=== PATIENT | female | born 1945 | race Caucasian/White ===

== ENCOUNTER 2017-04-21 07:07 | Emergency (ER) | payer OTHER ==
[2017-04-21 07:27] VITALS: BP 165/91; PULSE 102; RESP 20; TEMP 99.2; O2SAT 98
--- NOTE | 2017-04-21 07:39 | ED PDOC ---
Arrival/HPI - General Chief Complaint: ENT Problem Time Seen by Provider: 04/21/17 07:22 Historian: Patient - History of Present Illness Narrative History of Present Illness (Text): 04/21/17 07:36 72 year old female whose past medical history include hypertension and diabetes presents to the emergency department complaining of bleeding from the mouth since yesterday. Patient states she is unsure where it was coming from. Denies any pain. Denies history of bleeding disorder. Time/Duration: 24 hours Symptom Onset: Gradual Symptom Course: Unchanged Modifying Factors (Text): None Associated Symptoms (Text): None Past Medical History - Provider Review Nursing Documentation Reviewed: Yes - Reproductive Menopause: Yes - Cardiac Hx Hypertension: Yes - Endocrine/Metabolic Hx Diabetes Mellitus Type 2: Yes - Psychiatric Hx Substance Use: No Family/Social History - Physician Review Nursing Documentation Reviewed: Yes Family/Social History: Unknown Family HX Smoking Status: Unknown If Ever Smoked Hx Alcohol Use: No Hx Substance Use: No Allergies/Home Meds Allergies/Adverse Reactions: Allergies No Known Allergies Allergy (Verified 04/21/17 07:27) Home Medications: Home Meds Medication Instructions Recorded Confirmed Losartan/Hydrochlorothiazide 1 each PO DAILY 04/21/17 04/21/17 [Losartan-Hctz 100-25 mg Tab] Metoprolol Succinate [Toprol XL] 25 mg PO DAILY 04/21/17 04/21/17 Review of Systems - Review of Systems Constitutional: absent: Fevers ENT: Other (Bleeding from mouth) Hemo/Lymphatic: absent: Easy Bleeding Physical Exam Vital Signs Reviewed: Yes Vital Signs Temp Pulse Resp BP Pulse Ox 04/21/17 07:22 99.2 F 102 H 20 165/91 H 98 Temperature: Afebrile Blood Pressure: Normal Respiratory Rate: Normal Appearance: Positive for: Well-Appearing, Non-Toxic, Comfortable Pain Distress: None Mental Status: Positive for: Alert and Oriented X 3 - Systems Exam Head: Present: Atraumatic, Normocephalic Conjunctiva: Present: Normal Mouth: Present: Moist Mucous Membranes, Normal Tounge, Other (No active bleeding ) Pharnyx: Present: Normal. No: ERYTHEMA, EXUDATE Nose (External): Present: Atraumatic Nose (Internal): Present: Normal Inspection. No: No Active Bleeding Neurological: Present: GCS=15, CN II-XII Intact, Speech Normal Skin: Present: Warm, Dry, Normal Color. No: Rashes Psychiatric: Present: Alert, Oriented x 3, Normal Insight, Normal Concentration Medical Decision Making ED Course and Treatment: Impression: 72 year old female whose past medical history include hypertension and diabetes presents to the emergency department complaining of bleeding from the mouth since yesterday. Plan: -- Discharge, f/u with dentist Progress Notes: 04/21/17 07:40 Patient not complaining of any pain. No active bleeding on arrival. Bleeding disorder less likely. pt denies any other history of persistent bleeding, agnes ctive bleeding in er. Patient states she has a dentist and says she will follow up with them immediately after being discharged. 04/21/17 09:23 - Scribe Statement The provider has reviewed the documentation as recorded by the Alanna Fox Provider Scribe Attestation: All medical record entries made by the Kameronibmarj were at my direction and personally dictated by me. I have reviewed the chart and agree that the record accurately reflects my personal performance of the history, physical exam, medical decision making, and the department course for this patient. I have also personally directed, reviewed, and agree with the discharge instructions and disposition. Disposition/Present on Arrival - Present on Arrival Any Indicators Present on Arrival: No History of DVT/PE: No History of Uncontrolled Diabetes: No Urinary Catheter: No History of Decub. Ulcer: No History Surgical Site Infection Following: None - Disposition Have Diagnosis and Disposition been Completed?: Yes Diagnosis: Oral bleeding Disposition: HOME/ ROUTINE Disposition Time: 08:00 Condition: STABLE Discharge Instructions (ExitCare): Dental Caries (ED), Gingivostomatitis (ED) Additional Instructions: please see your dentist retrun to er with worsening symptoms or concerns. Referrals: Swetha Taylor MD [Primary Care Provider] - Follow up with primary
== END 2017-04-21 07:54 | disposition home or self-care (01) ==
LOC: ED 07:07
DX: K13.79 Other lesions of oral mucosa (principal)

== ENCOUNTER 2018-02-18 13:43 | Inpatient (IN) | payer OTHER ==
--- NOTE | 2018-02-18 14:50 | ED PDOC ---
Arrival/HPI - General Chief Complaint: Shortness Of Breath Time Seen by Provider: 02/18/18 14:21 Historian: Patient, Family - History of Present Illness Narrative History of Present Illness (Text): 02/18/18 14:47 72yr old female presents today with 3 day history of worsening swelling in Lower legs and abdomen. pt with decreased appetitie. pt with FERNANDEZ and chest pain with walking. pt c/o pain in lower extremities. no urinary symptoms. pt denies vomiting/diarrhea. no dizziness. pt with 3 year history of swelling in lower legs. no trauma or injury. Past Medical History - Provider Review Nursing Documentation Reviewed: Yes - Travel History Have you recently traveled outside [place] w/in the past 3 mons?: No - Infectious Disease Hx of Infectious Diseases: None - Reproductive Menopause: Yes - Cardiac Hx Hypertension: Yes - Endocrine/Metabolic Hx Diabetes Mellitus Type 2: Yes - Psychiatric Hx Substance Use: No - Anesthesia Hx Anesthesia: No Family/Social History - Physician Review Nursing Documentation Reviewed: Yes Family/Social History: Unknown Family HX Smoking Status: Unknown If Ever Smoked Hx Alcohol Use: No Hx Substance Use: No Allergies/Home Meds Allergies/Adverse Reactions: Allergies Penicillins Adverse Reaction (Verified 02/18/18 22:29) SHORTNESS OF BREATH Home Medications: Home Meds Medication Instructions Recorded Confirmed Losartan/Hydrochlorothiazide 1 each PO DAILY 04/21/17 02/18/18 [Losartan-Hctz 100-25 mg Tab] Metoprolol Succinate [Toprol XL] 25 mg PO DAILY 04/21/17 02/18/18 Aspirin [Ecotrin] 81 mg PO DAILY 02/18/18 02/18/18 Simvastatin 20 mg PO DAILY 02/18/18 02/18/18 amLODIPine [Norvasc] 10 mg PO DAILY 02/18/18 02/18/18 Review of Systems - Review of Systems Constitutional: Fatigue. absent: Fevers Respiratory: SOB, Other (FERNANDEZ) Cardiovascular: Chest Pain, Palpitations (with ambulation) Gastrointestinal: Abdominal Pain. absent: Constipation, Diarrhea, Nausea, Vomiting Genitourinary Female: absent: Dysuria, Frequency, Hematuria Musculoskeletal: Arthralgias. absent: Back Pain, Neck Pain Skin: Pruritis Neurological: absent: Headache, Dizziness Psychiatric: absent: Anxiety, Depression Physical Exam Vital Signs Reviewed: Yes Vital Signs Temp Pulse Resp BP Pulse Ox 02/18/18 19:44 100 H 18 162/93 H 97 02/18/18 17:17 116 H 20 156/85 H 98 02/18/18 15:39 20 02/18/18 14:08 98.9 F 110 H 20 155/81 H 98 Temperature: Afebrile Blood Pressure: Hypertensive Pulse: Tachycardic Respiratory Rate: Normal Appearance: Positive for: Well-Appearing, Non-Toxic, Comfortable Pain Distress: None Mental Status: Positive for: Alert and Oriented X 3 - Systems Exam Head: Present: Atraumatic Conjunctiva: Present: Normal. No: Icteric Mouth: Present: Moist Mucous Membranes Pharnyx: Present: Normal. No: ERYTHEMA, EXUDATE Nose (External): Present: Atraumatic Nose (Internal): Present: Normal Inspection Neck: Present: Normal Range of Motion Respiratory/Chest: Present: Clear to Auscultation, Good Air Exchange. No: Respiratory Distress, Accessory Muscle Use, Wheezes, Rhonchi, Tachypneic Cardiovascular: Present: Tachycardic. No: Murmurs Abdomen: Present: Distention. No: Tenderness, Peritoneal Signs, Rebound, Guarding Back: Present: Normal Inspection. No: CVA Tenderness, Midline Tenderness, Paraspinal Tenderness Upper Extremity: Present: Normal ROM Lower Extremity: Present: Edema (2+ pitting edema bilaterally. edema extending from lower legs into thighs.), NORMAL PULSES, Neurovascularly Intact. No: CALF TENDERNESS, Tenderness, Erythema Neurological: Present: GCS=15, Speech Normal Skin: Present: Warm, Dry, Rashes (excoriations noted to upper back and abdomen. ), Normal Color Psychiatric: Present: Alert, Oriented x 3 Medical Decision Making ED Course and Treatment: 02/18/18 14:52 72yr old female with swelling to abdomen and lower legs with FERNANDEZ/CP and SOB worsening over the past 3 days. cbc: hbg;10.6 cmp: bun; 22 ldh; elevated trop: wnl bnp; wnl ekg; sinus tachycardia with PACs at 125 bpm normal axis cxr; mild cardiomegaly venous duplex b/l lower legs: no dvt verbal report from US tech> ct abd/pelvis; FINDINGS: LOWER THORAX: Unremarkable. LIVER: Normal size and contour. Solitary 1.5 cm hyperdense mass in lateral segment left hepatic lobe. Nonspecific. Smooth contour. No biliary dilatation. GALLBLADDER AND BILE DUCTS: Unremarkable. PANCREAS: Unremarkable. No gross lesion or ductal dilatation. SPLEEN: Unremarkable. ADRENALS: Bilateral adrenal hypertrophy. No mass. KIDNEYS AND URETERS: Unremarkable. No hydronephrosis. No solid mass. VASCULATURE: No abdominal aortic aneurysm. Extensive varices over the lower anterior abdominal wall. Consider the possibility of inferior vena caval thrombosis. BOWEL: No bowel obstruction. Diffuse circumferential mural thickening of the transverse colon consistent with nonspecific colitis. APPENDIX: Normal appendix. PERITONEUM: Moderate ascites. LYMPH NODES: Extensive pelvic and retroperitoneal lymphadenopathy. Largest left pelvic node , up to 6.3 cm diameter. Bilateral inguinal lymphadenopathy also noted. BLADDER: Suboptimally distended. Diffusely thickened wall. Possible cystitis. Please correlate with urinalysis. REPRODUCTIVE: Status post hysterectomy. BONES: No acute fracture. Grade 1 anterolisthesis at L4-5, likely degenerative. No spondylolysis. OTHER FINDINGS: None. IMPRESSION: Ascites. Pelvic and retroperitoneal and inguinal lymphadenopathy. Lower anterior abdominal wall varices. Consider the possibility of inferior vena caval thrombosis. Diffuse mild mural thickening of the transverse colon consistent with a nonspecific colitis. Nonspecific hyperdense 1.5 cm mass in lateral segment left hepatic lobe. aortic/IVC/iliac US duplex;FINDINGS: The intrahepatic IVC is small. The infrarenal IVC is not adequately visualized. The extrahepatic portal vein is patent with hepatopetal flow. The central hepatic veins are patent. Limited imaging of the aorta is unremarkable for IMPRESSION: 1. The infrarenal IVC is not adequately visualized 02/18/18 17:41 dr. oh discussed the case with dr. munguia in depth; accepts admission for tachycardia, ascites, abnormal ct, possible CA, possible IVC thrombosis. I spoke again with dr. munguia who wants to hold off on anticoagulation; she states she discussed case with dr. maycol shane, who reviewed images and he believes there is a lymph node pushing on IVC and does not believe it is a thrombus so at this time we will not anticoagulate. all aspects of this case were discussed the attending of record. impression: ascites, tachycardia, lower leg swelling, possible malignancy admit remote tele. - Lab Interpretations Lab Results: 02/18/18 15:30 02/18/18 15:30 Lab Results 02/18/18 15:54: Urine Color Light yellow, Urine Appearance Clear, Urine pH 6.0, Ur Specific [place] 1.010, Urine Protein Negative, Urine Glucose (UA) Negative, Urine Ketones Negative, Urine Blood Negative, Urine Nitrate Negative, Urine Bilirubin Negative, Urine Urobilinogen 0.2, Ur Leukocyte Esterase Negative 02/18/18 15:30: Thyroxine (T4) 13.4 H, TSH 3rd Generation 0.74 02/18/18 15:30: pO2 47, VBG pH 7.37, VBG pCO2 45.0, VBG HCO3 26.0, VBG Total CO2 27.4, VBG O2 Sat (Calc) 85.4 H, VBG Base Excess 0.3, VBG Potassium 4.8, Sodium 138.0, Chloride 106.0, Glucose 118 H, Lactate 1.0, FiO2 21.0, Venous Blood Potassium 4.8 02/18/18 15:30: PT 13.3 H, INR 1.16 H, APTT 28.9 02/18/18 15:30: WBC 8.7, RBC 4.00, Hgb 10.6 L, Hct 32.2 L, MCV 80.5, MCH 26.5, MCHC 32.9, RDW 16.2 H, Plt Count 424, MPV 9.1, Gran % 81.3 H, Lymph % (Auto) 13.9 L, [place] % (Auto) 4.5, Eos % (Auto) 0.2 L, Baso % (Auto) 0.1, Gran # 7.04 H , Lymph # (Auto) 1.2, [place] # (Auto) 0.4, Eos # (Auto) 0.0, Baso # (Auto) 0.01 02/18/18 15:30: Sodium 140, Chloride 103, Potassium 4.7, Carbon Dioxide 25, Anion Gap 16, BUN 22 H, Creatinine 1.0, Est GFR ( Amer) > 60, Est GFR ( Non-Af Amer) 54, Random Glucose 118 H, Calcium 9.5, Total Bilirubin 0.9, Direct Bilirubin 0.3, AST 53 H, ALT 38, Alkaline Phosphatase 99, Lactate Dehydrogenase 1601 H, Total Creatine Kinase 37, Troponin I < 0.01, NT-Pro-B Natriuret Pep 182 , Total Protein 8.5 H, Albumin 4.3, Globulin 4.2, Albumin/Globulin Ratio 1.0 L - RAD Interpretation Radiology Orders: 02/18/18 14:21 CHEST PORTABLE [RAD] Stat 02/18/18 14:38 DUPLEX LOWER EXTRM VEIN BILAT [US] Stat 02/18/18 14:44 ABD & PELVIS IV CONTRAST ONLY [CT] Stat 02/18/18 17:22 AORTA, IVC, ILIAC DUPLEX [US] Stat - Medication Orders Current Medication Orders: Amlodipine Besylate (Norvasc) 10 mg PO DAILY MARTIN Aspirin (Ecotrin) 81 mg PO DAILY MARTIN Atorvastatin Calcium (Lipitor) 10 mg PO HS MARTIN Hydrochlorothiazide (Hydrodiuril) 25 mg PO DAILY MARTIN Losartan Potassium (Cozaar) 100 mg PO DAILY MARTIN Metoprolol Succinate (Toprol Xl) 25 mg PO DAILY MARTIN Pantoprazole Sodium (Protonix Ec Tab) 40 mg PO 0600 MARTIN Discontinued Medications Sodium Chloride (Sodium Chloride 0.9%) 1,000 mls @ 999 mls/hr IV .Q1H1M STA Stop: 02/18/18 18:12 Last Admin: 02/18/18 17:18 Dose: 999 mls/hr eMAR Start Stop Document 02/18/18 17:18 HI (Rec: 02/18/18 17:18 [place] [id number]) Intravenous Solution Start Date 02/18/18 Start Time 17:18 Pneumococcal Polyvalent Vaccine (Pneumovax 23 Vaccine) 0.5 ml IM .ONCE ONE Stop: 02/18/18 22:51 Disposition/Present on Arrival - Present on Arrival Any Indicators Present on Arrival: No History of DVT/PE: No History of Uncontrolled Diabetes: No Urinary Catheter: No History of Decub. Ulcer: No History Surgical Site Infection Following: None - Disposition Have Diagnosis and Disposition been Completed?: Yes Diagnosis: Ascites, Tachycardia, Swelling of lower extremity Disposition: HOSPITALIZED Disposition Time: 19:42 Patient Plan: Admission Patient Problems: Current Active Problems Problem Status Onset Ascites Acute Swelling of lower extremity Acute Tachycardia Acute Condition: SERIOUS
[2018-02-18 15:48] LABS: BASO # 0.01 K/mm3 (0.0-2.0); BASO % 0.1 % (0.0-3.0); EOS % 0.2 % (1.5-5.0); GRAN # 7.04 (1.4-6.5); GRAN % 81.3 % (50.0-68.0); HEMOGLOBIN 10.6 g/dL (12.0-16.0); LYMPH # 1.2 (1.2-3.4); LYMPH % 13.9 % (22.0-35.0); MEAN CELL VOLUME 80.5 fl (80.0-105.0); MEAN CORPUSCULAR HEMOGLOBIN 26.5 pg (25.0-35.0); MEAN CORPUSCULAR HGB CONC 32.9 g/dl (31.0-37.0); MEAN PLATELET VOLUME 9.1 fl (7.0-11.0); MONO # 0.4 (0.1-0.6); MONO % 4.5 % (1.0-6.0); RED CELL DISTRIBUTION WIDTH 16.2 % (11.5-14.5); WHITE BLOOD COUNT 8.7 10^3/ul (4.5-11.0)
[2018-02-18 15:52] LABS: VENOUS BLOOD GAS BASE EXCESS 0.3 mmol/L (0.0-2.0); VENOUS BLOOD GAS PO2 47 mm/Hg (30-55); VENOUS BLOOD PH 7.37 (7.32-7.43)
[2018-02-18 15:58] LABS: ALBUMIN 4.3 g/dL (3.0-4.8); ALT/SGPT 38 U/L (7-56); AST/SGOT 53 U/L (14-36); BILIRUBIN,DIRECT 0.3 mg/dL (0.0-0.4); BLOOD UREA NITROGEN 22 mg/dL (7-21); CALCIUM 9.5 mg/dL (8.4-10.5); GFR AFRICAN-AMERICAN > 60; GFR NON-AFRICAN AMERICAN 54
[2018-02-18 16:02] LABS: INR 1.16 (0.93-1.08); PARTIAL THROMBOPLASTIN TIME 28.9 Seconds (25.1-36.5); PROTHROMBIN TIME 13.3 SECONDS (9.4-12.5)
[2018-02-18 16:08] LABS: B-TYPE NATRIURETIC PEPTIDE 182 pg/mL (0-450); TROPONIN I < 0.01 ng/mL
[2018-02-18 16:10] LABS: URINE BILIRUBIN NEGATIVE (NEGATIVE); URINE BLOOD NEGATIVE (NEGATIVE); URINE GLUCOSE (UA) NEGATIVE (NEGATIVE); URINE LEUKOCYTE ESTERASE NEGATIVE Leu/uL (NEGATIVE); URINE PROTEIN NEGATIVE mg/dL (<30 mg/dL); URINE UROBILINOGEN 0.2 E.U./dL (<1 E.U./dL)
[2018-02-18 16:17] LABS: URINE APPEARANCE CLEAR (CLEAR); URINE COLOR LIGHT YELLOW (YELLOW)
[2018-02-18] MEDS ORDERED: Iohexol 350 MG/100 ML VIAL ONE (16:22)
--- NOTE | 2018-02-18 16:35 | US ---
HISTORY: Leg pain and swelling. Evaluate for DVT PHYSICIAN(S): Barry Schmitt MD. TECHNIQUE: Duplex sonography and color-flow Doppler with graded compression were used to evaluate the deep venous systems of both lower extremities. FINDINGS: The visualized deep venous systems of both lower extremities are sonographically normal and compressible. Normal wave forms and augmentation are seen. There is no sonographic evidence for deep venous thrombosis in the visualized segments of both lower extremities. IMPRESSION: No sonographic evidence for deep venous thrombosis in the visualized segments of both lower extremities.
--- NOTE | 2018-02-18 17:01 | RAD ---
HISTORY: SOB. COMPARISON: No prior study available comparison. FINDINGS: LUNGS: No active pulmonary disease. PLEURA: No significant pleural effusion identified, no pneumothorax apparent. CARDIOVASCULAR: Heart appears enlarged. OSSEOUS STRUCTURES: No significant abnormalities. VISUALIZED UPPER ABDOMEN: Normal. OTHER FINDINGS: None. IMPRESSION: No acute infiltrates. Mild cardiomegaly.
[2018-02-18] MEDS ORDERED: Sodium Chloride 0.9% 1,000 ML IV STA (17:12)
--- NOTE | 2018-02-18 17:16 | CT ---
PROCEDURE: CT Abdomen and Pelvis with contrast HISTORY: abd pain COMPARISON: None. TECHNIQUE: Contrast dose: 100 mL Omnipaque 350 Radiation dose: Total exam DLP = 835.40 mGy-cm. This CT exam was performed using one or more of the following dose reduction techniques: Automated exposure control, adjustment of the mA and/or kV according to patient size, and/or use of iterative reconstruction technique. FINDINGS: LOWER THORAX: Unremarkable. LIVER: Normal size and contour. Solitary 1.5 cm hyperdense mass in lateral segment left hepatic lobe. Nonspecific. Smooth contour. No biliary dilatation. GALLBLADDER AND BILE DUCTS: Unremarkable. PANCREAS: Unremarkable. No gross lesion or ductal dilatation. SPLEEN: Unremarkable. ADRENALS: Bilateral adrenal hypertrophy. No mass. KIDNEYS AND URETERS: Unremarkable. No hydronephrosis. No solid mass. VASCULATURE: No abdominal aortic aneurysm. Extensive varices over the lower anterior abdominal wall. Consider the possibility of inferior vena caval thrombosis. BOWEL: No bowel obstruction. Diffuse circumferential mural thickening of the transverse colon consistent with nonspecific colitis. APPENDIX: Normal appendix. PERITONEUM: Moderate ascites. LYMPH NODES: Extensive pelvic and retroperitoneal lymphadenopathy. Largest left pelvic node, up to 6.3 cm diameter. Bilateral inguinal lymphadenopathy also noted. BLADDER: Suboptimally distended. Diffusely thickened wall. Possible cystitis. Please correlate with urinalysis. REPRODUCTIVE: Status post hysterectomy. BONES: No acute fracture. Grade 1 anterolisthesis at L4-5, likely degenerative. No spondylolysis. OTHER FINDINGS: None. IMPRESSION: Ascites. Pelvic and retroperitoneal and inguinal lymphadenopathy. Lower anterior abdominal wall varices. Consider the possibility of inferior vena caval thrombosis. Diffuse mild mural thickening of the transverse colon consistent with a nonspecific colitis. Nonspecific hyperdense 1.5 cm mass in lateral segment left hepatic lobe.
[2018-02-18 18:11] LABS: T4 13.4 ug/dL (5.5-11.0)
--- NOTE | 2018-02-18 19:11 | US ---
PROCEDURE: 1. Duplex ultrasound of the inferior vena cava , portal vein, and segments of the aorta HISTORY: Abdominal aortic aneurysm. PHYSICIAN(S): Barry Schmitt MD. FINDINGS: The intrahepatic IVC is small. The infrarenal IVC is not adequately visualized. The extrahepatic portal vein is patent with hepatopetal flow. The central hepatic veins are patent. Limited imaging of the aorta is unremarkable for IMPRESSION: 1. The infrarenal IVC is not adequately visualized
--- NOTE | 2018-02-18 19:58 | CP.PCM.HP ---
<Sid Xie - Last Filed: 02/18/18 21:33> History of Present Illness - History of Present Illness History of Present Illness: Medicine H&P: Dr. Porter Chief Complaint: Abdominal swelling HPI: 72 year old Macedonian speaking female with past medical history of hyperlipidemia, hypertension, and diabetes that was only diagnosed in the last two years presents with one week of abdominal distension. Patient's son at bedside providing history. Patient's son states that patient does not have any pain associated with the distension but that she is short of breath and feels like her lungs are filling up with water when she tries to take a deep breath. Patient denies any cardiac history and has never had any cardiac workup including echo, stress, or cath. Patient denies any fevers, chills, nausea, vomiting, recent illness. Patient's son denies any color change or jaundice. Review of Systems: 12 point ROS obtained and negative except as per HPI Surgical History: Hysterectomy Medical History: Hyperlipidemia, Hypertension, Diabetes Allergies: NKDA Social History: Patient denies alcohol, tobacco, illicits Home Meds: Metoprolol, ASA, Simvastatin, Norvasc, Losartan/HCTZ Family History: No history of cancer PMD: None Present on Admission - Present on Admission Any Indicators Present on Admission: No Past Patient History - Infectious Disease Hx of Infectious Diseases: None - Past Social History Smoking Status: Unknown If Ever Smoked - CARDIAC Hx Hypertension: Yes - ENDOCRINE/METABOLIC Hx Diabetes Mellitus Type 2: Yes - PSYCHIATRIC Hx Substance Use: No - ANESTHESIA Hx Anesthesia: No Meds Allergies/Adverse Reactions: Allergies Allergy/AdvReac Type Severity Reaction Status Date / Time Penicillins AdvReac SHORTNESS Verified 02/18/18 22:29 OF BREATH Physical Exam - Constitutional Appears: Well - Head Exam Head Exam: ATRAUMATIC, NORMAL INSPECTION, NORMOCEPHALIC - Eye Exam Eye Exam: EOMI, Normal appearance, PERRL Pupil Exam: NORMAL ACCOMODATION, PERRL - ENT Exam ENT Exam: Mucous Membranes Moist, Normal Exam - Neck Exam Neck exam: Positive for: Normal Inspection - Respiratory Exam Respiratory Exam: Clear to Auscultation Bilateral, NORMAL BREATHING PATTERN - Cardiovascular Exam Cardiovascular Exam: REGULAR RHYTHM - GI/Abdominal Exam GI & Abdominal Exam: Normal Bowel Sounds, Soft. absent: Tenderness - Extremities Exam Extremities exam: Positive for: normal inspection - Back Exam Back exam: NORMAL INSPECTION - Neurological Exam Neurological exam: Alert, CN II-XII Intact, Normal Gait, Oriented x3, Reflexes Normal - Psychiatric Exam Psychiatric exam: Normal Affect, Normal Mood - Skin Skin Exam: Dry, Intact, Normal Color, Warm Results - Vital Signs Recent Vital Signs: Last Vital Signs Temp 98.9 F 02/18/18 14:08 Pulse 100 H 02/18/18 19:44 Resp 18 02/18/18 19:44 BP 162/93 H 02/18/18 19:44 Pulse Ox 97 02/18/18 19:44 - Labs Result Diagrams: 02/18/18 15:30 02/18/18 15:30 Assessment & Plan - Assessment and Plan (Free Text) Assessment: 72 year old female without pertinent past medical history presents with 1 week of abdominal swelling. Per Dr. Barry Schmitt, no clots despite what the imaging report says. Dr. Schmitt will perform a biopsy. CT Abdomen pelvis shows fluid around the liver along with a 1.5 cm mass in the lower hepatic pole. Patient's labs reveal elevated coags and mild anemia. Plan Abdominal distension, likely 2/2 cyst VS malignancy - AFP, CEA, CA 19-9, CA 125 ordered - Dr. Barry Schmitt on consult Elevated INR, Possibly 2/2 Liver Mass - Hold anticoagulation - patient also possibly getting procedure tomorrow Asymptomatic Anemia - Iron studies History of Hypertension - Continue home Norvasc, Cozaar, Toprol XL, HCTZ History of Hyperlipidemia - Continue Lipitor; ASA on hold History of Diabetes - Patient not on any home medications GI/DVT Prophylaxis - Protonix/SCD's - Do NOT give anticoagulants <Bee Porter - Last Filed: 02/19/18 14:44> Results - Vital Signs Recent Vital Signs: Last Vital Signs Temp 98.1 F 02/19/18 08:27 Pulse 97 H 02/19/18 10:00 Resp 18 02/19/18 08:27 BP 148/95 H 02/19/18 12:00 Pulse Ox 97 02/19/18 08:27 - Labs Result Diagrams: 02/19/18 05:30 02/19/18 05:30 Labs: Laboratory Results - last 24 hr 02/19/18 02/19/18 02/19/18 05:30 05:30 05:30 WBC RBC Hgb Hct MCV MCH MCHC RDW Plt Count MPV Gran % Lymph % (Auto) [place] % (Auto) Eos % (Auto) Baso % (Auto) Gran # Lymph # (Auto) [place] # (Auto) Eos # (Auto) Baso # (Auto) Sodium Potassium Chloride Carbon Dioxide Anion Gap BUN Creatinine Est GFR ( Amer) Est GFR (Non-Af Amer) POC Glucose (mg/dL) Random Glucose Calcium Iron TIBC % Saturation Ferritin Total Bilirubin AST ALT Alkaline Phosphatase Total Protein Albumin Globulin Albumin/Globulin Ratio Alpha Fetoprotein 2.7 Carcinoembryonic Ag 0.7 CA 19-9 Antigen 5.9 CA 125 Antigen 3360 H 02/19/18 02/19/18 02/19/18 05:30 05:30 05:30 WBC 6.9 D RBC 4.08 Hgb 10.6 L Hct 33.0 L MCV 80.9 MCH 26.0 MCHC 32.1 RDW 16.6 H Plt Count 440 MPV 9.3 Gran % 64.7 Lymph % (Auto) 26.6 [place] % (Auto) 7.1 H Eos % (Auto) 1.3 L Baso % (Auto) 0.3 Gran # 4.44 Lymph # (Auto) 1.8 [place] # (Auto) 0.5 Eos # (Auto) 0.1 Baso # (Auto) 0.02 Sodium 141 Potassium 3.8 Chloride 106 Carbon Dioxide 25 Anion Gap 14 BUN 19 Creatinine 1.0 Est GFR ( Amer) > 60 Est GFR (Non-Af Amer) 54 POC Glucose (mg/dL) Random Glucose 119 H Calcium 9.4 Iron 30 L TIBC 260 L % Saturation 12 L Ferritin 78.8 Total Bilirubin 1.1 AST 49 H ALT 23 Alkaline Phosphatase 84 Total Protein 7.8 Albumin 3.7 Globulin 4.0 Albumin/Globulin Ratio 0.9 L Alpha Fetoprotein Carcinoembryonic Ag CA 19-9 Antigen CA 125 Antigen 02/19/18 05:30 WBC RBC Hgb Hct MCV MCH MCHC RDW Plt Count MPV Gran % Lymph % (Auto) [place] % (Auto) Eos % (Auto) Baso % (Auto) Gran # Lymph # (Auto) [place] # (Auto) Eos # (Auto) Baso # (Auto) Sodium Potassium Chloride Carbon Dioxide Anion Gap BUN Creatinine Est GFR ( Amer) Est GFR (Non-Af Amer) POC Glucose (mg/dL) 96 Random Glucose Calcium Iron TIBC % Saturation Ferritin Total Bilirubin AST ALT Alkaline Phosphatase Total Protein Albumin Globulin Albumin/Globulin Ratio Alpha Fetoprotein Carcinoembryonic Ag CA 19-9 Antigen CA 125 Antigen Attending/Attestation - Attestation I have personally seen and examined this patient.: Yes I have fully participated in the care of the patient.: Yes I have reviewed all pertinent clinical information: Yes Notes (Text): 02/19/18 14:26 Attending note; Patient seen and examined with resident. Patient is a 72 year old Macedonian speaking female with past medical history of hyperlipidemia, hypertension, and diabetes that was only diagnosed in the last two years presents with one week of abdominal distension. Patient with a previous history of hysterectomy for bleeding over [address] abdomen and pelvis showed ascites and pelvic and retroperitoneal lymphadenopathy. Ultrasound did not show any portal vein or hepatic vein thrombosis. CT and ultrasound reviewed with Dr. Barry Schmitt. Plan for lymph node biopsy. Hypertension; continue medications. Diabetes; continue regular insulin sliding scale. CAT scan finding reviewed with patient's sons in detail. Upon discharge the patient will follow-up with PMD Dr. neely.
--- NOTE | 2018-02-18 22:06 | CARD ---
APPROVED REPORT EKG Measurement Heart [id number] <Conclusion> Sinus tachycardia with premature atrial complexes Low voltage QRS Borderline ECG
[2018-02-18 22:50] VITALS: BMI 30.2
[2018-02-18] MEDS ORDERED: Pneumococcal 23-Valent Vaccine IM ONE (22:50)
[2018-02-19] MEDS: Pantoprazole 40 mg EC Tab PO SCH (06:17)
[2018-02-19 06:33] LABS: GRAN % 64.7 % (50.0-68.0); HEMOGLOBIN 10.6 g/dL (12.0-16.0); LYMPH % 26.6 % (22.0-35.0); MEAN CELL VOLUME 80.9 fl (80.0-105.0); MEAN CORPUSCULAR HGB CONC 32.1 g/dl (31.0-37.0); MEAN PLATELET VOLUME 9.3 fl (7.0-11.0); RBC 4.08 10^6/uL (3.5-6.1); RED CELL DISTRIBUTION WIDTH 16.6 % (11.5-14.5); WHITE BLOOD COUNT 6.9 10^3/ul (4.5-11.0)
[2018-02-19 06:34] LABS: BASO # 0.02 K/mm3 (0.0-2.0); BASO % 0.3 % (0.0-3.0); EOS # 0.1 (0.0-0.7); EOS % 1.3 % (1.5-5.0); GRAN # 4.44 (1.4-6.5); LYMPH # 1.8 (1.2-3.4); MONO # 0.5 (0.1-0.6); MONO % 7.1 % (1.0-6.0)
[2018-02-19 07:01] LABS: IRON 30 ug/dL (45-180)
[2018-02-19 07:10] LABS: % IRON SATURATION 12 % (20-55); TOTAL IRON BINDING CAPACITY 260 ug/dL (265-497)
[2018-02-19 07:36] LABS: ALB/GLOB RATIO 0.9 (1.1-1.8); ALBUMIN 3.7 g/dL (3.0-4.8); ALT/SGPT 23 U/L (7-56); AST/SGOT 49 U/L (14-36); BLOOD UREA NITROGEN 19 mg/dL (7-21); CALCIUM 9.4 mg/dL (8.4-10.5); GFR AFRICAN-AMERICAN > 60; GFR NON-AFRICAN AMERICAN 54
[2018-02-19] MEDS: Metoprolol Succinate 25 mg XL Tab PO SCH (09:04)
[2018-02-19 13:09] LABS: FERRITIN 78.8 ng/mL
--- NOTE | 2018-02-19 15:48 | CP.PCM.PN ---
"<AdolfomalikaAbdirashidmagi - Last Filed: 02/19/18 15:45> Subjective - Date & Time of Evaluation Date of Evaluation: 02/19/18 Time of Evaluation: 15:45 - Subjective Subjective: Patient seen and examined at bedside. No overnight events reported. Patient has no complaints at this time. She denies any headache, dizziness, chest pain, SOB , abdominal pain, n/v/d, constipation or urinary symptoms. Objective - Vital Signs/Intake and Output Vital Signs (last 24 hours): Temp Pulse Resp BP Pulse Ox 98.1 F 98 H 18 148/95 H 97 02/19/18 08:27 02/19/18 14:00 02/19/18 08:27 02/19/18 12:00 02/19/18 08:27 Intake and Output: 02/19/18 02/19/18 06:59 18:59 Intake Total 240 120 Balance 240 120 - Medications Medications: Current Medications Acetaminophen (Tylenol 325mg Tab) 650 mg PO Q6H PRN PRN Reason: Headache Amlodipine Besylate (Norvasc) 10 mg PO DAILY [facility] Last Admin: 02/19/18 09:05 Dose: 10 mg Aspirin (Ecotrin) 81 mg PO DAILY [facility] Last Admin: 02/19/18 09:05 Dose: 81 mg Atorvastatin Calcium (Lipitor) 10 mg PO HS [facility] Furosemide (Lasix) 40 mg IVP DAILY [facility] Hydrochlorothiazide (Hydrodiuril) 25 mg PO DAILY [facility] Last Admin: 02/19/18 09:05 Dose: 25 mg Losartan Potassium (Cozaar) 100 mg PO DAILY [facility] Last Admin: 02/19/18 09:05 Dose: 100 mg Metoprolol Succinate (Toprol Xl) 25 mg PO DAILY [facility] Last Admin: 02/19/18 09:04 Dose: 25 mg Pantoprazole Sodium (Protonix Ec Tab) 40 mg PO 0600 [facility] Last Admin: 02/19/18 06:17 Dose: 40 mg - Labs Labs: 02/19/18 05:30 02/19/18 05:30 PT 13.3 SECONDS (9.4-12.5) H 02/18/18 15:30 INR 1.16 (0.93-1.08) H 02/18/18 15:30 APTT 28.9 Seconds (25.1-36.5) 04/18/18 15:30 - Constitutional Appears: Well, Non-toxic, No Acute Distress - Head Exam Head Exam: ATRAUMATIC, NORMAL INSPECTION, NORMOCEPHALIC - Eye Exam Eye Exam: EOMI, Normal appearance - ENT Exam ENT Exam: Mucous Membranes Moist - Neck Exam Neck Exam: Normal Inspection - Respiratory Exam Respiratory Exam: Clear to Ausculation Bilateral, NORMAL BREATHING PATTERN. absent: Rales, Rhonchi, Wheezes - Cardiovascular Exam Cardiovascular Exam: RRR, +S1, +S2. absent: JVD - GI/Abdominal Exam GI & Abdominal Exam: Distended, Soft, Normal Bowel Sounds. absent: Bruit, Firm , Guarding, Rigid, Tenderness, Hernia, Mass, Organomegaly Additional comments: Tympanic - Extremities Exam Extremities Exam: Normal Capillary Refill. absent: Pedal Edema - Neurological Exam Neurological Exam: Alert, Awake, Oriented x3 - Psychiatric Exam Psychiatric exam: Normal Affect, Normal Mood - Skin Skin Exam: Dry, Intact, Normal Color, Warm Assessment and Plan - Assessment and Plan (Free Text) Assessment: 72 year old female without pertinent past medical history presents with 1 week of abdominal swelling. Per Dr. Barry Schmitt, no clots despite what the imaging report says. Dr. Schmitt will perform a biopsy. CT Abdomen pelvis shows fluid around the liver along with a 1.5 cm mass in the lower hepatic pole. Patient's labs reveal elevated coags and mild anemia. CT Abd/Pelvis (Adm): Ascites. Pelvic and retroperitoneal and inguinal lymphadenopathy. Lower anterior abdominal wall varices. Consider the possibility of inferior vena caval thrombosis. Diffuse mild mural thickening of the transverse colon consistent with a nonspecific colitis. Nonspecific hyperdense 1.5 cm mass in lateral segment left hepatic lobe. Aorta US (Adm): The infrarenal IVC is not adequately visualized Lower Ext US (Adm): No evidence of DVT Plan: Abdominal distension, likely 2/2 cyst VS malignancy - AFP, CEA, CA 19-9, CA 125 ordered. AFP - 2.7 (Normal) | CEA - 0.7 (Normal) | CA 19-9 - 5.9 (Normal) | CA-125 - 3360 (Elevated) - Dr. Barry Schmitt on consult, recs appreciated Plan for biopsy tomorrow Elevated INR, Possibly 2/2 Liver Mass - Hold anticoagulation - patient also possibly getting procedure tomorrow Asymptomatic Anemia Iron - 30 | TIBC - 260 | %Sat 12 | Ferritin 78.8 HgB Stable at 10.6 History of Hypertension - Continue home Norvasc, Cozaar, Toprol XL, HCTZ History of Hyperlipidemia - Continue Lipitor; ASA on hold History of Diabetes - Patient not on any home medications Elevated Free T4/Normal TSH Consider repeat thyroid studies GI/DVT Prophylaxis - Protonix/SCD's - Do NOT give anticoagulants Patient seen and discussed with Attending Pretty Hutton, PGY-1 <Bee Porter - Last Filed: 02/20/18 17:36> Objective - Vital Signs/Intake and Output Vital Signs (last 24 hours): Temp Pulse Resp BP Pulse Ox 98 F 82 14 129/75 99 02/20/18 15:01 02/20/18 15:01 02/20/18 15:01 02/20/18 15:01 02/20/18 15:01 Intake and Output: 02/20/18 02/20/18 06:59 18:59 Intake Total 480 125 Balance 480 125 - Medications Medications: Current Medications Acetaminophen (Tylenol 325mg Tab) 650 mg PO Q6H PRN PRN Reason: Headache Amlodipine Besylate (Norvasc) 10 mg PO DAILY [facility] Last Admin: 02/20/18 09:06 Dose: 10 mg Aspirin (Ecotrin) 81 mg PO DAILY [facility] Last Admin: 02/19/18 09:05 Dose: 81 mg Atorvastatin Calcium (Lipitor) 10 mg PO HS [facility] Last Admin: 02/19/18 21:22 Dose: 10 mg Furosemide (Lasix) 40 mg IVP DAILY [facility] Last Admin: 02/20/18 09:06 Dose: 40 mg Hydrochlorothiazide (Hydrodiuril) 25 mg PO DAILY [facility] Last Admin: 02/20/18 09:06 Dose: 25 mg Sodium Chloride (Sodium Chloride 0.45%) 1,000 mls @ 80 mls/hr IV .[id number] [facility] Stop: 02/20/18 20:00 Losartan Potassium (Cozaar) 100 mg PO DAILY [facility] Last Admin: 02/20/18 09:06 Dose: 100 mg Metoprolol Succinate (Toprol Xl) 25 mg PO DAILY [facility] Last Admin: 02/20/18 09:07 Dose: 25 mg Pantoprazole Sodium (Protonix Ec Tab) 40 mg PO 0600 [facility] Last Admin: 02/20/18 05:29 Dose: 40 mg - Labs Labs: 02/20/18 07:00 02/20/18 06:00 PT 13.3 SECONDS (9.4-12.5) H 02/18/18 15:30 INR 1.16 (0.93-1.08) H 02/18/18 15:30 APTT 28.9 Seconds (25.1-36.5) 02/18/18 15:30 Attending/Attestation - Attestation I have personally seen and examined this patient.: Yes I have fully participated in the care of the patient.: Yes I have reviewed all pertinent clinical information, including history, physical exam and plan: Yes Notes (Text): 02/20/18 17:34 Attending note; Patient seen and examined with resident. Patient is a 72 year old Wol[place] speaking female with past medical history of hyperlipidemia, hypertension, and diabetes that was only diagnosed in the last two years presents with one week of abdominal distension. Patient with a previous history of hysterectomy for bleeding over [address] abdomen and pelvis showed ascites and pelvic and retroperitoneal lymphadenopathy. Ultrasound did not show any portal vein or hepatic vein thrombosis. CT and ultrasound reviewed with Dr. Barry Schmitt. Plan for lymph node biopsy possible paracentesis. GI evaluation requested. CEA, AFP, CA 19-9 is negative. CA-125 is elevated. Case discussed with oncology in detail. Hypertension; continue medications. Diabetes; continue regular insulin sliding scale. Upon discharge the patient will follow-up with PMD Dr. neely. 02/20/18 17:35"
[2018-02-20] MEDS: Pantoprazole 40 mg EC Tab PO SCH (05:29)
[2018-02-20 07:00] LABS: BASO # 0.02 K/mm3 (0.0-2.0); BASO % 0.3 % (0.0-3.0); EOS # 0.1 (0.0-0.7); EOS % 1.6 % (1.5-5.0); GRAN # 4.5 (1.4-6.5); GRAN % 59.5 % (50.0-68.0); HEMOGLOBIN 10.1 g/dL (12.0-16.0); LYMPH # 2.2 (1.2-3.4); LYMPH % 29.1 % (22.0-35.0); MEAN CELL VOLUME 79.8 fl (80.0-105.0); MEAN CORPUSCULAR HEMOGLOBIN 25.8 pg (25.0-35.0); MEAN CORPUSCULAR HGB CONC 32.4 g/dl (31.0-37.0); MONO # 0.7 (0.1-0.6); MONO % 9.5 % (1.0-6.0); RBC 3.91 10^6/uL (3.5-6.1); RED CELL DISTRIBUTION WIDTH 16.5 % (11.5-14.5); WHITE BLOOD COUNT 7.6 10^3/ul (4.5-11.0)
[2018-02-20 07:17] LABS: ALB/GLOB RATIO 0.9 (1.1-1.8); ALBUMIN 3.7 g/dL (3.0-4.8); CALCIUM 9.2 mg/dL (8.4-10.5)
[2018-02-20] MEDS: Metoprolol Succinate 25 mg XL Tab PO SCH (09:07)
--- NOTE | 2018-02-20 10:15 | CP.PCM.CON ---
<Hunter Fernandes - Last Filed: 02/20/18 10:26> History of Present Illness - History of Present Illness History of Present Illness: Initial PGY4 GI Consult Note Stan Keenan is a 72 year old Urdu speaking female with past medical history of hyperlipidemia, hypertension, and diabetes who presented to the Er with abdominal distenstion. Patient's sons were at bedside and helping with translation providing history. Patient's son states that patient does not have any pain associated with the distension but notes SOB when she tries to take a deep breath. Patient denies any fevers, chills, nausea, vomiting, recent illness. Patient's son denies any color change or jaundice. Pt has been having progressive abd distention for a few months. She does not recall prior hepatitis testing. Ct revealed a 1.5cm left hepatic lobe lesion, ascites and pelvic and retroperitoneal lymphadenopathy. Ultrasound did not show any portal vein or hepatic vein thrombosis. Review of Systems: 12 point ROS obtained and negative except as per HPI Surgical History: Hysterectomy Medical History: Hyperlipidemia, Hypertension, Diabetes Social History: Patient denies alcohol, tobacco, illicits Family History: Reviewed; No history of GI related diseases or cancer Endo hx: denies ROS: 12 point ROS conducted, neg other than above Past Patient History - Infectious Disease Hx of Infectious Diseases: None - Past Social History Smoking Status: Unknown If Ever Smoked - CARDIAC Hx Hypertension: Yes - PULMONARY Hx Respiratory Disorders: No - NEUROLOGICAL Hx Neurological Disorder: No - HEENT Hx HEENT Problems: No - RENAL Hx Chronic Kidney Disease: No - ENDOCRINE/METABOLIC Hx Diabetes Mellitus Type 2: Yes - HEMATOLOGICAL/ONCOLOGICAL Hx Blood Disorders: No - INTEGUMENTARY Hx Dermatological Problems: Yes Other/Comment: 02-18-18 BILATERAL LEG EDEMA +4. ASCITES - MUSCULOSKELETAL/RHEUMATOLOGICAL Hx Musculoskeletal Disorders: No Hx Falls: No - GASTROINTESTINAL Hx Gastrointestinal Disorders: No - GENITOURINARY/GYNECOLOGICAL Hx Genitourinary Disorders: Yes (HYSTERECTOMY) - PSYCHIATRIC Hx Substance Use: No - SURGICAL HISTORY Hx Surgeries: Yes Hx Hysterectomy: Yes - ANESTHESIA Hx Anesthesia: No Meds Allergies/Adverse Reactions: Allergies Allergy/AdvReac Type Severity Reaction Status Date / Time Penicillins AdvReac SHORTNESS Verified 02/18/18 22:29 OF BREATH - Medications Medications: Current Medications Acetaminophen (Tylenol 325mg Tab) 650 mg PO Q6H PRN PRN Reason: Headache Amlodipine Besylate (Norvasc) 10 mg PO DAILY [facility] Last Admin: 02/20/18 09:06 Dose: 10 mg Aspirin (Ecotrin) 81 mg PO DAILY [facility] Last Admin: 02/19/18 09:05 Dose: 81 mg Atorvastatin Calcium (Lipitor) 10 mg PO HS [facility] Last Admin: 02/19/18 21:22 Dose: 10 mg Furosemide (Lasix) 40 mg IVP DAILY [facility] Last Admin: 02/20/18 09:06 Dose: 40 mg Hydrochlorothiazide (Hydrodiuril) 25 mg PO DAILY [facility] Last Admin: 02/20/18 09:06 Dose: 25 mg Losartan Potassium (Cozaar) 100 mg PO DAILY [facility] Last Admin: 02/20/18 09:06 Dose: 100 mg Metoprolol Succinate (Toprol Xl) 25 mg PO DAILY [facility] Last Admin: 02/20/18 09:07 Dose: 25 mg Pantoprazole Sodium (Protonix Ec Tab) 40 mg PO 0600 [facility] Last Admin: 02/20/18 05:29 Dose: 40 mg Physical Exam - Constitutional Appears: Well, No Acute Distress - Head Exam Head Exam: ATRAUMATIC, NORMOCEPHALIC - Eye Exam Eye Exam: Normal appearance. absent: Scleral icterus - ENT Exam ENT Exam: Mucous Membranes Moist, Normal Exam - Neck Exam Neck exam: Positive for: Normal Inspection - Respiratory Exam Respiratory Exam: Clear to Auscultation Bilateral, NORMAL BREATHING PATTERN. absent: Rhonchi, Wheezes, Respiratory Distress, Stridor - Cardiovascular Exam Cardiovascular Exam: REGULAR RHYTHM, +S1, +S2 - GI/Abdominal Exam GI & Abdominal Exam: Distended, Normal Bowel Sounds. absent: Diminished Bowel Sounds, Firm, Guarding, Hernia, Organomegaly, Rebound, Rigid, Tenderness - Extremities Exam Extremities exam: Positive for: pedal edema. Negative for: joint swelling - Neurological Exam Neurological exam: Alert, Oriented x3 - Psychiatric Exam Psychiatric exam: Normal Affect, Normal Mood - Skin Skin Exam: Dry, Intact, Normal Color, Warm Results - Vital Signs Recent Vital Signs: Last Vital Signs Temp 98.1 F 02/20/18 06:00 Pulse 95 H 02/20/18 06:00 Resp 20 02/20/18 06:00 BP 134/82 02/20/18 09:06 Pulse Ox 96 02/20/18 06:00 - Labs Result Diagrams: 02/20/18 07:00 02/20/18 06:00 Labs: Laboratory Results - last 24 hr 02/19/18 02/19/18 02/19/18 05:30 05:30 05:30 WBC RBC Hgb Hct MCV MCH MCHC RDW Plt Count MPV Gran % Lymph % (Auto) Daggett % (Auto) Eos % (Auto) Baso % (Auto) Gran # Lymph # (Auto) Daggett # (Auto) Eos # (Auto) Baso # (Auto) Sodium Potassium Chloride Carbon Dioxide Anion Gap BUN Creatinine Est GFR ( Amer) Est GFR (Non-Af Amer) Random Glucose Calcium Ferritin Total Bilirubin AST ALT Alkaline Phosphatase Total Protein Albumin Globulin Albumin/Globulin Ratio Alpha Fetoprotein 2.7 Carcinoembryonic Ag 0.7 CA 19-9 Antigen 5.9 CA 125 Antigen 3360 H Beta HCG, Quant 02/19/18 02/20/18 02/20/18 05:30 06:00 06:00 WBC RBC Hgb Hct MCV MCH MCHC RDW Plt Count MPV Gran % Lymph % (Auto) Daggett % (Auto) Eos % (Auto) Baso % (Auto) Gran # Lymph # (Auto) Daggett # (Auto) Eos # (Auto) Baso # (Auto) Sodium 140 Potassium 4.1 Chloride 103 Carbon Dioxide 30 Anion Gap 12 BUN 21 Creatinine 1.2 Est GFR ( Amer) 53 Est GFR (Non-Af Amer) 44 Random Glucose 119 H Calcium 9.2 Ferritin 78.8 Total Bilirubin 1.0 AST 45 H ALT 28 Alkaline Phosphatase 78 Total Protein 7.7 Albumin 3.7 Globulin 3.9 Albumin/Globulin Ratio 0.9 L Alpha Fetoprotein Carcinoembryonic Ag CA 19-9 Antigen CA 125 Antigen Beta HCG, Quant < 2.39 02/20/18 07:00 WBC 7.6 RBC 3.91 Hgb 10.1 L Hct 31.2 L MCV 79.8 L MCH 25.8 MCHC 32.4 RDW 16.5 H Plt Count 450 MPV 9.0 Gran % 59.5 Lymph % (Auto) 29.1 Daggett % (Auto) 9.5 H Eos % (Auto) 1.6 Baso % (Auto) 0.3 Gran # 4.50 Lymph # (Auto) 2.2 Daggett # (Auto) 0.7 H Eos # (Auto) 0.1 Baso # (Auto) 0.02 Sodium Potassium Chloride Carbon Dioxide Anion Gap BUN Creatinine Est GFR ( Amer) Est GFR (Non-Af Amer) Random Glucose Calcium Ferritin Total Bilirubin AST ALT Alkaline Phosphatase Total Protein Albumin Globulin Albumin/Globulin Ratio Alpha Fetoprotein Carcinoembryonic Ag CA 19-9 Antigen CA 125 Antigen Beta HCG, Quant Assessment & Plan - Assessment and Plan (Free Text) Assessment: Stan Keenan is a 72F w/ hx of DM, HTn who presents with abd distention. CT revealed a left hepatic lobe lesion 1.5cm, ascites, and enlarged lymph nodes. Abd distention Ascities Hepatic lesion Eleavated Ca 125 Plan: -recommend hepatitis profile -will eventually need triple phase once renal function improves -waiting on IR -recommend viral hep seriologies -advance diet as toerated -consider [employer] cx based on path -will need diagnoistic and theuraputic abd paracentesis -will need out colonoscopy D/W Dr. Garza <Latrell Garza - Last Filed: 02/20/18 10:42> Meds - Medications Medications: Current Medications Acetaminophen (Tylenol 325mg Tab) 650 mg PO Q6H PRN PRN Reason: Headache Amlodipine Besylate (Norvasc) 10 mg PO DAILY [facility] Last Admin: 02/20/18 09:06 Dose: 10 mg Aspirin (Ecotrin) 81 mg PO DAILY [facility] Last Admin: 02/19/18 09:05 Dose: 81 mg Atorvastatin Calcium (Lipitor) 10 mg PO HS [facility] Last Admin: 02/19/18 21:22 Dose: 10 mg Furosemide (Lasix) 40 mg IVP DAILY [facility] Last Admin: 02/20/18 09:06 Dose: 40 mg Hydrochlorothiazide (Hydrodiuril) 25 mg PO DAILY [facility] Last Admin: 02/20/18 09:06 Dose: 25 mg Losartan Potassium (Cozaar) 100 mg PO DAILY [facility] Last Admin: 02/20/18 09:06 Dose: 100 mg Metoprolol Succinate (Toprol Xl) 25 mg PO DAILY [facility] Last Admin: 02/20/18 09:07 Dose: 25 mg Pantoprazole Sodium (Protonix Ec Tab) 40 mg PO 0600 [facility] Last Admin: 02/20/18 05:29 Dose: 40 mg Results - Vital Signs Recent Vital Signs: Last Vital Signs Temp 98.1 F 02/20/18 06:00 Pulse 95 H 02/20/18 06:00 Resp 20 02/20/18 06:00 BP 134/82 02/20/18 09:06 Pulse Ox 96 02/20/18 06:00 - Labs Result Diagrams: 02/20/18 07:00 02/20/18 06:00 Labs: Laboratory Results - last 24 hr 02/19/18 02/19/18 02/19/18 05:30 05:30 05:30 WBC RBC Hgb Hct MCV MCH MCHC RDW Plt Count MPV Gran % Lymph % (Auto) Daggett % (Auto) Eos % (Auto) Baso % (Auto) Gran # Lymph # (Auto) Daggett # (Auto) Eos # (Auto) Baso # (Auto) Sodium Potassium Chloride Carbon Dioxide Anion Gap BUN Creatinine Est GFR ( Amer) Est GFR (Non-Af Amer) Random Glucose Calcium Ferritin Total Bilirubin AST ALT Alkaline Phosphatase Total Protein Albumin Globulin Albumin/Globulin Ratio Alpha Fetoprotein 2.7 Carcinoembryonic Ag 0.7 CA 19-9 Antigen 5.9 CA 125 Antigen 3360 H Beta HCG, Quant 02/19/18 02/20/18 02/20/18 05:30 06:00 06:00 WBC RBC Hgb Hct MCV MCH MCHC RDW Plt Count MPV Gran % Lymph % (Auto) Daggett % (Auto) Eos % (Auto) Baso % (Auto) Gran # Lymph # (Auto) Daggett # (Auto) Eos # (Auto) Baso # (Auto) Sodium 140 Potassium 4.1 Chloride 103 Carbon Dioxide 30 Anion Gap 12 BUN 21 Creatinine 1.2 Est GFR ( Amer) 53 Est GFR (Non-Af Amer) 44 Random Glucose 119 H Calcium 9.2 Ferritin 78.8 Total Bilirubin 1.0 AST 45 H ALT 28 Alkaline Phosphatase 78 Total Protein 7.7 Albumin 3.7 Globulin 3.9 Albumin/Globulin Ratio 0.9 L Alpha Fetoprotein Carcinoembryonic Ag CA 19-9 Antigen CA 125 Antigen Beta HCG, Quant < 2.39 02/20/18 07:00 WBC 7.6 RBC 3.91 Hgb 10.1 L Hct 31.2 L MCV 79.8 L MCH 25.8 MCHC 32.4 RDW 16.5 H Plt Count 450 MPV 9.0 Gran % 59.5 Lymph % (Auto) 29.1 Daggett % (Auto) 9.5 H Eos % (Auto) 1.6 Baso % (Auto) 0.3 Gran # 4.50 Lymph # (Auto) 2.2 Daggett # (Auto) 0.7 H Eos # (Auto) 0.1 Baso # (Auto) 0.02 Sodium Potassium Chloride Carbon Dioxide Anion Gap BUN Creatinine Est GFR ( Amer) Est GFR (Non-Af Amer) Random Glucose Calcium Ferritin Total Bilirubin AST ALT Alkaline Phosphatase Total Protein Albumin Globulin Albumin/Globulin Ratio Alpha Fetoprotein Carcinoembryonic Ag CA 19-9 Antigen CA 125 Antigen Beta HCG, Quant Attending/Attestation - Attestation I have personally seen and examined this patient.: Yes I have fully participated in the care of the patient.: Yes I have reviewed all pertinent clinical information: Yes Notes (Text): 02/20/18 10:36 I have seen and examined patient with GI fellow. Agree with above documentation with the following additions. In brief, this is a 72 year old female with history of DM, HTN, hyperlipidemia who presents to hospital with complaint of progressive increase in abdominal girth along with dyspnea on exertion for the past 3 days. She has been having slowly increasing abdominal girth for the past 1 month, though most pronounced over past 3 days. She denies associated abdominal pain, nausea, vomiting, fever/chills. She does report loss of appetite along with subjective weight loss. No prior history of liver disease, no prior endoscopic evaluation. Review of vitals from today are normal. DM HTN Hyperlipidemia Progressive abdominal girth, dyspnea - ascites CT and US imaging reviewed by me showing significant pelvic/retroperitoneal adenopathy along with L hepatic lobe lesion - Liquid diet as tolerated - Case discussed with family members at bedside, patient's sister with history of colon cancer - Clinical scenario with adenopathy and ascites along with elevated CA-125 suggestive of underlying malignancy. Patient scheduled for IR guided biopsy and paracentesis for diagnostic purposes today - Obtain viral hepatitis panel - Patient would eventually benefit from triple phase liver CT when renal function improves - Suggest outpatient colonoscopy given family history of cancer as outpatient following resolution of acute medical issues - Will continue to monitor patient clinical course
--- NOTE | 2018-02-20 12:34 | CARD ---
APPROVED REPORT EXAM: Two-dimensional and M-mode echocardiogram with Doppler and color Doppler. INDICATION LVFX 2D DIMENSIONS Left Atrium (2D)3.6 (1.6-4.0cm)IVSd1.1 (0.7-1.1cm) LVDd3.5 (3.9-5.9cm)PWd1.1 (0.7-1.1cm) LVDs2.5 (2.5-4.0cm)FS (%) 29.4 % LVEF (%)57.4 (>50%) M-Mode DIMENSIONS Aortic Root3.10 (2.2-3.7cm)Aortic Cusp Exc.1.70 (1.5-2.0cm) Aortic Valve AoV Peak Lvdmcubw102.0cm/sAoV VTI39.1cmAO Peak GR.16mmHg LVOT Peak Enzgnycz390.0cm/sLVOT VTI33.20cmAO Mean GR.8mmHg Mitral Valve MV E Lowobnli12.0cm/sMV A Tvwwydzl76.1cm/sE/A ratio0.7 TDI Lateral E' Peak V11.70cm/sMedial E' Peak V7.35cm/sE/Lateral E'5.6 E/Medial E'9.0 Pulmonary Valve PV Peak Coqfbfjb065.0cm/sPV Peak Grad.4mmHg Tricuspid Valve TR Peak Fukcempk376xq/sRAP AUNVUMMZ57rgUxUG Peak Gr.22mmHg [id number] LEFT VENTRICLE The left ventricle is normal size. There is normal left ventricular wall thickness. The left ventricular function is normal. The left ventricular ejection fraction is within the normal range. There is normal LV segmental wall motion. Transmitral Doppler flow pattern is Grade I-abnormal relaxation pattern. RIGHT VENTRICLE The right ventricle is normal size. There is normal right ventricular wall thickness. The right ventricular systolic function is normal. ATRIA The left atrium size is normal. The right atrium size is normal. AORTIC VALVE The aortic valve is mildly sclerotic. No aortic regurgitation is present. MITRAL VALVE The mitral valve is moderately thickened. There is no mitral valve regurgitation noted. There is no mitral valve stenosis. TRICUSPID VALVE The tricuspid valve is normal in structure. GREAT VESSELS The aortic root is normal in size. PERICARDIAL EFFUSION There is a trace circumferential pericardial effusion. <Conclusion> The left ventricle is normal size. There is normal left ventricular wall thickness. The left ventricular function is normal. The left ventricular ejection fraction is within the normal range. There is normal LV segmental wall motion. Transmitral Doppler flow pattern is Grade I-abnormal relaxation pattern.
[2018-02-20] MEDS ORDERED: Lidocaine 1% Inj (20ml) ONE (13:11)
[2018-02-20] MEDS ORDERED: Midazolam 2 MG/2 ML VIAL ONE (13:11)
[2018-02-20 13:19] LABS: HEPATITIS B SURFACE AG Negative (NEGATIVE)
[2018-02-20 13:24] LABS: HEPATITIS A IGM NEGATIVE (NEGATIVE); HEPATITIS B CORE AB NEGATIVE (NEGATIVE)
[2018-02-20 13:36] LABS: HEPATITIS C ANTIBODY NEGATIVE (NEGATIVE)
[2018-02-20] MEDS ORDERED: Sodium Chloride 0.45% 1,000 ML IV SCH (14:15)
--- NOTE | 2018-02-20 14:40 | CT ---
PROCEDURE: CT guided left pelvic biopsy. HISTORY: Carcinomatosis. Enlarged retroperitoneal and pelvic lymphadenopathy. Needs biopsy. PHYSICIAN(S): Barry Schmitt MD. TECHNIQUE: The relative risks and indications of the procedure were explained to the patient's family and consent obtained. The patient was placed supine on the CT scanner and preliminary images through the pelvis obtained. Conscious sedation and monitoring were provided throughout the procedure by a nurse. An 8 cm mass in the left pelvis was selected for biopsy.. A left lower quadrant approach was selected and the area prepped and draped in the usual sterile fashion. 1% Xylocaine was used to anesthetize the skin and soft tissues. A 17-gauge guiding needle was advanced into the 8 cm left pelvic mass. Its position was confirmed with CT. Using coaxial technique, multiple core biopsies were obtained. The postprocedure images show no evidence of significant hemorrhage. IMPRESSION: 1. CT-guided left pelvic biopsy as described above.
--- NOTE | 2018-02-20 14:49 | CP.PCM.PN ---
"<Pretty Hutton - Last Filed: 02/20/18 14:45> Subjective - Date & Time of Evaluation Date of Evaluation: 02/20/18 Time of Evaluation: 08:45 - Subjective Subjective: Patient has been seen and examined at bedside. No overnight events reported. Patient has no complaints at this time. Objective - Vital Signs/Intake and Output Vital Signs (last 24 hours): Temp Pulse Resp BP Pulse Ox 98.1 F 113 H 20 134/82 96 02/20/18 06:00 02/20/18 10:00 02/20/18 06:00 02/20/18 09:06 02/20/18 06:00 Intake and Output: 02/20/18 02/20/18 06:59 18:59 Intake Total 480 Balance 480 - Medications Medications: Current Medications Acetaminophen (Tylenol 325mg Tab) 650 mg PO Q6H PRN PRN Reason: Headache Amlodipine Besylate (Norvasc) 10 mg PO DAILY [facility] Last Admin: 02/20/18 09:06 Dose: 10 mg Aspirin (Ecotrin) 81 mg PO DAILY [facility] Last Admin: 02/19/18 09:05 Dose: 81 mg Atorvastatin Calcium (Lipitor) 10 mg PO HS [facility] Last Admin: 02/19/18 21:22 Dose: 10 mg Furosemide (Lasix) 40 mg IVP DAILY [facility] Last Admin: 02/20/18 09:06 Dose: 40 mg Hydrochlorothiazide (Hydrodiuril) 25 mg PO DAILY [facility] Last Admin: 02/20/18 09:06 Dose: 25 mg Sodium Chloride (Sodium Chloride 0.45%) 1,000 mls @ 80 mls/hr IV .[id number] [facility] Stop: 02/20/18 20:00 Losartan Potassium (Cozaar) 100 mg PO DAILY [facility] Last Admin: 02/20/18 09:06 Dose: 100 mg Metoprolol Succinate (Toprol Xl) 25 mg PO DAILY [facility] Last Admin: 02/20/18 09:07 Dose: 25 mg Pantoprazole Sodium (Protonix Ec Tab) 40 mg PO 0600 [facility] Last Admin: 02/20/18 05:29 Dose: 40 mg - Labs Labs: 02/20/18 07:00 02/20/18 06:00 PT 13.3 SECONDS (9.4-12.5) H 02/18/18 15:30 INR 1.16 (0.93-1.08) H 02/18/18 15:30 APTT 28.9 Seconds (25.1-36.5) 02/18/18 15:30 - Additional Findings Additional findings: - Constitutional Appears: Well, Non-toxic, No Acute Distress - Head Exam Head Exam: ATRAUMATIC, NORMAL INSPECTION, NORMOCEPHALIC - Eye Exam Eye Exam: EOMI, Normal appearance - ENT Exam ENT Exam: Mucous Membranes Moist - Neck Exam Neck Exam: Normal Inspection - Respiratory Exam Respiratory Exam: Clear to Ausculation Bilateral, NORMAL BREATHING PATTERN. absent: Rales, Rhonchi, Wheezes - Cardiovascular Exam Cardiovascular Exam: RRR, +S1, +S2. absent: JVD - GI/Abdominal Exam GI & Abdominal Exam: Distended, Soft, Hyperactive Bowel Sounds. absent: Bruit, Firm, Guarding, Rigid, Tenderness, Hernia, Mass, Organomegaly Additional comments: Tympanic - Extremities Exam Extremities Exam: Normal Capillary Refill. absent: Pedal Edema - Neurological Exam Neurological Exam: Alert, Awake, Oriented x3 - Psychiatric Exam Psychiatric exam: Normal Affect, Normal Mood - Skin Skin Exam: Dry, Intact, Normal Color, Warm Assessment and Plan - Assessment and Plan (Free Text) Assessment: 72 year old female without pertinent past medical history presents with 1 week of abdominal swelling. Per Dr. Barry Schmitt, no clots despite what the imaging report says. Dr. Schmitt will perform a biopsy. CT Abdomen pelvis shows fluid around the liver along with a 1.5 cm mass in the lower hepatic pole. Patient's labs reveal elevated coags and mild anemia. CT Abd/Pelvis (Adm): Ascites. Pelvic and retroperitoneal and inguinal lymphadenopathy. Lower anterior abdominal wall varices. Consider the possibility of inferior vena caval thrombosis. Diffuse mild mural thickening of the transverse colon consistent with a nonspecific colitis. Nonspecific hyperdense 1.5 cm mass in lateral segment left hepatic lobe. Aorta US (Adm): The infrarenal IVC is not adequately visualized Lower Ext US (Adm): No evidence of DVT Plan: Abdominal distension, likely 2/2 cyst VS malignancy - AFP, CEA, CA 19-9, CA 125 ordered. AFP - 2.7 (Normal) | CEA - 0.7 (Normal) | CA 19-9 - 5.9 (Normal) | CA-125 - 3360 (Elevated) - Dr. Barry Schmitt on consult, recs appreciated Plan for BIOPSY TODAY -TV US ordered due to pelvic lymphadenopathy and Elevated CA-125 Hepatitis Panel - NEGATIVE Plan for Paracentesis per GI Elevated INR, Possibly 2/2 Liver Mass (Improving) Cr. 1.16 Today Asymptomatic Anemia Iron - 30 | TIBC - 260 | %Sat 12 | Ferritin 78.8 HgB Stable at 10.6 History of Hypertension - Continue home Norvasc, Cozaar, Toprol XL, HCTZ History of Hyperlipidemia - Continue Lipitor; ASA on hold History of Diabetes - Patient not on any home medications Elevated Free T4/Normal TSH Consider repeat thyroid studies GI/DVT Prophylaxis - Protonix/SCD's - Do NOT give anticoagulants Patient seen and discussed with Attending Pretty Hutton, PGY-1 <Bee Porter - Last Filed: 02/20/18 17:37> Objective - Vital Signs/Intake and Output Vital Signs (last 24 hours): Temp Pulse Resp BP Pulse Ox 98 F 82 14 129/75 99 02/20/18 15:01 02/20/18 15:01 02/20/18 15:01 02/20/18 15:01 02/20/18 15:01 Intake and Output: 02/20/18 02/20/18 06:59 18:59 Intake Total 480 125 Balance 480 125 - Medications Medications: Current Medications Acetaminophen (Tylenol 325mg Tab) 650 mg PO Q6H PRN PRN Reason: Headache Amlodipine Besylate (Norvasc) 10 mg PO DAILY [facility] Last Admin: 02/20/18 09:06 Dose: 10 mg Aspirin (Ecotrin) 81 mg PO DAILY [facility] Last Admin: 02/19/18 09:05 Dose: 81 mg Atorvastatin Calcium (Lipitor) 10 mg PO HS [facility] Last Admin: 02/19/18 21:22 Dose: 10 mg Furosemide (Lasix) 40 mg IVP DAILY [facility] Last Admin: 02/20/18 09:06 Dose: 40 mg Hydrochlorothiazide (Hydrodiuril) 25 mg PO DAILY [facility] Last Admin: 02/20/18 09:06 Dose: 25 mg Sodium Chloride (Sodium Chloride 0.45%) 1,000 mls @ 80 mls/hr IV .[id number] [facility] Stop: 02/20/18 20:00 Losartan Potassium (Cozaar) 100 mg PO DAILY [facility] Last Admin: 02/20/18 09:06 Dose: 100 mg Metoprolol Succinate (Toprol Xl) 25 mg PO DAILY [facility] Last Admin: 02/20/18 09:07 Dose: 25 mg Pantoprazole Sodium (Protonix Ec Tab) 40 mg PO 0600 [facility] Last Admin: 02/20/18 05:29 Dose: 40 mg - Labs Labs: 02/20/18 07:00 02/20/18 06:00 PT 13.3 SECONDS (9.4-12.5) H 02/18/18 15:30 INR 1.16 (0.93-1.08) H 02/18/18 15:30 APTT 28.9 Seconds (25.1-36.5) 02/18/18 15:30 Attending/Attestation - Attestation I have personally seen and examined this patient.: Yes I have fully participated in the care of the patient.: Yes I have reviewed all pertinent clinical information, including history, physical exam and plan: Yes Notes (Text): 02/20/18 17:36 Attending note; Patient seen and examined with resident. Patient is a 72 year old Telugu speaking female with past medical history of hyperlipidemia, hypertension, and diabetes that was only diagnosed in the last two years presents with one week of abdominal distension. Patient with a previous history of hysterectomy for bleeding over [address] abdomen and pelvis showed ascites and pelvic and retroperitoneal lymphadenopathy. Ultrasound did not show any portal vein or hepatic vein thrombosis. CT and ultrasound reviewed with Dr. Barry Schmitt. Plan for lymph node biopsy and paracentesis today. GI evaluation appreciated. CEA, AFP, CA 19-9 is negative. CA-125 is elevated. Case discussed with oncology in detail. Hypertension; continue medications. Diabetes; continue regular insulin sliding scale. possible discharge tomorrow. The Upon discharge the patient will follow-up with PMD Dr. neely."
[2018-02-20 18:33] VITALS: O2SAT 97
[2018-02-21] MEDS: Pantoprazole 40 mg EC Tab PO SCH (06:16)
[2018-02-21 06:55] LABS: BASO # 0.01 K/mm3 (0.0-2.0); BASO % 0.1 % (0.0-3.0); EOS # 0.1 (0.0-0.7); EOS % 1.7 % (1.5-5.0); GRAN # 4.2 (1.4-6.5); GRAN % 61.1 % (50.0-68.0); HEMOGLOBIN 10.1 g/dL (12.0-16.0); LYMPH # 2.1 (1.2-3.4); LYMPH % 30.3 % (22.0-35.0); MEAN CELL VOLUME 80.2 fl (80.0-105.0); MEAN CORPUSCULAR HEMOGLOBIN 25.7 pg (25.0-35.0); MEAN CORPUSCULAR HGB CONC 32.1 g/dl (31.0-37.0); MEAN PLATELET VOLUME 9.1 fl (7.0-11.0); MONO # 0.5 (0.1-0.6); MONO % 6.8 % (1.0-6.0); RBC 3.93 10^6/uL (3.5-6.1); RED CELL DISTRIBUTION WIDTH 16.2 % (11.5-14.5); WHITE BLOOD COUNT 6.9 10^3/ul (4.5-11.0)
[2018-02-21 06:59] LABS: ALB/GLOB RATIO 0.9 (1.1-1.8); ALBUMIN 3.5 g/dL (3.0-4.8); ALT/SGPT 26 U/L (7-56); AST/SGOT 49 U/L (14-36); BLOOD UREA NITROGEN 18 mg/dL (7-21); CALCIUM 8.8 mg/dL (8.4-10.5); GFR AFRICAN-AMERICAN > 60; GFR NON-AFRICAN AMERICAN 54
[2018-02-21 07:45] VITALS: BP 138/74; RESP 19; TEMP 97.9
[2018-02-21] MEDS: Metoprolol Succinate 25 mg XL Tab PO SCH (10:46)
--- NOTE | 2018-02-21 11:07 | CP.PCM.PN ---
Addendum entered and electronically signed by Hunter Fernandes DO 02/21/18 11:21: Correction: paracentesis was done 2.3L removed as per IR nursing note Original Note: <Hunter Fernandes - Last Filed: 02/21/18 11:07> Subjective - Date & Time of Evaluation Date of Evaluation: 02/21/18 Time of Evaluation: 08:00 - Subjective Subjective: PGY4 GI Follow-up Pt seen and examined bedside Denied any abd pain +BM tolerated diet ROS: 12 point ROS conducted, neg other than above Objective - Vital Signs/Intake and Output Vital Signs (last 24 hours): Temp Pulse Resp BP Pulse Ox 97.9 F 90 19 138/74 97 02/21/18 07:45 02/21/18 07:45 02/21/18 07:45 02/21/18 10:47 02/21/18 07:45 Intake and Output: 02/21/18 02/21/18 06:59 18:59 Intake Total 360 120 Balance 360 120 - Medications Medications: Current Medications Acetaminophen (Tylenol 325mg Tab) 650 mg PO Q6H PRN PRN Reason: Headache Amlodipine Besylate (Norvasc) 10 mg PO DAILY [facility] Last Admin: 02/21/18 10:47 Dose: 10 mg Aspirin (Ecotrin) 81 mg PO DAILY [facility] Last Admin: 02/21/18 10:46 Dose: 81 mg Atorvastatin Calcium (Lipitor) 10 mg PO HS [facility] Last Admin: 02/20/18 21:50 Dose: 10 mg Furosemide (Lasix) 40 mg IVP DAILY [facility] Last Admin: 02/21/18 10:46 Dose: 40 mg Hydrochlorothiazide (Hydrodiuril) 25 mg PO DAILY [facility] Last Admin: 02/21/18 10:46 Dose: 25 mg Losartan Potassium (Cozaar) 100 mg PO DAILY [facility] Last Admin: 02/21/18 10:46 Dose: 100 mg Metoprolol Succinate (Toprol Xl) 25 mg PO DAILY [facility] Last Admin: 02/21/18 10:46 Dose: 25 mg Pantoprazole Sodium (Protonix Ec Tab) 40 mg PO 0600 [facility] Last Admin: 02/21/18 06:16 Dose: 40 mg - Labs Labs: 02/21/18 06:00 02/21/18 06:00 PT 13.3 SECONDS (9.4-12.5) H 02/18/18 15:30 INR 1.16 (0.93-1.08) H 02/18/18 15:30 APTT 28.9 Seconds (25.1-36.5) 02/18/18 15:30 - Constitutional Appears: Well, No Acute Distress - Head Exam Head Exam: ATRAUMATIC, NORMOCEPHALIC - Eye Exam Eye Exam: Normal appearance. absent: Scleral icterus - ENT Exam ENT Exam: Mucous Membranes Moist, Normal Exam - Neck Exam Neck Exam: Normal Inspection - Respiratory Exam Respiratory Exam: Clear to Ausculation Bilateral, NORMAL BREATHING PATTERN. absent: Rales, Rhonchi, Wheezes, Respiratory Distress - Cardiovascular Exam Cardiovascular Exam: REGULAR RHYTHM, +S1, +S2 - GI/Abdominal Exam GI & Abdominal Exam: Distended, Soft, Normal Bowel Sounds. absent: Guarding, Rigid, Tenderness, Organomegaly - Extremities Exam Extremities Exam: Pedal Edema. absent: Joint Swelling - Neurological Exam Neurological Exam: Alert, Awake, Oriented x3 - Psychiatric Exam Psychiatric exam: Normal Affect, Normal Mood - Skin Skin Exam: Dry, Intact, Normal Color, Warm Assessment and Plan - Assessment and Plan (Free Text) Assessment: Stan Keenan is a 72F w/ hx of DM, HTn who presents with abd distention. CT revealed a left hepatic lobe lesion 1.5cm, ascites, pelvic mass and enlarged lymph nodes. Abd distention Ascities Hepatic lesion Pelvic mass s/p biospy Eleavated Ca 125 r/o IVC thrombus Plan: -viral hep seriologies neg -advance diet as toerated -consider [employer] cx based on path -diagnoistic and theuraputic abd paracentesis as oupt if ascities worsens -will need out colonoscopy -CT venogran to rule out IVC thrombus D/W Dr. Lin <Jeremiah Lin - Last Filed: 02/21/18 11:27> Objective - Vital Signs/Intake and Output Vital Signs (last 24 hours): Temp Pulse Resp BP Pulse Ox 97.9 F 98 H 19 138/74 97 02/21/18 07:45 02/21/18 10:00 02/21/18 07:45 02/21/18 10:47 02/21/18 07:45 Intake and Output: 02/21/18 02/21/18 06:59 18:59 Intake Total 360 120 Balance 360 120 - Medications Medications: Current Medications Acetaminophen (Tylenol 325mg Tab) 650 mg PO Q6H PRN PRN Reason: Headache Amlodipine Besylate (Norvasc) 10 mg PO DAILY [facility] Last Admin: 02/21/18 10:47 Dose: 10 mg Aspirin (Ecotrin) 81 mg PO DAILY [facility] Last Admin: 02/21/18 10:46 Dose: 81 mg Atorvastatin Calcium (Lipitor) 10 mg PO HS [facility] Last Admin: 02/20/18 21:50 Dose: 10 mg Furosemide (Lasix) 40 mg IVP DAILY [facility] Last Admin: 02/21/18 10:46 Dose: 40 mg Hydrochlorothiazide (Hydrodiuril) 25 mg PO DAILY [facility] Last Admin: 02/21/18 10:46 Dose: 25 mg Losartan Potassium (Cozaar) 100 mg PO DAILY [facility] Last Admin: 02/21/18 10:46 Dose: 100 mg Metoprolol Succinate (Toprol Xl) 25 mg PO DAILY [facility] Last Admin: 02/21/18 10:46 Dose: 25 mg Pantoprazole Sodium (Protonix Ec Tab) 40 mg PO 0600 [facility] Last Admin: 02/21/18 06:16 Dose: 40 mg - Labs Labs: 02/21/18 06:00 02/21/18 06:00 PT 13.3 SECONDS (9.4-12.5) H 02/18/18 15:30 INR 1.16 (0.93-1.08) H 02/18/18 15:30 APTT 28.9 Seconds (25.1-36.5) 02/18/18 15:30 Attending/Attestation - Attestation I have personally seen and examined this patient.: Yes I have fully participated in the care of the patient.: Yes I have reviewed all pertinent clinical information, including history, physical exam and plan: Yes Notes (Text): 02/21/18 11:26 72 year old female with pelvic mass, ascites, lymphadenopathy suspicious for content editor malignancy, likely ovarian. Await results of biopsy/paracentesis. Recommend CT venogram abdomen/LE to r/o IVC thrombus prior to discharge to determine need for anticoagulation considering pelvic varices, edema, and suspicious CT findings as well as inconclusive abdominal us. Needs GynOnc eval.
[2018-02-21 11:10] VITALS: PULSE 98
--- NOTE | 2018-02-21 11:32 | US ---
HISTORY: Pelvic lymphadenopathy, look for ovarian pathology COMPARISON: Comparison made with prior CT scan of the abdomen pelvis dated 02/18/2018. TECHNIQUE: Transvaginal sonographic evaluation of the pelvis performed. FINDINGS: UTERUS: Status post hysterectomy. ENDOMETRIUM: NA CERVIX: No cervical abnormality identified. RIGHT OVARY: Not visualized LEFT OVARY: Questionable enlarged ovary versus enlarged pelvic lymph nodes or conglomeration of adenopathy measuring 8.7 x 6.6 x 7.8 cm. . The possibility of an ovarian malignancy must be considered in this age group. FREE FLUID: Free fluid is present within the cul de sac. OTHER FINDINGS: None. IMPRESSION: Questionable enlarged ovary versus enlarged pelvic lymph node or conglomeration of adenopathy as above underlying ovarian malignancy. Note these findings are seen to better advantage on prior CT scan of the abdomen pelvis Status post hysterectomy.
--- NOTE | 2018-02-21 14:23 | CP.PCM.DIS ---
<Miguel Fernandes - Last Filed: 02/21/18 17:59> Provider - Provider Date of Admission: 02/18/18 17:31 Attending physician: Bee Porter MD Primary care physician: Swetha Taylor MD Time Spent in preparation of Discharge (in minutes): 45 Diagnosis - Discharge Diagnosis (1) Ascites Status: Chronic Priority: Medium (2) Anemia Status: Chronic Priority: Medium (3) Hypertension Status: Chronic Priority: Medium (4) Hyperlipidemia Status: Chronic Priority: Medium (5) Diabetes Status: Chronic Priority: Medium Hospital Course - Lab Results Lab Results: Most Recent Lab Values WBC 6.9 10^3/ul (4.5-11.0) 02/21/18 06:00 RBC 3.93 10^6/uL (3.5-6.1) 02/21/18 06:00 Hgb 10.1 g/dL (12.0-16.0) L 02/21/18 06:00 Hct 31.5 % (36.0-48.0) L 02/21/18 06:00 MCV 80.2 fl (80.0-105.0) 02/21/18 06:00 MCH 25.7 pg (25.0-35.0) 02/21/18 06:00 MCHC 32.1 g/dl (31.0-37.0) 02/21/18 06:00 RDW 16.2 % (11.5-14.5) H 02/21/18 06:00 Plt Count 459 10^3/uL (120.0-450.0) H 02/21/18 06:00 MPV 9.1 fl (7.0-11.0) 02/21/18 06:00 Gran % 61.1 % (50.0-68.0) 02/21/18 06:00 Lymph % (Auto) 30.3 % (22.0-35.0) 02/21/18 06:00 [place] % (Auto) 6.8 % (1.0-6.0) H 02/21/18 06:00 Eos % (Auto) 1.7 % (1.5-5.0) 02/21/18 06:00 Baso % (Auto) 0.1 % (0.0-3.0) 02/21/18 06:00 Gran # 4.20 (1.4-6.5) 02/21/18 06:00 Lymph # (Auto) 2.1 (1.2-3.4) 02/21/18 06:00 [place] # (Auto) 0.5 (0.1-0.6) 02/21/18 06:00 Eos # (Auto) 0.1 (0.0-0.7) 02/21/18 06:00 Baso # (Auto) 0.01 K/mm3 (0.0-2.0) 02/21/18 06:00 PT 13.3 SECONDS (9.4-12.5) H 02/18/18 15:30 INR 1.16 (0.93-1.08) H 02/18/18 15:30 APTT 28.9 Seconds (25.1-36.5) 02/18/18 15:30 pO2 47 mm/Hg (30-55) 02/18/18 15:30 VBG pH 7.37 (7.32-7.43) 02/18/18 15:30 VBG pCO2 45.0 (40-60) 02/18/18 15:30 VBG HCO3 26.0 mmol/l (21-28) 02/18/18 15:30 VBG Total CO2 27.4 mmol.L (22-28) 02/18/18 15:30 VBG O2 Sat (Calc) 85.4 % (40-65) H 02/18/18 15:30 VBG Base Excess 0.3 mmol/L (0.0-2.0) 02/18/18 15:30 VBG Potassium 4.8 mmol/L (3.6-5.2) 02/18/18 15:30 Sodium 138.0 mmol/L (132-148) 02/18/18 15:30 Chloride 106.0 mmol/L (98-107) 02/18/18 15:30 Glucose 118 mg/dl (65-105) H 02/18/18 15:30 Lactate 1.0 mmol/L (0.7-2.1) 02/18/18 15:30 FiO2 21.0 % 02/18/18 15:30 Sodium 137 mmol/L (132-148) 02/21/18 06:00 Potassium 3.6 mmol/L (3.6-5.0) 02/21/18 06:00 Chloride 100 mmol/L (98-107) 02/21/18 06:00 Carbon Dioxide 29 mmol/L (21-33) 02/21/18 06:00 Anion Gap 12 (10-20) 02/21/18 06:00 BUN 18 mg/dL (7-21) 02/21/18 06:00 Creatinine 1.0 mg/dl (0.7-1.2) 02/21/18 06:00 Est GFR ( Amer) > 60 02/21/18 06:00 Est GFR (Non-Af Amer) 54 02/21/18 06:00 POC Glucose (mg/dL) 96 mg/dL (65-110) 02/19/18 05:30 Random Glucose 108 mg/dL (70-110) 02/21/18 06:00 Calcium 8.8 mg/dL (8.4-10.5) 02/21/18 06:00 Iron 30 ug/dL (45-180) L 02/19/18 05:30 TIBC 260 ug/dL (265-497) L 02/19/18 05:30 % Saturation 12 % (20-55) L 02/19/18 05:30 Ferritin 78.8 ng/mL 02/19/18 05:30 Total Bilirubin 1.0 mg/dL (0.2-1.3) 02/21/18 06:00 Direct Bilirubin 0.3 mg/dL (0.0-0.4) 02/18/18 15:30 AST 49 U/L (14-36) H 02/21/18 06:00 ALT 26 U/L (7-56) 02/21/18 06:00 Alkaline Phosphatase 77 U/L (38-126) 02/21/18 06:00 Lactate Dehydrogenase 1601 U/L (333-699) H 02/18/18 15:30 Total Creatine Kinase 37 U/L (35-230) 02/18/18 15:30 Troponin I < 0.01 ng/mL 02/18/18 15:30 NT-Pro-B Natriuret Pep 182 pg/mL (0-450) 02/18/18 15:30 Total Protein 7.4 g/dL (5.8-8.3) 02/21/18 06:00 Albumin 3.5 g/dL (3.0-4.8) 02/21/18 06:00 Globulin 3.9 gm/dL 02/21/18 06:00 Albumin/Globulin Ratio 0.9 (1.1-1.8) L 02/21/18 06:00 Alpha Fetoprotein 2.7 ng/mL (0.0-7.5) 02/19/18 05:30 Carcinoembryonic Ag 0.7 ng/mL (0.0-3.0) 02/19/18 05:30 CA 19-9 Antigen 5.9 U/mL (0-37) 02/19/18 05:30 CA 125 Antigen 3360 U/mL (0-35) H 02/19/18 05:30 Thyroxine (T4) 13.4 ug/dL (5.5-11.0) H 02/18/18 15:30 TSH 3rd Generation 0.74 mIU/mL (0.46-4.68) 02/18/18 15:30 Beta HCG, Quant < 2.39 mIU/mL (0-6.15) 02/20/18 06:00 Venous Blood Potassium 4.8 mmol/L (3.6-5.2) 02/18/18 15:30 Urine Color Light yellow (YELLOW) 02/18/18 15:54 Urine Appearance Clear (CLEAR) 02/18/18 15:54 Urine pH 6.0 (4.7-8.0) 02/18/18 15:54 Ur Specific [place] 1.010 (1.005-1.035) 02/18/18 15:54 Urine Protein Negative mg/dL (<30 mg/dL) 02/18/18 15:54 Urine Glucose (UA) Negative mg/dL (NEGATIVE) 02/18/18 15:54 Urine Ketones Negative mg/dL (NEGATIVE) 02/18/18 15:54 Urine Blood Negative (NEGATIVE) 02/18/18 15:54 Urine Nitrate Negative (NEGATIVE) 02/18/18 15:54 Urine Bilirubin Negative (NEGATIVE) 02/18/18 15:54 Urine Urobilinogen 0.2 E.U./dL (<1 E.U./dL) 02/18/18 15:54 Ur Leukocyte Esterase Negative [place]/uL (NEGATIVE) 02/18/18 15:54 Hepatitis A IgM Ab Negative (NEGATIVE) 02/20/18 06:00 Hep Bs Antigen Negative (NEGATIVE) 02/20/18 06:00 Hep B Core IgM Ab Negative (NEGATIVE) 02/20/18 06:00 Hepatitis C Antibody Negative (NEGATIVE) 02/20/18 06:00 HIV 1&2 Ag/Ab, 4th Gen Nonreactive (Nonreactive) 02/20/18 06:00 - Hospital Course Hospital Course: Patient is a 72 year old female without past medical history of hyperlipidemia, hypertension, and diabetes who was admitted for evaluation and treatment of abdominal swelling. With the use of physical examinations, lab work, and imaging the patient was diagnosed with ascities likely secondary to a hepatic mass along with the patient's chronic medical conditions. During their hospital stay the patient was seen by gastroenterology (Dr. Shields), interventional radiology (Dr. Schmitt), and hematology/oncology (Dr. Pelayo) and their recommendations were both appreciated and utilized in the care for this patient. During their hospital stay the patient underwent a chest xray, extremity ultrasound, abdominal IV contrast, duplex ultrasound of the IVC, transvaginal ultrasound, venogram lower extremities with abdominal run off which were reviewed, appreciated, and utilized in the management of the patients clinical course. Chest x-ray no acute infiltrates and mild cardiomegaly. Extremity ultrasound showed no sonographic evidence for deep venous thrombosis in the visualized segments of both lower extremities. Abdomen IV contrast showed ascites, pelvic and retroperitoneal and inguinal lymphadenopathy, lower anterior abdominal wall varices, diffuse mild mural thickening of the transverse colon consistent with a nonspecific colitis, nonspecific hyperdense 1.5 cm mass in lateral segment left hepatic lobe. The infrarenal IVC is not adequately visualized on duplex ultrasound of the inferior vena cava , portal vein, and segments of the aorta. Transvaginal sonographic showed questionable enlarged ovary versus enlarged pelvic lymph node or conglomeration of adenopathy as above underlying ovarian malignancy. Patient was treated with antihypertensive medications, statin, lasix, metoprolol succinate, losartan amongst other empiric/therapeutic medications. The venogram showed mild stenosis proximal 1 cm segment of celiac artery, extensive retroperitoneal adenopathy, no evidence of IVC thrombosis, small amount of free fluid and omental fatty infiltration, suspect for malignant ascites and peritoneal metastasis, indeterminate vascular hepatic lesion, and distal esophageal wall thickening. The chest CT showed enlarged on prevascular lymph node with of what appears represent a few smaller adjacent lymph nodes, no acute consolidation, minor bibasilar atelectasis, cardiomegaly with small pericardial effusion, vague ill-defined soft tissue density in the left supraclavicular region, mild enlargement of the thyroid gland with punctuate calcification right lobe thyroid, and abdominal ascites. Patient had a CT- guided left pelvic biopsy and paracentesis without any complications. Pathology report is pending at the time of discharge. At this time the patient is medically stable for discharge. Patient understands and appreciates discharge plan. Family notified of findings and made aware of the significance to follow up with the primary care physicians and referrals within three to five days from discharge. Furthermore, the patient is instructed to take medications as prescribed and to return to emergency room for evaluation of intractable headache, fever, chills, dizziness, chest pain, shortness of breath, abdominal pain, nausea, vomiting, diarrhea, constipation, and urinary symptoms. This is a brief summary of the patients hospital course. Please see patient chart for full details. Discharge Exam - Head Exam Head Exam: ATRAUMATIC, NORMOCEPHALIC - Additional Findings Additional findings: - Constitutional Appears: Well, No Acute Distress - Head Exam Head Exam: ATRAUMATIC, NORMOCEPHALIC - Eye Exam Eye Exam: Normal appearance. absent: Scleral icterus - ENT Exam ENT Exam: Mucous Membranes Moist, Normal Exam - Neck Exam Neck Exam: Normal Inspection - Respiratory Exam Respiratory Exam: Clear to Ausculation Bilateral, NORMAL BREATHING PATTERN. absent: Rales, Rhonchi, Wheezes, Respiratory Distress - Cardiovascular Exam Cardiovascular Exam: REGULAR RHYTHM, +S1, +S2 - GI/Abdominal Exam GI & Abdominal Exam: Distended, Soft, Normal Bowel Sounds. absent: Guarding, Rigid, Tenderness, Organomegaly - Extremities Exam Extremities Exam: trace lower extremity edema. absent: Joint Swelling - Neurological Exam Neurological Exam: Alert, Awake, Oriented x3 - Skin Skin Exam: Dry, Intact, Normal Color, Warm Discharge Plan - Discharge Medications Prescriptions: Furosemide [Lasix] 40 mg PO DAILY #14 tab - Follow Up Plan Condition: SERIOUS Disposition: HOME/ ROUTINE Patient education suggested?: Yes Instructions: Abdominal Paracentesis (DC) Additional Instructions: Patient Instructions: Take medications as prescribed. Follow up with PMD and referrals within three to five days from discharge. Return to the emergency room for evaluation of intractable headache, fever, chills, dizziness, chest pain, shortness of breath, abdominal pain, nausea, vomiting, diarrhea, constipation, and urinary symptoms. Referrals: Swetha Taylor MD [Primary Care Provider] - Teresa Pelayo MD [Staff Provider] - Charlie Shields MD [Medical Doctor] - <Bee Porter - Last Filed: 02/22/18 12:13> Provider - Provider Date of Admission: 02/18/18 17:31 Attending physician: Bee Porter MD Primary care physician: Swetha Taylor MD Hospital Course - Lab Results Lab Results: Most Recent Lab Values WBC 6.9 10^3/ul (4.5-11.0) 02/21/18 06:00 RBC 3.93 10^6/uL (3.5-6.1) 02/21/18 06:00 Hgb 10.1 g/dL (12.0-16.0) L 02/21/18 06:00 Hct 31.5 % (36.0-48.0) L 02/21/18 06:00 MCV 80.2 fl (80.0-105.0) 02/21/18 06:00 MCH 25.7 pg (25.0-35.0) 02/21/18 06:00 MCHC 32.1 g/dl (31.0-37.0) 02/21/18 06:00 RDW 16.2 % (11.5-14.5) H 02/21/18 06:00 Plt Count 459 10^3/uL (120.0-450.0) H 02/21/18 06:00 MPV 9.1 fl (7.0-11.0) 02/21/18 06:00 Gran % 61.1 % (50.0-68.0) 02/21/18 06:00 Lymph % (Auto) 30.3 % (22.0-35.0) 02/21/18 06:00 [place] % (Auto) 6.8 % (1.0-6.0) H 02/21/18 06:00 Eos % (Auto) 1.7 % (1.5-5.0) 02/21/18 06:00 Baso % (Auto) 0.1 % (0.0-3.0) 02/21/18 06:00 Gran # 4.20 (1.4-6.5) 02/21/18 06:00 Lymph # (Auto) 2.1 (1.2-3.4) 02/21/18 06:00 [place] # (Auto) 0.5 (0.1-0.6) 02/21/18 06:00 Eos # (Auto) 0.1 (0.0-0.7) 02/21/18 06:00 Baso # (Auto) 0.01 K/mm3 (0.0-2.0) 02/21/18 06:00 PT 13.3 SECONDS (9.4-12.5) H 02/18/18 15:30 INR 1.16 (0.93-1.08) H 02/18/18 15:30 APTT 28.9 Seconds (25.1-36.5) 02/18/18 15:30 pO2 47 mm/Hg (30-55) 02/18/18 15:30 VBG pH 7.37 (7.32-7.43) 02/18/18 15:30 VBG pCO2 45.0 (40-60) 02/18/18 15:30 VBG HCO3 26.0 mmol/l (21-28) 02/18/18 15:30 VBG Total CO2 27.4 mmol.L (22-28) 02/18/18 15:30 VBG O2 Sat (Calc) 85.4 % (40-65) H 02/18/18 15:30 VBG Base Excess 0.3 mmol/L (0.0-2.0) 02/18/18 15:30 VBG Potassium 4.8 mmol/L (3.6-5.2) 02/18/18 15:30 Sodium 138.0 mmol/L (132-148) 02/18/18 15:30 Chloride 106.0 mmol/L (98-107) 02/18/18 15:30 Glucose 118 mg/dl (65-105) H 02/18/18 15:30 Lactate 1.0 mmol/L (0.7-2.1) 02/18/18 15:30 FiO2 21.0 % 02/18/18 15:30 Sodium 137 mmol/L (132-148) 02/21/18 06:00 Potassium 3.6 mmol/L (3.6-5.0) 02/21/18 06:00 Chloride 100 mmol/L (98-107) 02/21/18 06:00 Carbon Dioxide 29 mmol/L (21-33) 02/21/18 06:00 Anion Gap 12 (10-20) 02/21/18 06:00 BUN 18 mg/dL (7-21) 02/21/18 06:00 Creatinine 1.0 mg/dl (0.7-1.2) 02/21/18 06:00 Est GFR ( Amer) > 60 02/21/18 06:00 Est GFR (Non-Af Amer) 54 02/21/18 06:00 POC Glucose (mg/dL) 96 mg/dL (65-110) 02/19/18 05:30 Random Glucose 108 mg/dL (70-110) 02/21/18 06:00 Calcium 8.8 mg/dL (8.4-10.5) 02/21/18 06:00 Iron 30 ug/dL (45-180) L 02/19/18 05:30 TIBC 260 ug/dL (265-497) L 02/19/18 05:30 % Saturation 12 % (20-55) L 02/19/18 05:30 Ferritin 78.8 ng/mL 02/19/18 05:30 Total Bilirubin 1.0 mg/dL (0.2-1.3) 02/21/18 06:00 Direct Bilirubin 0.3 mg/dL (0.0-0.4) 02/18/18 15:30 AST 49 U/L (14-36) H 02/21/18 06:00 ALT 26 U/L (7-56) 02/21/18 06:00 Alkaline Phosphatase 77 U/L (38-126) 02/21/18 06:00 Lactate Dehydrogenase 1601 U/L (333-699) H 02/18/18 15:30 Total Creatine Kinase 37 U/L (35-230) 02/18/18 15:30 Troponin I < 0.01 ng/mL 02/18/18 15:30 NT-Pro-B Natriuret Pep 182 pg/mL (0-450) 02/18/18 15:30 Total Protein 7.4 g/dL (5.8-8.3) 02/21/18 06:00 Albumin 3.5 g/dL (3.0-4.8) 02/21/18 06:00 Globulin 3.9 gm/dL 02/21/18 06:00 Albumin/Globulin Ratio 0.9 (1.1-1.8) L 02/21/18 06:00 Alpha Fetoprotein 2.7 ng/mL (0.0-7.5) 02/19/18 05:30 Carcinoembryonic Ag 0.7 ng/mL (0.0-3.0) 02/19/18 05:30 CA 19-9 Antigen 5.9 U/mL (0-37) 02/19/18 05:30 CA 125 Antigen 3360 U/mL (0-35) H 02/19/18 05:30 Thyroxine (T4) 13.4 ug/dL (5.5-11.0) H 02/18/18 15:30 TSH 3rd Generation 0.74 mIU/mL (0.46-4.68) 02/18/18 15:30 Beta HCG, Quant < 2.39 mIU/mL (0-6.15) 02/20/18 06:00 Venous Blood Potassium 4.8 mmol/L (3.6-5.2) 02/18/18 15:30 Urine Color Light yellow (YELLOW) 02/18/18 15:54 Urine Appearance Clear (CLEAR) 02/18/18 15:54 Urine pH 6.0 (4.7-8.0) 02/18/18 15:54 Ur Specific [place] 1.010 (1.005-1.035) 02/18/18 15:54 Urine Protein Negative mg/dL (<30 mg/dL) 02/18/18 15:54 Urine Glucose (UA) Negative mg/dL (NEGATIVE) 02/18/18 15:54 Urine Ketones Negative mg/dL (NEGATIVE) 02/18/18 15:54 Urine Blood Negative (NEGATIVE) 02/18/18 15:54 Urine Nitrate Negative (NEGATIVE) 02/18/18 15:54 Urine Bilirubin Negative (NEGATIVE) 02/18/18 15:54 Urine Urobilinogen 0.2 E.U./dL (<1 E.U./dL) 02/18/18 15:54 Ur Leukocyte Esterase Negative [place]/uL (NEGATIVE) 02/18/18 15:54 Hepatitis A IgM Ab Negative (NEGATIVE) 02/20/18 06:00 Hep Bs Antigen Negative (NEGATIVE) 02/20/18 06:00 Hep B Core IgM Ab Negative (NEGATIVE) 02/20/18 06:00 Hepatitis C Antibody Negative (NEGATIVE) 02/20/18 06:00 HIV 1&2 Ag/Ab, 4th Gen Nonreactive (Nonreactive) 02/20/18 06:00 Attending/Attestation - Attestation I have personally seen and examined this patient.: Yes I have fully participated in the care of the patient.: Yes I have reviewed all pertinent clinical information, including history, physical exam and plan: Yes Notes (Text): 02/22/18 12:10 Attending note; Patient seen and examined with resident. Patient is a 72 year old Latvian speaking female with past medical history of hyperlipidemia, hypertension, and diabetes that was only diagnosed in the last two years presents with one week of abdominal distension. Patient with a previous history of hysterectomy for bleeding over [address] abdomen and pelvis showed ascites and pelvic and retroperitoneal lymphadenopathy. Ultrasound did not show any portal vein or hepatic vein thrombosis. CT and ultrasound reviewed with Dr. Barry Schmitt. s/p lymph node biopsy and paracentesis yesterday. Patient had CT venogram of the lower extremity today which did not show IVC thrombus. GI evaluation appreciated. CEA, AFP, CA 19-9 is negative. CA-125 is elevated. Case discussed with oncology in detail. Hypertension; continue medications. Diabetes; continue regular insulin sliding scale. the diagnosis, follow-up plan discussed with patient's sons in detail. patient will be going home with po Lasix prescription. the biopsy results will be back next week. We will call the family with results. Upon discharge the patient will follow-up with PMD Dr. taylor.
--- NOTE | 2018-02-21 16:23 | CP.PCM.PN ---
"Subjective - Date & Time of Evaluation Date of Evaluation: 02/21/18 Time of Evaluation: 15:00 - Subjective Subjective: Subjective: Patient seen and examined. No acute events overnight. Patient family at bedside. All questions thoroughly addressed. Offers no new complaints at this time. Denies fever, chills, chest pain, SOB, abdominal pain, N/V, diarrhea, constipation, urinary symptoms. Physical Examination: - Constitutional Appears: Well, Non-toxic, No Acute Distress - Head Exam Head Exam: ATRAUMATIC, NORMAL INSPECTION, NORMOCEPHALIC - Eye Exam Eye Exam: EOMI, Normal appearance - ENT Exam ENT Exam: Mucous Membranes Moist - Neck Exam Neck Exam: Normal Inspection - Respiratory Exam Respiratory Exam: Clear to Ausculation Bilateral, NORMAL BREATHING PATTERN. absent: Rales, Rhonchi, Wheezes - Cardiovascular Exam Cardiovascular Exam: RRR, +S1, +S2. absent: JVD - GI/Abdominal Exam GI & Abdominal Exam: Distended, Soft, Hyperactive Bowel Sounds. absent: Bruit, Firm, Guarding, Rigid, Tenderness, Hernia, Mass, Organomegaly Additional comments: Tympanic - Extremities Exam Extremities Exam: Normal Capillary Refill. absent: Pedal Edema - Neurological Exam Neurological Exam: Alert, Awake, Oriented x3 - Psychiatric Exam Psychiatric exam: Normal Affect, Normal Mood - Skin Skin Exam: Dry, Intact, Normal Color, Warm Assessment and Plan: Patient is a 72 year old female with a past medical history of hyperlipidemia, hypertension, and diabetes who was admitted for evaluation and treatment of abdominal swelling. Abdominal distension, likely 2/2 cyst VS malignancy - AFP, CEA, CA 19-9, CA 125 ordered. AFP - 2.7 (Normal) | CEA - 0.7 (Normal) | CA 19-9 - 5.9 (Normal) | CA-125 - 3360 (Elevated) - Dr. Barry Schmitt on consult, recs appreciated- biopsy completed, tissue sample sent path report pending - Abdomen IV contrast showed ascites, pelvic and retroperitoneal and inguinal lymphadenopathy, lower anterior abdominal wall varices, diffuse mild mural thickening of the transverse colon consistent with a nonspecific colitis, nonspecific hyperdense 1.5 cm mass in lateral segment left hepatic lobe. - the infrarenal IVC is not adequately visualized on duplex ultrasound of the inferior vena cava , portal vein, and segments of the aorta. - transvaginal sonographic showed questionable enlarged ovary versus enlarged pelvic lymph node or conglomeration of adenopathy as above underlying ovarian malignancy. - hematology oncology consulted- recommendations appreciated - GI consulted- appreciate recommendations - patient sent for venogram of the lower extremities to rule thrombus- pending results prior to discharge Asymptomatic Anemia - Iron - 30 | TIBC - 260 | %Sat 12 | Ferritin 78.8 - HgB Stable History of Hypertension - Continue home Norvasc, lasix, Cozaar, Toprol XL History of Hyperlipidemia - Continue Lipitor History of Diabetes - blood glucoses are within normal limits GI/DVT Prophylaxis - Protonix/SCD's Patient seen with, case reviewed with, and plan approved by attending physician , Dr. Porter. Objective - Vital Signs/Intake and Output Vital Signs (last 24 hours): Temp Pulse Resp BP Pulse Ox 97.9 F 98 H 19 138/74 97 02/21/18 07:45 02/21/18 10:00 02/21/18 07:45 02/21/18 10:47 02/21/18 07:45 Intake and Output: 02/21/18 02/21/18 06:59 18:59 Intake Total 360 120 Balance 360 120 - Medications Medications: Current Medications Acetaminophen (Tylenol 325mg Tab) 650 mg PO Q6H PRN PRN Reason: Headache Amlodipine Besylate (Norvasc) 10 mg PO DAILY [facility] Last Admin: 02/21/18 10:47 Dose: 10 mg Aspirin (Ecotrin) 81 mg PO DAILY [facility] Last Admin: 02/21/18 10:46 Dose: 81 mg Atorvastatin Calcium (Lipitor) 10 mg PO HS [facility] Last Admin: 02/20/18 21:50 Dose: 10 mg Furosemide (Lasix) 40 mg IVP DAILY [facility] Last Admin: 02/21/18 10:46 Dose: 40 mg Hydrochlorothiazide (Hydrodiuril) 25 mg PO DAILY [facility] Last Admin: 02/21/18 10:46 Dose: 25 mg Losartan Potassium (Cozaar) 100 mg PO DAILY [facility] Last Admin: 02/21/18 10:46 Dose: 100 mg Metoprolol Succinate (Toprol Xl) 25 mg PO DAILY [facility] Last Admin: 02/21/18 10:46 Dose: 25 mg Pantoprazole Sodium (Protonix Ec Tab) 40 mg PO 0600 [facility] Last Admin: 02/21/18 06:16 Dose: 40 mg - Labs Labs: 02/21/18 06:00 04/21/18 06:00 PT 13.3 SECONDS (9.4-12.5) H 02/18/18 15:30 INR 1.16 (0.93-1.08) H 02/18/18 15:30 APTT 28.9 Seconds (25.1-36.5) 02/18/18 15:30 Assessment and Plan (1) Ascites Status: Chronic (2) Anemia Status: Chronic (3) Hypertension Status: Chronic (4) Hyperlipidemia Status: Chronic (5) Diabetes Status: Chronic"
--- NOTE | 2018-02-21 16:59 | CT ---
PROCEDURE: CT chest dated 02/21/2018. HISTORY: Rule out metastatic disease COMPARISON: Comparison made with chest radiograph dated 02/18/2018. Comparison also made with CT scan abdomen pelvis 02/18/2018 which imaged both lung bases. TECHNIQUE: Contiguous axial images were obtained through the chest with intravenous contrast enhancement. Sagittal and coronal reconstructions were performed. IV contrast: 150 cc Omnipaque 350 contrast material. Radiation dose (DLP): 313.83 mGy-cm. This CT exam was performed using one or more of the following dose reduction techniques: Automated exposure control, adjustment of the mA and/or kV according to patient size, and/or use of iterative reconstruction technique. FINDINGS: LUNGS: Clear there appears to be some very minor passive atelectasis both posterior lower lung zones. . There also appears to be some minor pleural thickening right posterior lung base. MEDIASTINUM: Heart is enlarged. There is a small pericardial effusion. Ascending thoracic aorta measures approximately 3.36 cm and descending thoracic aorta measures approximately 2.54 cm. Pulmonary trunk measures approximately 2.86 cm Enlarged prevascular lymph node with 1 or 2 adjacent smaller lymph nodes. No significant hilar adenopathy is identified. Central airways midline and patent. Central endoluminal lesions. PLEURA: Tiny right-sided effusion. No pneumothorax. BONES: Mild multilevel degenerative spondylosis of the thoracic as well as visualized lower and upper lumbar spine. No acute compression fractures no retropulsed fragments. No suspicious lytic or blastic lesions are identified. UPPER ABDOMEN: Re- demonstrated is abdominal ascites. . The adrenal glands are enlarged. . Enhancing lesion in the left lobe thyroid gland is less well delineated on this study compared to prior exam. Please refer to prior CT scan and corresponding report 02/18/2018. For additional details regarding upper abdominal structures. OTHER FINDINGS: There is a dense calcification right breast that measures approximately 12.5 mm consistent with a calcified fibroadenoma. Several small to medium sized bilateral axillary lymph nodes are present. . Thyroid gland is mildly enlarged particularly the left lobe. There is also a punctate calcification right lobe thyroid. Vague ill-defined soft tissue density in the left supraclavicular region best seen on axial image number series 4, image number [id number] [id number] (which measures approximately 19 mm x 14 mm the measured on axial image number 14). It is unclear whether this of represents a mass or lymph node versus under opacified prominent jugular vein. Possibility of a thrombosis this location would be less likely given the lack of significant on collateral vascularity though not excluded IMPRESSION: Enlarged on prevascular lymph node with of what appears represent a few smaller adjacent lymph nodes. No acute consolidation. Minor bibasilar atelectasis tiny right-sided effusion. Cardiomegaly with small pericardial effusion. Vague ill-defined soft tissue density in the left supraclavicular region best seen on axial image number series 4, image number [id number] [id number] (which measures approximately 19 mm x 14 mm the measured on axial image number 14). It is unclear whether this of represents a mass or lymph node versus under opacified prominent jugular vein. Possibility of a thrombosis this location would be less likely given the lack of significant on collateral vascularity though not excluded Mild enlargement of the thyroid gland with punctate calcification right lobe thyroid as above. . Re- demonstrated is abdominal ascites
--- NOTE | 2018-02-21 17:41 | CT ---
EXAM: CT Angiography Abdomen and Pelvis With Runoff to the Lower Extremities With Intravenous Contrast EXAM DATE/TIME: 02/21/2018 8:36 AM CLINICAL HISTORY: 72 years old, female; Pain; Foot pain; Bilateral; Patient HX: Suspected ivc thrombus TECHNIQUE: Axial computed tomographic angiography images of the abdomen, pelvis and lower extremities with intravenous contrast using CT angiography protocol. All CT scans at this facility use one or more dose reduction techniques, viz.: automated exposure control; ma/kV adjustment per patient size (including targeted exams where dose is matched to indication; i.e. head); or iterative reconstruction technique. MIP reconstructed images were created and reviewed. Coronal and sagittal reformatted images were created and reviewed. CONTRAST: 98 mL of OMNIPAQUE 350 administered intravenously. COMPARISON: US - DUPLEX LOWER EXTRM VEIN BILAT 2018-02-18 15:43 FINDINGS: VASCULATURE: Aorta: Mild atherosclerotic vascular calcifications. No abdominal aortic aneurysm. No dissection. Celiac trunk and mesenteric arteries: Estimated 50% stenosis proximal 1 cm of celiac artery. Renal arteries: No acute findings. No occlusion or significant stenosis. Right iliac arteries: No acute findings. No occlusion or significant stenosis. Right femoral/popliteal arteries: No acute findings. No occlusion or significant stenosis. Right calf/foot arteries: No acute findings. No occlusion or significant stenosis. Left iliac arteries: No acute findings. No occlusion or significant stenosis. Left femoral/popliteal arteries: No acute findings. No occlusion or significant stenosis. Left calf/foot arteries: No acute findings. No occlusion or significant stenosis. IVC and veins: No intraluminal defect in IVC or iliac veins. Subtle defect in left common femoral vein, right and left popliteal veins. Lung bases: Unremarkable. No mass. No consolidation. Heart: Small pericardial effusion. Mediastinum: Wall thickening and edema distal esophagus. ABDOMEN: Liver: Vascular lesion of 1.2 x 1.8 cm in left lobe liver. Gallbladder and bile ducts: Unremarkable. No calcified stones. No ductal dilation. Pancreas: Unremarkable. No ductal dilation. No mass. Spleen: Unremarkable. No splenomegaly. Adrenals: Unremarkable. No mass. Kidneys and ureters: Unremarkable. No hydronephrosis. No solid mass. Stomach and bowel: Unremarkable. No obstruction. No mucosal thickening. Appendix: No findings to suggest acute appendicitis. PELVIS: Bladder: Unremarkable. No mass. Reproductive: Unremarkable as visualized. ABDOMEN, PELVIS and LOWER EXTREMITIES: Intraperitoneal space: Small volume ascites. Marked nodularity of omental fat. No free air. Bones/joints: Degenerative disc disease at L4-5. Anterolisthesis of L4 on L5 by 4 mm. Spinal stenosis at L4-5. Soft tissues: Mild subcutaneous edema of the left calf. Extensive venous collaterals in the perineum. Lymph nodes: 1.8 cm right and 1.3 cm left cardiophrenic angle nodes. Bilateral near confluent periaortic nodes 3 cm in diameter, and extends from the renal hilum into both right and left iliac fossa. Larger left and right iliac nodes. Dominant on the left measures 5.5 x 7 x 7.5 cm with central necrosis. Also left greater than right obturator and inguinal nodes, dominant is left obturator node 3 cm. IMPRESSION: 1. 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 No other arterial stenosis or occlusive disease. 2. Extensive retroperitoneal adenopathy. Cardiophrenic angle nodes. 3. No evidence of IVC thrombosis. Possible thrombus left common femoral and both popliteal veins although no was detected on recent venous ultrasound, consider followup venous ultrasound. 4. Small amount of free fluid and omental fatty infiltration, suspect malignant ascites and peritoneal metastasis. 5. Indeterminate vascular hepatic lesion 6. Distal esophageal wall thickening, esophagitis versus neoplasm.
--- NOTE | 2018-02-21 23:41 | CARD ---
APPROVED REPORT EKG Measurement Heart [id number] CT [id number] <Conclusion> Sinus rhythm with premature atrial complexes Otherwise normal ECG
--- NOTE | 2018-03-02 15:15 | CP.PCM.PN ---
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 Case discussed with pathologist Dr. Cooley in detail. case discussed with patient's son Sagar in detail. Results discussed with patient's son Susan Ferris [phone] in detail. patient has appointment with Dr. Awad tomorrow at 10 am. pathology results discussed with Dr. Awad in detail. results faxed to Dr. Awad's office. patient also has appointment with NURSING PROGRAM MANAGER oncology/[facility] next week. Objective - Vital Signs/Intake and Output Vital Signs (last 24 hours): Temp Pulse Resp BP Pulse Ox 97.9 F 98 H 19 138/74 97 02/21/18 07:45 02/21/18 10:00 02/21/18 07:45 02/21/18 10:47 02/21/18 07:45 - Labs Labs: 02/21/18 06:00 02/21/18 06:00 PT 13.3 SECONDS (9.4-12.5) H 02/18/18 15:30 INR 1.16 (0.93-1.08) H 02/18/18 15:30 APTT 28.9 Seconds (25.1-36.5) 02/18/18 15:30
== END 2018-02-21 19:00 | disposition home or self-care (01) | DRG 360 ==
LOC: ED 13:43 → ERH 17:31 → 3RNO 19:55
PROVIDERS: ADMIT Internal Medicine; ATTEND Internal Medicine
PROC: BW2GZZZ Computerized Tomography (CT Scan) of Pelvic Region (ICD-10-PCS; 2018-02-20)
PROC: 0WBN3ZX Excision of Female Perineum, Percutaneous Approach, Diagnostic (ICD-10-PCS; principal; 2018-02-20 13:00)
PROC: 0W9G3ZZ Drainage of Peritoneal Cavity, Percutaneous Approach (ICD-10-PCS; 2018-02-21)
DX: C57.7 Malignant neoplasm of other specified female genital organs (principal); R18.0 Malignant ascites; I10 Essential (primary) hypertension; D64.9 Anemia, unspecified; E78.5 Hyperlipidemia, unspecified; E11.9 Type 2 diabetes mellitus without complications; K52.9 Noninfective gastroenteritis and colitis, unspecified; Z79.82 Long term (current) use of aspirin; Z80.9 Family history of malignant neoplasm, unspecified; Z90.710 Acquired absence of both cervix and uterus; Z88.0 Allergy status to penicillin; K76.9 Liver disease, unspecified

== ENCOUNTER 2018-08-05 11:45 | Observation (INO) | payer OTHER ==
[2018-08-05 11:51] VITALS: BMI 32.5
--- NOTE | 2018-08-05 12:04 | ED PDOC ---
Arrival/HPI - General Chief Complaint: Weakness/Neurological Deficit Time Seen by Provider: 08/05/18 11:56 Historian: Patient, Family - History of Present Illness Narrative History of Present Illness (Text): 08/05/18 12:03 Patient is a 73 year old female whose past medical history includes hypertension and hyperlipidemia, who was instructed to present to the emergency department by for generalized weakness. Patient has stage 4 ovarian CA, and is complaining of no appetite and abdominal distension. Patient reports undergoing paracentesis approximately 4-5 months ago. Patient denies fevers, chills, cough, shortness of breath, chest pain, dyspnea on exertion, abdominal pain, nausea, vomiting, diarrhea, urinary changes, back pain, neck pain, headache, dizziness, or any other complaint. PMD: Time/Duration: Prior to Arrival Symptom Onset: Sudden Context: Home Past Medical History - Infectious Disease Hx of Infectious Diseases: None - Cardiac Hx Hypertension: Yes - Pulmonary Hx Respiratory Disorders: No - Neurological Hx Neurological Disorder: No - HEENT Hx HEENT Disorder: No - Renal Hx Renal Disorder: No - Endocrine/Metabolic Hx Diabetes Mellitus Type 2: Yes - Hematological/Oncological Hx Cancer: Yes (ovarian) - Integumentary Hx Dermatological Disorder: Yes Other/Comment: 02-18-18 BILATERAL LEG EDEMA +4. ASCITES - Musculoskeletal/Rheumatological Hx Musculoskeletal Disorders: No Hx Falls: No - Gastrointestinal Hx Gastrointestinal Disorders: No - Genitourinary/Gynecological Hx Genitourinary Disorders: Yes (HYSTERECTOMY) - Psychiatric Hx Psychophysiologic Disorder: No Hx Substance Use: No - Surgical History Hx Hysterectomy: Yes Other/Comment: R sided chest port - Anesthesia Hx Anesthesia: Yes Hx Anesthesia Reactions: No Hx Malignant Hyperthermia: No Family/Social History Family/Social History: Unknown Family HX Smoking Status: Never Smoked Hx Alcohol Use: No Hx Substance Use: No Allergies/Home Meds Allergies/Adverse Reactions: Allergies Penicillins Adverse Reaction (Verified 08/05/18 16:35) SHORTNESS OF BREATH Home Medications: Home Meds Medication Instructions Recorded Confirmed RX: Losartan/Hydrochlorothiazide 1 each PO DAILY 04/21/17 08/05/18 [Losartan-Hctz 100-25 mg Tab] RX: Metoprolol Succinate XL 25 mg PO DAILY 04/21/17 08/05/18 [Toprol XL] RX: Aspirin [Ecotrin] 81 mg PO DAILY 02/18/18 08/05/18 RX: Simvastatin 20 mg PO DAILY 02/18/18 08/05/18 RX: amLODIPine [Norvasc] 10 mg PO DAILY 02/18/18 08/05/18 Niraparib Tosylate [Zejula] 2 cap PO DAILY 08/05/18 08/05/18 Warfarin [Coumadin] 1 tab PO DAILY 08/05/18 08/05/18 Review of Systems - Physician Review All systems were reviewed & negative as marked: Yes - Review of Systems Constitutional: Other (generalized weakness). absent: Fevers, Night Sweats Respiratory: absent: SOB, Cough Cardiovascular: absent: Chest Pain, FERNANDEZ Gastrointestinal: Appetite Changes (no appetite ). absent: Abdominal Pain, Diarrhea, Nausea, Vomiting Genitourinary Female: absent: Urine Output Changes Musculoskeletal: absent: Back Pain, Neck Pain Neurological: absent: Headache, Dizziness Physical Exam Vital Signs Temp Pulse Resp BP Pulse Ox 08/05/18 11:53 97.9 F 107 H 18 152/87 H 97 Temperature: Afebrile Blood Pressure: Hypertensive Pulse: Tachycardic Respiratory Rate: Normal Appearance: Positive for: Well-Appearing Mental Status: Positive for: Alert and Oriented X 3 - Systems Exam Head: Present: Atraumatic, Normocephalic Pupils: Present: PERRL Extroacular Muscles: Present: EOMI Conjunctiva: Present: Normal Mouth: Present: Moist Mucous Membranes Neck: Present: Normal Range of Motion Respiratory/Chest: Present: Clear to Auscultation, Good Air Exchange. No: Respiratory Distress, Accessory Muscle Use Cardiovascular: Present: Regular Rate and Rhythm, Normal S1, S2. No: Murmurs Abdomen: Present: Distention. No: Tenderness, Peritoneal Signs Back: Present: Normal Inspection Upper Extremity: Present: Normal Inspection. No: Cyanosis, Edema Lower Extremity: Present: Normal Inspection. No: Edema Neurological: Present: GCS=15, CN II-XII Intact, Speech Normal Skin: Present: Warm, Dry, Normal Color. No: Rashes Psychiatric: Present: Alert, Oriented x 3, Normal Insight, Normal Concentration Medical Decision Making ED Course and Treatment: 08/05/18 12:03 Impression: 73 year old patient with stage 4 ovarian CA who is complaining of generalized weakness. Differential Diagnosis included but are not limited to: ro infectious metabolic etiology, ascites. Plan: -- Labs -- Blood work -- EKG -- Chest X-ray -- Cardiac enzymes -- IV fluids -- Urinalysis -- Reassess and disposition Prior Visits: Notes and results from previous visits were reviewed. Progress Notes: 08/05/18 13:00 EKG shows NSR at 98bpm with no S/T wave changes. Interpreted by me. 08/05/18 13:20 Discussed case with Hospitalist, who is aware of and accept patient under their service [facility] us. 08/05/18 18:01 - Lab Interpretations I have reviewed the lab results: Yes - RAD Interpretation Narrative RAD Interpretations (Text): 08/05/18 14:05 Chest X-ray: Dictator : Benjamin Lehman MD FINDINGS: LUNGS:No active pulmonary disease. PLEURA: No significant pleural effusion identified, no pneumothorax apparent. CARDIOVASCULAR: No radiographic findings to suggest acute or significant cardiovascular disease. Venous access catheter in satisfactory position. OSSEOUS STRUCTURES: No significant abnormalities. VISUALIZED UPPER ABDOMEN: Normal. OTHER FINDINGS: None. IMPRESSION: No active disease. No significant interval change compared to the prior examination(s). Radiology Orders: 08/05/18 12:02 CHEST PORTABLE [RAD] Stat Sql Bi Developer: Radiologist - EKG Interpretation Interpreted by ED Physician: Yes Type: 12 lead EKG - Scribe Statement The provider has reviewed the documentation as recorded by the Scribmarj Horowitz Provider Scribe Attestation: All medical record entries made by the Scribe were at my direction and personally dictated by me. I have reviewed the chart and agree that the record accurately reflects my personal performance of the history, physical exam, medical decision making, and the department course for this patient. I have also personally directed, reviewed, and agree with the discharge instructions and disposition. Disposition/Present on Arrival - Present on Arrival Any Indicators Present on Arrival: No History of DVT/PE: No History of Uncontrolled Diabetes: No Urinary Catheter: No History of Decub. Ulcer: No History Surgical Site Infection Following: None - Disposition Have Diagnosis and Disposition been Completed?: Yes Diagnosis: Ascites Disposition: HOSPITALIZED Disposition Time: 03:00 Patient Problems: Current Active Problems Problem Status Onset Ascites Chronic Condition: FAIR
[2018-08-05 12:48] LABS: BASO # 0.01 K/mm3 (0.0-2.0); BASO % 0.1 % (0.0-3.0); EOS % 0.2 % (1.5-5.0); GRAN # 7.75 (1.4-6.5); GRAN % 78.3 % (50.0-68.0); HEMOGLOBIN 11.3 g/dL (12.0-16.0); LYMPH # 1.4 (1.2-3.4); LYMPH % 14.6 % (22.0-35.0); MEAN CELL VOLUME 87.8 fl (80.0-105.0); MEAN CORPUSCULAR HEMOGLOBIN 29.3 pg (25.0-35.0); MEAN CORPUSCULAR HGB CONC 33.3 g/dl (31.0-37.0); MEAN PLATELET VOLUME 8.9 fl (7.0-11.0); MONO # 0.7 (0.1-0.6); MONO % 6.8 % (1.0-6.0); RBC 3.86 10^6/uL (3.5-6.1); RED CELL DISTRIBUTION WIDTH 18.2 % (11.5-14.5); WHITE BLOOD COUNT 9.9 10^3/ul (4.5-11.0)
[2018-08-05 13:00] LABS: ALBUMIN 3.8 g/dL (3.0-4.8); ALT/SGPT 16 U/L (7-56); AST/SGOT 35 U/L (14-36); BLOOD UREA NITROGEN 19 mg/dL (7-21); GFR NON-AFRICAN AMERICAN > 60
[2018-08-05 13:08] LABS: PARTIAL THROMBOPLASTIN TIME 44.1 Seconds (25.1-36.5); PROTHROMBIN TIME 47.5 SECONDS (9.4-12.5)
[2018-08-05] MEDS: Sodium Chloride 0.9% 1,000 ML IV SCH (13:09)
[2018-08-05 13:10] LABS: TROPONIN I < 0.01 ng/mL
[2018-08-05 13:13] LABS: INR 4.05
[2018-08-05 13:47] LABS: PH,URINE 7.5 (4.7-8.0); URINE BILIRUBIN NEGATIVE (NEGATIVE); URINE BLOOD NEGATIVE (NEGATIVE); URINE GLUCOSE (UA) NEGATIVE (NEGATIVE); URINE LEUKOCYTE ESTERASE TRACE Leu/uL (NEGATIVE); URINE PROTEIN TRACE mg/dL (<30 mg/dL); URINE UROBILINOGEN 0.2 E.U./dL (<1 E.U./dL)
[2018-08-05 13:52] LABS: URINE APPEARANCE SL CLOUDY (CLEAR); URINE COLOR YELLOW (YELLOW)
[2018-08-05 13:53] LABS: URINE RBC NEGATIVE /hpf (0-2); URINE WBC 0 - 2 /hpf (0-6)
--- NOTE | 2018-08-05 13:55 | RAD ---
Date of service: 08/05/2018 HISTORY: weakness COMPARISON: 02/18/2018 FINDINGS: LUNGS: No active pulmonary disease. PLEURA: No significant pleural effusion identified, no pneumothorax apparent. CARDIOVASCULAR: No radiographic findings to suggest acute or significant cardiovascular disease. Venous access catheter in satisfactory position. OSSEOUS STRUCTURES: No significant abnormalities. VISUALIZED UPPER ABDOMEN: Normal. OTHER FINDINGS: None. IMPRESSION: No active disease. No significant interval change compared to the prior examination(s).
[2018-08-05] MEDS ORDERED: Phytonadione 10 mg/ml Inj (Adult) SC STA ×2 (15:00→16:07)
--- NOTE | 2018-08-05 15:13 | CP.PCM.HP ---
<Celeste Strauss - Last Filed: 08/05/18 18:58> History of Present Illness - History of Present Illness History of Present Illness: 73 y/o slovenian speaking female with PMH of ovarian cancer diagnosed 5 months ago, HTN and diet controlled DM presents to the ED with 1 week of SOB, weakness and dizziness and swelling in her left leg. Pt is not aware that she has cancer. Pt's son provided details. She was at a regular checkup at her oncologist Dr. Chon Awad's office who recommended she go to the ER for worsening abdominal distension. Five months ago she had abdominal ascites which were drained by Dr. Barry Schmitt. Pt reports dizziness and shortness of breath when sitting up. 3 months ago the patient was diagnosed with DVT by Dr. Awad and was started on Coumadin 5mg daily. Pt reports left leg swelling and mild pain. Pt denies fever, chills, headache, changes in vision or hearing, chest pain, abdominal pain, nausea or vomiting, dysuria or urinary frequency. PMH: HTN, DM (diet controlled) PSH: Hyst Allergies: PCN Social: denies heme/onc: Delmi Home meds: Warfarin 5mg QD Amlodipine 1mg QD Losartan-HCTZ 100-25mg QD Metoprolol 25mg QD Niraparib (Chemotherapy) Present on Admission - Present on Admission Any Indicators Present on Admission: Yes History of DVT/PE: Yes Review of Systems - Review of Systems All systems: reviewed and no additional remarkable complaints except Review of Systems: as per HPI Past Patient History - Infectious Disease Hx of Infectious Diseases: None - Past Social History Smoking Status: Never Smoked - CARDIAC Hx Hypertension: Yes - PULMONARY Hx Respiratory Disorders: No - NEUROLOGICAL Hx Neurological Disorder: No - HEENT Hx HEENT Problems: No - RENAL Hx Chronic Kidney Disease: No - ENDOCRINE/METABOLIC Hx Diabetes Mellitus Type 2: Yes - HEMATOLOGICAL/ONCOLOGICAL Hx Cancer: Yes (ovarian) - INTEGUMENTARY Hx Dermatological Problems: Yes Other/Comment: 02-18-18 BILATERAL LEG EDEMA +4. ASCITES - MUSCULOSKELETAL/RHEUMATOLOGICAL Hx Musculoskeletal Disorders: No Hx Falls: No - GASTROINTESTINAL Hx Gastrointestinal Disorders: No - GENITOURINARY/GYNECOLOGICAL Hx Genitourinary Disorders: Yes (HYSTERECTOMY) - PSYCHIATRIC Hx Psychophysiologic Disorder: No Hx Substance Use: No - SURGICAL HISTORY Hx Hysterectomy: Yes Other/Comment: R sided chest port - ANESTHESIA Hx Anesthesia: Yes Hx Anesthesia Reactions: No Hx Malignant Hyperthermia: No Meds Home Medications: Home Medication List Medication Instructions Recorded Confirmed Type Enoxaparin [Lovenox] 80 mg SQ BID 4 Days #7 syr 08/07/18 Rx Allergies/Adverse Reactions: Allergies Allergy/AdvReac Type Severity Reaction Status Date / Time Penicillins AdvReac SHORTNESS Verified 08/05/18 16:35 OF BREATH Physical Exam - Constitutional Appears: Well, Non-toxic, No Acute Distress - Head Exam Head Exam: ATRAUMATIC, NORMOCEPHALIC - Eye Exam Eye Exam: EOMI - ENT Exam ENT Exam: Mucous Membranes Moist - Respiratory Exam Respiratory Exam: NORMAL BREATHING PATTERN Additional comments: no SOB when lying flat, SOB increases when sitting up - Cardiovascular Exam Cardiovascular Exam: REGULAR RHYTHM - GI/Abdominal Exam GI & Abdominal Exam: Distended, Soft. absent: Guarding, Rebound, Rigid, Tenderness - Extremities Exam Extremities exam: Positive for: pedal edema (left). Negative for: calf tenderness, tenderness - Neurological Exam Neurological exam: Alert, Oriented x3 - Psychiatric Exam Psychiatric exam: Normal Affect, Normal Mood - Skin Skin Exam: Dry, Intact, Normal Color, Warm Results - Vital Signs Recent Vital Signs: Last Vital Signs Temp 97.9 F 08/05/18 11:53 Pulse 107 H 08/05/18 11:53 Resp 18 08/05/18 11:53 BP 152/87 H 08/05/18 11:53 Pulse Ox 97 08/05/18 11:53 - Labs Result Diagrams: 08/05/18 12:30 08/05/18 12:30 Labs: Laboratory Results - last 24 hr 08/05/18 08/05/18 08/05/18 12:30 12:30 12:30 WBC 9.9 D RBC 3.86 Hgb 11.3 L Hct 33.9 L MCV 87.8 D MCH 29.3 MCHC 33.3 RDW 18.2 H Plt Count 571 H MPV 8.9 Gran % 78.3 H Lymph % (Auto) 14.6 L [place] % (Auto) 6.8 H Eos % (Auto) 0.2 L Baso % (Auto) 0.1 Gran # 7.75 H Lymph # (Auto) 1.4 [place] # (Auto) 0.7 H Eos # (Auto) 0.0 Baso # (Auto) 0.01 PT 47.5 H INR 4.05 H* APTT 44.1 H Sodium 132 Potassium 3.7 Chloride 98 Carbon Dioxide 25 Anion Gap 13 BUN 19 Creatinine 0.9 Est GFR ( Amer) > 60 Est GFR (Non-Af Amer) > 60 Random Glucose 134 H Calcium 9.0 Magnesium 1.8 Total Bilirubin 1.0 AST 35 ALT 16 Alkaline Phosphatase 105 Lactate Dehydrogenase 925 H Total Creatine Kinase 53 Troponin I < 0.01 Total Protein 7.6 Albumin 3.8 Globulin 3.7 Albumin/Globulin Ratio 1.0 L Urine Color Urine Appearance Urine pH Ur Specific Onyx Urine Protein Urine Glucose (UA) Urine Ketones Urine Blood Urine Nitrate Urine Bilirubin Urine Urobilinogen Ur Leukocyte Esterase Urine RBC Urine WBC Ur Epithelial Cells Blood Type Blood Type Confirm Antibody Screen BBK History Checked 08/05/18 08/05/18 08/05/18 12:40 13:15 13:15 WBC RBC Hgb Hct MCV MCH MCHC RDW Plt Count MPV Gran % Lymph % (Auto) [place] % (Auto) Eos % (Auto) Baso % (Auto) Gran # Lymph # (Auto) [place] # (Auto) Eos # (Auto) Baso # (Auto) PT INR APTT Sodium Potassium Chloride Carbon Dioxide Anion Gap BUN Creatinine Est GFR ( Amer) Est GFR (Non-Af Amer) Random Glucose Calcium Magnesium Total Bilirubin AST ALT Alkaline Phosphatase Lactate Dehydrogenase Total Creatine Kinase Troponin I Total Protein Albumin Globulin Albumin/Globulin Ratio Urine Color Yellow Urine Appearance Sl cloudy Urine pH 7.5 Ur Specific Onyx 1.015 Urine Protein Trace H Urine Glucose (UA) Negative Urine Ketones Negative Urine Blood Negative Urine Nitrate Negative Urine Bilirubin Negative Urine Urobilinogen 0.2 Ur Leukocyte Esterase Trace H Urine RBC Negative Urine WBC 0 - 2 Ur Epithelial Cells 3 - 4 Blood Type A POSITIVE Blood Type Confirm A POSITIVE Antibody Screen Negative BBK History Checked No verified bt Assessment & Plan - Assessment and Plan (Free Text) Assessment: 73 yr old female with PMH HTN, DM and stage 4 ovarian cancer with ascites and SOB secondary to abdominal distention Plan: ASCITES/ SOB: * Abdominal US * Dr. Barry Schmitt notified of pt need for paracentesis * pt comfortable when lying flat, no respiratory distress * normotensive nontachycardic * CXR no abnormalities * ESR 1, WBC normal Lower extremity swelling: * history of DVT * INR 4 * bilateral LE US ordered * continue home warfarin HTN: * c/w home meds * will monitor DM: * Diet controlled at home * BS normal in ED * will place on ISS low * BS check ACHS Ovarian Cancer * under care of Dr. Awad, notified * will continue PO Chemotherapy regimen Patient seen and discussed with Dr. Charlotte Strauss, PGY 1 - Date & Time Date: 08/05/18 Time: 14:20 <Bee Porter - Last Filed: 08/07/18 14:23> Results - Vital Signs Recent Vital Signs: Last Vital Signs Temp 98 F 08/06/18 06:00 Pulse 90 08/06/18 09:50 Resp 20 08/06/18 06:00 BP 129/84 08/06/18 09:50 Pulse Ox 97 08/06/18 06:00 - Labs Result Diagrams: 08/07/18 06:00 08/07/18 06:00 Labs: Laboratory Results - last 24 hr 08/06/18 08/06/18 08/06/18 06:15 06:15 06:15 WBC 7.6 D RBC 3.56 Hgb 10.2 L Hct 31.7 L MCV 89.0 MCH 28.7 MCHC 32.2 RDW 18.3 H Plt Count 507 H MPV 9.0 Gran % 69.9 H Lymph % (Auto) 19.8 L [place] % (Auto) 8.9 H Eos % (Auto) 1.1 L Baso % (Auto) 0.3 Gran # 5.30 Lymph # (Auto) 1.5 [place] # (Auto) 0.7 H Eos # (Auto) 0.1 Baso # (Auto) 0.02 PT 21.8 H INR 1.87 APTT 32.1 Sodium 135 Potassium 3.5 L Chloride 101 Carbon Dioxide 28 Anion Gap 10 BUN 13 Creatinine 0.9 Est GFR ( Amer) > 60 Est GFR (Non-Af Amer) > 60 Random Glucose 112 H Calcium 8.5 Phosphorus 3.7 Magnesium 1.7 Total Bilirubin 1.4 H AST 31 ALT 13 Alkaline Phosphatase 86 Total Protein 6.5 Albumin 3.2 Globulin 3.3 Albumin/Globulin Ratio 1.0 L Blood Type Antibody Screen BBK History Checked 08/06/18 06:15 WBC RBC Hgb Hct MCV MCH MCHC RDW Plt Count MPV Gran % Lymph % (Auto) [place] % (Auto) Eos % (Auto) Baso % (Auto) Gran # Lymph # (Auto) [place] # (Auto) Eos # (Auto) Baso # (Auto) PT INR APTT Sodium Potassium Chloride Carbon Dioxide Anion Gap BUN Creatinine Est GFR ( Amer) Est GFR (Non-Af Amer) Random Glucose Calcium Phosphorus Magnesium Total Bilirubin AST ALT Alkaline Phosphatase Total Protein Albumin Globulin Albumin/Globulin Ratio Blood Type A POSITIVE Antibody Screen Negative BBK History Checked Patient has bt Attending/Attestation - Attestation I have personally seen and examined this patient.: Yes I have fully participated in the care of the patient.: Yes I have reviewed all pertinent clinical information: Yes Notes (Text): 08/07/18 14:17 attending note; Patient seen and examined with resident. Patient is a 73-year-old Italian speaking female with PMH of ovarian cancer diagnosed 5 months ago, currently undergoing chemotherapy,HTN and diet controlled DM presents to the ED with 1 week of SOB, weakness and swelling in her left leg. The patient was seen by oncologist Dr. Awad yesterday and sent in for paracentesis. case discussed with Dr. Awad in detail. Patient initially responded to carboplatin and Taxotere. Later switched to Gemzar and Taxotere. Currently on PARP inhibitor. Patient has significant reaccumulation of ascites and a short period of time. Case discussed with Dr. Barry Schmitt in detail. Plan for paracentesis tomorrow. Elevated INR; 4.0. Vitamin K one dose given. Recheck INR in a.m.. hold Coumadin for now. Will restart after paracentesis. History of left leg DVT; patient's left leg is swollen. Doppler is positive for subacute chronic occlusive thrombus in the left femoral, popliteal and tibial veins. Abdominal ultrasound showed ascites. CT abdomen and pelvis ordered. Upon discharge patient will follow-up with Dr. Awad.
--- NOTE | 2018-08-05 16:23 | US ---
Date of service: 08/05/2018 HISTORY: abd distention COMPARISON: None. TECHNIQUE: Sonographic evaluation of the abdomen. FINDINGS: LIVER: Measures 15.11 x 11.54 cm. Increased echogenicity of the liver parenchyma. No mass. No intrahepatic bile duct dilatation. GALLBLADDER: Unremarkable. No gallstones. COMMON BILE DUCT: Measures 4 mm. No stones. No dilatation. PANCREAS: Unremarkable as visualized. No mass. No ductal dilatation. RIGHT KIDNEY: Measures 9.73 x 4.48 x 5.16cm. Normal echogenicity. No calculus, mass, or hydronephrosis. LEFT KIDNEY: Measures 9.54 x 5.36 x 5.67cm. Normal echogenicity. No calculus, mass, or hydronephrosis. SPLEEN: Normal in size and contour. No mass. 9.23 x 3.74 AORTA: No aneurysmal dilatation. IVC: Unremarkable. OTHER FINDINGS: Moderate ascites IMPRESSION: Moderate ascites
--- NOTE | 2018-08-05 16:25 | US ---
HISTORY: Leg pain and swelling. Evaluate for DVT PHYSICIAN(S): Barry Schmitt MD. TECHNIQUE: Duplex sonography and color-flow Doppler with graded compression were used to evaluate the deep venous systems of both lower extremities. FINDINGS: Occlusive thrombus is noted in the left femoral vein, popliteal vein, and visualized tibial veins. The left common femoral vein is compressible. The thrombus is somewhat echogenic, consistent with subacute/chronic thrombus. There is no sonographic evidence for deep venous thrombosis the visualized segments of the right lower extremity IMPRESSION: Subacute/chronic occlusive thrombus in the left femoral vein, popliteal vein, and visualized tibial veins
--- NOTE | 2018-08-05 16:29 | CARD ---
APPROVED REPORT Date of service: 08/05/2018 EKG Measurement Heart [id number] <Conclusion> Normal sinus rhythm Low voltage QRS Cannot rule out Anterior infarct, age undetermined Abnormal ECG
[2018-08-05] MEDS ORDERED: Influenza Vaccine 60 mcg/0.5 mL SYR (4YR UP) IM ONE (20:32)
[2018-08-05] MEDS ORDERED: Pneumococcal 23-Valent Vaccine IM ONE (20:32)
[2018-08-05 22:29] VITALS: RESP 20
[2018-08-06] MEDS: Sodium Chloride 0.9% 1,000 ML IV SCH ×2 (06:11→09:50)
[2018-08-06 07:12] LABS: INR 1.87; PARTIAL THROMBOPLASTIN TIME 32.1 Seconds (25.1-36.5); PROTHROMBIN TIME 21.8 SECONDS (9.4-12.5)
[2018-08-06] MEDS ORDERED: Phytonadione 10 mg/ml Inj (Adult) SC ONE (07:12)
[2018-08-06 07:18] LABS: BASO # 0.02 K/mm3 (0.0-2.0); BASO % 0.3 % (0.0-3.0); EOS # 0.1 (0.0-0.7); EOS % 1.1 % (1.5-5.0); GRAN # 5.3 (1.4-6.5); GRAN % 69.9 % (50.0-68.0); HEMOGLOBIN 10.2 g/dL (12.0-16.0); LYMPH # 1.5 (1.2-3.4); LYMPH % 19.8 % (22.0-35.0); MEAN CORPUSCULAR HEMOGLOBIN 28.7 pg (25.0-35.0); MEAN CORPUSCULAR HGB CONC 32.2 g/dl (31.0-37.0); MONO # 0.7 (0.1-0.6); MONO % 8.9 % (1.0-6.0); RBC 3.56 10^6/uL (3.5-6.1); RED CELL DISTRIBUTION WIDTH 18.3 % (11.5-14.5); WHITE BLOOD COUNT 7.6 10^3/ul (4.5-11.0)
[2018-08-06 07:30] LABS: ALBUMIN 3.2 g/dL (3.0-4.8); ALT/SGPT 13 U/L (7-56); AST/SGOT 31 U/L (14-36); BLOOD UREA NITROGEN 13 mg/dL (7-21); CALCIUM 8.5 mg/dL (8.4-10.5); GFR NON-AFRICAN AMERICAN > 60
[2018-08-06] MEDS ORDERED: Potassium Chloride 20 mEq ER Tab PO STA (07:46)
--- NOTE | 2018-08-06 11:50 | CT ---
Date of service: 08/05/2018 PROCEDURE: CT Abdomen and Pelvis without intravenous contrast HISTORY: follow up ascites, ovarian cancer COMPARISON: CT 02/18/2018 TECHNIQUE: Without contrast.. Contrast dose: Radiation dose: Total exam DLP = 921 mGy-cm. This CT exam was performed using one or more of the following dose reduction techniques: Automated exposure control, adjustment of the mA and/or kV according to patient size, and/or use of iterative reconstruction technique. FINDINGS: LOWER THORAX: Unremarkable. LIVER: Unremarkable. No gross lesion or ductal dilatation. GALLBLADDER AND BILE DUCTS: Unremarkable. PANCREAS: Unremarkable. No gross lesion or ductal dilatation. SPLEEN: Unremarkable. ADRENALS: Unremarkable. No mass. KIDNEYS AND URETERS: Unremarkable. No hydronephrosis. No solid mass. VASCULATURE: Unremarkable. No aortic aneurysm. BOWEL: Unremarkable. No obstruction. No gross mural thickening. APPENDIX: Unremarkable. Normal appendix. PERITONEUM: There is moderate to severe ascites. This is unchanged. There is omental infiltration consistent with peritoneal metastases. This finding is also unchanged. LYMPH NODES: Left-sided pelvic adenopathy has shown some improvement. There is a left pelvic mass measuring 3.8 x 5.2 cm which has decreased in size previously measuring 5.7 x 6.2 cm. Bilateral inguinal adenopathy showing slight improvement BLADDER: Unremarkable. REPRODUCTIVE: Hysterectomy BONES: No acute fracture. OTHER FINDINGS: None. IMPRESSION: No significant change and ascites or omental metastases. Improvement in inguinal and left pelvic adenopathy. Slight decrease in size of left pelvic sidewall mass
--- NOTE | 2018-08-06 12:10 | CON ---
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 She presented several months ago and was unresectable. Her CA-125 was in the 500 range and we gave her [place]-based chemotherapy with Taxotere and carboplatin. She responded very nicely and very quickly to it. The ascites was resolving, but then her CA-125 started rising again and so we switched her to the Gemzar/carboplatin regimen and she did very well with that as well. The CA-125 started coming down. No ascites. She was feeling well until about three weeks ago when all of a sudden, CA-125 started increasing again. The CAT scan at that time showed lymph nodes and peritoneal disease, but no real ascites and we switched her to a new PARP inhibitor. She was going to take pills twice a day. She started that about a week ago. I saw her a week ago and we were able to start the treatment. When I saw her again yesterday in the office, a marked difference in her ascites immediately came back and she was weak, she was barely walking, she was tachycardiac, felt she was very dehydrated and she would need a tap, also increasing shortness of breath due to the ascites. At that point, we elected that she come into the hospital, she did. At present, she is lying flat on the bed and she is a little bit more comfortable on the IV fluids. PHYSICAL EXAMINATION: SKIN: No petechiae. No bruises. HEENT: Anicteric. NODES: Nonpalpable in the axillary, cervical, supraclavicular or inguinal regions. LUNGS: Clear at present. No vertebral tenderness. HEART: S1, S2. ABDOMEN: Shows ascites and no actual omental caking or masses. EXTREMITIES: Shows some edema, slight. FINAL TESTER: No focal findings. PLAN: Her Coumadin levels were high. The INR was around 4.5. Her vitamin K and the PT is better. Dr. Joseph Schmitt will do a therapeutic tap of the ascites. At that point, her BUN was 19. She is getting IV fluids. Her glucose and calcium were good and hemoglobin and I would at that point stable, discharge her. I told the son to put her right back on the new PARP inhibitor pills, they have them at home, we held them right now while she is in the hospital and then, they will see me in the office next week. Chon Awad MD
--- NOTE | 2018-08-06 12:48 | CP.PCM.PN ---
<Dennis Morales - Last Filed: 08/06/18 19:08> Subjective - Date & Time of Evaluation Date of Evaluation: 08/06/18 Time of Evaluation: 07:10 - Subjective Subjective: Dennis Morales DO PGY-1, Internal Medicine Resident. Hospitalist Progress Note Patient seen and examined at bedside. Patient is resting in bed, awake and oriented. She is c/o abdominal distention, she prefers laying supine not to have SOB, had BM last night. No acute events overnight. Patient denied chest pain, palpitation, fever, chills Objective - Vital Signs/Intake and Output Vital Signs (last 24 hours): Temp Pulse Resp BP Pulse Ox 98 F 90 20 129/84 97 08/06/18 06:00 08/06/18 09:50 08/06/18 06:00 08/06/18 09:50 08/06/18 06:00 - Medications Medications: Current Medications Amlodipine Besylate (Norvasc) 10 mg PO DAILY [facility] Last Admin: 08/06/18 09:50 Dose: 10 mg Atorvastatin Calcium (Lipitor) 20 mg PO DIN [facility] Last Admin: 08/05/18 19:42 Dose: 20 mg Sodium Chloride (Sodium Chloride 0.9%) 1,000 mls @ 100 mls/hr IV .Q10H [facility] Last Admin: 08/06/18 09:50 Dose: 100 mls/hr Metoprolol Tartrate (Lopressor) 25 mg PO BID [facility] Last Admin: 08/06/18 09:50 Dose: 25 mg - Labs Labs: 08/06/18 06:15 08/06/18 06:15 PT 21.8 SECONDS (9.4-12.5) H 08/06/18 06:15 INR 1.87 08/06/18 06:15 APTT 32.1 Seconds (25.1-36.5) 08/06/18 06:15 - Constitutional Appears: Well, No Acute Distress - Head Exam Head Exam: ATRAUMATIC, NORMOCEPHALIC - Eye Exam Eye Exam: EOMI, Normal appearance, PERRL Pupil Exam: NORMAL ACCOMODATION, PERRL - Neck Exam Neck Exam: Full ROM, Normal Inspection. absent: Lymphadenopathy - Respiratory Exam Respiratory Exam: Clear to Ausculation Bilateral, NORMAL BREATHING PATTERN - Cardiovascular Exam Cardiovascular Exam: REGULAR RHYTHM, +S1, +S2. absent: Murmur - GI/Abdominal Exam GI & Abdominal Exam: Distended, Soft, Normal Bowel Sounds - Extremities Exam Extremities Exam: Full ROM, Normal Capillary Refill, Pedal Edema - Back Exam Back Exam: NORMAL INSPECTION - Neurological Exam Neurological Exam: Alert, Awake, CN II-XII Intact, Normal Gait, Oriented x3 - Psychiatric Exam Psychiatric exam: Normal Affect, Normal Mood - Skin Skin Exam: Dry, Intact, Normal Color, Warm Assessment and Plan - Assessment and Plan (Free Text) Assessment: 73 y/o female with PMH of ovarian cancer diagnosed 5 months ago, HTN, DM presented to the ED with 1 week of SOB, abdominal distention, left LL edema, weakness and dizziness. Admitted for abd ascites in the setting of ovarian CA Plan: Ascites in the setting of ovarian cancer: comfortable when lying supine Abd U/S: moderate ascites U/S guided paracentesis: 3000 cc of fluid aspirated. cytology specimen sent CXR: no acute events ESR 1, WBC normal CT A/P: pelvic lymphadenopathy. omental metastasis. no significant changes As per oncologist Dr Awad note: patient to be d/c after paracentesis. will continue PO chemotherapy PARP after d/c. f/u in office after 1 week Lower extremity swelling: history of left LL DVT INR 4 continue coumadin DUplex LL: left subacute/chronic femoral and popliteal veins obstructive thrombus HLD: continue lipitor HTN: continue home meds lopressor, norvasc continue monitor DM: Diet controlled ISS low accuchecks Case reviewed and plan discussed with Dr. Porter <Bee Porter - Last Filed: 08/07/18 14:25> Objective - Vital Signs/Intake and Output Vital Signs (last 24 hours): Temp Pulse Resp BP Pulse Ox 97.9 F 92 H 20 138/84 97 08/07/18 07:58 08/07/18 10:46 08/07/18 07:58 08/07/18 10:46 08/07/18 07:58 Intake and Output: 08/07/18 08/07/18 06:59 18:59 Intake Total 800 Balance 800 - Labs Labs: 08/07/18 06:00 08/07/18 06:00 PT 15.4 SECONDS (9.4-12.5) H 08/07/18 07:40 INR 1.33 08/07/18 07:40 APTT 32.9 Seconds (25.1-36.5) 08/07/18 07:40 Attending/Attestation - Attestation I have personally seen and examined this patient.: Yes I have fully participated in the care of the patient.: Yes I have reviewed all pertinent clinical information, including history, physical exam and plan: Yes Notes (Text): 08/07/18 14:24 attending note; Patient seen and examined with resident. patient's son by the bedside. patient denies any shortness of breath. Complaining of abdominal distention. Patient is a 73-year-old Faroese speaking female with PMH of ovarian cancer diagnosed 5 months ago, currently undergoing chemotherapy,HTN and diet controlled DM presents to the ED with 1 week of SOB, weakness and swelling in her left leg. recurrent ascites; abdominal ultrasound showed ascites. CT scan showed moderate to severe ascites with peritoneal metastatic disease. Left-sided pelvic mass decreased in size. Bilateral inguinal lymphadenopathy noted. oncology evaluation with Dr. Awad appreciated Patient initially responded to carboplatin and Taxotere. Later switched to Gemzar and Taxotere. Currently on PARP inhibitor. INR is 1.87. Plan for paracentesis this afternoon. History of left leg DVT; patient's left leg is swollen. Doppler is positive for subacute chronic occlusive thrombus in the left femoral, popliteal and tibial veins. Upon discharge patient will follow-up with Dr. Awad.
[2018-08-06] MEDS ORDERED: Morphine 2 mg/ml ISec IVP PRN (16:16)
--- NOTE | 2018-08-06 17:51 | US ---
PROCEDURE: Ultrasound guided paracentesis. HISTORY: Ovarian carcinoma with carcinomatosis. Recurrent ascites with abdominal pain and distension PHYSICIAN(S): Barry Schmitt MD. TECHNIQUE: The relative risks and indications for the procedure were explained to the patient and her son and informed written consent obtained. Sonography of the abdomen was performed in a supine position. This revealed a moderate amount of non-loculated ascites, greatest in the right lower quadrant. A puncture site was selected and the area was prepped and draped in the usual sterile fashion. 1% Xylocaine was used to anesthetize the skin and soft tissues. A 7 Sami paracentesis catheter was trocared into the right lower quadrantand 3000 cc of turbid [place] fluid aspirated. A cytology specimen was sent. IMPRESSION: Ultrasound-guided paracentesis in the right lower quadrant. 3000 cc of fluid were aspirated. A cytology specimen was sent
[2018-08-07 06:54] LABS: BASO # 0.01 K/mm3 (0.0-2.0); BASO % 0.2 % (0.0-3.0); EOS # 0.1 (0.0-0.7); EOS % 1.4 % (1.5-5.0); GRAN # 4.24 (1.4-6.5); GRAN % 66.8 % (50.0-68.0); HEMOGLOBIN 9.9 g/dL (12.0-16.0); LYMPH # 1.5 (1.2-3.4); LYMPH % 23.7 % (22.0-35.0); MEAN CELL VOLUME 89.3 fl (80.0-105.0); MEAN CORPUSCULAR HEMOGLOBIN 28.6 pg (25.0-35.0); MEAN PLATELET VOLUME 8.8 fl (7.0-11.0); MONO # 0.5 (0.1-0.6); MONO % 7.9 % (1.0-6.0); RBC 3.46 10^6/uL (3.5-6.1); RED CELL DISTRIBUTION WIDTH 18.3 % (11.5-14.5); WHITE BLOOD COUNT 6.3 10^3/ul (4.5-11.0)
[2018-08-07 07:54] LABS: ALBUMIN 3.1 g/dL (3.0-4.8); ALT/SGPT 17 U/L (7-56); AST/SGOT 30 U/L (14-36); BLOOD UREA NITROGEN 13 mg/dL (7-21); CALCIUM 8.5 mg/dL (8.4-10.5); GFR NON-AFRICAN AMERICAN > 60
[2018-08-07 08:06] VITALS: BP 138/84; PULSE 92; TEMP 97.9; O2SAT 97
[2018-08-07 08:07] LABS: INR 1.33; PARTIAL THROMBOPLASTIN TIME 32.9 Seconds (25.1-36.5); PROTHROMBIN TIME 15.4 SECONDS (9.4-12.5)
[2018-08-07] MEDS ORDERED: Enoxaparin 80 mg Syringe SC ONE (11:08)
--- NOTE | 2018-08-07 14:28 | CP.PCM.DIS ---
<Dennis Morales - Last Filed: 08/07/18 14:22> Provider - Provider Date of Admission: 08/05/18 13:21 Attending physician: Bee Porter MD Primary care physician: Dr Taylor Consults: oncology IR Time Spent in preparation of Discharge (in minutes): 45 Hospital Course - Lab Results Lab Results: Most Recent Lab Values WBC 6.3 10^3/ul (4.5-11.0) 08/07/18 06:00 RBC 3.46 10^6/uL (3.5-6.1) L 08/07/18 06:00 Hgb 9.9 g/dL (12.0-16.0) L 08/07/18 06:00 Hct 30.9 % (36.0-48.0) L 08/07/18 06:00 MCV 89.3 fl (80.0-105.0) 08/07/18 06:00 MCH 28.6 pg (25.0-35.0) 08/07/18 06:00 MCHC 32.0 g/dl (31.0-37.0) 08/07/18 06:00 RDW 18.3 % (11.5-14.5) H 08/07/18 06:00 Plt Count 439 10^3/uL (120.0-450.0) 08/07/18 06:00 MPV 8.8 fl (7.0-11.0) 08/07/18 06:00 Gran % 66.8 % (50.0-68.0) 08/07/18 06:00 Lymph % (Auto) 23.7 % (22.0-35.0) 08/07/18 06:00 [place] % (Auto) 7.9 % (1.0-6.0) H 08/07/18 06:00 Eos % (Auto) 1.4 % (1.5-5.0) L 08/07/18 06:00 Baso % (Auto) 0.2 % (0.0-3.0) 08/07/18 06:00 Gran # 4.24 (1.4-6.5) 08/07/18 06:00 Lymph # (Auto) 1.5 (1.2-3.4) 10/05/18 06:00 [place] # (Auto) 0.5 (0.1-0.6) 08/07/18 06:00 Eos # (Auto) 0.1 (0.0-0.7) 08/07/18 06:00 Baso # (Auto) 0.01 K/mm3 (0.0-2.0) 08/07/18 06:00 PT 15.4 SECONDS (9.4-12.5) H 08/07/18 07:40 INR 1.33 08/07/18 07:40 APTT 32.9 Seconds (25.1-36.5) 08/07/18 07:40 Sodium 135 mmol/L (132-148) 08/07/18 06:00 Potassium 3.8 mmol/L (3.6-5.0) 08/07/18 06:00 Chloride 103 mmol/L (98-107) 08/07/18 06:00 Carbon Dioxide 27 mmol/L (21-33) 08/07/18 06:00 Anion Gap 9 (10-20) L 08/07/18 06:00 BUN 13 mg/dL (7-21) 08/07/18 06:00 Creatinine 0.9 mg/dl (0.7-1.2) 08/07/18 06:00 Est GFR ( Amer) > 60 08/07/18 06:00 Est GFR (Non-Af Amer) > 60 08/07/18 06:00 Random Glucose 103 mg/dL (70-110) 08/07/18 06:00 Calcium 8.5 mg/dL (8.4-10.5) 08/07/18 06:00 Phosphorus 3.6 mg/dL (2.5-4.5) 08/07/18 06:00 Magnesium 1.7 mg/dL (1.7-2.2) 08/07/18 06:00 Total Bilirubin 1.5 mg/dL (0.2-1.3) H 08/07/18 06:00 AST 30 U/L (14-36) 08/07/18 06:00 ALT 17 U/L (7-56) 08/07/18 06:00 Alkaline Phosphatase 81 U/L (38-126) 08/07/18 06:00 Lactate Dehydrogenase 925 U/L (333-699) H 08/05/18 12:30 Total Creatine Kinase 53 U/L (35-230) 08/05/18 12:30 Troponin I < 0.01 ng/mL 08/05/18 12:30 Total Protein 6.2 g/dL (5.8-8.3) 08/07/18 06:00 Albumin 3.1 g/dL (3.0-4.8) 08/07/18 06:00 Globulin 3.1 gm/dL 08/07/18 06:00 Albumin/Globulin Ratio 1.0 (1.1-1.8) L 08/07/18 06:00 Urine Color Yellow (YELLOW) 08/05/18 13:15 Urine Appearance Sl cloudy (CLEAR) 08/05/18 13:15 Urine pH 7.5 (4.7-8.0) 08/05/18 13:15 Ur Specific [place] 1.015 (1.005-1.035) 08/05/18 13:15 Urine Protein Trace mg/dL (<30 mg/dL) H 08/05/18 13:15 Urine Glucose (UA) Negative mg/dL (NEGATIVE) 08/05/18 13:15 Urine Ketones Negative mg/dL (NEGATIVE) 08/05/18 13:15 Urine Blood Negative (NEGATIVE) 08/05/18 13:15 Urine Nitrate Negative (NEGATIVE) 08/05/18 13:15 Urine Bilirubin Negative (NEGATIVE) 08/05/18 13:15 Urine Urobilinogen 0.2 E.U./dL (<1 E.U./dL) 08/05/18 13:15 Ur Leukocyte Esterase Trace [place]/uL (NEGATIVE) H 08/05/18 13:15 Urine RBC Negative /hpf (0-2) 08/05/18 13:15 Urine WBC 0 - 2 /hpf (0-6) 08/05/18 13:15 Ur Epithelial Cells 3 - 4 /hpf (0-5) 08/05/18 13:15 Blood Type A POSITIVE 08/06/18 06:15 Blood Type Confirm A POSITIVE 08/05/18 13:15 Antibody Screen Negative 08/06/18 06:15 BBK History Checked Patient has bt 08/06/18 06:15 - Hospital Course Hospital Course: 73 y/o female with PMHx of ovarian cancer diagnosed 5 months ago, HTN, and DM presented to ED with 1 week of SOB, abdominal distention, left lower extremity edema, weakness and dizziness. Patient was admitted for abd ascites in the setting of ovarian cancer. Patient stated SOB improved with laying supine. Abdominal ultrasound showed moderate ascites. Ultrasound guided paracentesis was performed and 3000cc of fluid was aspirated. Chest x-ray revealed no acute events. ESR was 1 and WBC was normal. CT abdomen and pelvis showed pelvic lymphadenopathy, omental metastasis, but no significant changes since previous CT scan. As per oncologist Dr. Awad, patient can be discharged after paracentesis and continue PO chemotherapy PARP after discharge. On admission, patient had an INR of 4. Coumadin was continued. INR improved to be 1.33. Duplex lower extremity showed lower subacute/chronic femoral and popliteal vein obstructive thrombus. HTN was managed medically and DM was managed with diet. On morning of discharge, patient states her SOB has significantly improved since the paracentesis. Patient is to follow up with Dr. Awad on Friday08/10/2018. Patient was medically optimized for home discharge home with additional instructions below. Off note: Patient was not aware of her ovarian cancer diagnosis. Her children are worried about her knowing he diagnosis, her health may deteriorate, and this is a culture issue. Family was counseled to inform the patient about her diagnosis. On discharge: - Please follow up with a primary care physician Dr Taylor within 3-5 days after discharge - Please follow up with oncologist Dr Awad on Friday08/10/18 as scheduled. He has instructed you to resume taking your PARP inhibitor pills that you already have at home. - Please resume your other home medications as prescribed. - You have also been given a prescription for Lovenox 80mg sq twice daily for 4 days [first dose on 08/07/18 at night]- total doses 7. - Please follow a heart healthy and carbohydrate consistent diet - Please return to the nearest emergency room if symptoms return Discharge Exam - Head Exam Head Exam: ATRAUMATIC, NORMOCEPHALIC - Eye Exam Eye Exam: Normal appearance, PERRL Pupil Exam: NORMAL ACCOMODATION - ENT Exam ENT Exam: Mucous Membranes Moist, Normal Oropharynx - Neck Exam Neck exam: Full Rom, Normal Inspection - Respiratory Exam Respiratory Exam: Clear to PA & Lateral, NORMAL BREATHING PATTERN. absent: Rales, Rhonchi - Cardiovascular Exam Cardiovascular Exam: REGULAR RHYTHM, +S1, +S2 - GI/Abdominal Exam GI & Abdominal Exam: Normal Bowel Sounds, Soft. absent: Guarding, Rebound, Rigid - Extremities Exam Extremities exam: normal capillary refill, pedal pulses present - Back Exam Back exam: FULL ROM, NORMAL INSPECTION - Neurological Exam Neurological exam: Alert, CN II-XII Intact, Normal Gait, Oriented x3, Reflexes Normal - Psychiatric Exam Psychiatric exam: Normal Affect, Normal Mood - Skin Skin Exam: Dry, Intact, Normal Color, Warm Discharge Plan - Discharge Medications Prescriptions: Enoxaparin [Lovenox] 80 mg SQ BID 4 Days #7 syr - Follow Up Plan Condition: FAIR Disposition: HOME/ ROUTINE Instructions: Generalized Weakness (DC), Fluid in the Belly (Ascites) (DC) Additional Instructions: - Please follow up with a primary care physician Dr Taylor within 3-5 days after discharge - Please follow up with oncologist Dr Awad on Friday08/10/18 as scheduled. He has instructed you to resume taking your PARP inhibitor pills that you already have at home. - Please resume your other home medications as prescribed. - You have also been given a prescription for Lovenox 80mg sq twice daily for 4 days [first dose on 08/07/18 at night]- total doses 7. - Please follow a heart healthy and carbohydrate consistent diet - Please return to the nearest emergency room if symptoms return Referrals: Chon Awad MD [Family Provider] - Swetha Taylor MD [Non-Staff] - <Bee Porter - Last Filed: 08/08/18 14:54> Provider - Provider Date of Admission: 08/05/18 13:21 Attending physician: Bee Porter MD Hospital Course - Lab Results Lab Results: Micro Results 08/05/18 22:47 Urine,Clean Catch Urine Culture - Final Gram Negative Celio Most Recent Lab Values WBC 6.3 10^3/ul (4.5-11.0) 08/07/18 06:00 RBC 3.46 10^6/uL (3.5-6.1) L 08/07/18 06:00 Hgb 9.9 g/dL (12.0-16.0) L 08/07/18 06:00 Hct 30.9 % (36.0-48.0) L 08/07/18 06:00 MCV 89.3 fl (80.0-105.0) 08/07/18 06:00 MCH 28.6 pg (25.0-35.0) 08/07/18 06:00 MCHC 32.0 g/dl (31.0-37.0) 08/07/18 06:00 RDW 18.3 % (11.5-14.5) H 08/07/18 06:00 Plt Count 439 10^3/uL (120.0-450.0) 08/07/18 06:00 MPV 8.8 fl (7.0-11.0) 08/07/18 06:00 Gran % 66.8 % (50.0-68.0) 08/07/18 06:00 Lymph % (Auto) 23.7 % (22.0-35.0) 08/07/18 06:00 [place] % (Auto) 7.9 % (1.0-6.0) H 08/07/18 06:00 Eos % (Auto) 1.4 % (1.5-5.0) L 08/07/18 06:00 Baso % (Auto) 0.2 % (0.0-3.0) 08/07/18 06:00 Gran # 4.24 (1.4-6.5) 08/07/18 06:00 Lymph # (Auto) 1.5 (1.2-3.4) 08/07/18 06:00 [place] # (Auto) 0.5 (0.1-0.6) 08/07/18 06:00 Eos # (Auto) 0.1 (0.0-0.7) 08/07/18 06:00 Baso # (Auto) 0.01 K/mm3 (0.0-2.0) 08/07/18 06:00 PT 15.4 SECONDS (9.4-12.5) H 08/07/18 07:40 INR 1.33 08/07/18 07:40 APTT 32.9 Seconds (25.1-36.5) 08/07/18 07:40 Sodium 135 mmol/L (132-148) 08/07/18 06:00 Potassium 3.8 mmol/L (3.6-5.0) 08/07/18 06:00 Chloride 103 mmol/L (98-107) 08/07/18 06:00 Carbon Dioxide 27 mmol/L (21-33) 08/07/18 06:00 Anion Gap 9 (10-20) L 08/07/18 06:00 BUN 13 mg/dL (7-21) 08/07/18 06:00 Creatinine 0.9 mg/dl (0.7-1.2) 08/07/18 06:00 Est GFR ( Amer) > 60 08/07/18 06:00 Est GFR (Non-Af Amer) > 60 08/07/18 06:00 Random Glucose 103 mg/dL (70-110) 08/07/18 06:00 Calcium 8.5 mg/dL (8.4-10.5) 08/07/18 06:00 Phosphorus 3.6 mg/dL (2.5-4.5) 08/07/18 06:00 Magnesium 1.7 mg/dL (1.7-2.2) 08/07/18 06:00 Total Bilirubin 1.5 mg/dL (0.2-1.3) H 08/07/18 06:00 AST 30 U/L (14-36) 08/07/18 06:00 ALT 17 U/L (7-56) 08/07/18 06:00 Alkaline Phosphatase 81 U/L (38-126) 08/07/18 06:00 Lactate Dehydrogenase 925 U/L (333-699) H 08/05/18 12:30 Total Creatine Kinase 53 U/L (35-230) 08/05/18 12:30 Troponin I < 0.01 ng/mL 08/05/18 12:30 Total Protein 6.2 g/dL (5.8-8.3) 08/07/18 06:00 Albumin 3.1 g/dL (3.0-4.8) 08/07/18 06:00 Globulin 3.1 gm/dL 08/07/18 06:00 Albumin/Globulin Ratio 1.0 (1.1-1.8) L 08/07/18 06:00 Urine Color Yellow (YELLOW) 08/05/18 13:15 Urine Appearance Sl cloudy (CLEAR) 08/05/18 13:15 Urine pH 7.5 (4.7-8.0) 08/05/18 13:15 Ur Specific [place] 1.015 (1.005-1.035) 08/05/18 13:15 Urine Protein Trace mg/dL (<30 mg/dL) H 08/05/18 13:15 Urine Glucose (UA) Negative mg/dL (NEGATIVE) 08/05/18 13:15 Urine Ketones Negative mg/dL (NEGATIVE) 08/05/18 13:15 Urine Blood Negative (NEGATIVE) 08/05/18 13:15 Urine Nitrate Negative (NEGATIVE) 08/05/18 13:15 Urine Bilirubin Negative (NEGATIVE) 08/05/18 13:15 Urine Urobilinogen 0.2 E.U./dL (<1 E.U./dL) 08/05/18 13:15 Ur Leukocyte Esterase Trace [place]/uL (NEGATIVE) H 08/05/18 13:15 Urine RBC Negative /hpf (0-2) 08/05/18 13:15 Urine WBC 0 - 2 /hpf (0-6) 08/05/18 13:15 Ur Epithelial Cells 3 - 4 /hpf (0-5) 08/05/18 13:15 Blood Type A POSITIVE 08/06/18 06:15 Blood Type Confirm A POSITIVE 08/05/18 13:15 Antibody Screen Negative 08/06/18 06:15 BBK History Checked Patient has bt 08/06/18 06:15 Attending/Attestation - Attestation I have personally seen and examined this patient.: Yes I have fully participated in the care of the patient.: Yes I have reviewed all pertinent clinical information, including history, physical exam and plan: Yes Notes (Text): 08/08/18 14:52 attending note; Patient seen and examined with resident. patient's son by the bedside. patient denies any shortness of breath. status post paracentesis. Abdominal distention improved. Patient is a 73-year-old Occitan speaking female with PMH of ovarian cancer diagnosed 5 months ago, currently undergoing chemotherapy,HTN and diet controlled DM presents to the ED with 1 week of SOB, weakness and swelling in her left leg. recurrent ascites; abdominal ultrasound showed ascites. status post paracentesis. 3 L ascitic fluid removed. oncology evaluation with Dr. Awad appreciated Patient initially responded to carboplatin and Taxotere. Later switched to Gemzar and Taxotere. Currently on PARP inhibitor. INR is 1.33. Lovenox given. Patient needs to continue Lovenox until INR is therapeutic. Prescription for Lovenox 80 mg subcutaneous twice a day given. PT INR checkup on Friday. History of left leg DVT; patient's left leg is swollen. Doppler is positive for subacute chronic occlusive thrombus in the left femoral, popliteal and tibial veins. prognosis poor. Patient's family is educated to explained to the patient about diagnosis and prognosis. Upon discharge patient will follow-up with Dr. Awad. 08/08/18 14:53
--- NOTE | 2018-08-07 20:14 | CON ---
DATE: 08/07/2018 ONCOLOGY CONSULTATION This is a 73-year-old woman with known aggressive ovarian carcinoma. She has been status post multiple agents of chemotherapy including carboplatin, Taxotere and Gemzar. She is now on new PARP inhibitor which she just started about a week ago. She has been cured very rapidly about a week ago I saw her in the office when she just started the pills. Within a week, when she came back, the abdomen had blown up and she had severe ascites. Indeed they took out 3000 mL worth of fluid yesterday. The CAT scan shows left-sided pelvic adenopathy, pelvic mass measuring 5.2 cm and bilateral inguinal adenopathy showing slight improvement, so she has the ascites and the lymph node involvement. There is also omental infiltration consistent with peritoneal metastasis. Her CA125 as an outpatient has been just climbing rapidly only in the matter of about three weeks. I had spoken to the family set to them that once I remove the fluid and she is a little bit more comfortable, she would be able to be discharged. They not to start the PARP pills later at home when she gets home, so she can start them tomorrow when she gets home, if she is home and I will see them next week either Friday or in the office to reevaluate how they are doing. Chon Awad MD
== END 2018-08-07 13:46 | disposition home or self-care (01) ==
LOC: ED 11:45 → ERH 13:21 → 5RNO 16:33
PROVIDERS: ADMIT Internal Medicine; ATTEND Internal Medicine
DX: C56.9 Malignant neoplasm of unspecified ovary (principal); R18.8 Other ascites; C78.6 Secondary malignant neoplasm of retroperitoneum and peritoneum; E86.0 Dehydration; I82.512 Chronic embolism and thrombosis of left femoral vein; I82.532 Chronic embolism and thrombosis of left popliteal vein; I82.542 Chronic embolism and thrombosis of left tibial vein; I10 Essential (primary) hypertension; E78.5 Hyperlipidemia, unspecified; E11.9 Type 2 diabetes mellitus without complications; Z79.01 Long term (current) use of anticoagulants
CPT/HCPCS: 36415; 49083; 71045; 74176; 76700; 80053; 81001; 82550; 83615; 83735; 84100; 84484; 85025; 85610; 85730; 86850; 86900; 87086; 88108; 88305; 93005; 93970; 99283; G0378; J1650; J7030

== ENCOUNTER 2018-11-25 12:21 | Emergency (ER) | payer OTHER ==
[2018-11-25 13:35] VITALS: BMI 29.2
[2018-11-25 13:40] VITALS: RESP 18; TEMP 98.5
[2018-11-25] MEDS ORDERED: Sodium Chloride 0.9% 1,000 ML IV STA (14:05)
[2018-11-25 14:47] LABS: BASO # 0.01 K/mm3 (0.0-2.0); BASO % 0.2 % (0.0-3.0); EOS % 0.2 % (1.5-5.0); GRAN # 2.76 (1.4-6.5); GRAN % 67.4 % (50.0-68.0); HEMOGLOBIN 9.2 g/dL (12.0-16.0); LYMPH # 1.1 (1.2-3.4); LYMPH % 27.1 % (22.0-35.0); MEAN CELL VOLUME 83.7 fl (80.0-105.0); MEAN CORPUSCULAR HEMOGLOBIN 26.4 pg (25.0-35.0); MEAN CORPUSCULAR HGB CONC 31.5 g/dl (31.0-37.0); MEAN PLATELET VOLUME 8.9 fl (7.0-11.0); MONO # 0.2 (0.1-0.6); MONO % 5.1 % (1.0-6.0); RBC 3.49 10^6/uL (3.5-6.1); RED CELL DISTRIBUTION WIDTH 17.5 % (11.5-14.5); WHITE BLOOD COUNT 4.1 10^3/uL (4.5-11.0)
[2018-11-25 15:15] LABS: ALB/GLOB RATIO 1.1 (1.1-1.8); ALBUMIN 3.8 g/dL (3.0-4.8); ALT/SGPT 26 U/L (7-56); AST/SGOT 30 U/L (14-36); BLOOD UREA NITROGEN 24 mg/dL (7-21); CALCIUM 9.2 mg/dL (8.4-10.5); GFR NON-AFRICAN AMERICAN > 60; LIPASE 58 U/L (23-300)
[2018-11-25 15:29] VITALS: O2SAT 98
--- NOTE | 2018-11-25 15:53 | ED PDOC ---
Arrival/HPI - General Chief Complaint: Medical Clearance Time Seen by Provider: 11/25/18 12:21 Historian: Family - History of Present Illness Narrative History of Present Illness (Text): 11/25/18 12:25 73 year old female, whose past medical history includes ovarian cancer, hypertension and hyperlipidemia, who was sent to the emergency department by Dr. Awad for abdominal distention, shortness of breath secondary to distention, and paracentesis to her abdomen. Family at bedside states that patient has not been eating. Family at bedside states patient is undergoing Chemotherapy, noting last session was 11/18/18. Dr. Gandara requests IV fluids and drainage of her abdomen by Dr. Barry Schmitt. Patient denies any fevers, abdominal pain, or any other complaints. PMD: Swetha Sanchez Time/Duration: Prior to Arrival Symptom Onset: Gradual Symptom Course: Unchanged Activities at Onset: Light Past Medical History - Provider Review Nursing Documentation Reviewed: Yes - Infectious Disease Hx of Infectious Diseases: None - Cardiac Hx Cardiac Disorders: Yes Hx Hypertension: Yes - Pulmonary Hx Respiratory Disorders: No - Neurological Hx Neurological Disorder: No - HEENT Hx HEENT Disorder: No - Renal Hx Renal Disorder: No - Endocrine/Metabolic Hx Endocrine Disorders: No - Hematological/Oncological Hx Blood Disorders: Yes Hx Cancer: Yes (ovarian- CHEMO PILLS) Hx Chemotherapy: Yes - Integumentary Hx Dermatological Disorder: Yes Other/Comment: 18 BILATERAL LEG EDEMA +4. ASCITES - Musculoskeletal/Rheumatological Hx Musculoskeletal Disorders: No - Gastrointestinal Hx Gastrointestinal Disorders: No - Genitourinary/Gynecological Hx Genitourinary Disorders: Yes (HYSTERECTOMY) - Psychiatric Hx Psychophysiologic Disorder: No Hx Substance Use: No - Surgical History Hx Hysterectomy: Yes Other/Comment: R sided chest port - Anesthesia Hx Anesthesia: Yes Hx Anesthesia Reactions: No Hx Malignant Hyperthermia: No Family/Social History - Physician Review Nursing Documentation Reviewed: Yes Family/Social History: No Known Family HX Smoking Status: Never Smoked Hx Alcohol Use: No Hx Substance Use: No Allergies/Home Meds Allergies/Adverse Reactions: Allergies Penicillins Adverse Reaction (Verified 11/25/18 13:35) SHORTNESS OF BREATH Home Medications: Home Meds Medication Instructions Recorded Confirmed Metoprolol Succinate XL [Toprol XL] 25 mg PO DAILY 04/21/17 11/25/18 Aspirin [Ecotrin] 81 mg PO DAILY 02/18/18 11/25/18 Simvastatin 20 mg PO DAILY 02/18/18 11/25/18 amLODIPine [Norvasc] 10 mg PO DAILY 02/18/18 11/25/18 Warfarin [Coumadin] 5 mg PO DAILY 08/05/18 11/25/18 Furosemide [Lasix] 40 mg PO DAILY 11/25/18 11/25/18 Potassium Chloride [K-Dur 20 mEq 20 mg PO DAILY 11/25/18 11/25/18 ER Tab] Review of Systems - Review of Systems Constitutional: Normal. absent: Fevers Respiratory: SOB (pt notes shortness of breath secondary to distention ). absent: Normal Gastrointestinal: Normal. absent: Abdominal Pain Physical Exam Vital Signs Reviewed: Yes Vital Signs Temp Pulse Resp BP Pulse Ox 11/25/18 15:00 87 18 117/71 98 11/25/18 13:39 98.5 F 115 H 18 127/80 97 Temperature: Afebrile Blood Pressure: Normal Pulse: Tachycardic Respiratory Rate: Normal Appearance: Positive for: Well-Appearing, Non-Toxic, Comfortable Pain Distress: None Mental Status: Positive for: Alert and Oriented X 3 - Systems Exam Head: Present: Atraumatic, Normocephalic Pupils: Present: PERRL Extroacular Muscles: Present: EOMI Conjunctiva: Present: Normal Mouth: Present: Moist Mucous Membranes Neck: Present: Normal Range of Motion Respiratory/Chest: Present: Clear to Auscultation, Good Air Exchange. No: Respiratory Distress, Accessory Muscle Use Cardiovascular: Present: Regular Rate and Rhythm, Normal S1, S2. No: Murmurs Abdomen: Present: Distention (abdomen distended with a fluid wave ). No: Tenderness Back: Present: Normal Inspection Upper Extremity: Present: Normal Inspection. No: Cyanosis, Edema Lower Extremity: Present: Normal Inspection. No: Edema Neurological: Present: GCS=15, CN II-XII Intact, Speech Normal Skin: Present: Warm, Pale Psychiatric: Present: Alert, Oriented x 3, Normal Insight, Normal Concentration Medical Decision Making ED Course and Treatment: 11/25/18 12:25 Impression: 73 year old female sent to the emergency department by Dr. Awad for abdominal distention, shortness of breath secondary to distention, and paracentesis to her abdomen. Plan: -- Labs -- IV fluids -- Reassess and disposition Prior Visits: Notes and results from previous visits were reviewed. Patient was last seen in the emergency department on 08/05/18 who was instructed to present to the emergency department by for generalized weakness. Patient was hospitalized in fair condition with diagnosis for Ascites. Progress Notes: 11/25/18 12:25 Dr. Gandara requests IV fluids and drainage of her abdomen by Barry Schmitt. 11/25/18 19:55 Paracentesis performed with 3.4L removed. patient feels ebtter. Wants to be discharged. - Lab Interpretations Lab Results: Total Bilirubin 0.6 mg/dL (0.2-1.3) 11/25/18 14:30 AST 30 U/L (14-36) 11/25/18 14:30 ALT 26 U/L (7-56) 11/25/18 14:30 Alkaline Phosphatase 114 U/L (38-126) 11/25/18 14:30 Total Protein 7.3 g/dL (5.8-8.3) 11/25/18 14:30 Albumin 3.8 g/dL (3.0-4.8) 11/25/18 14:30 Globulin 3.5 gm/dL 11/25/18 14:30 Albumin/Globulin Ratio 1.1 (1.1-1.8) 11/25/18 14:30 Lipase 58 U/L (23-300) 11/25/18 14:30 - RAD Interpretation Radiology Orders: 11/25/18 16:00 PARACENTESIS [US] Stat - Medication Orders Current Medication Orders: Discontinued Medications Sodium Chloride (Sodium Chloride 0.9%) 1,000 mls @ 999 mls/hr IV .Q1H1M STA Stop: 11/25/18 15:05 Last Admin: 11/25/18 14:29 Dose: 999 mls/hr eMAR Start Stop Document 11/25/18 14:29 KV (Rec: 11/25/18 14:29 KV [id number]) Intravenous Solution Start Date 11/25/18 Start Time 14:29 - Scribe Statement The provider has reviewed the documentation as recorded by the Scribe Sirena Ashraf All medical record entries made by the Scribe were at my direction and personally dictated by me. I have reviewed the chart and agree that the record accurately reflects my personal performance of the history, physical exam, me dical decision making, and the department course for this patient. I have also personally directed, reviewed, and agree with the discharge instructions and disposition. Disposition/Present on Arrival - Present on Arrival Any Indicators Present on Arrival: No History of DVT/PE: Yes History of Uncontrolled Diabetes: No Urinary Catheter: No History of Decub. Ulcer: No History Surgical Site Infection Following: None - Disposition Have Diagnosis and Disposition been Completed?: Yes Diagnosis: Ascites, Cancer Disposition: HOME/ ROUTINE Disposition Time: 19:55 Patient Plan: Discharge Condition: GOOD Discharge Instructions (ExitCare): Fluid in the Belly (Ascites) Additional Instructions: Follow-up with Dr. Awad. Return to emergency department if condition worsens. Follow-up with PMD within 2 days Referrals: Chon Awad MD [Medical Doctor] - Follow up with primary Forms: [employer] (Romansh)
[2018-11-25 17:09] LABS: PARTIAL THROMBOPLASTIN TIME 46.3 Seconds (26.9-38.3); PROTHROMBIN TIME 41.6 SECONDS (9.4-12.5)
[2018-11-25 17:11] LABS: INR 3.75
--- NOTE | 2018-11-25 19:06 | US ---
PROCEDURE: Ultrasound guided paracentesis. HISTORY: Metastatic ovarian carcinoma. Malignant ascites with abdominal pain and distension. Needs paracentesis PHYSICIAN(S): Barry Schmitt MD. TECHNIQUE: The relative risks and indications for the procedure were explained to the patient and son and informed written consent obtained. Sonography of the abdomen was performed in a supine position. This revealed a moderate amount of non-loculated ascites, greatest in the right lower quadrant. A puncture site was selected and the area was prepped and draped in the usual sterile fashion. 1% Xylocaine was used to anesthetize the skin and soft tissues. A 7 [place] paracentesis catheter was trocared into the right lower quadrantand 3400 cc of cloudy yellow fluid aspirated. A cytology specimen was sent IMPRESSION: Ultrasound-guided paracentesis in the right lower quadrant. 3400 cc of fluid were aspirated. A cytology specimen was sent
[2018-11-25 19:55] VITALS: BP 125/67; PULSE 88
[2018-11-25] MEDS ORDERED: Bacitracin 500 Units/gm Oint Foilpak UD ONE (20:03)
== END 2018-11-25 20:05 | disposition home or self-care (01) ==
LOC: ED 12:21
DX: R18.8 Other ascites (principal); C56.9 Malignant neoplasm of unspecified ovary; I10 Essential (primary) hypertension; E78.5 Hyperlipidemia, unspecified
CPT/HCPCS: 49083; 80053; 83690; 85025; 85610; 85730; 88108; 99284; J7030

== ENCOUNTER 2018-12-08 13:19 | Inpatient (IN) | payer OTHER ==
[2018-12-08 13:20] VITALS: BMI 29.2
--- NOTE | 2018-12-08 14:49 | ED PDOC ---
Arrival/HPI - General Chief Complaint: Female Genitourinary Time Seen by Provider: 12/08/18 14:31 Historian: Patient - History of Present Illness Narrative History of Present Illness (Text): 12/08/18 15:14 73 y/o malay speaking female, son at bedside translating, with PMH of ascites, hyperlipidemia, ovarian cancer diagnosed 5 months ago (on chemotherapy. last 21 days ago) and HTN, presents to the ED for evaluation of increasing abdominal distention and difficulty urinating since past few days. Patient informs visiting Dr. Awad with the presented symptoms and was subsequently sent to the ED for guided paracentesis by Dr. Schmitt. Patient reports last procedure performed 12 days ago. Patient denies any other associated somatic complaints. Patient denies any fevers, chills, headache, dizziness, chest pain, shortness of breath, dyspnea on exertion, cough, nausea, vomiting, diarrhea, back pain, neck pain, or any other complaints. Time/Duration: < week Symptom Onset: Gradual Symptom Course: Unchanged Activities at Onset: Light Context: Home Past Medical History - Provider Review Nursing Documentation Reviewed: Yes - Infectious Disease Hx of Infectious Diseases: None - Cardiac Hx Cardiac Disorders: Yes Hx Hypertension: Yes - Pulmonary Hx Respiratory Disorders: No - Neurological Hx Neurological Disorder: No - HEENT Hx HEENT Disorder: No - Renal Hx Renal Disorder: No - Endocrine/Metabolic Hx Endocrine Disorders: No - Hematological/Oncological Hx Blood Disorders: Yes Hx Cancer: Yes (ovarian- CHEMO PILLS) Hx Chemotherapy: Yes - Integumentary Hx Dermatological Disorder: Yes Other/Comment: 4-18-18 BILATERAL LEG EDEMA +4. ASCITES - Musculoskeletal/Rheumatological Hx Musculoskeletal Disorders: No - Gastrointestinal Hx Gastrointestinal Disorders: No - Genitourinary/Gynecological Hx Genitourinary Disorders: Yes (HYSTERECTOMY) - Psychiatric Hx Psychophysiologic Disorder: No Hx Substance Use: No - Surgical History Hx Hysterectomy: Yes Other/Comment: R sided chest port - Anesthesia Hx Anesthesia: Yes Hx Anesthesia Reactions: No Hx Malignant Hyperthermia: No Family/Social History - Physician Review Nursing Documentation Reviewed: Yes Family/Social History: No Known Family HX Smoking Status: Never Smoked Hx Alcohol Use: No Hx Substance Use: No Allergies/Home Meds Allergies/Adverse Reactions: Allergies Penicillins Adverse Reaction (Verified 11/25/18 13:35) SHORTNESS OF BREATH Home Medications: Home Meds Medication Instructions Recorded Confirmed RX: Metoprolol Succinate XL 25 mg PO DAILY 04/21/17 11/25/18 [Toprol XL] RX: Aspirin [Ecotrin] 81 mg PO DAILY 02/18/18 11/25/18 RX: Simvastatin 20 mg PO DAILY 02/18/18 11/25/18 RX: amLODIPine [Norvasc] 10 mg PO DAILY 02/18/18 11/25/18 RX: Warfarin [Coumadin] 5 mg PO DAILY 08/05/18 11/25/18 RX: Furosemide [Lasix] 40 mg PO DAILY 11/25/18 11/25/18 RX: Potassium Chloride [K-Dur 20 20 mg PO DAILY 11/25/18 11/25/18 mEq ER Tab] Review of Systems - Physician Review All systems were reviewed & negative as marked: Yes - Review of Systems Constitutional: absent: Fevers Respiratory: absent: SOB, Cough Cardiovascular: absent: Chest Pain Gastrointestinal: Abdominal Pain. absent: Diarrhea, Nausea, Vomiting Genitourinary Female: Other (Urinary retention). absent: Dysuria, Urine Output Changes Musculoskeletal: absent: Back Pain, Neck Pain Skin: absent: Rash Neurological: absent: Dizziness Physical Exam Vital Signs Reviewed: Yes Vital Signs Temp Pulse Resp BP Pulse Ox 12/08/18 14:42 110 H 18 133/80 99 12/08/18 13:20 98.9 F 102 H 18 104/70 95 Temperature: Afebrile Blood Pressure: Normal Pulse: Tachycardic Respiratory Rate: Normal Appearance: Positive for: Well-Appearing, Non-Toxic, Comfortable Pain Distress: None Mental Status: Positive for: Alert and Oriented X 3 - Systems Exam Head: Present: Atraumatic, Normocephalic Pupils: Present: PERRL Conjunctiva: Present: Normal Neck: Present: Normal Range of Motion Respiratory/Chest: Present: Clear to Auscultation, Good Air Exchange. No: Respiratory Distress, Accessory Muscle Use Cardiovascular: Present: Regular Rate and Rhythm, Normal S1, S2. No: Murmurs Abdomen: Present: Tenderness (mild lower abdominal tenderness), Distention. No: Peritoneal Signs Back: Present: Normal Inspection Upper Extremity: Present: Normal Inspection. No: Cyanosis, Edema Lower Extremity: Present: Edema (left greater than right (chronic as per son)) Neurological: Present: GCS=15, CN II-XII Intact, Speech Normal Skin: Present: Warm, Dry, Normal Color. No: Rashes Psychiatric: Present: Alert, Oriented x 3, Normal Insight, Normal Concentration Medical Decision Making ED Course and Treatment: 12/08/18 14:47 Impression: 73 year old female presents to the ED for evaluation of abdominal distention. Plan: -- Labs -- IV fluids -- Urine Culture -- Urinalysis -- US of Abdomen -- Reassess and disposition Prior Visits: Notes and results from previous visits were reviewed. Progress Notes: 12/08/18 15:30 Dr. Oskar umana. 12/08/18 18:[address] Porter, who is aware and agrees with ED management plan, accepts patient under her service. Aware that first set of labs hemolyzed. 12/08/18 18:39 Patient's family denies pt has not urinated, state that since urinating yesterday now urine is "dripping out". - Scribe Statement The provider has reviewed the documentation as recorded by the Scribe Yoli Amaya. Provider Scribe Attestation: All medical record entries made by the Scribe were at my direction and personally dictated by me. I have reviewed the chart and agree that the record accurately reflects my personal performance of the history, physical exam, medical decision making, and the department course for this patient. I have also personally directed, reviewed, and agree with the discharge instructions and disposition. Disposition/Present on Arrival - Present on Arrival Any Indicators Present on Arrival: Yes History of DVT/PE: Yes History of Uncontrolled Diabetes: No Urinary Catheter: No History of Decub. Ulcer: No History Surgical Site Infection Following: None - Disposition Have Diagnosis and Disposition been Completed?: Yes Diagnosis: Ascites, Abdominal distention, Hypercoagulopathy, Difficulty urinating Disposition: HOSPITALIZED Disposition Time: 18:16 Patient Plan: Admission Condition: STABLE
[2018-12-08] MEDS ORDERED: Sodium Chloride 0.9% 1,000 ML IV SCH (15:30)
[2018-12-08 17:16] LABS: BASO # 0.02 K/mm3 (0.0-2.0); BASO % 0.2 % (0.0-3.0); EOS % 0.2 % (1.5-5.0); HEMOGLOBIN 10.2 g/dL (12.0-16.0); LYMPH % 20.1 % (22.0-35.0); MEAN CELL VOLUME 82.6 fl (80.0-105.0); MEAN CORPUSCULAR HEMOGLOBIN 26.6 pg (25.0-35.0); MEAN CORPUSCULAR HGB CONC 32.2 g/dl (31.0-37.0); MEAN PLATELET VOLUME 8.6 fl (7.0-11.0); MONO # 0.7 (0.1-0.6); MONO % 7.4 % (1.0-6.0); RBC 3.84 10^6/uL (3.5-6.1); WHITE BLOOD COUNT 9.9 10^3/uL (4.5-11.0)
--- NOTE | 2018-12-08 17:18 | US ---
HISTORY: abd distention/ascites COMPARISON: Limited abdominal ultrasound/ascites check performed 08/27/18, CT abdomen pelvis without contrast performed 08/05/18 TECHNIQUE: Sonographic evaluation of the abdomen. FINDINGS: LIVER: Measures 15.5 x 10.0 x 18.4 cm. No focal hepatic mass identified. The main portal vein appears patent with normal directional flow. No intrahepatic bile duct dilatation. GALLBLADDER: Contracted gallbladder state. No gallstones. Gallbladder wall appears mildly thickened measuring approximately 4 mm. Negative sonographic Cavazos's sign as assessed by the janitor cleaner. COMMON BILE DUCT: Measures 4 mm. PANCREAS: Not well visualized. RIGHT KIDNEY: Measures 8.9 x 4.3 x 5.4 cm. No obstructing calculus or hydronephrosis identified. LEFT KIDNEY: Measures 9.5 x 4.7 x 4.6 cm. No obstructing calculus or hydronephrosis identified. SPLEEN: Measures approximately 8.1 cm. AORTA: Not well-visualized. IVC: Not well-visualized. OTHER FINDINGS: Small bilateral upper and lower quadrant ascites. IMPRESSION: Small bilateral upper and lower quadrant ascites. Contracted gallbladder state. Gallbladder wall appears mildly thickened measuring approximately 4 mm. No gallstones evident. Negative sonographic Cavazos's sign as assessed by the janitor cleaner.
[2018-12-08 17:24] LABS: PARTIAL THROMBOPLASTIN TIME 51.1 Seconds (26.9-38.3)
[2018-12-08 17:53] LABS: INR 5.23
[2018-12-08 18:14] LABS: ALB/GLOB RATIO 0.9 (1.1-1.8); ALBUMIN 3.3 g/dL (3.0-4.8); CALCIUM 8.8 mg/dL (8.4-10.5)
[2018-12-08] MEDS ORDERED: Phytonadione 10 MG in Sodium Chloride 0.9% 50 ML IV ONE (18:34)
--- NOTE | 2018-12-08 20:29 | CP.PCM.HP ---
<Karina Rayo - Last Filed: 12/08/18 23:04> History of Present Illness - History of Present Illness History of Present Illness: HISTORY & PHYSICAL NOTE FOR HOSPITALIST TEAM- Dr. Art Rayo PGY1 73 y/o english speaking F with PMHx of aggressive ovarian carcinoma diagnosed 03/2018 s/p multiple agents of chemotherapy (Carboplatin, Taxotere, Gemzar), malignant ascites (dx 12/01/18) s/p paracentesis 11/25/18, L lower leg DVTs (LFV, popliteal vein, tibial vein; on coumadin; 05/2018), HTN, HLD, DM presents to ED with complaints of difficulty urinating for the past 3 days. Son at bedside, translating for patient, reports pt has had dribbling, but has been unable to urinate. Pt recently had paracentesis on 11/26/18 with 3,000cc drained. Since the procedure, she has noticed her abdominal distention increasing. She reports RLQ abdominal pain that's worse with movement. She denied fevers, chills, headache, dizziness, chest pain, palpitations, shortness of breath, nausea, vomiting, constipation, diarrhea. PMH: ovarian carcinoma, malignant ascites, L lower leg DVTs, HTN, HLD, DM All: Pencillin- rash/swelling PSH: Hysterectomy (36 y/o) [place]osp[place] [facility] [place] SH: Denied smoking, ETOH, illicit drug use FH: Sisters (colon cancer) PMD: Dr. [place] Pharmacy: [facility] Oncologist: Dr. Awad Present on Admission - Present on Admission Any Indicators Present on Admission: No Review of Systems - Review of Systems Review of Systems: per HPI Past Patient History - Infectious Disease Hx of Infectious Diseases: None - Past Social History Smoking Status: Never Smoked - CARDIAC Hx Cardiac Disorders: Yes Hx Hypertension: Yes - PULMONARY Hx Respiratory Disorders: No - NEUROLOGICAL Hx Neurological Disorder: No - HEENT Hx HEENT Problems: No - RENAL Hx Chronic Kidney Disease: No - ENDOCRINE/METABOLIC Hx Endocrine Disorders: No - HEMATOLOGICAL/ONCOLOGICAL Hx Blood Disorders: Yes Hx Cancer: Yes (ovarian- CHEMO PILLS) Hx Chemotherapy: Yes - INTEGUMENTARY Hx Dermatological Problems: Yes Other/Comment: 4-18-18 BILATERAL LEG EDEMA +4. ASCITES - MUSCULOSKELETAL/RHEUMATOLOGICAL Hx Musculoskeletal Disorders: No - GASTROINTESTINAL Hx Gastrointestinal Disorders: No - GENITOURINARY/GYNECOLOGICAL Hx Genitourinary Disorders: Yes (HYSTERECTOMY) - PSYCHIATRIC Hx Psychophysiologic Disorder: No Hx Substance Use: No - SURGICAL HISTORY Hx Hysterectomy: Yes Other/Comment: R sided chest port - ANESTHESIA Hx Anesthesia: Yes Hx Anesthesia Reactions: No Hx Malignant Hyperthermia: No Meds Allergies/Adverse Reactions: Allergies Allergy/AdvReac Type Severity Reaction Status Date / Time Penicillins AdvReac SHORTNESS Verified 11/25/18 13:35 OF BREATH Physical Exam - Constitutional Appears: Non-toxic, No Acute Distress, Chronically Ill - Head Exam Head Exam: NORMAL INSPECTION, NORMOCEPHALIC - Eye Exam Eye Exam: Normal appearance - ENT Exam ENT Exam: Mucous Membranes Moist, Normal Exam - Neck Exam Neck exam: Positive for: Normal Inspection - Respiratory Exam Respiratory Exam: Clear to Auscultation Bilateral, NORMAL BREATHING PATTERN - Cardiovascular Exam Cardiovascular Exam: Tachycardia, +S1, +S2 - GI/Abdominal Exam GI & Abdominal Exam: Distended, Normal Bowel Sounds - Extremities Exam Extremities exam: Positive for: calf tenderness (L sided), normal inspection - Back Exam Back exam: NORMAL INSPECTION - Neurological Exam Neurological exam: Alert, Oriented x3 - Psychiatric Exam Psychiatric exam: Normal Affect, Normal Mood - Skin Skin Exam: Dry, Intact, Warm Results - Vital Signs Recent Vital Signs: Last Vital Signs Temp 98.9 F 12/08/18 13:20 Pulse 110 H 12/08/18 14:42 Resp 18 12/08/18 14:42 BP 133/80 12/08/18 14:42 Pulse Ox 99 12/08/18 14:42 - Labs Result Diagrams: 12/08/18 17:00 12/08/18 17:50 Labs: Laboratory Results - last 24 hr 12/08/18 12/08/18 12/08/18 17:00 17:00 17:50 WBC 9.9 D RBC 3.84 Hgb 10.2 L Hct 31.7 L MCV 82.6 MCH 26.6 MCHC 32.2 RDW 19.0 H Plt Count 804 H* D MPV 8.6 Neut % (Auto) 72.1 H Lymph % (Auto) 20.[address] [place] % (Auto) 7.4 H Eos % (Auto) 0.2 L Baso % (Auto) 0.2 Lymph # (Auto) 2.0 [place] # (Auto) 0.7 H Eos # (Auto) 0.0 Baso # (Auto) 0.02 Absolute Neuts (auto) 7.16 H PT 58.0 H INR 5.23 H* APTT 51.1 H Sodium 130 L Potassium 4.5 Chloride 98 Carbon Dioxide 24 Anion Gap 13 BUN 36 H Creatinine 1.2 Est GFR ( Amer) 53 Est GFR (Non-Af Amer) 44 Random Glucose 110 Calcium 8.8 Magnesium 2.0 Total Bilirubin 0.6 AST 45 H D ALT 14 Alkaline Phosphatase 90 Total Protein 6.9 Albumin 3.3 Globulin 3.5 Albumin/Globulin Ratio 0.9 L Lipase 66 Assessment & Plan - Assessment and Plan (Free Text) Assessment: 73 y/o english speaking F with PMHx of aggressive ovarian carcinoma diagnosed 03/2018 s/p multiple agents of chemotherapy (Carboplatin, Taxotere, Gemzar), malignant ascites (dx 12/01/18) s/p paracentesis 11/25/18, L lower leg DVTs (LFV, popliteal vein, tibial vein; on coumadin; 05/2018), HTN, HLD, DM presents to ED with complaints of difficulty urinating for the past 3 days Plan: Urinary retention Bladder scan revealed 280cc Straight cath placed in ED Supratherapeutic INR Administer Vitamin K Hold coumadin Repeat coags in am for possible paracentesis Ascites Abd u/s reveals small b/l upper/lower quadrant ascites Hold coumadin, repeat coags in am Consult Dr. Schmitt for paracentesis Hx of ovarian cancer Pt was scheduled for immunotherapy with Dr. Awad. Dr. Awad consulted Hx of LE DVT Supratherapeutic INR Hold for possible paracentesis DVT/GI: Supratherapeutic INR/Protonix Case seen, examined and discussed with attending physician, Dr. Art Rayo PGY1 <Saranya Cordova - Last Filed: 12/09/18 01:03> Results - Vital Signs Recent Vital Signs: Last Vital Signs Temp 97.9 F 12/08/18 22:25 Pulse 107 H 12/08/18 22:25 Resp 19 12/08/18 22:25 BP 119/70 12/08/18 22:25 Pulse Ox 97 12/08/18 22:25 - Labs Result Diagrams: 12/08/18 17:00 12/08/18 17:50 Labs: Laboratory Results - last 24 hr 12/08/18 12/08/18 12/08/18 17:00 17:00 17:50 WBC 9.9 D RBC 3.84 Hgb 10.2 L Hct 31.7 L MCV 82.6 MCH 26.6 MCHC 32.2 RDW 19.0 H Plt Count 804 H* D MPV 8.6 Neut % (Auto) 72.1 H Lymph % (Auto) 20.[address] [place] % (Auto) 7.4 H Eos % (Auto) 0.2 L Baso % (Auto) 0.2 Lymph # (Auto) 2.0 [place] # (Auto) 0.7 H Eos # (Auto) 0.0 Baso # (Auto) 0.02 Absolute Neuts (auto) 7.16 H PT 58.0 H INR 5.23 H* APTT 51.1 H Sodium 130 L Potassium 4.5 Chloride 98 Carbon Dioxide 24 Anion Gap 13 BUN 36 H Creatinine 1.2 Est GFR ( Amer) 53 Est GFR (Non-Af Amer) 44 Random Glucose 110 Calcium 8.8 Magnesium 2.0 Total Bilirubin 0.6 AST 45 H D ALT 14 Alkaline Phosphatase 90 Total Protein 6.9 Albumin 3.3 Globulin 3.5 Albumin/Globulin Ratio 0.9 L Lipase 66 Urine Color Urine Appearance Urine pH Ur Specific [place] Urine Protein Urine Glucose (UA) Urine Ketones Urine Blood Urine Nitrate Urine Bilirubin Urine Urobilinogen Ur Leukocyte Esterase 12/08/18 21:20 WBC RBC Hgb Hct MCV MCH MCHC RDW Plt Count MPV Neut % (Auto) Lymph % (Auto) [place] % (Auto) Eos % (Auto) Baso % (Auto) Lymph # (Auto) [place] # (Auto) Eos # (Auto) Baso # (Auto) Absolute Neuts (auto) PT INR APTT Sodium Potassium Chloride Carbon Dioxide Anion Gap BUN Creatinine Est GFR ( Amer) Est GFR (Non-Af Amer) Random Glucose Calcium Magnesium Total Bilirubin AST ALT Alkaline Phosphatase Total Protein Albumin Globulin Albumin/Globulin Ratio Lipase Urine Color Yellow Urine Appearance Bloody Urine pH 6.0 Ur Specific [place] 1.025 Urine Protein Negative Urine Glucose (UA) Negative Urine Ketones Negative Urine Blood Negative Urine Nitrate Negative Urine Bilirubin Negative Urine Urobilinogen 0.2 Ur Leukocyte Esterase Negative Attending/Attestation - Attestation I have personally seen and examined this patient.: Yes I have fully participated in the care of the patient.: Yes I have reviewed all pertinent clinical information: Yes Notes (Text): 12/09/18 00:56 Pt seen with the resident by the bedside. Case discussed in detail. Agree with documentation,assessment and plan of treatment
[2018-12-08 21:27] LABS: URINE BILIRUBIN NEGATIVE (NEGATIVE); URINE BLOOD NEGATIVE (NEGATIVE); URINE GLUCOSE (UA) NEGATIVE (NEGATIVE); URINE LEUKOCYTE ESTERASE NEGATIVE Leu/uL (NEGATIVE); URINE PROTEIN NEGATIVE mg/dL (<30 mg/dL); URINE UROBILINOGEN 0.2 E.U./dL (<1 E.U./dL)
[2018-12-08 22:26] LABS: URINE APPEARANCE BLOODY (CLEAR); URINE COLOR YELLOW (YELLOW)
[2018-12-09 07:08] LABS: INR 1.59; PARTIAL THROMBOPLASTIN TIME 33.4 Seconds (26.9-38.3)
[2018-12-09 07:10] LABS: ALB/GLOB RATIO 0.9 (1.1-1.8); ALBUMIN 3.2 g/dL (3.0-4.8); BASO # 0.02 K/mm3 (0.0-2.0); BASO % 0.2 % (0.0-3.0); EOS # 0.1 (0.0-0.7); EOS % 0.7 % (1.5-5.0); HEMOGLOBIN 9.9 g/dL (12.0-16.0); LYMPH # 1.8 (1.2-3.4); LYMPH % 20.1 % (22.0-35.0); MEAN CELL VOLUME 82.5 fl (80.0-105.0); MEAN CORPUSCULAR HEMOGLOBIN 26.2 pg (25.0-35.0); MEAN CORPUSCULAR HGB CONC 31.7 g/dl (31.0-37.0); MEAN PLATELET VOLUME 8.8 fl (7.0-11.0); RBC 3.78 10^6/uL (3.5-6.1); RED CELL DISTRIBUTION WIDTH 19.2 % (11.5-14.5); WHITE BLOOD COUNT 8.9 10^3/uL (4.5-11.0)
--- NOTE | 2018-12-09 09:42 | US ---
HISTORY: Leg pain and swelling. Evaluate for DVT PHYSICIAN(S): Barry Schmitt MD. TECHNIQUE: Duplex sonography and color-flow Doppler with graded compression were used to evaluate the deep venous systems of both lower extremities. FINDINGS: Occlusive subacute/chronic thrombus noted throughout the left femoral vein. Partially occlusive thrombus is noted in the left popliteal vein. Left common femoral vein is patent and compressible. There is no sonographic evidence for deep venous thrombosis in the visualized segments of the right lower extremity There are enlarged hypoechoic malignant-appearing lymph nodes noted in both groins. IMPRESSION: Subacute/chronic occlusive DVT in the left femoral and popliteal veins. Malignant-appearing enlarged lymph nodes in both groins.
--- NOTE | 2018-12-09 09:48 | CARD ---
APPROVED REPORT Date of service: 12/08/2018 EKG Measurement Heart [id number] <Conclusion> Sinus tachycardia with premature atrial complexes Low voltage QRS Borderline ECG
[2018-12-09] MEDS ORDERED: Enoxaparin 100 mg Syringe SC STA (11:41)
--- NOTE | 2018-12-09 11:59 | CP.PCM.PN ---
<Karina Rayo - Last Filed: 12/09/18 16:24> Subjective - Date & Time of Evaluation Date of Evaluation: 12/09/18 Time of Evaluation: 11:55 - Subjective Subjective: INTERNAL MEDICINE PROGRESS NOTE FOR DR. JULITO Rayo PGY1 Pt seen and examined at bedside this am. No acute events overnight. Pt presented with supratherapeutic INR last night. warfarin was held. Pt scheduled for paracentesis tomorrow at 11am. Pt continue to have R groin pain. She other complaints Objective - Vital Signs/Intake and Output Vital Signs (last 24 hours): Temp Pulse Resp BP Pulse Ox 97.9 F 109 H 18 125/82 95 12/09/18 08:39 12/09/18 08:39 12/09/18 08:39 12/09/18 08:39 12/09/18 08:39 Intake and Output: 12/09/18 12/09/18 06:59 18:59 Intake Total 0 Output Total 300 Balance -300 - Medications Medications: Current Medications Sodium Chloride (Sodium Chloride 0.9%) 1,000 mls @ 100 mls/hr IV .Q10H [facility] Last Admin: 12/08/18 17:26 Dose: 100 mls/hr Pantoprazole Sodium (Protonix Inj) 40 mg IVP DAILY [facility] Last Admin: 12/09/18 10:37 Dose: 40 mg - Labs Labs: 12/09/18 06:30 12/09/18 06:30 PT 18.0 SECONDS (9.4-12.5) H 12/09/18 06:30 INR 1.59 12/09/18 06:30 APTT 33.4 Seconds (26.9-38.3) 12/09/18 06:30 - Constitutional Appears: Well, Non-toxic, No Acute Distress - Head Exam Head Exam: NORMOCEPHALIC - Eye Exam Eye Exam: Normal appearance - ENT Exam ENT Exam: Mucous Membranes Moist, Normal Exam - Neck Exam Neck Exam: Normal Inspection - Respiratory Exam Respiratory Exam: Clear to Ausculation Bilateral, NORMAL BREATHING PATTERN - Cardiovascular Exam Cardiovascular Exam: Tachycardia, +S1, +S2 - GI/Abdominal Exam GI & Abdominal Exam: Distended, Soft - Extremities Exam Extremities Exam: Calf Tenderness (L calf ) - Back Exam Back Exam: NORMAL INSPECTION - Neurological Exam Neurological Exam: Alert, Awake, Oriented x3 - Psychiatric Exam Psychiatric exam: Normal Affect, Normal Mood - Skin Skin Exam: Dry, Intact, Warm Assessment and Plan - Assessment and Plan (Free Text) Assessment: 73 y/o kinyarwanda speaking F with PMHx of aggressive ovarian carcinoma diagnosed 03/2018 s/p multiple agents of chemotherapy (Carboplatin, Taxotere, Gemzar), malignant ascites (dx 12/01/18) s/p paracentesis 11/25/18, L lower leg DVTs (LFV, popliteal vein, tibial vein; on coumadin; 05/2018), HTN, HLD, DM presents to ED with complaints of difficulty urinating for the past 3 days Plan: Ascites Abd u/s reveals small b/l upper/lower quadrant ascites Tentatively scheduled for paracentesis tomorrow morning INR subtherapeutic now. Administer 1 dose lovenox @ 1mg/kg Hold coumadin, repeat coags in am Supratherapeutic INR s/p 1 dose Vit K Hold coumadin Repeat coags in am for possible paracentesis Hx of ovarian cancer Pt was scheduled for immunotherapy with Dr. Awad. Dr. Awad consulted Hx of LE DVT subacute/chronic occlusive DVT in the L femoral/popliteal veins. Malignant ap pearing enlarged lymph nodes in both groins 85mg lovenox administered today. Hold at midnight for paracentesis in am repeat coags in am Hold for possible paracentesis DVT/GI: Supratherapeutic INR/Protonix Case seen, examined and discussed with attending physician, Dr. Porter <Bee Porter - Last Filed: 12/10/18 17:20> Objective - Vital Signs/Intake and Output Vital Signs (last 24 hours): Temp Pulse Resp BP Pulse Ox 97.8 F 109 H 20 137/89 97 12/10/18 08:23 12/10/18 08:23 12/10/18 08:23 12/10/18 08:23 12/10/18 08:23 Intake and Output: 12/10/18 12/10/18 06:59 18:59 Intake Total 120 Balance 120 - Labs Labs: 12/10/18 06:20 12/10/18 06:20 PT 14.7 SECONDS (9.4-12.5) H 12/10/18 06:20 INR 1.30 12/10/18 06:20 APTT 33.1 Seconds (26.9-38.3) 12/10/18 06:20 Attending/Attestation - Attestation I have personally seen and examined this patient.: Yes I have fully participated in the care of the patient.: Yes I have reviewed all pertinent clinical information, including history, physical exam and plan: Yes Notes (Text): 12/10/18 17:16 Attending note; patient seen and examined with resident. Patient's 3 sons by the bedside. Patient is complaining of abdominal distention. Denies any urinary complaints. Denies any fevers, chills. Tolerating diet. Patient is a 73-year-old Serbian speaking female with PMH of ovarian cancer , currently undergoing chemotherapy,HTN and diet controlled DM is admitted for increasing abdominal distention. Patient had difficulty urination in the ER. Straight cath Done. Currently no problem urinating. Tolerating diet well. 1.recurrent ascites; secondary to malignant ascites . abdominal ultrasound showed ascites. IR evaluation requested. Plan for paracentesis tomorrow. 2. History of DVT; patient had elevated INR on admission. Currently INR is 1.59. Doppler showed chronic thrombus and bilateral inguinal adenopathy. Lovenox 1 dose given. Will restart Lovenox and Coumadin after thoracentesis. 3.Oncology evaluation with Dr. Awad appreciated Patient initially responded to carboplatin and Taxotere. Later switched to Gemzar and Taxotere. Failed chemotherapy. patient will start immunotherapy next Friday. The diagnosis, follow-up plan discussed with patient and patient's family in detail. Upon discharge patient will follow-up with Dr. Awad.
--- NOTE | 2018-12-09 19:28 | CON ---
DATE: 12/09/2018 HISTORY OF PRESENT ILLNESS: This is a 73-year-old woman with widely metastatic ovarian carcinoma. We would make him a therapy agents and including Taxotere, carboplatin, tamoxifen, letrozole. We are now set her up to get immunotherapy starting Friday in the office. She came because of her increasing abdominal aches and bloating, does show ascites, not as much as she has had in the past. She just had a tap about 2 weeks ago of 3 liters. ASSESSMENT AND PLAN: So at this point, several things, one is her lungs are clear, completely. There is no rubs, rhonchi or rales. Also her Coumadin level is relatively on a high level. So pulmonary embolism is relatively unlikely. Secondly, she has abdominal aches. She is going get tapped whatever can be to help her and they must send her home and I will see her on Friday. I just spoke with the 2 sons and a friend of the family. So, they are aware of all that. Chon Awad MD
[2018-12-10 06:40] LABS: BASO # 0.01 K/mm3 (0.0-2.0); BASO % 0.1 % (0.0-3.0); EOS % 0.4 % (1.5-5.0); HEMOGLOBIN 10.3 g/dL (12.0-16.0); LYMPH % 22.6 % (22.0-35.0); MEAN CELL VOLUME 82.5 fl (80.0-105.0); MEAN CORPUSCULAR HEMOGLOBIN 26.5 pg (25.0-35.0); MEAN CORPUSCULAR HGB CONC 32.1 g/dl (31.0-37.0); MEAN PLATELET VOLUME 8.6 fl (7.0-11.0); MONO # 0.8 (0.1-0.6); MONO % 8.3 % (1.0-6.0); RBC 3.89 10^6/uL (3.5-6.1); RED CELL DISTRIBUTION WIDTH 19.3 % (11.5-14.5)
[2018-12-10 06:46] LABS: INR 1.3; PARTIAL THROMBOPLASTIN TIME 33.1 Seconds (26.9-38.3); PROTHROMBIN TIME 14.7 SECONDS (9.4-12.5)
[2018-12-10 07:00] LABS: ALB/GLOB RATIO 0.9 (1.1-1.8); ALBUMIN 3.3 g/dL (3.0-4.8); ALT/SGPT < 6 U/L (7-56); AST/SGOT 42 U/L (14-36); BLOOD UREA NITROGEN 31 mg/dL (7-21); CALCIUM 9.3 mg/dL (8.4-10.5); GFR NON-AFRICAN AMERICAN 44
[2018-12-10 08:24] VITALS: BP 137/89; PULSE 109; RESP 20; TEMP 97.8; O2SAT 97
[2018-12-10] MEDS ORDERED: Enoxaparin 80 mg Syringe SC SCH (12:00)
[2018-12-10] MEDS ORDERED: Enoxaparin 100 mg Syringe SC SCH ×2 (12:00→22:00)
[2018-12-10] MEDS ORDERED: Enoxaparin 80 mg Syringe SC STA (13:23)
--- NOTE | 2018-12-10 19:16 | US ---
PROCEDURE: Ultrasound guided paracentesis. HISTORY: Metastatic ovarian CA. Recurrent ascites with abdominal pain and distension. Needs repeat therapeutic paracentesis PHYSICIAN(S): Barry Schmitt MD. TECHNIQUE: The relative risks and indications for the procedure were explained to the patient and her son and informed written consent obtained. Sonography of the abdomen was performed in a supine position. This revealed a moderate amount of non-loculated ascites, greatest in the right lower quadrant. A puncture site was selected and the area was prepped and draped in the usual sterile fashion. 1% Xylocaine was used to anesthetize the skin and soft tissues. A 7 Italian paracentesis catheter was trocared into the right lower quadrantand 4100 cc of chylous fluid aspirated. No labs were sent due to the recent paracentesis IMPRESSION: Ultrasound-guided paracentesis in the right lower quadrant. 4100 cc of chylous fluid was removed.
--- NOTE | 2018-12-10 21:01 | CP.PCM.DIS ---
Provider - Provider Date of Admission: 12/09/18 14:26 Attending physician: Bee Porter MD Primary care physician: Swetha Taylor MD Consults: 12/08/18 20:47 Hematology Oncology Consult Routine Comment: Consulting Provider: Chon Awad Consulting Physician: Chon Awad Reason for Consult: ovarian Ca, malignant ascites 12/08/18 20:57 Physician Consult Routine Comment: Consulting Provider: Barry Schmitt Consulting Physician: Barry Schmitt Reason for Consult: paracentesis Time Spent in preparation of Discharge (in minutes): 45 Diagnosis - Discharge Diagnosis (1) Ascites Status: Resolved (2) Ovarian cancer Status: Chronic (3) Swelling of lower extremity Status: Chronic Hospital Course - Lab Results Lab Results: Micro Results 12/08/18 21:20 Urine,Clean Catch Urine Culture - Final No Growth (<1,000 CFU/ML) Most Recent Lab Values WBC 9.0 10^3/uL (4.5-11.0) 12/10/18 06:20 RBC 3.89 10^6/uL (3.5-6.1) 12/10/18 06:20 Hgb 10.3 g/dL (12.0-16.0) L 12/10/18 06:20 Hct 32.1 % (36.0-48.0) L 12/10/18 06:20 MCV 82.5 fl (80.0-105.0) 12/10/18 06:20 MCH 26.5 pg (25.0-35.0) 12/10/18 06:20 MCHC 32.1 g/dl (31.0-37.0) 12/10/18 06:20 RDW 19.3 % (11.5-14.5) H 12/10/18 06:20 Plt Count 744 10^3/uL (120.0-450.0) H* 12/10/18 06:20 MPV 8.6 fl (7.0-11.0) 12/10/18 06:20 Neut % (Auto) 68.6 % (50.0-68.0) H 12/10/18 06:20 Lymph % (Auto) 22.6 % (22.0-35.0) 12/10/18 06:20 [place] % (Auto) 8.3 % (1.0-6.0) H 12/10/18 06:20 Eos % (Auto) 0.4 % (1.5-5.0) L 12/10/18 06:20 Baso % (Auto) 0.1 % (0.0-3.0) 12/10/18 06:20 Lymph # (Auto) 2.0 (1.2-3.4) 12/10/18 06:20 [place] # (Auto) 0.8 (0.1-0.6) H 12/10/18 06:20 Eos # (Auto) 0.0 (0.0-0.7) 12/10/18 06:20 Baso # (Auto) 0.01 K/mm3 (0.0-2.0) 12/10/18 06:20 Absolute Neuts (auto) 6.20 (1.4-6.5) 12/10/18 06:20 PT 14.7 SECONDS (9.4-12.5) H 12/10/18 06:20 INR 1.30 12/10/18 06:20 APTT 33.1 Seconds (26.9-38.3) 12/10/18 06:20 Sodium 132 mmol/L (132-148) 12/10/18 06:20 Potassium 5.2 mmol/L (3.6-5.0) H 12/10/18 06:20 Chloride 100 mmol/L (98-107) 12/10/18 06:20 Carbon Dioxide 26 mmol/L (21-33) 12/10/18 06:20 Anion Gap 11 (10-20) 12/10/18 06:20 BUN 31 mg/dL (7-21) H 12/10/18 06:20 Creatinine 1.2 mg/dl (0.7-1.2) 12/10/18 06:20 Est GFR ( Amer) 53 12/10/18 06:20 Est GFR (Non-Af Amer) 44 12/10/18 06:20 Random Glucose 126 mg/dL (70-110) H 12/10/18 06:20 Calcium 9.3 mg/dL (8.4-10.5) 12/10/18 06:20 Phosphorus 4.6 mg/dL (2.5-4.5) H 12/10/18 06:20 Magnesium 2.0 mg/dL (1.7-2.2) 12/10/18 06:20 Total Bilirubin 0.9 mg/dL (0.2-1.3) 12/10/18 06:20 AST 42 U/L (14-36) H 12/10/18 06:20 ALT < 6 U/L (7-56) L 12/10/18 06:20 Alkaline Phosphatase 85 U/L (38-126) 12/10/18 06:20 Total Protein 6.7 g/dL (5.8-8.3) 12/10/18 06:20 Albumin 3.3 g/dL (3.0-4.8) 12/10/18 06:20 Globulin 3.5 gm/dL 12/10/18 06:20 Albumin/Globulin Ratio 0.9 (1.1-1.8) L 12/10/18 06:20 Lipase 66 U/L (23-300) 12/08/18 17:50 Urine Color Yellow (YELLOW) 12/08/18 21:20 Urine Appearance Bloody (CLEAR) 12/08/18 21:20 Urine pH 6.0 (4.7-8.0) 12/08/18 21:20 Ur Specific Strong 1.025 (1.005-1.035) 12/08/18 21:20 Urine Protein Negative mg/dL (<30 mg/dL) 12/08/18 21:20 Urine Glucose (UA) Negative mg/dL (NEGATIVE) 12/08/18 21:20 Urine Ketones Negative mg/dL (NEGATIVE) 12/08/18 21:20 Urine Blood Negative (NEGATIVE) 12/08/18 21:20 Urine Nitrate Negative (NEGATIVE) 12/08/18 21:20 Urine Bilirubin Negative (NEGATIVE) 12/08/18 21:20 Urine Urobilinogen 0.2 E.U./dL (<1 E.U./dL) 12/08/18 21:20 Ur Leukocyte Esterase Negative [place]/uL (NEGATIVE) 12/08/18 21:20 - Hospital Course Hospital Course: Upon Admission 73 y/o polish speaking F with PMHx of aggressive ovarian carcinoma diagnosed 03/2018 s/p multiple agents of chemotherapy (Carboplatin, Taxotere, Gemzar), malignant ascites (dx 12/01/18) s/p paracentesis 11/25/18, L lower leg DVTs (LFV, popliteal vein, tibial vein; on coumadin; 05/2018), HTN, HLD, DM presents to ED with complaints of difficulty urinating for the past 3 days. Son at bedside, translating for patient, reports pt has had dribbling, but has been unable to urinate. Pt recently had paracentesis on 11/26/18 with 3,000cc drained. Since the procedure, she has noticed her abdominal distention increasing. She reports RLQ abdominal pain that's worse with movement. She denied fevers, chills, headache, dizziness, chest pain, palpitations, shortness of breath, nausea, vomiting, constipation, diarrhea. Hospital Course In the ED, bladder scan was found to have 280ml. Straight cath was placed and drained urine appropiately. Abd U/S revealed small b/l upper/lower quadrant ascites. LLE ultrasound revealed "subacute/chronic occlusive DVT in the L femoral & popliteal veins. Malignant appearing enalarged lymph nodes in both groins". INR was found to be supratherapeutic at 5.23. Warfarin was held, and vitamin K administered in ED. Pt underwent paracentesis by IR, draining 4100ml of chylous fluid. Pt reported improvement in distention after the procedure. She was seen by heme-onc, who follows her for her ovarian cancer. She is scheduled for immunotherapy. She was started on therapeutic lovenox, with plans to bridge to warfarin Upon Discharge Pt is feeling better. Vitals are stable. Pt and family members at bedside were explained, in great detail, about medication compliance, outpatient followup and to return to ED if symptoms return. Pt & family reported understanding. Discharge Exam - Head Exam Head Exam: NORMOCEPHALIC - Eye Exam Eye Exam: EOMI, Normal appearance - ENT Exam ENT Exam: Mucous Membranes Moist - Neck Exam Neck exam: Normal Inspection - Respiratory Exam Respiratory Exam: NORMAL BREATHING PATTERN, UNREMARKABLE - Cardiovascular Exam Cardiovascular Exam: Tachycardia - GI/Abdominal Exam GI & Abdominal Exam: Soft Additional comments: mild distention - Extremities Exam Additional comments: L Leg swelling - Back Exam Back exam: NORMAL INSPECTION - Neurological Exam Neurological exam: Alert, Oriented x3 - Psychiatric Exam Psychiatric exam: Normal Affect, Normal Mood - Skin Skin Exam: Dry, Intact, Warm Discharge Plan - Discharge Medications Prescriptions: Enoxaparin [Lovenox] 80 mg IV BID #9 syr - Follow Up Plan Condition: STABLE Disposition: HOME/ ROUTINE Instructions: Fluid in the Belly (Ascites) (DC), Abdominal Paracentesis (DC) Additional Instructions: Please follow up with your primary doctor, Dr. Taylor within 3-5 days of discharge Please follow up with your insurance investigator-oncologist, Dr. Awad, within 3-5 days of discharge. You have an appointment with Dr. Awad. Please discuss Lovenox and Warfarin with him. Please inject Lovenox 80mg twice a day for three (3) days. Please continue taking the Warfarin while taking this medication. Please continue the medications you were taking previously, including the warfarin Please have your INR checked regularly If your symptoms return, or you experience new symptoms, please visit the nearest emergency room Referrals: Chon Awad MD [Medical Doctor] - Barry Schmitt MD [Staff Provider] - Swetha Taylor MD [Primary Care Provider] -
== END 2018-12-10 14:52 | disposition home or self-care (01) | DRG 366 ==
LOC: ED 13:19 → ERH 18:18 → 3RNO 21:28 → OBSVTOIN 12-09 14:26
PROVIDERS: ADMIT Internal Medicine; ATTEND Internal Medicine
PROC: 0W9G3ZZ Drainage of Peritoneal Cavity, Percutaneous Approach (ICD-10-PCS; principal; 2018-12-10 10:00)
DX: C56.9 Malignant neoplasm of unspecified ovary (principal); R18.0 Malignant ascites; I82.512 Chronic embolism and thrombosis of left femoral vein; I10 Essential (primary) hypertension; E11.9 Type 2 diabetes mellitus without complications; E78.5 Hyperlipidemia, unspecified; R79.1 Abnormal coagulation profile; Z79.01 Long term (current) use of anticoagulants; Z79.82 Long term (current) use of aspirin

== ENCOUNTER 2018-12-16 08:18 | Inpatient (IN) | payer OTHER ==
--- NOTE | 2018-12-16 09:39 | ED PDOC ---
Arrival/HPI - General Chief Complaint: Abdominal Pain Time Seen by Provider: 12/16/18 09:13 Historian: Patient - History of Present Illness Narrative History of Present Illness (Text): 12/16/18 09:34 73 year old female, Romanian speaking, son at bedside translating, whose past medical history includes of ascites, hyperlipidemia, ovarian cancer (on chemotherapy last 2 days ago) and hypertension, presents to the ED for shortness of breath. Sons states his mother had trouble breathing since midnight, last night and that she feels like there is a lot of pressure on her chest from the abdomen pushing on her chest. Patient was admitted to the hospital on 12/08/18 for abdominal distention and ascites and had a ultrasound guided paracentesis by Dr. Schmitt and was discharged on 12/10/18. She has another appointment this Friday with Dr. Schmitt for another paracentesis, but came into the emergency department for evaluation of shortness of breath. Patient denies any fevers, chills, headache, dizziness, chest pain, cough, nausea, vomiting, diarrhea, back pain, neck pain, or any other complaints. PMD: Oncologist: Dr. Awad Time/Duration: 24 hours Symptom Onset: Gradual Symptom Course: Unchanged Activities at Onset: Light Context: Home Past Medical History - Provider Review Nursing Documentation Reviewed: Yes - Infectious Disease Hx of Infectious Diseases: None - Cardiac Hx Cardiac Disorders: Yes Hx Hypertension: Yes - Pulmonary Hx Respiratory Disorders: No - Neurological Hx Neurological Disorder: No - HEENT Hx HEENT Disorder: No - Renal Hx Renal Disorder: No - Endocrine/Metabolic Hx Endocrine Disorders: No - Hematological/Oncological Hx Blood Disorders: Yes Hx Cancer: Yes (ovarian- CHEMO PILLS) Hx Chemotherapy: Yes - Integumentary Hx Dermatological Disorder: Yes Other/Comment: [phone] BILATERAL LEG EDEMA +4. ASCITES - Musculoskeletal/Rheumatological Hx Musculoskeletal Disorders: No - Gastrointestinal Hx Gastrointestinal Disorders: No - Genitourinary/Gynecological Hx Genitourinary Disorders: Yes (HYSTERECTOMY) - Psychiatric Hx Psychophysiologic Disorder: No Hx Substance Use: No - Surgical History Hx Hysterectomy: Yes Other/Comment: R sided chest port - Anesthesia Hx Anesthesia: Yes Hx Anesthesia Reactions: No Hx Malignant Hyperthermia: No Family/Social History - Physician Review Nursing Documentation Reviewed: Yes Family/Social History: No Known Family HX Smoking Status: Never Smoked Hx Alcohol Use: No Hx Substance Use: No Allergies/Home Meds Allergies/Adverse Reactions: Allergies Penicillins Adverse Reaction (Verified 12/16/18 09:08) SHORTNESS OF BREATH Home Medications: Home Meds Medication Instructions Recorded Confirmed RX: Metoprolol Succinate XL 25 mg PO DAILY 04/21/17 12/16/18 [Toprol XL] RX: Aspirin [Ecotrin] 81 mg PO DAILY 02/18/18 12/16/18 RX: Simvastatin 20 mg PO DAILY 02/18/18 12/16/18 RX: amLODIPine [Norvasc] 10 mg PO DAILY 02/18/18 12/16/18 RX: Warfarin [Coumadin] 5 mg PO DAILY 08/05/18 12/16/18 RX: Furosemide [Lasix] 40 mg PO DAILY 11/25/18 12/16/18 RX: Potassium Chloride [K-Dur 20 20 mg PO DAILY 11/25/18 12/16/18 mEq ER Tab] Review of Systems - Physician Review All systems were reviewed & negative as marked: Yes - Review of Systems Constitutional: absent: Fevers Respiratory: SOB. absent: Cough Cardiovascular: absent: Chest Pain Gastrointestinal: absent: Abdominal Pain, Diarrhea, Nausea, Vomiting Genitourinary Female: absent: Dysuria, Frequency Musculoskeletal: absent: Back Pain, Neck Pain Skin: absent: Rash Neurological: absent: Headache, Dizziness Physical Exam Vital Signs Reviewed: Yes Vital Signs Temp Pulse Resp BP Pulse Ox 12/16/18 09:05 98.3 F 106 H 18 124/83 98 Temperature: Afebrile Blood Pressure: Normal Pulse: Tachycardic Respiratory Rate: Normal Appearance: Positive for: Well-Appearing, Non-Toxic, Comfortable Pain Distress: None Mental Status: Positive for: Alert and Oriented X 3 - Systems Exam Head: Present: Atraumatic, Normocephalic Pupils: Present: PERRL Extroacular Muscles: Present: EOMI Conjunctiva: Present: Normal Mouth: Present: Moist Mucous Membranes Neck: Present: Normal Range of Motion Respiratory/Chest: Present: Clear to Auscultation, Good Air Exchange. No: Respiratory Distress, Accessory Muscle Use Cardiovascular: Present: Regular Rate and Rhythm, Normal S1, S2. No: Murmurs Abdomen: Present: Distention (belly is extremely distended ), Other (site of last paracentesis is clean and dry). No: Tenderness, Normal Bowel Sounds (decreased belly sounds), Peritoneal Signs, Rebound, Guarding Back: Present: Normal Inspection Upper Extremity: Present: Normal Inspection. No: Cyanosis, Edema Lower Extremity: Present: Edema (+2 bilateral pitting edema on lower extremities) Neurological: Present: GCS=15, CN II-XII Intact, Speech Normal Skin: Present: Warm, Dry, Normal Color. No: Rashes Psychiatric: Present: Alert, Oriented x 3, Normal Insight, Normal Concentration Medical Decision Making ED Course and Treatment: 12/16/18 09:41 Impression: 73 year old female who presents to the emergency department complaining of shortness of breath. Plan: -- EKG -- Labs -- Chest X-ray -- US of abdomen -- Reassess and disposition Prior Visits: Notes and results from previous visits were reviewed. Progress Notes: Ultrasound demonstrates moderate amount of ascites. Plan admit for further evaluation and management. Patient agreeable w/POC. 12/16/18 11:[address] Fernandes who accepts patient into her service. - Lab Interpretations I have reviewed the lab results: Yes - RAD Interpretation Narrative RAD Interpretations (Text): 12/16/18 10:46 Abdominal ultrasound reviewed by radiologist, shows: IMPRESSION: Moderate abdominal ascites. Chronic renal parenchymal disease. 12/16/18 10:52 Chest X-ray reviewed, shows: IMPRESSION: No active disease. Radiology Orders: 12/16/18 09:18 CHEST PORTABLE [RAD] Stat 12/16/18 09:19 ABDOMEN COMPLETE [US] Stat [employer]ment Fitter: Radiologist - EKG Interpretation EKG Interpretation (Text): 12/16/18 09:47 EKG reviewed by me, shows: Sinus tachycardia at 104 bpm with normal intervals, normal axis, low voltage,and no ST elevations or depressions Interpreted by ED Physician: Yes Type: 12 lead EKG - Scribe Statement The provider has reviewed the documentation as recorded by the Alanna Sanchez Provider Scribe Attestation: All medical record entries made by the Scribe were at my direction and pers onally dictated by me. I have reviewed the chart and agree that the record accurately reflects my personal performance of the history, physical exam, medical decision making, and the department course for this patient. I have also personally directed, reviewed, and agree with the discharge instructions and disposition. Disposition/Present on Arrival - Present on Arrival Any Indicators Present on Arrival: Yes History of DVT/PE: Yes History of Uncontrolled Diabetes: No Urinary Catheter: No History of Decub. Ulcer: No History Surgical Site Infection Following: None - Disposition Have Diagnosis and Disposition been Completed?: Yes Diagnosis: Ascites, Dyspnea Disposition: HOSPITALIZED Disposition Time: 11:22 Patient Plan: Admission Patient Problems: Current Active Problems Problem Status Onset Ascites Acute Dyspnea Acute Condition: STABLE
[2018-12-16 09:58] LABS: BASO # 0.01 K/mm3 (0.0-2.0); BASO % 0.1 % (0.0-3.0); EOS % 0.3 % (1.5-5.0); HEMOGLOBIN 10.7 g/dL (12.0-16.0); LYMPH # 1.5 (1.2-3.4); LYMPH % 12.6 % (22.0-35.0); MEAN CELL VOLUME 83.7 fl (80.0-105.0); MEAN CORPUSCULAR HEMOGLOBIN 26.8 pg (25.0-35.0); MEAN PLATELET VOLUME 8.7 fl (7.0-11.0); MONO # 0.9 (0.1-0.6); RBC 3.99 10^6/uL (3.5-6.1); RED CELL DISTRIBUTION WIDTH 19.8 % (11.5-14.5); WHITE BLOOD COUNT 11.5 10^3/uL (4.5-11.0)
[2018-12-16 10:09] LABS: INR 1.4; PARTIAL THROMBOPLASTIN TIME 32.2 Seconds (26.9-38.3); PROTHROMBIN TIME 15.8 SECONDS (9.4-12.5)
[2018-12-16 10:10] LABS: BLOOD UREA NITROGEN 45 mg/dL (7-21); CALCIUM 9.2 mg/dL (8.4-10.5); GFR NON-AFRICAN AMERICAN 34
[2018-12-16 10:17] LABS: B-TYPE NATRIURETIC PEPTIDE 397 pg/mL (0-450)
[2018-12-16 10:21] LABS: TROPONIN I < 0.01 ng/mL
--- NOTE | 2018-12-16 10:40 | US ---
Date of service: 12/16/2018 HISTORY: Ascites COMPARISON: None. TECHNIQUE: Grayscale imaging was performed. FINDINGS: LIVER: Measures 16.8 cm. Normal echogenicity of the liver parenchyma. No mass. No intrahepatic bile duct dilatation. GALLBLADDER: There are no gallstones, wall thickening or pericholecystic fluid. The sonographic Cavazos's sign is negative. COMMON BILE DUCT: Measures 2.0 mm. No stones. No dilatation. PANCREAS: Obscured by bowel gas. RIGHT KIDNEY: Measures 7.8cm. Diffuse increased echogenicity. No calculus, mass, or hydronephrosis. LEFT KIDNEY: Measures 8.0cm. Diffuse increased echogenicity. No calculus, mass, or hydronephrosis. SPLEEN: Normal in size and contour. No mass. AORTA: No aneurysmal dilatation. IVC: Unremarkable. OTHER FINDINGS: There is moderate abdominal ascites. IMPRESSION: Moderate abdominal ascites. Chronic renal parenchymal disease.
--- NOTE | 2018-12-16 10:48 | RAD ---
Date of service: 12/16/2018 HISTORY: sob COMPARISON: 08/05/2018 FINDINGS: LUNGS: No active pulmonary disease. PLEURA: No significant pleural effusion identified, no pneumothorax apparent. CARDIOVASCULAR: No aortic atherosclerotic calcification present. Normal cardiac size. No pulmonary vascular congestion. OSSEOUS STRUCTURES: No significant abnormalities. VISUALIZED UPPER ABDOMEN: Normal. OTHER FINDINGS: None. IMPRESSION: No active disease.
--- NOTE | 2018-12-16 12:54 | CP.PCM.HP ---
<Paul Simms - Last Filed: 12/16/18 12:49> History of Present Illness - History of Present Illness History of Present Illness: PGY1 Medicine History and Physical Exam Note for Dr. Bean 73-year-old slovenian speaking F with PMHx of aggressive ovarian carcinoma diagnosed 03/2018 s/p multiple agents of chemotherapy (Carboplatin, Taxotere, Gemzar), on chemotherapy last 2 days, malignant ascites (dx 12/01/18) s/p paracentesis 11/25/18, L lower leg DVTs (LFV, popliteal vein, tibial vein; on coumadin; 05/2018), HTN, HLD, DM presents to ED with complaints of an increasingly distended abdomen and shortness of breath since midnight. Patient was admitted to the hospital on 12/08/18 for abdominal pain and has a ultrasound guided paracentesis by Dr. Schmitt and was discharged on 12/10/18. Patient was sc heduled for another paracentesis with Dr. Schmitt this upcoming Friday, however she states she could not wait until then because the abdomen was making it increasingly difficult for her breathe. Patient otherwise denies chest pain, fevers, chills, headache, dizziness, chest pain, palpitations, headache, nausea, vomiting, constipation, diarrhea. PMH: ovarian carcinoma, malignant ascites, L lower leg DVTs, HTN, HLD, DM Allergies: Pencillin- rash/swelling PSH: Hysterectomy (36 y/o) Hospital[place] [facility] [place] [facility] [place] Social Hx: Denied smoking, ETOH, illicit drug use Family Hx: Sisters (colon cancer) PMD: Dr. Taylor Ralston Pharmacy: [facility] Oncologist: Dr. Awad Present on Admission - Present on Admission Any Indicators Present on Admission: No History of DVT/PE: No History of Uncontrolled Diabetes: No Urinary Catheter: No Decubitus Ulcer Present: No Review of Systems - Review of Systems All systems: reviewed and no additional remarkable complaints except Review of Systems: as mentioned in HPI Past Patient History - Infectious Disease Hx of Infectious Diseases: None - Past Social History Smoking Status: Never Smoked - CARDIAC Hx Cardiac Disorders: Yes Hx Hypertension: Yes - PULMONARY Hx Respiratory Disorders: No - NEUROLOGICAL Hx Neurological Disorder: No - HEENT Hx HEENT Problems: No - RENAL Hx Chronic Kidney Disease: No - ENDOCRINE/METABOLIC Hx Endocrine Disorders: No - HEMATOLOGICAL/ONCOLOGICAL Hx Blood Disorders: Yes Hx Cancer: Yes (ovarian- CHEMO PILLS) Hx Chemotherapy: Yes - INTEGUMENTARY Hx Dermatological Problems: Yes Other/Comment: 4-18 BILATERAL LEG EDEMA +4. ASCITES - MUSCULOSKELETAL/RHEUMATOLOGICAL Hx Musculoskeletal Disorders: No - GASTROINTESTINAL Hx Gastrointestinal Disorders: No - GENITOURINARY/GYNECOLOGICAL Hx Genitourinary Disorders: Yes (HYSTERECTOMY) - PSYCHIATRIC Hx Psychophysiologic Disorder: No Hx Substance Use: No - SURGICAL HISTORY Hx Hysterectomy: Yes Other/Comment: R sided chest port - ANESTHESIA Hx Anesthesia: Yes Hx Anesthesia Reactions: No Hx Malignant Hyperthermia: No Meds Allergies/Adverse Reactions: Allergies Allergy/AdvReac Type Severity Reaction Status Date / Time Penicillins AdvReac SHORTNESS Verified 12/16/18 09:08 OF BREATH Physical Exam - Constitutional Appears: Non-toxic, No Acute Distress, Chronically Ill - Head Exam Head Exam: ATRAUMATIC, NORMAL INSPECTION, NORMOCEPHALIC - Eye Exam Eye Exam: EOMI, Normal appearance Pupil Exam: NORMAL ACCOMODATION - ENT Exam ENT Exam: Normal Exam - Neck Exam Neck exam: Positive for: Full Rom, Normal Inspection - Respiratory Exam Respiratory Exam: Clear to Auscultation Bilateral, NORMAL BREATHING PATTERN. absent: Rhonchi, Wheezes, Respiratory Distress - Cardiovascular Exam Cardiovascular Exam: REGULAR RHYTHM, +S1, +S2. absent: Diastolic murmur, Systolic Murmur - GI/Abdominal Exam GI & Abdominal Exam: Distended, Firm, Normal Bowel Sounds. absent: Guarding - Extremities Exam Extremities exam: Positive for: normal capillary refill, pedal pulses present Additional comments: +1 lower extremity edema bilaterally - Back Exam Back exam: NORMAL INSPECTION. absent: CVA tenderness (L), CVA tenderness (R) - Neurological Exam Neurological exam: Alert, CN II-XII Intact, Oriented x3 - Psychiatric Exam Psychiatric exam: Normal Affect, Normal Mood - Skin Skin Exam: Dry, Intact, Normal Color, Warm Results - Vital Signs Recent Vital Signs: Last Vital Signs Temp 98.3 F 12/16/18 09:05 Pulse 103 H 12/16/18 11:34 Resp 18 12/16/18 11:34 BP 119/58 L 12/16/18 11:34 Pulse Ox 98 12/16/18 11:34 - Labs Result Diagrams: 12/16/18 09:30 12/16/18 09:30 Labs: Laboratory Results - last 24 hr 12/16/18 12/16/18 12/16/18 09:30 09:30 09:30 WBC 11.5 H D RBC 3.99 Hgb 10.7 L Hct 33.4 L MCV 83.7 MCH 26.8 MCHC 32.0 RDW 19.8 H Plt Count 639 H MPV 8.7 Neut % (Auto) 79.0 H Lymph % (Auto) 12.6 L [place] % (Auto) 8.0 H Eos % (Auto) 0.3 L Baso % (Auto) 0.1 Lymph # (Auto) 1.5 [place] # (Auto) 0.9 H Eos # (Auto) 0.0 Baso # (Auto) 0.01 Absolute Neuts (auto) 9.07 H PT 15.8 H INR 1.40 APTT 32.2 Sodium 130 L Potassium 4.6 Chloride 103 Carbon Dioxide 21 Anion Gap 10 BUN 45 H Creatinine 1.5 H Est GFR ( Amer) 41 Est GFR (Non-Af Amer) 34 Random Glucose 136 H Calcium 9.2 Magnesium 2.3 H Lactate Dehydrogenase 703 H Total Creatine Kinase < 20 L Troponin I < 0.01 NT-Pro-B Natriuret Pep 397 Assessment & Plan - Assessment and Plan (Free Text) Assessment: 73-year-old slovenian speaking F with PMHx of aggressive ovarian carcinoma diagnosed 03/2018 s/p multiple agents of chemotherapy (Carboplatin, Taxotere, Gemzar), on chemotherapy last 2 days, malignant ascites (dx 12/01/18) s/p parac entesis 11/25/18, L lower leg DVTs (LFV, popliteal vein, tibial vein; on coumadin; 05/2018), HTN, HLD, DM presents to ED with complaints of an increasingly distended abdomen and shortness of breath since midnight. Patient was admitted to the hospital on 12/08/18 for abdominal pain and has a ultrasound g uided paracentesis by Dr. Schmitt and was discharged on 12/10/18. Patient was scheduled for another paracentesis with Dr. Schmitt this upcoming Friday, however she states she could not wait until then because the abdomen was making it increasingly difficult for her breathe. Ascites likely secondary to malignancy - Abd ultrasound reveals moderate ascites; chronic parenchymal disease - Hold coumadin, repeat coags in am - Keep NPO - Consult Dr. Schmitt for paracentesis - Schedule for today/tomorrow, Per Dr. Schmitt EMMA - Creatinine increased 0.3 from baseline (1.2--> 1.5) - Patient states she has not taken her lasix medication as of late, however she was discharged on lovenox on 12/10 (last dose was on Friday) - F/U CMP, Mg, Phos AM labs B/L Lower Extremity Edema - Likely due to CCB - History of LE DVT - INR=1.4 - Hold coumadin for paracentesis Mild Leukocytosis - Likely reactive - WBC=11.5 - Patient afebrile - Monitor CBC AM labs Hx of ovarian cancer - Patient is followed by Dr. Awad. Hx HTN - Patient is on norvasc - Resume home meds in AM Hx of LE DVT - Supratherapeutic INR - Hold coumadin for paracentesis PPx - GI: Protonix - DVT: Hold coumadin for now Patient seen and case discussed in detail with Dr. Vikas Simms PGY1 <Arline Bean - Last Filed: 12/17/18 07:32> Results - Vital Signs Recent Vital Signs: Last Vital Signs Temp 97.6 F 12/17/18 06:00 Pulse 125 H 12/17/18 06:00 Resp 20 12/17/18 06:00 BP 134/65 12/17/18 06:00 Pulse Ox 100 12/17/18 06:00 - Labs Result Diagrams: 12/17/18 06:15 12/17/18 06:15 Labs: Laboratory Results - last 24 hr 12/16/18 12/16/18 12/16/18 09:30 09:30 09:30 WBC 11.5 H D RBC 3.99 Hgb 10.7 L Hct 33.4 L MCV 83.7 MCH 26.8 MCHC 32.0 RDW 19.8 H Plt Count 639 H MPV 8.7 Neut % (Auto) 79.0 H Lymph % (Auto) 12.6 L [place] % (Auto) 8.0 H Eos % (Auto) 0.3 L Baso % (Auto) 0.1 Lymph # (Auto) 1.5 [place] # (Auto) 0.9 H Eos # (Auto) 0.0 Baso # (Auto) 0.01 Absolute Neuts (auto) 9.07 H PT 15.8 H INR 1.40 APTT 32.2 Sodium 130 L Potassium 4.6 Chloride 103 Carbon Dioxide 21 Anion Gap 10 BUN 45 H Creatinine 1.5 H Est GFR ( Amer) 41 Est GFR (Non-Af Amer) 34 Random Glucose 136 H Calcium 9.2 Phosphorus Magnesium 2.3 H Total Bilirubin AST ALT Alkaline Phosphatase Lactate Dehydrogenase 703 H Total Creatine Kinase < 20 L Troponin I < 0.01 NT-Pro-B Natriuret Pep 397 Total Protein Albumin Globulin Albumin/Globulin Ratio 12/17/18 12/17/18 12/17/18 06:15 06:15 06:15 WBC 10.3 RBC 3.85 Hgb 10.2 L Hct 32.4 L MCV 84.2 MCH 26.5 MCHC 31.5 RDW 20.2 H Plt Count 627 H MPV 8.9 Neut % (Auto) 77.1 H Lymph % (Auto) 14.8 L [place] % (Auto) 7.8 H Eos % (Auto) 0.2 L Baso % (Auto) 0.1 Lymph # (Auto) 1.5 [place] # (Auto) 0.8 H Eos # (Auto) 0.0 Baso # (Auto) 0.01 Absolute Neuts (auto) 7.93 H PT 14.7 H INR 1.30 APTT 32.6 Sodium 131 L Potassium 4.6 Chloride 102 Carbon Dioxide 20 L Anion Gap 13 BUN 45 H Creatinine 1.4 H Est GFR ( Amer) 44 Est GFR (Non-Af Amer) 37 Random Glucose 128 H Calcium 8.8 Phosphorus 5.3 H Magnesium 2.2 Total Bilirubin 0.7 AST 30 ALT 20 Alkaline Phosphatase 141 H D Lactate Dehydrogenase Total Creatine Kinase Troponin I NT-Pro-B Natriuret Pep Total Protein 6.6 Albumin 3.1 Globulin 3.4 Albumin/Globulin Ratio 0.9 L Attending/Attestation - Attestation I have personally seen and examined this patient.: Yes I have fully participated in the care of the patient.: Yes I have reviewed all pertinent clinical information: Yes Notes (Text): 12/16/18 73 year old female with past medical history of metastatic ovarian cancer on chemotherapy, LLL DVT on coumadin, hypertension and diabetes who presents with complaint of abdominal pain and distension secondary to recurrent ascites. Patient was schedule for IR later this week but came today because of worsening symptoms. IR evaluation is requested. Discussed with Dr. Schmitt; plan for procedure today or tomorrow. Will hold coumadin tonight; dose of lovenox given. Mild EMMA noted; will monitor. Arline Bean MD Hospitalist.
[2018-12-16] MEDS ORDERED: Enoxaparin 80 mg Syringe SC ONE (16:43)
[2018-12-16 22:53] VITALS: BMI 29.7
[2018-12-16] MEDS ORDERED: Influenza Vaccine 60 mcg/0.5 mL SYR (4YR UP) IM ONE (22:53)
[2018-12-17 06:41] LABS: BASO # 0.01 K/mm3 (0.0-2.0); BASO % 0.1 % (0.0-3.0); EOS % 0.2 % (1.5-5.0); HEMOGLOBIN 10.2 g/dL (12.0-16.0); LYMPH # 1.5 (1.2-3.4); LYMPH % 14.8 % (22.0-35.0); MEAN CELL VOLUME 84.2 fl (80.0-105.0); MEAN CORPUSCULAR HEMOGLOBIN 26.5 pg (25.0-35.0); MEAN CORPUSCULAR HGB CONC 31.5 g/dl (31.0-37.0); MEAN PLATELET VOLUME 8.9 fl (7.0-11.0); MONO # 0.8 (0.1-0.6); MONO % 7.8 % (1.0-6.0); RBC 3.85 10^6/uL (3.5-6.1); RED CELL DISTRIBUTION WIDTH 20.2 % (11.5-14.5); WHITE BLOOD COUNT 10.3 10^3/uL (4.5-11.0)
[2018-12-17 06:44] LABS: INR 1.3; PARTIAL THROMBOPLASTIN TIME 32.6 Seconds (26.9-38.3); PROTHROMBIN TIME 14.7 SECONDS (9.4-12.5)
[2018-12-17 07:19] LABS: ALB/GLOB RATIO 0.9 (1.1-1.8); ALBUMIN 3.1 g/dL (3.0-4.8); CALCIUM 8.8 mg/dL (8.4-10.5)
--- NOTE | 2018-12-17 08:18 | CARD ---
APPROVED REPORT Date of service: 12/16/2018 EKG Measurement Heart [id number] <Conclusion> Sinus tachycardia Low voltage QRS Borderline ECG
[2018-12-17] MEDS: Metoprolol Succinate 25 mg XL Tab PO SCH (11:43)
[2018-12-17] MEDS ORDERED: Lidocaine 2% Inj (20ml) ONE (13:28)
[2018-12-17] MEDS ORDERED: Midazolam 2 MG/2 ML VIAL ONE ×2 (14:31→14:47)
[2018-12-17] MEDS ORDERED: Sodium Chloride 0.45% 1,000 ML IV SCH (15:15)
--- NOTE | 2018-12-17 16:27 | CP.PCM.PN ---
<Olivia Lo - Last Filed: 12/17/18 16:22> Subjective - Date & Time of Evaluation Date of Evaluation: 12/17/18 Time of Evaluation: 16:22 - Subjective Subjective: Olivia Lo, PGY-1, Internal Medicine Progress Note for Dr. Bean Patient seen and evaluated at bedside. Patient was unable to sleep due to abdominal discomfort overnight. This morning, patient complained of shortness of breath and abdominal distension. Patient had one bowel movement yesterday. Patient denies chest pain, headache, fever, dysuria, and hematuria. 12-point ROS was unremarkable except for what was mentioned above. Objective - Vital Signs/Intake and Output Vital Signs (last 24 hours): Temp Pulse Resp BP Pulse Ox 97.5 F L 69 17 121/71 100 12/17/18 15:50 12/17/18 15:50 12/17/18 15:50 12/17/18 15:50 12/17/18 15:50 Intake and Output: 12/17/18 12/17/18 06:59 18:59 Intake Total 120 Balance 120 - Medications Medications: Current Medications Acetaminophen (Tylenol 325mg Tab) 650 mg PO Q4 PRN PRN Reason: Pain, Mild (1-3) Amlodipine Besylate (Norvasc) 10 mg PO DAILY [facility] Last Admin: 12/17/18 11:43 Dose: 10 mg Aspirin (Ecotrin) 81 mg PO DAILY [facility] Atorvastatin Calcium (Lipitor) 10 mg PO DIN [facility] Furosemide (Lasix) 40 mg PO DAILY [facility] Last Admin: 12/17/18 11:44 Dose: Not Given Sodium Chloride (Sodium Chloride 0.45%) 1,000 mls @ 80 mls/hr IV .[id number] [facility] Stop: 12/17/18 22:00 Metoprolol Succinate (Toprol Xl) 25 mg PO DAILY [facility] Last Admin: 12/17/18 11:43 Dose: 25 mg Ondansetron HCl (Zofran Inj) 4 mg IVP Q6H PRN PRN Reason: Nausea/Vomiting - Labs Labs: 12/17/18 06:15 12/17/18 06:15 PT 14.7 SECONDS (9.4-12.5) H 12/17/18 06:15 INR 1.30 12/17/18 06:15 APTT 32.6 Seconds (26.9-38.3) 12/17/18 06:15 - Constitutional Appears: Well, Non-toxic, No Acute Distress - Head Exam Head Exam: ATRAUMATIC, NORMAL INSPECTION, NORMOCEPHALIC - Eye Exam Eye Exam: EOMI, PERRL - ENT Exam ENT Exam: Mucous Membranes Moist - Neck Exam Neck Exam: Full ROM - Respiratory Exam Respiratory Exam: Clear to Ausculation Bilateral, NORMAL BREATHING PATTERN - Cardiovascular Exam Cardiovascular Exam: REGULAR RHYTHM, RRR - GI/Abdominal Exam GI & Abdominal Exam: Distended, Firm, Normal Bowel Sounds - Extremities Exam Extremities Exam: Full ROM - Neurological Exam Neurological Exam: Alert, Awake, CN II-XII Intact, Oriented x3 Assessment and Plan - Assessment and Plan (Free Text) Assessment: 73 year old female with past medical history of ovarian carcinoma diagnosed in 03/2018 status post multiple chemotherapy agents, malignant ascites status post paracentesis on 11/25/18, left lower leg DVTs (left populiteal vein, tibial vein on coumadin on 05/2018), hypertension, hyperlipidemia, and diabetes mellitus type II presents with malignant ascites and DVT. Patient was scheduled for paracentesis today. Plan: Ascites 2/2 to ovarian carcinoma -Abdominal ultrasound 12/16: moderate abdominal ascites, chronic renal parenchymal disease -Held lovenox and kept patient NPO for therapeutic paracentesis today by Dr. Schmitt -Started on Heart Healthy Diet -4950 mL drained, will start albumin supplementation -Start 50 gram of 25% albumin -Continue with lasix 40 mg daily EMMA -Mildly improved at 1.4 from 1.5 -Possibly secondary dehydration from lasix administration due to 20:1 BUN/Cr ratio -Gentle fluid hydration with IV NS at 80cc/hr Hypertension -Continue with toprol and norvasc Hyperlipidemia -Continue lipitor 10 mg daily Diabetes mellitus type II -Low SSI, aspirin -Accuchecks -Maintain euglycemia at 140-180 Bilateral lower extremity edema with history of DVT -History of prior DVT -Anticoagulation held due to IR procedure today -Will restart lovenox tonight and bridge coumadin Normocytic Anemia -Hgb: 10.2 from 10.7 -Hemoglobin baseline is 10 -Continue to monitor Elevated ALP -AST and ALT are unremarkable -Continue to trend as elevated ALP is isolated. If continues to increase, consider bone metastasis Hyperphosphatemia -PO4: 5.3 -Start sevalamer Hyponatremia -Mild at 131 -Continue to trend and if symptomatic GI prophylaxis: protonix 40 mg daily DVT prophylaxis: held due to procedure today. Will restarted therapeutic lovenox in the PM <Arline Bean - Last Filed: 12/17/18 17:54> Objective - Vital Signs/Intake and Output Vital Signs (last 24 hours): Temp Pulse Resp BP Pulse Ox 97.5 F L 69 17 121/71 100 12/17/18 15:50 12/17/18 15:50 12/17/18 15:50 12/17/18 15:50 12/17/18 15:50 Intake and Output: 12/17/18 12/17/18 06:59 18:59 Intake Total 120 Balance 120 - Medications Medications: Current Medications Acetaminophen (Tylenol 325mg Tab) 650 mg PO Q4 PRN PRN Reason: Pain, Mild (1-3) Amlodipine Besylate (Norvasc) 10 mg PO DAILY [facility] Last Admin: 12/17/18 11:43 Dose: 10 mg Aspirin (Ecotrin) 81 mg PO DAILY [facility] Last Admin: 12/17/18 17:31 Dose: 81 mg Atorvastatin Calcium (Lipitor) 10 mg PO DIN [facility] Last Admin: 12/17/18 17:31 Dose: 10 mg Enoxaparin Sodium (Lovenox) 80 mg SC Q12H [facility]; Protocol Furosemide (Lasix) 40 mg PO DAILY [facility] Last Admin: 12/17/18 11:44 Dose: Not Given Sodium Chloride (Sodium Chloride 0.45%) 1,000 mls @ 80 mls/hr IV .[id number] [facility] Stop: 12/17/18 22:00 Last Admin: 12/17/18 17:32 Dose: 80 mls/hr Albumin Human (Albumin Human 25% (25 Gm/100 Ml)) 100 mls @ 50 mls/hr IV Q2H [facility] Stop: 12/17/18 20:44 Last Admin: 12/17/18 17:33 Dose: 50 mls/hr Insulin Human Regular (Humulin R Low) 0 units SC ACHS [facility]; Protocol Metoprolol Succinate (Toprol Xl) 25 mg PO DAILY [facility] Last Admin: 12/17/18 11:43 Dose: 25 mg Ondansetron HCl (Zofran Inj) 4 mg IVP Q6H PRN PRN Reason: Nausea/Vomiting Sevelamer HCl (Renagel) 800 mg PO TID [facility] Stop: 12/18/18 14:01 Last Admin: 12/17/18 17:32 Dose: 800 mg - Labs Labs: 12/17/18 06:15 12/17/18 06:15 PT 14.7 SECONDS (9.4-12.5) H 12/17/18 06:15 INR 1.30 12/17/18 06:15 APTT 32.6 Seconds (26.9-38.3) 12/17/18 06:15 Attending/Attestation - Attestation I have personally seen and examined this patient.: Yes I have fully participated in the care of the patient.: Yes I have reviewed all pertinent clinical information, including history, physical exam and plan: Yes Notes (Text): 12/17/18 17:51 73 year old female with past medical history of metastatic ovarian cancer on chemotherapy, LLL DVT on coumadin, hypertension and diabetes who presented with complaint of abdominal pain and distension secondary to recurrent ascites. Patient is for IR procedure today; to be give albumin s/p paracentesis. Resume lovenox this evening. Mild EMMA is improving on gentle hydration. Arline Bean MD Hospitalist.
[2018-12-17] MEDS ORDERED: Albumin Human 25% (25 gm/100 ml) IV ONE (16:38)
[2018-12-17] MEDS: Enoxaparin 80 mg Syringe SC SCH (22:16)
[2018-12-18 07:08] VITALS: O2SAT 96
--- NOTE | 2018-12-18 07:42 | CP.PCM.PN ---
Subjective - Date & Time of Evaluation Date of Evaluation: 12/18/18 Time of Evaluation: 07:42 Objective - Vital Signs/Intake and Output Vital Signs (last 24 hours): Temp Pulse Resp BP Pulse Ox 98.6 F 106 H 20 127/83 96 12/18/18 06:00 12/18/18 06:00 12/18/18 06:00 12/18/18 06:00 12/18/18 06:00 Intake and Output: 12/18/18 12/18/18 06:59 18:59 Intake Total 700 Balance 700 - Medications Medications: Current Medications Acetaminophen (Tylenol 325mg Tab) 650 mg PO Q4 PRN PRN Reason: Pain, Mild (1-3) Amlodipine Besylate (Norvasc) 10 mg PO DAILY [facility] Last Admin: 12/17/18 11:43 Dose: 10 mg Aspirin (Ecotrin) 81 mg PO DAILY [facility] Last Admin: 12/17/18 17:31 Dose: 81 mg Atorvastatin Calcium (Lipitor) 10 mg PO DIN [facility] Last Admin: 12/17/18 17:31 Dose: 10 mg Enoxaparin Sodium (Lovenox) 80 mg SC Q12H [facility]; Protocol Last Admin: 12/17/18 22:16 Dose: 80 mg Furosemide (Lasix) 40 mg PO DAILY [facility] Last Admin: 12/17/18 11:44 Dose: Not Given Insulin Human Regular (Humulin R Low) 0 units SC [facility]; Protocol Metoprolol Succinate (Toprol Xl) 25 mg PO DAILY [facility] Last Admin: 12/17/18 11:43 Dose: 25 mg Ondansetron HCl (Zofran Inj) 4 mg IVP Q6H PRN PRN Reason: Nausea/Vomiting Sevelamer HCl (Renagel) 800 mg PO TID [facility] Stop: 12/18/18 14:01 Last Admin: 12/17/18 17:32 Dose: 800 mg - Labs Labs: 12/17/18 06:15 12/17/18 06:15 PT 14.7 SECONDS (9.4-12.5) H 12/17/18 06:15 INR 1.30 12/17/18 06:15 APTT 32.6 Seconds (26.9-38.3) 12/17/18 06:15
[2018-12-18] MEDS: Metoprolol Succinate 25 mg XL Tab PO SCH (09:00)
[2018-12-18 09:01] LABS: HEMOGLOBIN 9.5 g/dL (12.0-16.0); INR 1.35; MEAN CORPUSCULAR HEMOGLOBIN 26.2 pg (25.0-35.0); MEAN CORPUSCULAR HGB CONC 31.3 g/dl (31.0-37.0); MEAN PLATELET VOLUME 8.6 fl (7.0-11.0); PROTHROMBIN TIME 15.3 SECONDS (9.4-12.5); RBC 3.62 10^6/uL (3.5-6.1); RED CELL DISTRIBUTION WIDTH 19.9 % (11.5-14.5); WHITE BLOOD COUNT 8.8 10^3/uL (4.5-11.0)
[2018-12-18] MEDS: Enoxaparin 80 mg Syringe SC SCH (09:01)
[2018-12-18 09:14] LABS: CALCIUM 8.6 mg/dL (8.4-10.5)
--- NOTE | 2018-12-18 11:33 | VASCULAR ---
Date of service: 12/17/2018 PROCEDURE: Ultrasound fluoroscopically placed tunneled peritoneal catheter HISTORY: Metastatic ovarian CA. Recurrent malignant ascites with abdominal pain and distension. Requiring frequent therapeutic paracenteses. Needs tunneled peritoneal catheter COMPARISON: TECHNIQUE: The relative risks and indications of the procedure were explained to the patient's family consent obtained. Patient was placed supine on the arteriogram table and preliminary sonography was performed. This revealed a moderate amount of non loculated ascites. A puncture site was selected in the right lower quadrant in the area prepped and draped usual sterile fashion. Conscious sedation monitoring were provided throughout the procedure by a nurse. An 18 gauge needle was advanced in the peritoneal cavity in the right lower quadrant and chylous fluid aspirated. A 0.035 glidewire was directed posteriorly and superiorly. A peel-away sheath was placed. Next a 15.5 Malay Aspira tunneled catheter was placed over the guidewire posteriorly and superiorly. The catheter was tunneled in the right lower quadrant. The ascites was drained. 4900 cc of chylous fluid was drained. The catheter was flushed and secured. The patient tolerated the procedure well. FINDINGS: IMPRESSION: 1. Ultrasound fluoroscopically placed tunneled peritoneal catheter. 2. 4900 cc of chylous fluid was removed.
[2018-12-18] MEDS: Insulin Reg-LOW-Coverage SC SCH ×3 (12:22→18:12)
[2018-12-18 12:34] VITALS: BP 114/76; RESP 19; TEMP 97.8
--- NOTE | 2018-12-18 12:50 | CP.PCM.DIS ---
<Paul Simms - Last Filed: 12/18/18 12:43> Provider - Provider Date of Admission: 12/16/18 11:36 Attending physician: Arline Bean MD Primary care physician: Dr. 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 MACHINE PAN [employer]ASER Core Measures Referral Routine Comment: sob ascites Physician Instructions: Reason For Exam: eval Transition In Care/Readmission Reduction Routine Comment: sob ascites Physician Instructions: Reason For Exam: assess Time Spent in preparation of Discharge (in minutes): 45 Diagnosis - Discharge Diagnosis (1) Ascites Status: Acute Priority: Medium (2) Dyspnea Status: Acute Priority: Medium (3) Abdominal distention Status: Acute Priority: Medium Hospital Course - Lab Results Lab Results: Most Recent Lab Values WBC 8.8 10^3/uL (4.5-11.0) 12/18/18 08:45 RBC 3.62 10^6/uL (3.5-6.1) 12/18/18 08:45 Hgb 9.5 g/dL (12.0-16.0) L 12/18/18 08:45 Hct 30.4 % (36.0-48.0) L 12/18/18 08:45 MCV 84.0 fl (80.0-105.0) 12/18/18 08:45 MCH 26.2 pg (25.0-35.0) 12/18/18 08:45 MCHC 31.3 g/dl (31.0-37.0) 12/18/18 08:45 RDW 19.9 % (11.5-14.5) H 12/18/18 08:45 Plt Count 525 10^3/uL (120.0-450.0) H 12/18/18 08:45 MPV 8.6 fl (7.0-11.0) 12/18/18 08:45 Neut % (Auto) 77.1 % (50.0-68.0) H 12/17/18 06:15 Lymph % (Auto) 14.8 % (22.0-35.0) L 12/17/18 06:15 [place] % (Auto) 7.8 % (1.0-6.0) H 12/17/18 06:15 Eos % (Auto) 0.2 % (1.5-5.0) L 12/17/18 06:15 Baso % (Auto) 0.1 % (0.0-3.0) 12/17/18 06:15 Lymph # (Auto) 1.5 (1.2-3.4) 12/17/18 06:15 [place] # (Auto) 0.8 (0.1-0.6) H 12/17/18 06:15 Eos # (Auto) 0.0 (0.0-0.7) 12/17/18 06:15 Baso # (Auto) 0.01 K/mm3 (0.0-2.0) 12/17/18 06:15 Absolute Neuts (auto) 7.93 (1.4-6.5) H 12/17/18 06:15 PT 15.3 SECONDS (9.4-12.5) H 12/18/18 08:45 INR 1.35 12/18/18 08:45 APTT 32.6 Seconds (26.9-38.3) 12/17/18 06:15 Sodium 134 mmol/L (132-148) 12/18/18 08:45 Potassium 4.0 mmol/L (3.6-5.0) 12/18/18 08:45 Chloride 105 mmol/L (98-107) 12/18/18 08:45 Carbon Dioxide 22 mmol/L (21-33) 12/18/18 08:45 Anion Gap 11 (10-20) 12/18/18 08:45 BUN 37 mg/dL (7-21) H 12/18/18 08:45 Creatinine 1.2 mg/dl (0.7-1.2) 12/18/18 08:45 Est GFR ( Amer) 53 12/18/18 08:45 Est GFR (Non-Af Amer) 44 12/18/18 08:45 Random Glucose 113 mg/dL (70-110) H 12/18/18 08:45 Calcium 8.6 mg/dL (8.4-10.5) 12/18/18 08:45 Phosphorus 5.3 mg/dL (2.5-4.5) H 12/17/18 06:15 Magnesium 2.2 mg/dL (1.7-2.2) 12/17/18 06:15 Total Bilirubin 0.7 mg/dL (0.2-1.3) 12/17/18 06:15 AST 30 U/L (14-36) 12/17/18 06:15 ALT 20 U/L (7-56) 12/17/18 06:15 Alkaline Phosphatase 141 U/L (38-126) H D 12/17/18 06:15 Lactate Dehydrogenase 703 U/L (333-699) H 12/16/18 09:30 Total Creatine Kinase < 20 U/L (35-230) L 12/16/18 09:30 Troponin I < 0.01 ng/mL 12/16/18 09:30 NT-Pro-B Natriuret Pep 397 pg/mL (0-450) 12/16/18 09:30 Total Protein 6.6 g/dL (5.8-8.3) 12/17/18 06:15 Albumin 3.1 g/dL (3.0-4.8) 12/17/18 06:15 Globulin 3.4 gm/dL 12/17/18 06:15 Albumin/Globulin Ratio 0.9 (1.1-1.8) L 12/17/18 06:15 - Hospital Course Hospital Course: PGY1 Medicine Discharge Summary and Hospital Course for Dr. Bean On admission: 73-year-old greenlandic speaking F with PMHx of aggressive ovarian carcinoma diagnosed 03/2018 s/p multiple agents of chemotherapy (Carboplatin, Taxotere, Gemzar), on chemotherapy last 2 days, malignant ascites (dx 12/01/18) s/p paracentesis 11/25/18, L lower leg DVTs (LFV, popliteal vein, tibial vein; on coumadin; 05/2018), HTN, HLD, DM presented to ED with complaints of an increasingly distended abdomen and shortness of breath since midnight. Patient was admitted to the hospital on 12/08/18 for abdominal pain and has an ultrasound guided paracentesis by Dr. Schmitt and was discharged on 12/10/18. Patient was scheduled for another paracentesis with Dr. Schmitt later in the week, however the Patient stated she was in too much pain and began feeling short of breath due to her abdominal distention. Please see Patient's chart for details. Patient was subsequently admitted for abdominal distention and shortness of breath secondary to ascites. On CMP, Creatinine increased 0.3 from baseline (1.2--> 1.5). Patient's INR was 1.4. Abdominal ultrasound 12/16: moderate abdominal ascites, chronic renal parenchymal disease. Dr. Schmitt (IR) was consulted and the following day the Patient underwent paracentesis with 4950 mL drained. Tunneled peritoneal catheter was placed under ultrasound fluoroscopically by Dr. Schmitt. Patient was administered supplementation 50 gram of 25% albumin following the procedure. Please see chart and reports for more details. On day of discharge, EMMA, which was present on admission improved from 1.5 to 1.2. Please see chart and reports for more details. Patient stated the pain improved. Patient stated she was no longer short of breath. Patient's family was educated on how to drain fluid prior to discharge. Patient was hemodynamically stable and medically optimized for discharge to home. Patient was provided with detailed instructions (provided both in writing and verbally to the level of the Patient's comprehension.) Patient both understands and agrees to all discharge instructions. Please see chart for more details. Patient is to resume all home medications as prescribed Prescriptions provided to Patient: - Lovenox 80mg SC BID (3 day supply) - Warfarin 5mg PO Daily (5 day supply) Patient was seen and case discussed in detail with Dr. Vikas Simms PGY1 Discharge Exam - Additional Findings Additional findings: - Constitutional Appears: Well, Non-toxic, No Acute Distress - Head Exam Head Exam: ATRAUMATIC, NORMAL INSPECTION, NORMOCEPHALIC - Eye Exam Eye Exam: EOMI, PERRL - ENT Exam ENT Exam: Mucous Membranes Moist - Neck Exam Neck Exam: Full ROM - Respiratory Exam Respiratory Exam: Clear to Ausculation Bilateral, NORMAL BREATHING PATTERN - Cardiovascular Exam Cardiovascular Exam: REGULAR RHYTHM, RRR - GI/Abdominal Exam GI & Abdominal Exam: Distended (less distended than on admission), Firm, Normal Bowel Sounds - Extremities Exam Extremities Exam: Full ROM - Neurological Exam Neurological Exam: Alert, Awake, CN II-XII Intact, Oriented x3 Discharge Plan - Discharge Medications Prescriptions: Enoxaparin [Lovenox] 80 mg SC BID 3 Days syr Warfarin [Coumadin] 5 mg PO DAILY #5 tab - Follow Up Plan Condition: STABLE Disposition: HOME/ ROUTINE Instructions: Shortness of Breath (Dyspnea) (DC), Fluid in the Belly (Ascites) (DC), Thoracentesis (DC) Additional Instructions: Please follow-up with your Primary Care Physician (Dr. Taylor) within 3-5 days of being discharged from the hospital Please continue all home medications as prescribed In addition to your home medications you were prescribed the followin. Coumadin 5mg PO Daily #5 (take 1 tab by mouth daily for 5 days) - It is EXTREMELY important that you follow-up with your Primary Care Physician within 3-5 days to recheck your INR level - Please obtain a refill prescription for Coumadin from your Primary Care Physician within 3-5 days 2. Lovenox 80mg SC BID for 3 days (Please inject 80mg twice daily for 3 days) If your symptoms return, please go to your nearest Emergency Department immediately Referrals: Swetha Taylor MD [Family Provider] - <Arline Bean - Last Filed: 12/18/18 17:31> Provider - Provider Date of Admission: 12/16/18 11:36 Attending physician: Arline Bean MD Consults: 12/16/18 11:48 Consult [Physician Consult] Routine Comment: Consulting Provider: Barry Schmitt Consulting Physician: Barry Schmitt Reason for Consult: paracentesis 12/16/18 22:28 Social Work Referral Routine Comment: d/c plan Physician Instructions: Reason For Exam: eval 12/16/18 22:29 Nursing Referral for Palliative Care Routine Comment: sob ascites Physician Instructions: Reason For Exam: assess 12/16/18 22:53 Inpatient MACHINE PAN GREASER Core Measures Referral Routine Comment: sob ascites Physician Instructions: Reason For Exam: eval Transition In Care/Readmission Reduction Routine Comment: sob ascites Physician Instructions: Reason For Exam: assess Hospital Course - Lab Results Lab Results: Most Recent Lab Values WBC 8.8 10^3/uL (4.5-11.0) 12/18/18 08:45 RBC 3.62 10^6/uL (3.5-6.1) 12/18/18 08:45 Hgb 9.5 g/dL (12.0-16.0) L 12/18/18 08:45 Hct 30.4 % (36.0-48.0) L 12/18/18 08:45 MCV 84.0 fl (80.0-105.0) 12/18/18 08:45 MCH 26.2 pg (25.0-35.0) 12/18/18 08:45 MCHC 31.3 g/dl (31.0-37.0) 12/18/18 08:45 RDW 19.9 % (11.5-14.5) H 12/18/18 08:45 Plt Count 525 10^3/uL (120.0-450.0) H 12/18/18 08:45 MPV 8.6 fl (7.0-11.0) 12/18/18 08:45 Neut % (Auto) 77.1 % (50.0-68.0) H 12/17/18 06:15 Lymph % (Auto) 14.8 % (22.0-35.0) L 12/17/18 06:15 [place] % (Auto) 7.8 % (1.0-6.0) H 12/17/18 06:15 Eos % (Auto) 0.2 % (1.5-5.0) L 12/17/18 06:15 Baso % (Auto) 0.1 % (0.0-3.0) 12/17/18 06:15 Lymph # (Auto) 1.5 (1.2-3.4) 12/17/18 06:15 [place] # (Auto) 0.8 (0.1-0.6) H 12/17/18 06:15 Eos # (Auto) 0.0 (0.0-0.7) 12/17/18 06:15 Baso # (Auto) 0.01 K/mm3 (0.0-2.0) 12/17/18 06:15 Absolute Neuts (auto) 7.93 (1.4-6.5) H 12/17/18 06:15 PT 15.3 SECONDS (9.4-12.5) H 12/18/18 08:45 INR 1.35 12/18/18 08:45 APTT 32.6 Seconds (26.9-38.3) 12/17/18 06:15 Sodium 134 mmol/L (132-148) 12/18/18 08:45 Potassium 4.0 mmol/L (3.6-5.0) 12/18/18 08:45 Chloride 105 mmol/L (98-107) 12/18/18 08:45 Carbon Dioxide 22 mmol/L (21-33) 12/18/18 08:45 Anion Gap 11 (10-20) 12/18/18 08:45 BUN 37 mg/dL (7-21) H 12/18/18 08:45 Creatinine 1.2 mg/dl (0.7-1.2) 12/18/18 08:45 Est GFR ( Amer) 53 12/18/18 08:45 Est GFR (Non-Af Amer) 44 12/18/18 08:45 Random Glucose 113 mg/dL (70-110) H 12/18/18 08:45 Calcium 8.6 mg/dL (8.4-10.5) 12/18/18 08:45 Phosphorus 5.3 mg/dL (2.5-4.5) H 12/17/18 06:15 Magnesium 2.2 mg/dL (1.7-2.2) 12/17/18 06:15 Total Bilirubin 0.7 mg/dL (0.2-1.3) 12/17/18 06:15 AST 30 U/L (14-36) 12/17/18 06:15 ALT 20 U/L (7-56) 12/17/18 06:15 Alkaline Phosphatase 141 U/L (38-126) H D 12/17/18 06:15 Lactate Dehydrogenase 703 U/L (333-699) H 12/16/18 09:30 Total Creatine Kinase < 20 U/L (35-230) L 12/16/18 09:30 Troponin I < 0.01 ng/mL 12/16/18 09:30 NT-Pro-B Natriuret Pep 397 pg/mL (0-450) 12/16/18 09:30 Total Protein 6.6 g/dL (5.8-8.3) 12/17/18 06:15 Albumin 3.1 g/dL (3.0-4.8) 12/17/18 06:15 Globulin 3.4 gm/dL 12/17/18 06:15 Albumin/Globulin Ratio 0.9 (1.1-1.8) L 12/17/18 06:15 Attending/Attestation - Attestation I have personally seen and examined this patient.: Yes I have fully participated in the care of the patient.: Yes I have reviewed all pertinent clinical information, including history, physical exam and plan: Yes Notes (Text): 12/18/18 17:27 73 year old female with past medical history of metastatic ovarian cancer on chemotherapy, LLL DVT on coumadin, hypertension and diabetes who presented with complaint of abdominal pain and distension secondary to recurrent ascites. She was seen by IR and is s/p Aspira catheter with ~5 liter fluid removal yesterday afternoon. She received albumin post procedure. Renal function has improved today. Patient is discharged home to follow up with pmd. Follow up with oncologist. Discharged on lovenox x3 days and coumadin. Check INR on Friday with pmd. Discussed with family/son at bedside. Arline Bean MD Hospitalist.
[2018-12-18 15:32] VITALS: PULSE 105
--- NOTE | 2018-12-21 12:13 | PQF ---
PROVIDER RESPONSE TEXT: Acute kidney insufficiency REVIEWER QUERY TEXT: Abbreviation Clarification Your help is requested in clarifying the unclear or unknown abbreviation. Please further specify in t he medical record documentation. The patient's Clinical Indicators include: Please clarify the abbreviation "EMMA" in the progress notes and discharge summary. EMMA = acute kidney insufficiency OR acute kidney injury (nontraumatic) same as acute kidney failure? Creatinine = 1.4 - 1.5 Query created by: Gifty Acosta on 12/21/2018 9:24 AM Electronically signed by: Arline Bean MD 12/21/2018 12:11 PM
== END 2018-12-18 18:38 | disposition home health service (06) | DRG 366 ==
LOC: ED 08:18 → ERH 11:36 → 2RNO 22:47
PROVIDERS: ADMIT Hospitalist; ATTEND Internal Medicine
PROC: 0W9G30Z Drainage of Peritoneal Cavity with Drainage Device, Percutaneous Approach (ICD-10-PCS; principal; 2018-12-18)
DX: C56.9 Malignant neoplasm of unspecified ovary (principal); R18.0 Malignant ascites; E87.1 Hypo-osmolality and hyponatremia; E11.9 Type 2 diabetes mellitus without complications; I10 Essential (primary) hypertension; N28.9 Disorder of kidney and ureter, unspecified; E83.39 Other disorders of phosphorus metabolism; E78.5 Hyperlipidemia, unspecified; D72.829 Elevated white blood cell count, unspecified; Z86.718 Personal history of other venous thrombosis and embolism; Z79.01 Long term (current) use of anticoagulants; Z88.0 Allergy status to penicillin; Z79.82 Long term (current) use of aspirin

== ENCOUNTER 2018-12-24 11:52 | Emergency (ER) | payer OTHER ==
[2018-12-24 12:08] VITALS: RESP 18; O2SAT 100; BMI 35.5
[2018-12-24] MEDS ORDERED: Sodium Chloride 0.9% 1,000 ML IV STA (12:22)
[2018-12-24 12:32] VITALS: TEMP 98.3
--- NOTE | 2018-12-24 12:43 | ED PDOC ---
Arrival/HPI - General Chief Complaint: Syncope Time Seen by Provider: 12/24/18 12:04 Historian: Patient, Family - History of Present Illness Narrative History of Present Illness (Text): 12/24/18 12:38 73 y/o F, with PMHx of aggressive ovarian carcinoma diagnosed 03/2018 s/p multiple agents of chemotherapy (Carboplatin, Taxotere, Gemzar), on chemotherapy last 2 days, malignant ascites (dx 12/01/18) s/p paracentesis 11/25/18, L lower leg DVTs (LFV, popliteal vein, tibial vein; on coumadin; 05/2018), HTN, HLD, and DM, presents to the ED accompanied by family for medical evaluation s/p near syncopal episode prior to arrival. Family states patient was at Dr. Awad's office for routine follow-up when patient became weak associated with shortness of breath and expressed near-syncopal symptoms. As per family, patient did not lose consciousness at the time. Patient currently informs mild headache and generalized weakness but denies any other complaints. Family reports routine drainage of ascites, with last drainage of 1000 cc 2 days ago. Family denies any fever, chills, vomiting, diarrhea, abdominal pain, chest pain, or any other complaints. PMD: Dr. Nolen Oncologist: Dr. Awad Time/Duration: Prior to Arrival Symptom Onset: Gradual Symptom Course: Improving Activities at Onset: Light Context: Other (Dr. Awad's clinic) Past Medical History - Provider Review Nursing Documentation Reviewed: Yes - Infectious Disease Hx of Infectious Diseases: None - Reproductive Menopause: No - Cardiac Hx Cardiac Disorders: Yes Hx Hypertension: Yes Hx Peripheral Edema: Yes (ble +4 pitting skin swollen/tight) Other/Comment: lle dvt's/lfv/popliteal vein/tibial vein on coumadin 05/2018 - Pulmonary Hx Respiratory Disorders: Yes (sob due to ascites) - Neurological Hx Neurological Disorder: No Hx Dizziness: Yes Hx Syncope: Yes - HEENT Hx HEENT Disorder: No - Renal Hx Renal Disorder: No - Endocrine/Metabolic Hx Endocrine Disorders: Yes Hx Diabetes Mellitus Type 2: Yes - Hematological/Oncological Hx Blood Disorders: Yes Hx Cancer: Yes (ovarian- dx 03/2018 chemo pills) Hx Chemotherapy: Yes Other/Comment: pt has been treated with various chemotherapies last chemo skinny atment was friday12/14/18, cancer is aggresive. pt has chemo 2 weeks on 1 week off - Integumentary Hx Dermatological Disorder: Yes Other/Comment: 02-18-18 BILATERAL LEG EDEMA +4. ASCITES - Musculoskeletal/Rheumatological Hx Musculoskeletal Disorders: Yes Hx Falls: No Hx Unsteady Gait: Yes - Gastrointestinal Hx Gastrointestinal Disorders: Yes - Genitourinary/Gynecological Hx Genitourinary Disorders: Yes (HYSTERECTOMY) Other/Comment: ovarian ca, malignant ascites - Psychiatric Hx Psychophysiologic Disorder: No Hx Substance Use: No - Surgical History Hx Hysterectomy: Yes Other/Comment: R sided chest port, paracentesis us guided 12/11/18 dr kareen shane, and 11/25/18, scheduled for paracentesis with drain insertion 12/18/18 - Anesthesia Hx Anesthesia: Yes Hx Anesthesia Reactions: No Hx Malignant Hyperthermia: No Family/Social History - Physician Review Nursing Documentation Reviewed: Yes Family/Social History: Unknown Family HX Smoking Status: Never Smoked Hx Alcohol Use: No Hx Substance Use: No Allergies/Home Meds Allergies/Adverse Reactions: Allergies Penicillins Adverse Reaction (Verified 12/16/18 09:08) SHORTNESS OF BREATH Home Medications: Home Meds Medication Instructions Recorded Confirmed Metoprolol Succinate XL [Toprol XL] 25 mg PO DAILY 04/21/17 12/16/18 Aspirin [Ecotrin] 81 mg PO DAILY 02/18/18 12/16/18 Simvastatin 20 mg PO DAILY 02/18/18 12/16/18 amLODIPine [Norvasc] 10 mg PO DAILY 02/18/18 12/16/18 Furosemide [Lasix] 40 mg PO DAILY 11/25/18 12/16/18 Potassium Chloride [K-Dur 20 mEq 20 mg PO DAILY 11/25/18 12/16/18 ER Tab] Review of Systems - Physician Review All systems were reviewed & negative as marked: Yes - Review of Systems Constitutional: Fatigue. absent: Fevers Respiratory: SOB. absent: Cough Cardiovascular: absent: Chest Pain Gastrointestinal: absent: Abdominal Pain, Diarrhea, Nausea, Vomiting Genitourinary Female: absent: Dysuria, Urine Output Changes Musculoskeletal: absent: Back Pain, Neck Pain Skin: absent: Rash Neurological: absent: Headache, Dizziness Psychiatric: absent: Anxiety Physical Exam Vital Signs Reviewed: Yes Vital Signs Temp Pulse Resp BP Pulse Ox 12/24/18 12:08 98.3 F 113 H 18 112/70 100 Temperature: Afebrile Blood Pressure: Normal Pulse: Tachycardic Respiratory Rate: Normal Appearance: Positive for: Well-Appearing, Non-Toxic, Comfortable Pain Distress: None Mental Status: Positive for: other (Alert and oriented x2 ) - Systems Exam Head: Present: Atraumatic, Normocephalic Pupils: Present: PERRL Extroacular Muscles: Present: EOMI Conjunctiva: Present: Normal Mouth: Present: Moist Mucous Membranes Respiratory/Chest: Present: Decreased Breath Sounds, Other (Crackles at bases bilaterally). No: Respiratory Distress, Accessory Muscle Use Cardiovascular: Present: Regular Rate and Rhythm, Normal S1, S2. No: Murmurs Abdomen: Present: Distention, Other (Ascites). No: Tenderness, Peritoneal Signs Back: Present: Normal Inspection Upper Extremity: Present: Normal Inspection. No: Cyanosis, Edema Lower Extremity: Present: Edema (+2 pitting edema bilaterally) Neurological: Present: GCS=15, Speech Normal Skin: Present: Warm, Dry, Normal Color. No: Rashes Psychiatric: Present: Alert Medical Decision Making ED Course and Treatment: 12/24/18 12:22 Impression: 73 year old female presents to the ED for evaluation of near-syncopal episode. Differential Diagnosis included but are not limited to: -- Ascites -- TIA -- Vasovagal episode -- Orthostatic hypotension Plan: -- CT of Abdomen/Pelvis -- Labs -- EKG -- Reglan -- IV Fluids -- Urinalysis -- Reassess and disposition Prior Visits: Notes and results from previous visits were reviewed. Progress Notes: 12/24/18 14:[address] Porter(hospitalist) who is familiar with patient and family and states family wishes to obtain supplies to drain patient and to contact Dr. Kareen Shane's nurse(interventional radiology) to assist with initial drainage. Attempt to call Dr. Shane's service. Patient noted to refuse CT scan. Call placed to rn social services([place]). 12/24/18 14:[address] Shane who states he can call his nurse to assist with drainage of the ascites and to provide additional supplies for drainage. 12/24/18 15:19 [place](rn social services) at the bedside evaluating family stating he will work with Dr. Awad(oncologist) to intiate hospice papers. He states after discussion with nurse, hospice nurse will arrive at the patient's house by 10AM tomorrow morning. Still attempting to reach out to Dr. Shane's nurse. 12/24/18 17:01 Interventional Nurse removes 1L of chylous ascitic material from the patient and gives patient's family supplies they need to allow for drainage of the fluid at home. Family desires to take patient home for comfort care and will coordinate with hospice nurse tomorrow. Patient reevaluated and feels better. She is stable for discharge. - Lab Interpretations Lab Results: 12/24/18 13:04 12/24/18 13:04 Lab Results 12/24/18 13:04: PT 36.6 H, INR 3.24, APTT 70.8 H 12/24/18 13:04: Sodium 127 L, Potassium 5.8 H* D, Chloride 100, Carbon Dioxide 20 L, Anion Gap 13, BUN 40 H, Creatinine 1.2, Est GFR ( Amer) 53, Est GFR (Non-Af Amer) 44, Random Glucose 133 H, Calcium 8.8, Total Bilirubin 0.3, AST 26, ALT 13, Alkaline Phosphatase 235 H D, Total Protein 6.5, Albumin 3.1, Globulin 3.4, Albumin/Globulin Ratio 0.9 L 12/24/18 13:04: WBC 14.2 H D, RBC 4.19, Hgb 11.2 L, Hct 35.2 L, MCV 84.0, MCH 26.7, MCHC 31.8, RDW 19.9 H, Plt Count 667 H, MPV 8.8, Neut % (Auto) 88.2 H, Lymph % (Auto) 6.5 L, [place] % (Auto) 5.1, Eos % (Auto) 0.1 L, Baso % (Auto) 0.1, Lymph # (Auto) 0.9 L, [place] # (Auto) 0.7 H, Eos # (Auto) 0.0, Baso # (Auto) 0.01, Absolute Neuts (auto) 12.53 H I have reviewed the lab results: Yes - RAD Interpretation Radiology Orders: 12/24/18 12:36 ABD & PELVIS W/O PO OR IV CONT [CT] Stat - EKG Interpretation EKG Interpretation (Text): 12/24/18 12:24 EKG reviewed, shows Sinus Tachycardia @ 111 bpm, low voltage QRS complexes, no ST elevations. Interpreted by ED Physician: Yes Type: 12 lead EKG - Medication Orders Current Medication Orders: Discontinued Medications Metoclopramide HCl (Reglan) 10 mg IVP STAT STA Stop: 12/24/18 12:23 12/24/18 17:05 Discontinued Medications Sodium Chloride (Sodium Chloride 0.9%) 1,000 mls @ 50 mls/hr IV .Q20H ONE Stop: 12/25/18 09:09 Last Admin: 12/24/18 13:34 Dose: 50 mls/hr eMAR Start Stop Document 12/24/18 13:34 OCS (Rec: 12/24/18 13:34 OCS [id number]) Intravenous Solution Start Date 12/24/18 Start Time 13:34 Metoclopramide HCl (Reglan) 10 mg IVP STAT STA Stop: 12/24/18 12:23 Last Admin: 12/24/18 13:33 Dose: Not Given Non-Admin Reason: Patient Refused IVP Administration Document 12/24/18 13:33 OCS (Rec: 12/24/18 13:33 OCS [id number]) Charges for Administration # of IVP Administrations 1 - Scribe Statement The provider has reviewed the documentation as recorded by the Scribe Yoli Amaya. All medical record entries made by the Scribe were at my direction and personally dictated by me. I have reviewed the chart and agree that the record accurately reflects my personal performance of the history, physical exam, medi mikey decision making, and the department course for this patient. I have also personally directed, reviewed, and agree with the discharge instructions and disposition. Disposition/Present on Arrival - Present on Arrival Any Indicators Present on Arrival: No History of DVT/PE: No History of Uncontrolled Diabetes: No Urinary Catheter: No History of Decub. Ulcer: No History Surgical Site Infection Following: None - Disposition Have Diagnosis and Disposition been Completed?: Yes Diagnosis: Ascites Disposition: HOME/ ROUTINE Disposition Time: 16:31 Patient Plan: Discharge Patient Problems: Current Active Problems Problem Status Onset Ascites Acute Condition: IMPROVED Discharge Instructions (ExitCare): Fluid in the Belly (Ascites) Print Language: BHUTANESE Additional Instructions: All medical record entries made by the Scribe were at my direction and personally dictated by me. I have reviewed the chart and agree that the record accurately reflects my personal performance of the history, physical exam, medical decision making, and the department course for this patient. I have also personally directed, reviewed, and agree with the discharge instructions and disposition. Remember do not remove more than 1 bag of fluid from the belly every 12 hours Referrals: Swetha Taylor MD [Primary Care Provider] - Follow up with primary Forms: [employer] (Brazilian)
[2018-12-24] MEDS ORDERED: Sodium Chloride 0.9% 1,000 ML IV ONE (13:10)
[2018-12-24 13:40] LABS: BASO # 0.01 K/mm3 (0.0-2.0); BASO % 0.1 % (0.0-3.0); EOS % 0.1 % (1.5-5.0); HEMOGLOBIN 11.2 g/dL (12.0-16.0); LYMPH # 0.9 (1.2-3.4); LYMPH % 6.5 % (22.0-35.0); MEAN CORPUSCULAR HEMOGLOBIN 26.7 pg (25.0-35.0); MEAN CORPUSCULAR HGB CONC 31.8 g/dl (31.0-37.0); MEAN PLATELET VOLUME 8.8 fl (7.0-11.0); MONO # 0.7 (0.1-0.6); MONO % 5.1 % (1.0-6.0); RBC 4.19 10^6/uL (3.5-6.1); RED CELL DISTRIBUTION WIDTH 19.9 % (11.5-14.5); WHITE BLOOD COUNT 14.2 10^3/uL (4.5-11.0)
[2018-12-24 13:45] LABS: INR 3.24; PARTIAL THROMBOPLASTIN TIME 70.8 Seconds (26.9-38.3); PROTHROMBIN TIME 36.6 SECONDS (9.4-12.5)
[2018-12-24 13:57] LABS: ALB/GLOB RATIO 0.9 (1.1-1.8); ALBUMIN 3.1 g/dL (3.0-4.8); CALCIUM 8.8 mg/dL (8.4-10.5)
[2018-12-24 16:55] VITALS: BP 130/85; PULSE 92
--- NOTE | 2018-12-24 21:28 | CARD ---
APPROVED REPORT Date of service: 12/24/2018 EKG Measurement Heart [id number] <Conclusion> Sinus tachycardia Low voltage QRS Borderline ECG
== END 2018-12-24 16:54 | disposition home or self-care (01) ==
LOC: ED 11:52
DX: R18.8 Other ascites (principal); I10 Essential (primary) hypertension; E11.9 Type 2 diabetes mellitus without complications; Z86.718 Personal history of other venous thrombosis and embolism; Z79.01 Long term (current) use of anticoagulants; Z85.43 Personal history of malignant neoplasm of ovary; Z79.899 Other long term (current) drug therapy
CPT/HCPCS: 80053; 82948; 85025; 85610; 85730; 93005; 96374; 99285; J7030

== ENCOUNTER 2018-12-31 17:09 | Inpatient (IN) | payer OTHER ==
[2018-12-31 17:22] VITALS: BMI 28.3
[2018-12-31] MEDS ORDERED: Dextrose 5%/0.45% NS 1,000 ML IV SCH (17:45)
[2018-12-31 18:34] LABS: BASO # 0.01 K/mm3 (0.0-2.0); BASO % 0.1 % (0.0-3.0); EOS % 0.3 % (1.5-5.0); HEMOGLOBIN 12.2 g/dL (12.0-16.0); LYMPH # 1.4 (1.2-3.4); MEAN CELL VOLUME 83.2 fl (80.0-105.0); MEAN CORPUSCULAR HEMOGLOBIN 26.7 pg (25.0-35.0); MEAN CORPUSCULAR HGB CONC 32.1 g/dl (31.0-37.0); MEAN PLATELET VOLUME 8.5 fl (7.0-11.0); MONO # 0.9 (0.1-0.6); MONO % 6.1 % (1.0-6.0); RBC 4.57 10^6/uL (3.5-6.1); RED CELL DISTRIBUTION WIDTH 19.5 % (11.5-14.5); WHITE BLOOD COUNT 14.2 10^3/uL (4.5-11.0)
--- NOTE | 2018-12-31 18:41 | ED PDOC ---
Arrival/HPI - General Chief Complaint: Weakness/Neurological Deficit Time Seen by Provider: 12/31/18 17:24 Historian: Family (Son helped provide information, since patient does not speak [place]) - History of Present Illness Narrative History of Present Illness (Text): 12/31/18 17:30 73 F with PMHx of aggressive ovarian carcinoma diagnosed 03/2018 s/p multiple agents of chemotherapy (Carboplatin, Taxotere, Gemzar), on chemotherapy 12/22- 12/23 days, malignant ascites (dx 12/01/18) s/p paracentesis 11/25/18, L lower leg DVTs (LFV, popliteal vein, tibial vein; on Coumadin; 05/2018), HTN, HLD, and DM, presents accompanied by family with cc of decreased PO intake, lethargy, and body aches since last night. Son at bedside notes that patient did not drink or eat anything yesterday. Son states today is the fourth day patient has been taking Cipro 500, twice a day. Son notes patient has a DVT on her left leg. Son states patient's abdomen is not any more distended than usual. Son states patient has tried stool softeners, with no significant relief. Son notes patient is constipated. Son notes patient has dysuria, loss of appetite, and weakness. Pt denies any fevers, vomiting, diarrhea, cough, headache, or any other complaints at this time. PMD: Swetha Sanchez Oncologist: Dr. Gandara Time/Duration: Other (Son notes onset as last night) Symptom Onset: Sudden Symptom Course: Unchanged Activities at Onset: Light Past Medical History - Provider Review Nursing Documentation Reviewed: Yes - Infectious Disease Hx of Infectious Diseases: None - Cardiac Hx Cardiac Disorders: Yes Hx Hypertension: Yes Hx Peripheral Edema: Yes (ble +4 pitting skin swollen/tight) Other/Comment: lle dvt's/lfv/popliteal vein/tibial vein on coumadin 05/2018 - Pulmonary Hx Respiratory Disorders: Yes (sob due to ascites) - Neurological Hx Neurological Disorder: Yes Hx Dizziness: Yes Hx Syncope: Yes - HEENT Hx HEENT Disorder: No - Renal Hx Renal Disorder: No - Endocrine/Metabolic Hx Endocrine Disorders: Yes Hx Diabetes Mellitus Type 2: Yes - Hematological/Oncological Hx Blood Disorders: Yes Hx Cancer: Yes (ovarian- dx 03/2018 chemo pills) Hx Chemotherapy: Yes Other/Comment: pt has been treated with various chemotherapies last chemo treatment was friday12/14/18, cancer is aggresive. pt has chemo 2 weeks on 1 week off - Integumentary Hx Dermatological Disorder: Yes Other/Comment: 02-18-18 BILATERAL LEG EDEMA +4. ASCITES - Musculoskeletal/Rheumatological Hx Musculoskeletal Disorders: Yes Hx Falls: No Hx Unsteady Gait: Yes - Gastrointestinal Hx Gastrointestinal Disorders: Yes Other/Comment: Ascites - Genitourinary/Gynecological Hx Genitourinary Disorders: Yes (HYSTERECTOMY) Other/Comment: ovarian ca, malignant ascites - Psychiatric Hx Psychophysiologic Disorder: No Hx Substance Use: No - Surgical History Hx Hysterectomy: Yes Other/Comment: R sided chest port, paracentesis us guided 12/11/18 dr randolph shane, and 11/25/18, scheduled for paracentesis with drain insertion 12/18/18. 12/31/18, patient has drain to R lower abdomen. - Anesthesia Hx Anesthesia: Yes Hx Anesthesia Reactions: No Hx Malignant Hyperthermia: No Family/Social History - Physician Review Nursing Documentation Reviewed: Yes Family/Social History: No Known Family HX Smoking Status: Never Smoked Hx Alcohol Use: No Hx Substance Use: No Allergies/Home Meds Allergies/Adverse Reactions: Allergies Penicillins Adverse Reaction (Verified 12/16/18 09:08) SHORTNESS OF BREATH Home Medications: Home Meds Medication Instructions Recorded Confirmed Metoprolol Succinate XL [Toprol XL] 25 mg PO DAILY 04/21/17 12/16/18 Aspirin [Ecotrin] 81 mg PO DAILY 02/18/18 12/16/18 Simvastatin 20 mg PO DAILY 02/18/18 12/16/18 amLODIPine [Norvasc] 10 mg PO DAILY 02/18/18 12/16/18 Furosemide [Lasix] 40 mg PO DAILY 11/25/18 12/16/18 Potassium Chloride [K-Dur 20 mEq 20 mg PO DAILY 11/25/18 12/16/18 ER Tab] Review of Systems - Physician Review All systems were reviewed & negative as marked: Yes (All other systems negative except that noted in the HPI.) Physical Exam - Physical Exam Narrative Physical Exam (Text): Gen: VS reviewed, lethargic, well developed, dry mucous membranes, nontoxic, mild distress Eye: EOMI, PERRL Neck: no JVD, supple, no adenopathy CV: regular rate, regular rhythm, no rubs,no murmur, S1, S2 Pulm: no distress, clear to auscultation, no wheeze, no rhonchi, breath sounds equal, no rales Abd: Distended, nontender Ext: pitting edema on left LE Skin: good color, no rash, no cyanosis Psych: limited secondary to her lethargy Neuro: limited secondary to her lethargy Vital Signs Reviewed: Yes Vital Signs Temp Pulse Resp BP Pulse Ox 12/31/18 17:26 97.3 F L 111 H 20 120/72 100 Temperature: Afebrile Blood Pressure: Normal Pulse: Tachycardic Respiratory Rate: Normal Appearance: Positive for: Well-Appearing, Non-Toxic Pain Distress: Mild Mental Status: Positive for: Lethargic Finger Stick Blood Glucose: 133 Medical Decision Making ED Course and Treatment: 12/31/18 18:49 Impression: 73 year old female who presents to the Emergency department for decreased PO intake, lethargy, and body aches since last night. Differential Diagnosis included but are not limited to: Plan: -- CT of head w/o contrast -- EKG -- Labs -- X-Ray of chest -- Dextrose -- Reassess and disposition Prior Visits: Notes and results from previous visits were reviewed. Patient was last seen in the emergency department on 12/24/18 presents to the ED accompanied by family for medical evaluation s/p near syncopal episode prior to arrival. Patient was discharged home in improved condition. Progress Notes: 12/31/18 20:[address] castro to the hospitalist service. patient to be admitted for hyponatermia, dehydration, hyperkalemia. 12/31/18 21:14 dr. castro is aware of pending V/Q and will follow up with results - RAD Interpretation Narrative RAD Interpretations (Text): 12/31/18 CT of head refused by family member. X-Ray of chest interpreted by me, shows: No pnuemothorax, no cardiomegaly, no wide mediastinum Radiology Orders: 12/31/18 17:36 HEAD W/O CONTRAST [CT] Stat CHEST PORTABLE [RAD] Stat Director Physical: ED Physician - EKG Interpretation EKG Interpretation (Text): 12/31/18 19:39 1938: sinus tach at 109 bpm, nml qrs, low voltage, no acute sttw abn Interpreted by ED Physician: Yes - Medication Orders Current Medication Orders: Dextrose/Sodium Chloride (Dextrose 5%/0.45% Ns 1000 Ml) 1,000 mls @ 75 mls/hr IV .[id number] MARTIN - Scribe Statement The provider has reviewed the documentation as recorded by the Scribe Sirena Ashraf All medical record entries made by the Scribe were at my direction and personally dictated by me. I have reviewed the chart and agree that the record accurately reflects my personal performance of the history, physical exam, medical decision making, and the department course for this patient. I have also personally directed, reviewed, and agree with the discharge instructions and disposition. Disposition/Present on Arrival - Present on Arrival Any Indicators Present on Arrival: No History of DVT/PE: No History of Uncontrolled Diabetes: No Urinary Catheter: No History of Decub. Ulcer: No History Surgical Site Infection Following: None - Disposition Have Diagnosis and Disposition been Completed?: Yes Diagnosis: Hyperkalemia, Hyponatremia Disposition: HOSPITALIZED Disposition Time: 20:40 Patient Plan: Admission Condition: GUARDED
[2018-12-31 19:04] LABS: ALB/GLOB RATIO 0.9 (1.1-1.8); ALBUMIN 2.9 g/dL (3.0-4.8); CALCIUM 8.2 mg/dL (8.4-10.5)
[2018-12-31] MEDS ORDERED: Insulin Regular 1 UNITS/0.01 ML ML IVP STA (19:23)
[2018-12-31] MEDS ORDERED: Dextrose 50% SYRINGE Inj (50 ml) IVP STA (19:23)
[2018-12-31 20:13] LABS: INR 1.63; PARTIAL THROMBOPLASTIN TIME 34.8 Seconds (26.9-38.3); PROTHROMBIN TIME 18.1 SECONDS (9.4-12.5)
[2018-12-31] MEDS: Sodium Chloride 0.9% 1,000 ML IV SCH (20:42)
--- NOTE | 2018-12-31 20:48 | CP.PCM.HP ---
<Paul Simms - Last Filed: 01/01/19 02:33> History of Present Illness - History of Present Illness History of Present Illness: CC: Generalized weakness 73 F with PMHx of aggressive ovarian carcinoma diagnosed 03/2018 s/p multiple agents of chemotherapy (Carboplatin, Taxotere, Gemzar), on chemotherapy 12/22- 12/23 days, malignant ascites (dx 12/01/18) s/p paracentesis 11/25/18, L lower leg DVTs (LFV, popliteal vein, tibial vein; on Coumadin; 05/2018), HTN, HLD, and DM, presents to [facility] [place] accompanied by her 2 sons for a chief complaint of decreased PO intake, lethargy, and body aches since last night. Per Patient's Son, the Patient did not drink or eat anything yesterday. Patient's son states that they have been draining the Patient's ascites on a daily basis. Patient's son states that the Patient has been taking antibiotics (cipro). Patient otherwise denies f sam, vomiting, diarrhea, cough, headache, or any other complaints at this time. PMH: ovarian carcinoma, malignant ascites, L lower leg DVTs, HTN, HLD, DM Allergies: Pencillin- rash/swelling PSH: Hysterectomy (36 y/o) Hospitalization: [facility] 12/08/18 [facility] [place] 03/2018 (DVT dx) Social Hx: Denied smoking, ETOH, illicit drug use Family Hx: Sisters (colon cancer) PMD: Dr. Taylor [place] Pharmacy: [facility] Oncologist: Dr. Awad Present on Admission - Present on Admission Any Indicators Present on Admission: Yes History of DVT/PE: Yes History of Uncontrolled Diabetes: No Urinary Catheter: No Decubitus Ulcer Present: No Review of Systems - Review of Systems All systems: reviewed and no additional remarkable complaints except (as per HPI) Past Patient History - Infectious Disease Hx of Infectious Diseases: None - Past Social History Smoking Status: Never Smoked - CARDIAC Hx Cardiac Disorders: Yes Hx Hypertension: Yes Hx Peripheral Edema: Yes (ble +4 pitting skin swollen/tight) Other/Comment: lle dvt's/lfv/popliteal vein/tibial vein on coumadin 05/2018 - PULMONARY Hx Respiratory Disorders: Yes (sob due to ascites) - NEUROLOGICAL Hx Neurological Disorder: Yes Hx Dizziness: Yes Hx Syncope: Yes - HEENT Hx HEENT Problems: No - RENAL Hx Chronic Kidney Disease: No - ENDOCRINE/METABOLIC Hx Endocrine Disorders: Yes Hx Diabetes Mellitus Type 2: Yes - HEMATOLOGICAL/ONCOLOGICAL Hx Blood Disorders: Yes Hx Cancer: Yes (ovarian- dx 03/2018 chemo pills) Hx Chemotherapy: Yes Other/Comment: pt has been treated with various chemotherapies last chemo treatment was friday12/14/18, cancer is aggresive. pt has chemo 2 weeks on 1 week off - INTEGUMENTARY Hx Dermatological Problems: Yes Other/Comment: 02-18-18 BILATERAL LEG EDEMA +4. ASCITES - MUSCULOSKELETAL/RHEUMATOLOGICAL Hx Musculoskeletal Disorders: Yes Hx Falls: No Hx Unsteady Gait: Yes - GASTROINTESTINAL Hx Gastrointestinal Disorders: Yes Other/Comment: Ascites - GENITOURINARY/GYNECOLOGICAL Hx Genitourinary Disorders: Yes (HYSTERECTOMY) Other/Comment: ovarian ca, malignant ascites - PSYCHIATRIC Hx Psychophysiologic Disorder: No Hx Substance Use: No - SURGICAL HISTORY Hx Hysterectomy: Yes Other/Comment: R sided chest port, paracentesis us guided 12/11/18 dr randolph shane, and 11/25/18, scheduled for paracentesis with drain insertion 12/18/18. 12/31/18, patient has drain to R lower abdomen. - ANESTHESIA Hx Anesthesia: Yes Hx Anesthesia Reactions: No Hx Malignant Hyperthermia: No Meds Allergies/Adverse Reactions: Allergies Allergy/AdvReac Type Severity Reaction Status Date / Time Penicillins AdvReac SHORTNESS Verified 12/16/18 09:08 OF BREATH Results - Vital Signs Recent Vital Signs: Last Vital Signs Temp 97.3 F L 12/31/18 17:26 Pulse 111 H 12/31/18 17:26 Resp 20 12/31/18 17:26 BP 120/72 12/31/18 17:26 Pulse Ox 100 12/31/18 17:26 - Labs Result Diagrams: 12/31/18 18:17 12/31/18 18:17 Labs: Laboratory Results - last 24 hr 12/31/18 12/31/18 12/31/18 18:07 18:17 18:17 WBC 14.2 H RBC 4.57 Hgb 12.2 Hct 38.0 MCV 83.2 MCH 26.7 MCHC 32.1 RDW 19.5 H Plt Count 678 H MPV 8.5 Neut % (Auto) 83.5 H Lymph % (Auto) 10.0 L [place] % (Auto) 6.1 H Eos % (Auto) 0.3 L Baso % (Auto) 0.1 Lymph # (Auto) 1.4 [place] # (Auto) 0.9 H Eos # (Auto) 0.0 Baso # (Auto) 0.01 Absolute Neuts (auto) 11.85 H PT 18.1 H INR 1.63 APTT 34.8 Sodium 125 L Potassium 6.2 H* Chloride 98 Carbon Dioxide 20 L Anion Gap 14 BUN 38 H Creatinine 1.3 H Est GFR ( Amer) 48 Est GFR (Non-Af Amer) 40 Random Glucose 112 H Calcium 8.2 L Magnesium 2.4 H Total Bilirubin 0.4 AST 42 H D ALT 17 Alkaline Phosphatase 279 H Total Protein 6.3 Albumin 2.9 L Globulin 3.4 Albumin/Globulin Ratio 0.9 L - Constitutional Appears: Non-toxic, No Acute Distress, Chronically Ill - Head Exam Head Exam: ATRAUMATIC, NORMAL INSPECTION, NORMOCEPHALIC - Eye Exam Eye Exam: EOMI, Normal appearance Pupil Exam: NORMAL ACCOMODATION - ENT Exam ENT Exam: mucous membranes dry - Neck Exam Neck exam: Positive for: Full Rom, Normal Inspection - Respiratory Exam Respiratory Exam: Clear to Auscultation Bilateral, NORMAL BREATHING PATTERN. absent: Rhonchi, Wheezes, Respiratory Distress - Cardiovascular Exam Cardiovascular Exam: REGULAR RHYTHM, +S1, +S2. absent: Diastolic murmur, Systolic Murmur - GI/Abdominal Exam GI & Abdominal Exam: Distended, Firm, Normal Bowel Sounds. absent: Guarding - Extremities Exam Extremities exam: Positive for: normal capillary refill, pedal pulses present Additional comments: +2 lower extremity edema (left) - Back Exam Back exam: NORMAL INSPECTION. absent: CVA tenderness (L), CVA tenderness (R) - Neurological Exam Neurological exam: Alert, CN II-XII Intact, Oriented x3 - Psychiatric Exam Psychiatric exam: Normal Affect, Normal Mood - Skin Skin Exam: Dry, Intact, Normal Color, Warm Assessment & Plan - Assessment and Plan (Free Text) Assessment: Generalized weakness in the setting of hyperkalemia, hyponatremia - Hyperkalemia, K+=6.2 - Hyponatremia, Nh=319 - F/U EKG Q6H x2 - F/U Troponin Q6H x2 - Insulin 10 units / dextrose administered - Kayexalate administered - Albuterol 15mg INH x1 - Bicarb 100mEq x1 - NS @75ml/hr - F/U CBC, CMP, Mg, Phos - F/U Head CT without contrast - Monitor L lower Extremity Edema in the setting of history of DVT; Rule-out PE - Patient has multiple risk factors, positive for tachycardia, and complains of Chest Pain. - CT angio is contraindicated at this time due to Patient's GFR=40, Cr=1.3 - F/U V/Q scan - Tropoinin Q6H x2 - EKG Q6H x2 - Lovenox 80SC BID (home med - HOLD) given EMMA - Monitor in tele EMMA - Cr=1.3, BUN=38 - IVF NS @75mls/hr - Monitor CMP, Mg, Phos - Avoid nephrotoxic agents Ascites secondary to malignancy - Previous Abd ultrasound reveals moderate ascites; chronic parenchymal disease B/L Lower Extremity Edema - Likely due to home med- norvasc: (hold) - History of LE DVT - INR=1.63 - Continue home med (coumadin) Mild Leukocytosis - Likely reactive - WBC=14 - Patient afebrile - Monitor CBC AM labs Hx of ovarian cancer - Patient is followed by Dr. Awad. Hx HTN - Patient is on Norvasc at home (hold) PPx - GI: Protonix - DVT: On coumadin (continue home med) Discussed with Dr. Abi Simms PGY1 <Tab Alex - Last Filed: 01/01/19 08:23> Results - Vital Signs Recent Vital Signs: Last Vital Signs Temp 97.4 F L 01/01/19 05:40 Pulse 106 H 01/01/19 05:40 Resp 18 01/01/19 05:40 BP 120/86 01/01/19 05:40 Pulse Ox 100 01/01/19 05:40 - Labs Result Diagrams: 01/01/19 06:00 01/01/19 06:00 Labs: Laboratory Results - last 24 hr 12/31/18 12/31/18 12/31/18 18:07 18:17 18:17 WBC 14.2 H RBC 4.57 Hgb 12.2 Hct 38.0 MCV 83.2 MCH 26.7 MCHC 32.1 RDW 19.5 H Plt Count 678 H MPV 8.5 Neut % (Auto) 83.5 H Lymph % (Auto) 10.0 L [place] % (Auto) 6.1 H Eos % (Auto) 0.3 L Baso % (Auto) 0.1 Lymph # (Auto) 1.4 [place] # (Auto) 0.9 H Eos # (Auto) 0.0 Baso # (Auto) 0.01 Absolute Neuts (auto) 11.85 H PT 18.1 H INR 1.63 APTT 34.8 Sodium 125 L Potassium 6.2 H* Chloride 98 Carbon Dioxide 20 L Anion Gap 14 BUN 38 H Creatinine 1.3 H Est GFR ( Amer) 48 Est GFR (Non-Af Amer) 40 POC Glucose (mg/dL) Random Glucose 112 H Calcium 8.2 L Phosphorus Magnesium 2.4 H Total Bilirubin 0.4 AST 42 H D ALT 17 Alkaline Phosphatase 279 H Troponin I Total Protein 6.3 Albumin 2.9 L Globulin 3.4 Albumin/Globulin Ratio 0.9 L 12/31/18 01/01/19 01/01/19 18:25 03:28 06:00 WBC 12.6 H RBC 4.28 Hgb 11.4 L Hct 35.8 L MCV 83.6 MCH 26.6 MCHC 31.8 RDW 19.6 H Plt Count 632 H MPV 8.6 Neut % (Auto) 85.2 H Lymph % (Auto) 8.2 L [place] % (Auto) 6.3 H Eos % (Auto) 0.2 L Baso % (Auto) 0.1 Lymph # (Auto) 1.0 L [place] # (Auto) 0.8 H Eos # (Auto) 0.0 Baso # (Auto) 0.01 Absolute Neuts (auto) 10.75 H PT INR APTT Sodium Potassium Chloride Carbon Dioxide Anion Gap BUN Creatinine Est GFR ( Amer) Est GFR (Non-Af Amer) POC Glucose (mg/dL) 133 H 115 H Random Glucose Calcium Phosphorus Magnesium Total Bilirubin AST ALT Alkaline Phosphatase Troponin I Total Protein Albumin Globulin Albumin/Globulin Ratio 01/01/19 01/01/19 01/01/19 06:00 06:00 06:00 WBC RBC Hgb Hct MCV MCH MCHC RDW Plt Count MPV Neut % (Auto) Lymph % (Auto) [place] % (Auto) Eos % (Auto) Baso % (Auto) Lymph # (Auto) [place] # (Auto) Eos # (Auto) Baso # (Auto) Absolute Neuts (auto) PT 17.0 H INR 1.50 APTT 34.2 Sodium 125 L Potassium 6.1 H* Chloride 97 L Carbon Dioxide 21 Anion Gap 13 BUN 40 H Creatinine 1.3 H Est GFR ( Amer) 48 Est GFR (Non-Af Amer) 40 POC Glucose (mg/dL) Random Glucose 101 Calcium 8.7 Phosphorus 6.5 H Magnesium 2.4 H Total Bilirubin 0.6 AST 26 ALT 17 Alkaline Phosphatase 233 H Troponin I 0.02 D Total Protein 6.0 Albumin 2.7 L Globulin 3.3 Albumin/Globulin Ratio 0.8 L 01/01/19 07:32 WBC RBC Hgb Hct MCV MCH MCHC RDW Plt Count MPV Neut % (Auto) Lymph % (Auto) [place] % (Auto) Eos % (Auto) Baso % (Auto) Lymph # (Auto) [place] # (Auto) Eos # (Auto) Baso # (Auto) Absolute Neuts (auto) PT INR APTT Sodium Potassium Chloride Carbon Dioxide Anion Gap BUN Creatinine Est GFR ( Amer) Est GFR (Non-Af Amer) POC Glucose (mg/dL) 91 Random Glucose Calcium Phosphorus Magnesium Total Bilirubin AST ALT Alkaline Phosphatase Troponin I Total Protein Albumin Globulin Albumin/Globulin Ratio Attending/Attestation - Attestation I have personally seen and examined this patient.: No I have fully participated in the care of the patient.: Yes I have reviewed all pertinent clinical information: Yes
[2018-12-31] MEDS ORDERED: Sodium Bicarbonate (8.4%) 50 Meq Syringe IVP ONE ×2 (21:41→22:20)
[2018-12-31] MEDS ORDERED: Albuterol 0.083% Inhal Sol (2.5 mg/3 mL) UD INH ONE (21:42)
[2019-01-01] MEDS: Pantoprazole 40 mg EC Tab PO SCH (05:55)
[2019-01-01 06:38] LABS: BASO # 0.01 K/mm3 (0.0-2.0); BASO % 0.1 % (0.0-3.0); EOS % 0.2 % (1.5-5.0); HEMOGLOBIN 11.4 g/dL (12.0-16.0); LYMPH % 8.2 % (22.0-35.0); MEAN CELL VOLUME 83.6 fl (80.0-105.0); MEAN CORPUSCULAR HEMOGLOBIN 26.6 pg (25.0-35.0); MEAN CORPUSCULAR HGB CONC 31.8 g/dl (31.0-37.0); MEAN PLATELET VOLUME 8.6 fl (7.0-11.0); MONO # 0.8 (0.1-0.6); MONO % 6.3 % (1.0-6.0); RBC 4.28 10^6/uL (3.5-6.1); RED CELL DISTRIBUTION WIDTH 19.6 % (11.5-14.5); WHITE BLOOD COUNT 12.6 10^3/uL (4.5-11.0)
[2019-01-01 06:44] LABS: INR 1.5; PARTIAL THROMBOPLASTIN TIME 34.2 Seconds (26.9-38.3)
[2019-01-01 08:06] LABS: ALB/GLOB RATIO 0.8 (1.1-1.8); ALBUMIN 2.7 g/dL (3.0-4.8); CALCIUM 8.7 mg/dL (8.4-10.5)
[2019-01-01] MEDS ORDERED: Dextrose 50% SYRINGE Inj (50 ml) IV PRN (08:24)
[2019-01-01] MEDS ORDERED: Dextrose 50% SYRINGE Inj (50 ml) IVP ONE (08:24)
[2019-01-01] MEDS ORDERED: Insulin Regular 1 UNITS/0.01 ML ML IV ONE (08:25)
[2019-01-01] MEDS ORDERED: Calcium Gluconate in NS 1 GM/50 ML BAG IV ONE (08:30)
--- NOTE | 2019-01-01 09:35 | RAD ---
Date of service: 12/31/2018 HISTORY: chest pain COMPARISON: 12/16/2018 FINDINGS: LUNGS: No active pulmonary disease. PLEURA: No significant pleural effusion identified, no pneumothorax apparent. CARDIOVASCULAR: No aortic atherosclerotic calcification present. Normal cardiac size. No pulmonary vascular congestion. OSSEOUS STRUCTURES: No significant abnormalities. VISUALIZED UPPER ABDOMEN: Normal. OTHER FINDINGS: None. IMPRESSION: No active disease.
[2019-01-01] MEDS ORDERED: Enoxaparin 80 mg Syringe SC SCH (10:00)
--- NOTE | 2019-01-01 11:01 | CARD ---
APPROVED REPORT Date of service: 12/31/2018 EKG Measurement Heart [id number] <Conclusion> Sinus tachycardia Low Voltage Otherwise normal ECG
--- NOTE | 2019-01-01 11:26 | CP.PCM.PN ---
<Yoan Cornejo - Last Filed: 01/01/19 14:04> Subjective - Date & Time of Evaluation Date of Evaluation: 01/01/19 Time of Evaluation: 11:14 - Subjective Subjective: Medicine Note for Dr. Bean 73F seen and evaluated at bedside this morning. No acute events overnight. Complaining of difficulty with urination, bladder scan showed 207cc of urine at this time. Patient having scant bowel movements. Denies f/c, n/v/d, SOB, CP, headaches, dizziness. Objective - Vital Signs/Intake and Output Vital Signs (last 24 hours): Temp Pulse Resp BP Pulse Ox 97.4 F L 106 H 18 120/86 100 01/01/19 05:40 01/01/19 05:40 01/01/19 05:40 01/01/19 05:40 01/01/19 05:40 Intake and Output: 01/01/19 01/01/19 06:59 18:59 Intake Total 490 Balance 490 - Medications Medications: Current Medications Dextrose (Dextrose 50% Inj) 0 ml IV STAT PRN; Protocol PRN Reason: Hypoglycemia Protocol Sodium Chloride (Sodium Chloride 0.9%) 1,000 mls @ 75 mls/hr IV .[id number] [facility] Last Admin: 12/31/18 20:42 Dose: 75 mls/hr Dextrose (Dextrose 5% In Water 1000 Ml) 1,000 mls @ 0 mls/hr IV .Q0M PRN; Protocol PRN Reason: Hypoglycemia Protocol Pantoprazole Sodium (Protonix Ec Tab) 40 mg PO 0600 [facility] Last Admin: 01/01/19 05:55 Dose: 40 mg Warfarin Sodium (Coumadin) 5 mg PO 1800 [facility]; Protocol - Labs Labs: 01/01/19 06:00 01/01/19 06:00 PT 17.0 SECONDS (9.4-12.5) H 01/01/19 06:00 INR 1.50 01/01/19 06:00 APTT 34.2 Seconds (26.9-38.3) 01/01/19 06:00 - Constitutional Appears: Well, Non-toxic, No Acute Distress - Head Exam Head Exam: ATRAUMATIC, NORMAL INSPECTION, NORMOCEPHALIC - Eye Exam Eye Exam: EOMI - ENT Exam ENT Exam: Mucous Membranes Moist - Respiratory Exam Respiratory Exam: NORMAL BREATHING PATTERN. absent: Respiratory Distress - Cardiovascular Exam Cardiovascular Exam: REGULAR RHYTHM, +S1, +S2. absent: Murmur - GI/Abdominal Exam GI & Abdominal Exam: Distended, Soft. absent: Guarding, Tenderness, Rebound - Neurological Exam Neurological Exam: Alert, Awake - Psychiatric Exam Psychiatric exam: Normal Affect, Normal Mood - Skin Skin Exam: Dry, Intact, Normal Color, Warm Assessment and Plan - Assessment and Plan (Free Text) Assessment: 73F, PMH of ovarian carcinoma w/ malignant ascites s/p Aspira catheter placement, Left lower leg DVTs on coumadin, HTN, HLD, and DM, admitted for generalized weakness and electrolyte abnormalities. F/u ECHO, nephrology work-up, and UA/urine culture. Plan: Generalized weakness w/ electrolyte abnormalities - Hyperkalemia, K+=6.1 - Hyponatremia, Gf=569 - Nephrology consulted, recommendations appreciated - Calcium gluconate 1gm - Insulin 10 units / dextrose administered - Kayexalate administered - NS @75ml/hr - Daily labs - Pending ECHO - CT Head negative for acute intracranial pathology Left Lower Extremity Edema w/ history of DVT; Rule-out PE - V/Q scan negative for PE - EKG - tachycardia, otherwise wnl - Trop negative x1 - Continue home medication, Coumadin - Monitor in tele EMMA - IVF NS @75mls/hr - Monitor electrolytes - Avoid nephrotoxic agents - Nephrology, Dr. [place], consulted, recommendations appreciated Hx of UTI - Patient on Cipro outpatient - F/U UA and urine culture - Will continue antibiotics pending UA Ascites secondary to Ovarian Carcinoma - Previous abdominal ultrasound reveals moderate ascites - Patient has Aspira catheter placed by Dr. Schmitt recently, being drained daily by family (approximately 1L per day) - Continue to drain abdominal fluid through catheter Mild Leukocytosis, resolving - WBC = 13 - Patient afebrile - Daily labs Hx of ovarian cancer - Patient is followed by oncologist at [facility] Hx HTN - Patient is on Norvasc at home (hold) PPx - GI: Protonix - DVT: Coumadin Patient plan discussed with attending Dr. Vikas Cornejo PGY1 <Arline Bean - Last Filed: 01/01/19 15:06> Objective - Vital Signs/Intake and Output Vital Signs (last 24 hours): Temp Pulse Resp BP Pulse Ox 97.5 F L 107 H 18 118/84 100 01/01/19 12:00 01/01/19 12:00 01/01/19 12:00 01/01/19 12:00 01/01/19 05:40 Intake and Output: 01/01/19 01/01/19 06:59 18:59 Intake Total 490 Output Total 1000 Balance 490 -1000 - Medications Medications: Current Medications Dextrose (Dextrose 50% Inj) 0 ml IV STAT PRN; Protocol PRN Reason: Hypoglycemia Protocol Sodium Chloride (Sodium Chloride 0.9%) 1,000 mls @ 75 mls/hr IV .[id number] [facility] Last Admin: 01/01/19 14:48 Dose: Not Given Dextrose (Dextrose 5% In Water 1000 Ml) 1,000 mls @ 0 mls/hr IV .Q0M PRN; Protocol PRN Reason: Hypoglycemia Protocol Pantoprazole Sodium (Protonix Ec Tab) 40 mg PO 0600 [facility] Last Admin: 01/01/19 05:55 Dose: 40 mg Warfarin Sodium (Coumadin) 5 mg PO 1800 [facility]; Protocol - Labs Labs: 01/01/19 06:00 01/01/19 06:00 PT 17.0 SECONDS (9.4-12.5) H 01/01/19 06:00 INR 1.50 01/01/19 06:00 APTT 34.2 Seconds (26.9-38.3) 01/01/19 06:00 Attending/Attestation - Attestation I have personally seen and examined this patient.: Yes I have fully participated in the care of the patient.: Yes I have reviewed all pertinent clinical information, including history, physical exam and plan: Yes Notes (Text): 01/01/19 14:59 73 year old female with past medical history of ovarian carcinoma with recurrent ascites s/p Aspira catheter, LLE DVT on coumadin, hypertension and diabetes who presented with complaint of generalized weakness. CT head was negative for acute findings. Found to have hyponatremia and hyperkalemia. Started on iv fluids. Kayexalate give. Will follow up on repeat labs. Nephrology evaluation was appreciated. She is on coumadin. She was on cipro for recent UTI. Will follow up on repeat UA. Family is at bedside and questions were answered. Arline Bean MD Hospitalist.
--- NOTE | 2019-01-01 11:30 | CT ---
Date of service: 12/31/2018 PROCEDURE: CT HEAD WITHOUT CONTRAST. HISTORY: lethargy COMPARISON: None available. TECHNIQUE: Axial computed tomography images were obtained through the head/brain without intravenous contrast. Radiation dose: Total exam DLP = 780.35 mGy-cm. This CT exam was performed using one or more of the following dose reduction techniques: Automated exposure control, adjustment of the mA and/or kV according to patient size, and/or use of iterative reconstruction technique. FINDINGS: HEMORRHAGE: No intracranial hemorrhage. BRAIN: No mass effect or edema. Chronic periventricular white matter ischemic disease. VENTRICLES: Unremarkable. No hydrocephalus. CALVARIUM: Unremarkable. PARANASAL SINUSES: Unremarkable as visualized. No significant inflammatory changes. MASTOID AIR CELLS: Unremarkable as visualized. No inflammatory changes. OTHER FINDINGS: None. IMPRESSION: No acute hemorrhage.
--- NOTE | 2019-01-01 12:28 | CP.PCM.CON ---
History of Present Illness - History of Present Illness History of Present Illness: Palliative consult requested by Dr Rach Fernandes Reason: Goals of care 73 year old female with history of metastatic ovarian cancer, abdominal ascites who presented to ED with decreased oral intake, decreased urine output and body aches. Family report patient as having constipation despite use of stool softeners. Family denies fevers, chills, nausea, vomiting, diarrhea cough, headache, dizziness,shortness of breath or chest pain. Head CT: negative Chest x ray: negative Labs: Wbc 14, Hgb 12.2, Plt 678,Na 125, K 6.2, Bun 38, Acid Tank Cleaner 1.3, Calcium 8.2, Mag 2.4, Ast 42, Alt 17, Alk Phos 289, albumin 2.9 . PT 18.1 PMHx:metastasis ovarian cancer s/p multiple chemotherapeutic regimens, ascites, DVT of LLL, HTN,HLD,DM PSHx:paracentisis, s/p Aspira cath drbaltazar Social History: Never smoker, no alcohol or drug use. Lives with family. Family History: Non contributory. Advance Care Planning: The patient does not have an Advanced Directive. Review of Systems: As per HPI, 12 point review otherwise negative. Past Patient History - Infectious Disease Hx of Infectious Diseases: None - Past Social History Smoking Status: Never Smoked - CARDIAC Hx Cardiac Disorders: Yes Hx Hypertension: Yes Hx Peripheral Edema: Yes (ble +4 pitting skin swollen/tight) Other/Comment: lle dvt's/lfv/popliteal vein/tibial vein on coumadin 05/2018 - PULMONARY Hx Respiratory Disorders: Yes (sob due to ascites) - NEUROLOGICAL Hx Neurological Disorder: Yes Hx Dizziness: Yes Hx Syncope: Yes - HEENT Hx HEENT Problems: No - RENAL Hx Chronic Kidney Disease: No - ENDOCRINE/METABOLIC Hx Endocrine Disorders: Yes Hx Diabetes Mellitus Type 2: Yes - HEMATOLOGICAL/ONCOLOGICAL Hx Blood Disorders: Yes Hx Cancer: Yes (ovarian- dx 03/2018 chemo pills) Hx Chemotherapy: Yes Other/Comment: pt has been treated with various chemotherapies last chemo treatment was friday12/14/18, cancer is aggresive. pt has chemo 2 weeks on 1 week off - INTEGUMENTARY Hx Dermatological Problems: Yes Other/Comment: 02-18-18 BILATERAL LEG EDEMA +4. ASCITES - MUSCULOSKELETAL/RHEUMATOLOGICAL Hx Musculoskeletal Disorders: Yes Hx Falls: No Hx Unsteady Gait: Yes - GASTROINTESTINAL Hx Gastrointestinal Disorders: Yes Other/Comment: Ascites - GENITOURINARY/GYNECOLOGICAL Hx Genitourinary Disorders: Yes (HYSTERECTOMY) Other/Comment: ovarian ca, malignant ascites - PSYCHIATRIC Hx Psychophysiologic Disorder: No Hx Substance Use: No - SURGICAL HISTORY Hx Hysterectomy: Yes Other/Comment: R sided chest port, paracentesis us guided 12/11/18 dr randolph shane, and 11/25/18, scheduled for paracentesis with drain insertion 12/18/18. 12/31/18, patient has drain to R lower abdomen. - ANESTHESIA Hx Anesthesia: Yes Hx Anesthesia Reactions: No Hx Malignant Hyperthermia: No Meds Allergies/Adverse Reactions: Allergies Allergy/AdvReac Type Severity Reaction Status Date / Time Penicillins AdvReac SHORTNESS Verified 12/16/18 09:08 OF BREATH - Medications Medications: Current Medications Dextrose (Dextrose 50% Inj) 0 ml IV STAT PRN; Protocol PRN Reason: Hypoglycemia Protocol Sodium Chloride (Sodium Chloride 0.9%) 1,000 mls @ 75 mls/hr IV .[id number] [facility] Last Admin: 12/31/18 20:42 Dose: 75 mls/hr Dextrose (Dextrose 5% In Water 1000 Ml) 1,000 mls @ 0 mls/hr IV .Q0M PRN; Protocol PRN Reason: Hypoglycemia Protocol Pantoprazole Sodium (Protonix Ec Tab) 40 mg PO 0600 [facility] Last Admin: 01/01/19 05:55 Dose: 40 mg Warfarin Sodium (Coumadin) 5 mg PO 1800 [facility]; Protocol Physical Exam - Constitutional Appears: Chronically Ill - Head Exam Head Exam: NORMOCEPHALIC - Eye Exam Eye Exam: Normal appearance, PERRL - ENT Exam ENT Exam: Mucous Membranes Moist, Normal Oropharynx - Respiratory Exam Respiratory Exam: Clear to Auscultation Bilateral, NORMAL BREATHING PATTERN Additional comments: right chest port - Cardiovascular Exam Cardiovascular Exam: REGULAR RHYTHM, +S1, +S2 - GI/Abdominal Exam GI & Abdominal Exam: Distended, Hypoactive Bowel Sounds, Soft - Extremities Exam Extremities exam: Positive for: pedal edema, pedal pulses present - Back Exam Back exam: NORMAL INSPECTION - Neurological Exam Neurological exam: Alert - Skin Skin Exam: Dry, Pallor, Warm - Additional Findings Additional findings: Palliative performance scale rating 50% Results - Vital Signs Recent Vital Signs: Last Vital Signs Temp 97.4 F L 01/01/19 05:40 Pulse 106 H 01/01/19 10:00 Resp 18 01/01/19 05:40 BP 120/86 01/01/19 05:40 Pulse Ox 100 01/01/19 05:40 - Labs Result Diagrams: 01/01/19 06:00 01/01/19 06:00 Labs: Laboratory Results - last 24 hr 12/31/18 12/31/18 12/31/18 18:07 18:17 18:17 WBC 14.2 H RBC 4.57 Hgb 12.2 Hct 38.0 MCV 83.2 MCH 26.7 MCHC 32.1 RDW 19.5 H Plt Count 678 H MPV 8.5 Neut % (Auto) 83.5 H Lymph % (Auto) 10.0 L [place] % (Auto) 6.1 H Eos % (Auto) 0.3 L Baso % (Auto) 0.1 Lymph # (Auto) 1.4 [place] # (Auto) 0.9 H Eos # (Auto) 0.0 Baso # (Auto) 0.01 Absolute Neuts (auto) 11.85 H PT 18.1 H INR 1.63 APTT 34.8 Sodium 125 L Potassium 6.2 H* Chloride 98 Carbon Dioxide 20 L Anion Gap 14 BUN 38 H Creatinine 1.3 H Est GFR ( Amer) 48 Est GFR (Non-Af Amer) 40 POC Glucose (mg/dL) Random Glucose 112 H Calcium 8.2 L Phosphorus Magnesium 2.4 H Total Bilirubin 0.4 AST 42 H D ALT 17 Alkaline Phosphatase 279 H Troponin I Total Protein 6.3 Albumin 2.9 L Globulin 3.4 Albumin/Globulin Ratio 0.9 L 12/31/18 01/01/19 01/01/19 18:25 03:28 06:00 WBC 12.6 H RBC 4.28 Hgb 11.4 L Hct 35.8 L MCV 83.6 MCH 26.6 MCHC 31.8 RDW 19.6 H Plt Count 632 H MPV 8.6 Neut % (Auto) 85.2 H Lymph % (Auto) 8.2 L [place] % (Auto) 6.3 H Eos % (Auto) 0.2 L Baso % (Auto) 0.1 Lymph # (Auto) 1.0 L [place] # (Auto) 0.8 H Eos # (Auto) 0.0 Baso # (Auto) 0.01 Absolute Neuts (auto) 10.75 H PT INR APTT Sodium Potassium Chloride Carbon Dioxide Anion Gap BUN Creatinine Est GFR ( Amer) Est GFR (Non-Af Amer) POC Glucose (mg/dL) 133 H 115 H Random Glucose Calcium Phosphorus Magnesium Total Bilirubin AST ALT Alkaline Phosphatase Troponin I Total Protein Albumin Globulin Albumin/Globulin Ratio 01/01/19 01/01/19 01/01/19 06:00 06:00 06:00 WBC RBC Hgb Hct MCV MCH MCHC RDW Plt Count MPV Neut % (Auto) Lymph % (Auto) [place] % (Auto) Eos % (Auto) Baso % (Auto) Lymph # (Auto) [place] # (Auto) Eos # (Auto) Baso # (Auto) Absolute Neuts (auto) PT 17.0 H INR 1.50 APTT 34.2 Sodium 125 L Potassium 6.1 H* Chloride 97 L Carbon Dioxide 21 Anion Gap 13 BUN 40 H Creatinine 1.3 H Est GFR ( Amer) 48 Est GFR (Non-Af Amer) 40 POC Glucose (mg/dL) Random Glucose 101 Calcium 8.7 Phosphorus 6.5 H Magnesium 2.4 H Total Bilirubin 0.6 AST 26 ALT 17 Alkaline Phosphatase 233 H Troponin I 0.02 D Total Protein 6.0 Albumin 2.7 L Globulin 3.3 Albumin/Globulin Ratio 0.8 L 01/01/19 07:32 WBC RBC Hgb Hct MCV MCH MCHC RDW Plt Count MPV Neut % (Auto) Lymph % (Auto) [place] % (Auto) Eos % (Auto) Baso % (Auto) Lymph # (Auto) [place] # (Auto) Eos # (Auto) Baso # (Auto) Absolute Neuts (auto) PT INR APTT Sodium Potassium Chloride Carbon Dioxide Anion Gap BUN Creatinine Est GFR ( Amer) Est GFR (Non-Af Amer) POC Glucose (mg/dL) 91 Random Glucose Calcium Phosphorus Magnesium Total Bilirubin AST ALT Alkaline Phosphatase Troponin I Total Protein Albumin Globulin Albumin/Globulin Ratio Assessment & Plan - Assessment and Plan (Free Text) Assessment: 73 year old female with history of metastatic ovarian cancer, ascites DVT, HTN, DM who is admitted with weakness, poor appetite Patient's sons and daughter at bedside. Son is a physician. Family aware that patient has a terminal diagnosis. Quality of life discussion ensued. Family states that patient is tolerating chemotherapy treatment well and that she has few side effects. Family states that patient has expressed that she wishes to continue aggressive treatment for as long as she is able to do so. Family reports that patient is to start a new therapeutic agent next week. Son drains patient Aspira catheter dialy and states that this measure keeps her relatively comfortable. Resuscitation status also discussed with family. They are aware of the ramifications of CPR/intubation. Family states that it is patient's wish to be full code status and that hey are in agreement with this. Time spent with fmaily in goals of care and advance care plannig discussion, 30 minutes Plan: Gaols of care and advance care planning Diagnostic work up in progress Continue IVF's. PPI, Coumadin Drain Aspira catheter daily
--- NOTE | 2019-01-01 12:52 | NM ---
Date of service: 12/31/2018 COMPARISON: TECHNIQUE: 33.0 mCi technetium 99-m DTPA aerosol. 3.5 mCI technetium 99-m MAA administered intravenously. FINDINGS: VENTILATION COMPONENT: Normal. PERFUSION COMPONENT: Normal. The report concurs with the preliminary [facility] report IMPRESSION: Lowprobability ventilation perfusion scan for pulmonary embolism.
--- NOTE | 2019-01-01 14:17 | CP.PCM.CON ---
History of Present Illness - History of Present Illness History of Present Illness: Nephrology Consultation Note: Assessment: Stable Hyponatremia ? SIADH and hyperkalemia hyperphosphatemia with CKD 3. r/o adrenal insuff Diabetic chronic Kidney Disease (E11.22) Hypertensive Chronic Kidney Disease (I12.9) Chronic Kidney Disease (N18.3) Stage 3 with echogenic kidneys Anemia ovarian ca with malignant ascites s/p chemotherapy, hyperlipidemia, DVT Plan No acute need for renal replacement therapy at this time. Hypertension control with meds as ordered. Maintain hemodynamics stable. Avoid hypotension. Patient not on ACEI/ARB due to recent EMMA Monitor Input/Output, daily weights and renal function with basic metabolic panel continue with IVF as NS X 1 DAY medical management of hyperkalemia. stop potassium supplements low K diet. pt's family was advised to abstain from muscle milk supplements due to high content of K Check urine analysis, spot protein/creatinine, albumin/creatinine ratio, urine for Na, Osmol, Potassium r/o adrenal insuff with plasma renin/aldosterone, am cortisol Dose meds/antibiotics for reduced GFR. Avoid fleets enema/magnesium based laxatives. Avoid nephrotoxins/NSAIDs/ iodinated contrast (unless needed emergently) Glycemic control. overall prognosis poor Further work up/management as per primary team Thanks for allowing me to participate in care of your patient. Will follow patimarj nt with you. Please call if any Qs Dr Lionle [place] Office: [phone] Chief Complaint;decreased intake Reason for consult: hyponatremia hyperkalemia HPI: Pt is a 73 F with hx of diabetes Mellitus, hypertension ovarian ca with malignant ascites s/p chemotherapy, hyperlipidemia, DVT and CKD 3 with baseline cr 1.3 presented with complaints of decreased oral intake for last 1 days. pt with paracentesis drain at home, approx 1 L/day by family Denies OTC/herbal meds or NSAIDs No recent iodinated contrast exposure. No obvious episodes of low BP. drinks muscle milk for protein supplements ROS: limited from pt. son bedside and provided ROS and also help in polish interpretation Cardiovascular: No chest pain. Pulmonary: No shortness of breath Gastrointestinal: c/o abdominal pain No nausea. No vomiting. Genitourinary: No pain while urinating. Denies blood in urine. All other negative except as mentioned in HPI Physical Examination: General Appearance: uncomfortable, in no acute respiratory distress, co- operative . ill appearing Vitals reviewed and noted as below Head; Atraumatic, normocephalic ENT: no ulcers no thrush. Tongue is midline. Oropharynx: no rash or ulcers. EYES: Pupils are equal, round and reactive to light accommodation. Eye muscles and extraocular movement intact. Sclera is anicteric. Neck; supple no lymphadenopathy, no thyromegaly or bruit Lungs: Normal respiratory rate/effort. Breath sounds bilateral equal and clear Heart: Normal rate. s1s2 normal. No rub or gallop. Extremities: 1+ edema. No varicose veins Neurological: Patient is alert, awake and oriented to person, place and time. No focal deficit. Strength bilateral appropriate and equal Skin: Warm and dry. Normal turgor. No rash. Palpitation: Normal elasticity for age Abdomen: Abdomen is soft. Bowel sounds +. There is LLQ abdominal tenderness with fullness ? mass. ascitic + Psych: limited insight and normal affect/mood MSK: no joint tenderness or swelling. Digits and nails normal, no deformity : kidney or bladder not palpable Labs/imaging reviewed. Past medical history, past surgical history, family history, social history, allergy reviewed and noted as below Family hx: no hx of CKD. Rest non-contributory CXR no infiltrate effusion normal echo lvef Past Patient History - Infectious Disease Hx of Infectious Diseases: None - Past Social History Smoking Status: Never Smoked - CARDIAC Hx Cardiac Disorders: Yes Hx Hypertension: Yes Hx Peripheral Edema: Yes (ble +4 pitting skin swollen/tight) Other/Comment: lle dvt's/lfv/popliteal vein/tibial vein on coumadin 05/2018 - PULMONARY Hx Respiratory Disorders: Yes (sob due to ascites) - NEUROLOGICAL Hx Neurological Disorder: Yes Hx Dizziness: Yes Hx Syncope: Yes - HEENT Hx HEENT Problems: No - RENAL Hx Chronic Kidney Disease: No - ENDOCRINE/METABOLIC Hx Endocrine Disorders: Yes Hx Diabetes Mellitus Type 2: Yes - HEMATOLOGICAL/ONCOLOGICAL Hx Blood Disorders: Yes Hx Cancer: Yes (ovarian- dx 03/2018 chemo pills) Hx Chemotherapy: Yes Other/Comment: pt has been treated with various chemotherapies last chemo treatment was friday12/14/18, cancer is aggresive. pt has chemo 2 weeks on 1 week off - INTEGUMENTARY Hx Dermatological Problems: Yes Other/Comment: 4-18-18 BILATERAL LEG EDEMA +4. ASCITES - MUSCULOSKELETAL/RHEUMATOLOGICAL Hx Musculoskeletal Disorders: Yes Hx Falls: No Hx Unsteady Gait: Yes - GASTROINTESTINAL Hx Gastrointestinal Disorders: Yes Other/Comment: Ascites - GENITOURINARY/GYNECOLOGICAL Hx Genitourinary Disorders: Yes (HYSTERECTOMY) Other/Comment: ovarian ca, malignant ascites - PSYCHIATRIC Hx Psychophysiologic Disorder: No Hx Substance Use: No - SURGICAL HISTORY Hx Hysterectomy: Yes Other/Comment: R sided chest port, paracentesis us guided 12/11/18 dr randolph shane, and 11/25/18, scheduled for paracentesis with drain insertion 12/18/18. 12/31/18, patient has drain to R lower abdomen. - ANESTHESIA Hx Anesthesia: Yes Hx Anesthesia Reactions: No Hx Malignant Hyperthermia: No Meds Allergies/Adverse Reactions: Allergies Allergy/AdvReac Type Severity Reaction Status Date / Time Penicillins AdvReac SHORTNESS Verified 12/16/18 09:08 OF BREATH - Medications Medications: Current Medications Dextrose (Dextrose 50% Inj) 0 ml IV STAT PRN; Protocol PRN Reason: Hypoglycemia Protocol Sodium Chloride (Sodium Chloride 0.9%) 1,000 mls @ 75 mls/hr IV .[id number] [facility] Last Admin: 12/31/18 20:42 Dose: 75 mls/hr Dextrose (Dextrose 5% In Water 1000 Ml) 1,000 mls @ 0 mls/hr IV .Q0M PRN; Protocol PRN Reason: Hypoglycemia Protocol Pantoprazole Sodium (Protonix Ec Tab) 40 mg PO 0600 [facility] Last Admin: 01/01/19 05:55 Dose: 40 mg Warfarin Sodium (Coumadin) 5 mg PO 1800 MARTIN; Protocol Results - Vital Signs Recent Vital Signs: Last Vital Signs Temp 97.5 F L 01/01/19 12:00 Pulse 107 H 01/01/19 12:00 Resp 18 01/01/19 12:00 BP 118/84 01/01/19 12:00 Pulse Ox 100 01/01/19 05:40 - Labs Result Diagrams: 01/01/19 06:00 01/01/19 06:00 Labs: Laboratory Results - last 24 hr 12/31/18 12/31/18 12/31/18 18:07 18:17 18:17 WBC 14.2 H RBC 4.57 Hgb 12.2 Hct 38.0 MCV 83.2 MCH 26.7 MCHC 32.1 RDW 19.5 H Plt Count 678 H MPV 8.5 Neut % (Auto) 83.5 H Lymph % (Auto) 10.0 L [place] % (Auto) 6.1 H Eos % (Auto) 0.3 L Baso % (Auto) 0.1 Lymph # (Auto) 1.4 [place] # (Auto) 0.9 H Eos # (Auto) 0.0 Baso # (Auto) 0.01 Absolute Neuts (auto) 11.85 H PT 18.1 H INR 1.63 APTT 34.8 Sodium 125 L Potassium 6.2 H* Chloride 98 Carbon Dioxide 20 L Anion Gap 14 BUN 38 H Creatinine 1.3 H Est GFR ( Amer) 48 Est GFR (Non-Af Amer) 40 POC Glucose (mg/dL) Random Glucose 112 H Calcium 8.2 L Phosphorus Magnesium 2.4 H Total Bilirubin 0.4 AST 42 H D ALT 17 Alkaline Phosphatase 279 H Troponin I Total Protein 6.3 Albumin 2.9 L Globulin 3.4 Albumin/Globulin Ratio 0.9 L 12/31/18 01/01/19 01/01/19 18:25 03:28 06:00 WBC 12.6 H RBC 4.28 Hgb 11.4 L Hct 35.8 L MCV 83.6 MCH 26.6 MCHC 31.8 RDW 19.6 H Plt Count 632 H MPV 8.6 Neut % (Auto) 85.2 H Lymph % (Auto) 8.2 L [place] % (Auto) 6.3 H Eos % (Auto) 0.2 L Baso % (Auto) 0.1 Lymph # (Auto) 1.0 L [place] # (Auto) 0.8 H Eos # (Auto) 0.0 Baso # (Auto) 0.01 Absolute Neuts (auto) 10.75 H PT INR APTT Sodium Potassium Chloride Carbon Dioxide Anion Gap BUN Creatinine Est GFR ( Amer) Est GFR (Non-Af Amer) POC Glucose (mg/dL) 133 H 115 H Random Glucose Calcium Phosphorus Magnesium Total Bilirubin AST ALT Alkaline Phosphatase Troponin I Total Protein Albumin Globulin Albumin/Globulin Ratio 01/01/19 01/01/19 01/01/19 06:00 06:00 06:00 WBC RBC Hgb Hct MCV MCH MCHC RDW Plt Count MPV Neut % (Auto) Lymph % (Auto) [place] % (Auto) Eos % (Auto) Baso % (Auto) Lymph # (Auto) [place] # (Auto) Eos # (Auto) Baso # (Auto) Absolute Neuts (auto) PT 17.0 H INR 1.50 APTT 34.2 Sodium 125 L Potassium 6.1 H* Chloride 97 L Carbon Dioxide 21 Anion Gap 13 BUN 40 H Creatinine 1.3 H Est GFR ( Amer) 48 Est GFR (Non-Af Amer) 40 POC Glucose (mg/dL) Random Glucose 101 Calcium 8.7 Phosphorus 6.5 H Magnesium 2.4 H Total Bilirubin 0.6 AST 26 ALT 17 Alkaline Phosphatase 233 H Troponin I 0.02 D Total Protein 6.0 Albumin 2.7 L Globulin 3.3 Albumin/Globulin Ratio 0.8 L 01/01/19 07:32 WBC RBC Hgb Hct MCV MCH MCHC RDW Plt Count MPV Neut % (Auto) Lymph % (Auto) [place] % (Auto) Eos % (Auto) Baso % (Auto) Lymph # (Auto) [place] # (Auto) Eos # (Auto) Baso # (Auto) Absolute Neuts (auto) PT INR APTT Sodium Potassium Chloride Carbon Dioxide Anion Gap BUN Creatinine Est GFR ( Amer) Est GFR (Non-Af Amer) POC Glucose (mg/dL) 91 Random Glucose Calcium Phosphorus Magnesium Total Bilirubin AST ALT Alkaline Phosphatase Troponin I Total Protein Albumin Globulin Albumin/Globulin Ratio
[2019-01-01 14:26] LABS: PH,URINE 5.5 (4.7-8.0); URINE BILIRUBIN NEGATIVE (NEGATIVE); URINE BLOOD NEGATIVE (NEGATIVE); URINE GLUCOSE (UA) 100 mg/dL (NEGATIVE); URINE LEUKOCYTE ESTERASE NEGATIVE Leu/uL (NEGATIVE); URINE PROTEIN NEGATIVE mg/dL (<30 mg/dL); URINE UROBILINOGEN 0.2 E.U./dL (<1 E.U./dL)
[2019-01-01 14:27] LABS: URINE APPEARANCE CLEAR (CLEAR); URINE COLOR YELLOW (YELLOW)
[2019-01-01 14:39] LABS: OSMOLALITY,URINE 639 mosm/kg (300-1000)
[2019-01-01] MEDS: Sodium Chloride 0.9% 1,000 ML IV SCH ×2 (14:47→14:48)
--- NOTE | 2019-01-01 16:16 | CARD ---
APPROVED REPORT Date of service: 01/01/2019 EKG Measurement Heart [id number] 168P [id number] <Conclusion> Sinus tachycardia Low voltage QRS Borderline ECG
--- NOTE | 2019-01-01 18:01 | CARD ---
APPROVED REPORT Date of service: 01/01/2019 EXAM: Two-dimensional and M-mode echocardiogram with Doppler and color Doppler. INDICATION EVALUATE EF 2D DIMENSIONS Left Atrium (2D)3.0 (1.6-4.0cm)IVSd1.2 (0.7-1.1cm) LVDd2.9 (3.9-5.9cm)PWd1.1 (0.7-1.1cm) LVDs2.1 (2.5-4.0cm)FS (%) 27.3 % LVEF (%)54.9 (>50%) M-Mode DIMENSIONS Aortic Root2.80 (2.2-3.7cm)Aortic Cusp Exc.1.20 (1.5-2.0cm) Aortic Valve AoV Peak Lzfndxkq374.0cm/Yonatan Peak GR.6mmHgLVOT Peak Hmkebtph126.0cm/s LVOT VTI17.10cm Mitral Valve MV E Zdcysshk75.4cm/sMV A Qhrpizes55.8cm/sE/A ratio0.5 TDI Lateral E' Peak V15.40cm/sMedial E' Peak V7.21cm/sE/Lateral E'3.0 E/Medial E'6.4 Pulmonary Valve PV Peak Uiaqfdii78.2cm/sPV Peak Grad.4mmHg Tricuspid Valve TR Peak Fmlacosr514ch/sRAP ASDMYQRY08bqRrEP Peak Gr.36mmHg [id number] LEFT VENTRICLE The left ventricle is normal size. There is borderline to mild concentric left ventricular hypertrophy. The left ventricular function is normal.EF-55-60% There is normal LV segmental wall motion. Transmitral Doppler flow pattern is Grade III-reversible restrictive diastolic dysfunction. No left ventricle thrombus noted on this study. There is no ventricular septal defect visualized. There is no left ventricular aneurysm. There is no mass noted in the left ventricle. RIGHT VENTRICLE The right ventricle is normal size. There is normal right ventricular wall thickness. The right ventricular systolic function is normal. ATRIA The left atrium size is normal. The right atrium size is normal. The interatrial septum is intact with no evidence for an atrial septal defect. AORTIC VALVE The aortic valve is thickened but opens well. The aortic valve is mildly to moderately thickened. There is trace aortic regurgitation. There is no aortic valvular stenosis. There is no aortic valvular vegetation. MITRAL VALVE The mitral valve is thickened but opens well. Mitral annular calcification is moderate. Mitral regurgitation is trace. There is no mitral valve stenosis. There is no evidence of mitral valve prolapse. TRICUSPID VALVE The tricuspid valve leaflets are thickened , but open well. There is mild tricuspid regurgitation.RVSP-46 mmof Hg. There is no tricuspid valve stenosis. There is no tricuspid valve prolapse or vegetation. PULMONIC VALVE The pulmonic valve is not well visualized. GREAT VESSELS The aortic root is normal in size. The ascending aorta is normal in size. The pulmonary artery is normal. The IVC is normal in size and collapses >50% with inspiration. PERICARDIAL EFFUSION There is no pleural effusion. There is no pericardial effusion. <Conclusion> The left ventricle is normal size. There is borderline to mild concentric left ventricular hypertrophy. The left ventricular function is normal.EF-55-60% There is trace aortic regurgitation. Mitral regurgitation is trace. There is mild tricuspid regurgitation.RVSP-46 mmof Hg. The IVC is normal in size and collapses >50% with inspiration. There is no pericardial effusion.
[2019-01-02] MEDS: Sodium Chloride 0.9% 1,000 ML IV SCH (02:57)
[2019-01-02] MEDS: Pantoprazole 40 mg EC Tab PO SCH (06:08)
[2019-01-02 06:30] LABS: HEMOGLOBIN 10.8 g/dL (12.0-16.0); MEAN CELL VOLUME 83.3 fl (80.0-105.0); MEAN CORPUSCULAR HEMOGLOBIN 26.5 pg (25.0-35.0); MEAN CORPUSCULAR HGB CONC 31.8 g/dl (31.0-37.0); MEAN PLATELET VOLUME 8.5 fl (7.0-11.0); RBC 4.08 10^6/uL (3.5-6.1); RED CELL DISTRIBUTION WIDTH 19.4 % (11.5-14.5); WHITE BLOOD COUNT 10.5 10^3/uL (4.5-11.0)
[2019-01-02 06:38] LABS: INR 1.69; PARTIAL THROMBOPLASTIN TIME 31.4 Seconds (26.9-38.3); PROTHROMBIN TIME 19.1 SECONDS (9.4-12.5)
[2019-01-02 06:46] LABS: CALCIUM 7.7 mg/dL (8.4-10.5)
--- NOTE | 2019-01-02 13:09 | CP.PCM.PN ---
Subjective - Date & Time of Evaluation Date of Evaluation: 01/02/19 Time of Evaluation: 13:08 - Subjective Subjective: Nephrology Consultation Note: Assessment: Stable Hyponatremia due to -re-renal state and hyperkalemia hyperphosphatemia with CKD 3 Diabetic chronic Kidney Disease (E11.22) Hypertensive Chronic Kidney Disease (I12.9) Chronic Kidney Disease (N18.3) Stage 3 with echogenic kidneys Anemia ovarian ca with malignant ascites s/p chemotherapy, hyperlipidemia, DVT Plan No acute need for renal replacement therapy at this time. Hypertension control with meds as ordered. Maintain hemodynamics stable. Avoid hypotension. Patient not on ACEI/ARB due to recent EMMA Monitor Input/Output, daily weights and renal function with basic metabolic pa aminah d/c IVF medical management of hyperkalemia. stop potassium supplements low K diet. pt's family was advised to abstain from muscle milk supplements due to high content of K Check urine analysis, spot protein/creatinine, albumin/creatinine ratio, urine for Na, Osmol, Potassium r/o adrenal insuff with plasma renin/aldosterone, am cortisol level reviewed and 25 hence less likely AI Dose meds/antibiotics for reduced GFR. Avoid fleets enema/magnesium based laxatives. Avoid nephrotoxins/NSAIDs/ iodinated contrast (unless needed emergently) Glycemic control. overall prognosis poor Further work up/management as per primary team Thanks for allowing me to participate in care of your patient. Will follow patient with you. Please call if any Qs Dr Lionel [place] Office: [phone] Chief Complaint;decreased intake Reason for consult: hyponatremia hyperkalemia HPI: Pt is a 73 F with hx of diabetes Mellitus, hypertension ovarian ca with malignant ascites s/p chemotherapy, hyperlipidemia, DVT and CKD 3 with baseline cr 1.3 presented with complaints of decreased oral intake for last 1 days. pt with paracentesis drain at home, approx 1 L/day by family Denies OTC/herbal meds or NSAIDs No recent iodinated contrast exposure. No obvious episodes of low BP. drinks muscle milk for protein supplements ROS: limited from pt. son bedside and provided ROS and also help in hebrew interpretation Cardiovascular: No chest pain. Pulmonary: No shortness of breath Gastrointestinal: better abdominal pain No nausea. No vomiting. Genitourinary: No pain while urinating. Denies blood in urine. All other negative except as mentioned in HPI Physical Examination: General Appearance: uncomfortable, in no acute respiratory distress, co- operative . ill appearing Vitals reviewed and noted as below Head; Atraumatic, normocephalic ENT: no ulcers no thrush. Tongue is midline. Oropharynx: no rash or ulcers. EYES: Pupils are equal, round and reactive to light accommodation. Eye muscles and extraocular movement intact. Sclera is anicteric. Neck; supple no lymphadenopathy, no thyromegaly or bruit Lungs: Normal respiratory rate/effort. Breath sounds bilateral equal and clear Heart: Normal rate. s1s2 normal. No rub or gallop. Extremities: 2+ edema. No varicose veins Neurological: Patient is alert, awake and oriented to person, place and time. No focal deficit. Strength bilateral appropriate and equal Skin: Warm and dry. Normal turgor. No rash. Palpitation: Normal elasticity for age Abdomen: Abdomen is soft. Bowel sounds +. There is LLQ abdominal tenderness with fullness ? mass. ascitic + Psych: limited insight and normal affect/mood MSK: no joint tenderness or swelling. Digits and nails normal, no deformity : kidney or bladder not palpable Labs/imaging reviewed. Past medical history, past surgical history, family history, social history, allergy reviewed and noted as below Family hx: no hx of CKD. Rest non-contributory CXR no infiltrate effusion normal echo lvef Objective - Vital Signs/Intake and Output Vital Signs (last 24 hours): Temp Pulse Resp BP Pulse Ox 97.8 F 106 H 20 113/75 99 01/02/19 05:54 01/02/19 11:15 01/02/19 05:54 01/02/19 11:15 01/02/19 05:54 Intake and Output: 01/02/19 01/02/19 06:59 18:59 Intake Total 716 Output Total 660 Balance 56 - Medications Medications: Current Medications Atenolol (Tenormin) 25 mg PO DAILY [facility] Last Admin: 01/02/19 11:15 Dose: 25 mg Dextrose (Dextrose 50% Inj) 0 ml IV STAT PRN; Protocol PRN Reason: Hypoglycemia Protocol Sodium Chloride (Sodium Chloride 0.9%) 1,000 mls @ 75 mls/hr IV .[id number] [facility] Last Admin: 01/02/19 02:57 Dose: 75 mls/hr Dextrose (Dextrose 5% In Water 1000 Ml) 1,000 mls @ 0 mls/hr IV .Q0M PRN; Protocol PRN Reason: Hypoglycemia Protocol Pantoprazole Sodium (Protonix Ec Tab) 40 mg PO 0600 [facility] Last Admin: 01/02/19 06:08 Dose: 40 mg Warfarin Sodium (Coumadin) 5 mg PO 1800 MARTIN; Protocol Last Admin: 01/01/19 18:25 Dose: 5 mg - Labs Labs: 01/02/19 06:00 01/02/19 06:00 PT 19.1 SECONDS (9.4-12.5) H 01/02/19 06:00 INR 1.69 01/02/19 06:00 APTT 31.4 Seconds (26.9-38.3) 01/02/19 06:00
--- NOTE | 2019-01-02 16:00 | CP.PCM.PN ---
<lOivia Lo - Last Filed: 01/02/19 15:56> Subjective - Date & Time of Evaluation Date of Evaluation: 01/02/19 Time of Evaluation: 15:56 - Subjective Subjective: Olivia Lo, PGY-1, Internal Medicine Progress Note for Dr. Bean Patient was seen and evaluated at bedside. Patient had no acute overnight events. Patient reported subjective fever yesterday. Patient was able to urinate on her own today. Patient reported no abdominal pain today, Patient had a dry mouth but has had an increase in appetite. Patient's weakness has improved overall today. 12-point ROS was unremarkable except for what was mentioned above. Objective - Vital Signs/Intake and Output Vital Signs (last 24 hours): Temp Pulse Resp BP Pulse Ox 97.8 F 109 H 18 117/75 99 01/02/19 12:00 01/02/19 12:00 01/02/19 12:00 01/02/19 12:00 01/02/19 05:54 Intake and Output: 01/02/19 01/02/19 06:59 18:59 Intake Total 716 Output Total 660 Balance 56 - Medications Medications: Current Medications Atenolol (Tenormin) 25 mg PO DAILY [facility] Last Admin: 01/02/19 11:15 Dose: 25 mg Dextrose (Dextrose 50% Inj) 0 ml IV STAT PRN; Protocol PRN Reason: Hypoglycemia Protocol Dextrose (Dextrose 5% In Water 1000 Ml) 1,000 mls @ 0 mls/hr IV .Q0M PRN; Protocol PRN Reason: Hypoglycemia Protocol Pantoprazole Sodium (Protonix Ec Tab) 40 mg PO 0600 [facility] Last Admin: 01/02/19 06:08 Dose: 40 mg Warfarin Sodium (Coumadin) 5 mg PO 1800 [facility]; Protocol Last Admin: 01/01/19 18:25 Dose: 5 mg - Labs Labs: 01/02/19 06:00 01/02/19 06:00 PT 19.1 SECONDS (9.4-12.5) H 01/02/19 06:00 INR 1.69 01/02/19 06:00 APTT 31.4 Seconds (26.9-38.3) 01/02/19 06:00 - Constitutional Appears: Well, Non-toxic, No Acute Distress - Head Exam Head Exam: ATRAUMATIC, NORMAL INSPECTION, NORMOCEPHALIC - Eye Exam Eye Exam: EOMI, PERRL - ENT Exam ENT Exam: Mucous Membranes Dry - Respiratory Exam Respiratory Exam: Clear to Ausculation Bilateral, NORMAL BREATHING PATTERN - Cardiovascular Exam Cardiovascular Exam: REGULAR RHYTHM, RRR - GI/Abdominal Exam GI & Abdominal Exam: Distended, Firm, Soft, Hypoactive Bowel Sounds - Extremities Exam Extremities Exam: Full ROM - Back Exam Back Exam: tenderness - Neurological Exam Neurological Exam: Alert, Awake, CN II-XII Intact, Oriented x3 - Skin Skin Exam: Dry, Intact Assessment and Plan - Assessment and Plan (Free Text) Assessment: 73 year old female with past medical history of ovarian carcinoma, malignant ascites, multiple DVTs, hypertension, hyperlipidemia, and diabetes mellitus type II presented decreased oral intake, lethargy, and body aches. Plan: Generalized weakness with electrolyte abnormalities -Head CT on this admission negative for acute intracranial pathology. -Hyperkalemia has resolved -Hyponatremia has improved. Hyponatremia is likely 2/2 to the ascites with daily draining of fluid -As per nephrology, patient does not need acute renal replacement at this time. -Cortisol ordered by nephrology was high at 25.6. Adrenal insufficiency is thus unlikely. Still awaiting results of plasma renin and aldosterone. EMMA -Creatinine is improving at 1.2 today -IV fluids stopped in light of improvement of EMMA -Hyponatremia has improved. Hyperkalemia has resolved -Hyperphosphatemia has improved. Consider sevalamer if hyperphosphatemia worsen s. -Patient was able to freely urinate today. Urinary retention likely resolved. -As per nephrology, patient does not need acute renal replacement at this time. -Avoid nephrotoxic agents Ascites 2/2 to ovarian carcinoma vs. diastolic CHF -Previous abdominal ultrasound showed moderate ascites -Patient currently followed at [facility] for ovarian carcinoma and is receiving c hemotherapy outpatient with carboplatin, taxotere, and gemzar. Next session in 01/04/19. -Echocardiogram showed grade III reversible restrictive diastolic dysfunction with preserved EF -Continue draining 1 L per day from aspira catheter as tolerated by patient's blood pressure Left lower extremity edema with history of DVT -V/Q scan on this admission was unlikely for PE -EKG on this admission shows sinus tachycardia with troponinx1 negative -Tachycardia was improved with atenolol. -Continue home coumadin. Patient is currently subtherapeutic. Will consider increasing coumadin dose History of UTI -Urinanalysis showed no evidence of UTI. Follow up urine culture. -As likely uncomplicated UTI, patient has already had 3 days of ciprofloaxicin a nd no longer needs antibiotic treatment Hypertension -Started atorvastatin today -Home norvasc held -Continue to monitor blood pressure in light of daily aspira catheter drainage Normocytic anemia -Likely multifactorial in nature -Continue to monitor at this time. GI prophylaxis: protonix 40 mg daily DVT prophylaxis: warfarin 5 mg daily Patient plan discussed with attending. <Arline Bean - Last Filed: 01/02/19 16:29> Objective - Vital Signs/Intake and Output Vital Signs (last 24 hours): Temp Pulse Resp BP Pulse Ox 97.8 F 109 H 18 117/75 99 01/02/19 12:00 01/02/19 12:00 01/02/19 12:00 01/02/19 12:00 01/02/19 05:54 Intake and Output: 01/02/19 01/02/19 06:59 18:59 Intake Total 716 Output Total 660 Balance 56 - Medications Medications: Current Medications Atenolol (Tenormin) 25 mg PO DAILY [facility] Last Admin: 01/02/19 11:15 Dose: 25 mg Dextrose (Dextrose 50% Inj) 0 ml IV STAT PRN; Protocol PRN Reason: Hypoglycemia Protocol Dextrose (Dextrose 5% In Water 1000 Ml) 1,000 mls @ 0 mls/hr IV .Q0M PRN; Protocol PRN Reason: Hypoglycemia Protocol Pantoprazole Sodium (Protonix Ec Tab) 40 mg PO 0600 [facility] Last Admin: 01/02/19 06:08 Dose: 40 mg Warfarin Sodium (Coumadin) 5 mg PO 1800 [facility]; Protocol Last Admin: 01/01/19 18:25 Dose: 5 mg - Labs Labs: 01/02/19 06:00 01/02/19 06:00 PT 19.1 SECONDS (9.4-12.5) H 01/02/19 06:00 INR 1.69 01/02/19 06:00 APTT 31.4 Seconds (26.9-38.3) 01/02/19 06:00 Attending/Attestation - Attestation I have personally seen and examined this patient.: Yes I have fully participated in the care of the patient.: Yes I have reviewed all pertinent clinical information, including history, physical exam and plan: Yes Notes (Text): 01/02/19 16:28 73 year old female with past medical history of ovarian carcinoma with recurrent ascites s/p Aspira catheter, LLE DVT on coumadin, hypertension and diabetes who presented with complaint of generalized weakness. CT head was negative for acute findings. Found to have hyponatremia which improved with iv fluids and hyperkalemia which has resolved. Nephrology is following. PT evaluation was requested. She is on coumadin. Started atenolol for tachycardia. She was on cipro for recent UTI. Repeat UA is negative. Family is at bedside and questions were answered. Arline Bean MD Hospitalist.
[2019-01-03] MEDS: Pantoprazole 40 mg EC Tab PO SCH (05:00)
[2019-01-03 08:24] LABS: HEMOGLOBIN 10.4 g/dL (12.0-16.0); MEAN CORPUSCULAR HEMOGLOBIN 25.6 pg (25.0-35.0); MEAN CORPUSCULAR HGB CONC 30.9 g/dl (31.0-37.0); MEAN PLATELET VOLUME 8.5 fl (7.0-11.0); RBC 4.06 10^6/uL (3.5-6.1); RED CELL DISTRIBUTION WIDTH 19.5 % (11.5-14.5); WHITE BLOOD COUNT 10.7 10^3/uL (4.5-11.0)
[2019-01-03 08:25] LABS: INR 2.9; PROTHROMBIN TIME 32.8 SECONDS (9.4-12.5)
[2019-01-03 08:27] LABS: ALB/GLOB RATIO 0.8 (1.1-1.8); ALBUMIN 2.4 g/dL (3.0-4.8); CALCIUM 7.5 mg/dL (8.4-10.5)
[2019-01-03 11:34] VITALS: O2SAT 99
--- NOTE | 2019-01-03 12:17 | CP.PCM.PN ---
Subjective - Date & Time of Evaluation Date of Evaluation: 01/03/19 Time of Evaluation: 12:16 - Subjective Subjective: Nephrology Consultation Note: Assessment: Stable Hyponatremia due to -re-renal state and hyperkalemia hyperphosphatemia with CKD 3 Diabetic chronic Kidney Disease (E11.22) Hypertensive Chronic Kidney Disease (I12.9) Chronic Kidney Disease (N18.3) Stage 3 with echogenic kidneys Anemia ovarian ca with malignant ascites s/p chemotherapy, hyperlipidemia, DVT Plan No acute need for renal replacement therapy at this time. Maintain hemodynamics stable. Avoid hypotension. Patient not on ACEI/ARB due to recent EMMA Monitor Input/Output, daily weights and renal function with basic metabolic panel d/c IVF. agree with lasix prn medical management of hyperkalemia as needed basis. stop potassium supplements low K diet. pt's family was advised to abstain from muscle milk supplements due to high content of K Check urine analysis, spot protein/creatinine, albumin/creatinine ratio, urine for Na, Osmol, Potassium r/o adrenal insuff with plasma renin/aldosterone, am cortisol level reviewed and 25 hence less likely AI Dose meds/antibiotics for reduced GFR. Avoid fleets enema/magnesium based laxatives. Avoid nephrotoxins/NSAIDs/ iodinated contrast (unless needed emergently) Glycemic control. overall prognosis poor Further work up/management as per primary team stable from renal perspective for d/w when planned Thanks for allowing me to participate in care of your patient. Will follow patient with you. Please call if any Qs. d/w team and family Dr Lionel [place] Office: [phone] Chief Complaint;decreased intake Reason for consult: hyponatremia hyperkalemia HPI: Pt is a 73 F with hx of diabetes Mellitus, hypertension ovarian ca with malignant ascites s/p chemotherapy, hyperlipidemia, DVT and CKD 3 with baseline cr 1.3 presented with complaints of decreased oral intake for last 1 days. pt with paracentesis drain at home, approx 1 L/day by family Denies OTC/herbal meds or NSAIDs No recent iodinated contrast exposure. No obvious episodes of low BP. drinks muscle milk for protein supplements ROS: limited from pt. son bedside and provided ROS and also help in telugu interpretation Cardiovascular: No chest pain. Pulmonary: No shortness of breath Gastrointestinal: better abdominal pain No nausea. No vomiting. Genitourinary: No pain while urinating. Denies blood in urine. All other negative except as mentioned in HPI Physical Examination: General Appearance: comfortable, in no acute respiratory distress, co-operative . better appearing Vitals reviewed and noted as below Head; Atraumatic, normocephalic ENT: no ulcers no thrush. Tongue is midline. Oropharynx: no rash or ulcers. EYES: Pupils are equal, round and reactive to light accommodation. Eye muscles and extraocular movement intact. Sclera is anicteric. Neck; supple no lymphadenopathy, no thyromegaly or bruit Lungs: Normal respiratory rate/effort. Breath sounds bilateral equal and clear Heart: Incr rate. s1s2 normal. No rub or gallop. Extremities: 2+ edema. No varicose veins Neurological: Patient is alert, awake and oriented to person, place and time. No focal deficit. Strength bilateral appropriate and equal Skin: Warm and dry. Normal turgor. No rash. Palpitation: Normal elasticity for age Abdomen: Abdomen is soft. Bowel sounds +. There is LLQ abdominal tenderness with fullness ? mass. ascitic + Psych: limited insight and normal affect/mood MSK: no joint tenderness or swelling. Digits and nails normal, no deformity : kidney or bladder not palpable Labs/imaging reviewed. Past medical history, past surgical history, family history, social history, allergy reviewed and noted as below Family hx: no hx of CKD. Rest non-contributory CXR no infiltrate effusion normal echo lvef Objective - Vital Signs/Intake and Output Vital Signs (last 24 hours): Temp Pulse Resp BP Pulse Ox 97.4 F L 86 18 107/74 99 01/03/19 05:49 01/03/19 09:01 01/03/19 05:49 01/03/19 05:49 01/03/19 09:01 Intake and Output: 01/03/19 01/03/19 06:59 18:59 Intake Total 120 Balance 120 - Medications Medications: Current Medications Acetaminophen (Tylenol 325mg Tab) 650 mg PO Q6H PRN PRN Reason: Headache Last Admin: 01/02/19 18:16 Dose: 650 mg Atenolol (Tenormin) 25 mg PO DAILY [facility] Last Admin: 01/02/19 11:15 Dose: 25 mg Dextrose (Dextrose 50% Inj) 0 ml IV STAT PRN; Protocol PRN Reason: Hypoglycemia Protocol Dextrose (Dextrose 5% In Water 1000 Ml) 1,000 mls @ 0 mls/hr IV .Q0M PRN; Protocol PRN Reason: Hypoglycemia Protocol Pantoprazole Sodium (Protonix Ec Tab) 40 mg PO 0600 [facility] Last Admin: 01/03/19 05:00 Dose: 40 mg Warfarin Sodium (Coumadin) 5 mg PO 1800 [facility]; Protocol Last Admin: 01/02/19 17:10 Dose: 5 mg - Labs Labs: 01/03/19 08:13 01/03/19 08:13 PT 32.8 SECONDS (9.4-12.5) H 01/03/19 08:13 INR 2.90 01/03/19 08:13 APTT 31.4 Seconds (26.9-38.3) 01/02/19 06:00
[2019-01-03 12:27] VITALS: BP 119/83; PULSE 84; RESP 20; TEMP 97.9
--- NOTE | 2019-01-03 13:11 | CP.PCM.DIS ---
<JennifermarjOlivia - Last Filed: 01/03/19 13:08> Provider - Provider Date of Admission: 12/31/18 20:40 Attending physician: Arline Bean MD Primary care physician: Swetha Taylor MD Consults: 01/01/19 02:01 Nursing Referral for Wound Care Routine Comment: Physician Instructions: Reason For Exam: evaluation 01/01/19 07:41 Consult [Physician Consult] Routine Comment: Consulting Provider: Gifty Awad Consulting Physician: Gifty Awad Reason for Consult: ovarian ca 01/01/19 09:51 Nephrology Consult Routine Comment: Consulting Provider: Lionel Birmingham Consulting Physician: Lionel Birmingham Reason for Consult: electrolyte abnormalities, ascites 2/2 ovarian carcinoma, malnourish Time Spent in preparation of Discharge (in minutes): 60 Diagnosis - Discharge Diagnosis (1) Hyperkalemia Status: Acute (2) Hyponatremia Status: Acute (3) Abdominal distention Status: Acute Priority: Medium Hospital Course - Lab Results Lab Results: Most Recent Lab Values WBC 10.7 10^3/uL (4.5-11.0) 01/03/19 08:13 RBC 4.06 10^6/uL (3.5-6.1) 01/03/19 08:13 Hgb 10.4 g/dL (12.0-16.0) L 01/03/19 08:13 Hct 33.7 % (36.0-48.0) L 01/03/19 08:13 MCV 83.0 fl (80.0-105.0) 01/03/19 08:13 MCH 25.6 pg (25.0-35.0) 01/03/19 08:13 MCHC 30.9 g/dl (31.0-37.0) L 01/03/19 08:13 RDW 19.5 % (11.5-14.5) H 01/03/19 08:13 Plt Count 537 10^3/uL (120.0-450.0) H 01/03/19 08:13 MPV 8.5 fl (7.0-11.0) 01/03/19 08:13 Neut % (Auto) 85.2 % (50.0-68.0) H 01/01/19 06:00 Lymph % (Auto) 8.2 % (22.0-35.0) L 01/01/19 06:00 [place] % (Auto) 6.3 % (1.0-6.0) H 01/01/19 06:00 Eos % (Auto) 0.2 % (1.5-5.0) L 01/01/19 06:00 Baso % (Auto) 0.1 % (0.0-3.0) 01/01/19 06:00 Lymph # (Auto) 1.0 (1.2-3.4) L 01/01/19 06:00 [place] # (Auto) 0.8 (0.1-0.6) H 01/01/19 06:00 Eos # (Auto) 0.0 (0.0-0.7) 01/01/19 06:00 Baso # (Auto) 0.01 K/mm3 (0.0-2.0) 01/01/19 06:00 Absolute Neuts (auto) 10.75 (1.4-6.5) H 01/01/19 06:00 PT 32.8 SECONDS (9.4-12.5) H 01/03/19 08:13 INR 2.90 01/03/19 08:13 APTT 31.4 Seconds (26.9-38.3) 01/02/19 06:00 Sodium 127 mmol/L (132-148) L 01/03/19 08:13 Potassium 4.1 mmol/L (3.6-5.0) 01/03/19 08:13 Chloride 100 mmol/L (98-107) 01/03/19 08:13 Carbon Dioxide 22 mmol/L (21-33) 01/03/19 08:13 Anion Gap 9 (10-20) L 01/03/19 08:13 BUN 44 mg/dL (7-21) H 01/03/19 08:13 Creatinine 1.2 mg/dl (0.7-1.2) 01/03/19 08:13 Est GFR ( Amer) 53 01/03/19 08:13 Est GFR (Non-Af Amer) 44 01/03/19 08:13 POC Glucose (mg/dL) 129 mg/dL (65-110) H 01/03/19 11:13 Random Glucose 106 mg/dL (70-110) 01/03/19 08:13 Serum Osmolality 277 mosm/kg (272-300) 01/02/19 06:00 Calcium 7.5 mg/dL (8.4-10.5) L 01/03/19 08:13 Phosphorus 4.2 mg/dL (2.5-4.5) 01/03/19 08:13 Magnesium 2.2 mg/dL (1.7-2.2) 01/03/19 08:13 Total Bilirubin 0.4 mg/dL (0.2-1.3) 01/03/19 08:13 AST 40 U/L (14-36) H D 01/03/19 08:13 ALT 17 U/L (7-56) 01/03/19 08:13 Alkaline Phosphatase 169 U/L (38-126) H D 01/03/19 08:13 Troponin I 0.02 ng/mL D 01/01/19 06:00 Total Protein 5.2 g/dL (5.8-8.3) L 01/03/19 08:13 Albumin 2.4 g/dL (3.0-4.8) L 01/03/19 08:13 Globulin 2.9 gm/dL 01/03/19 08:13 Albumin/Globulin Ratio 0.8 (1.1-1.8) L 01/03/19 08:13 TSH 3rd Generation 1.73 mIU/mL (0.46-4.68) 01/02/19 06:00 Cortisol AM Sample 25.6 ug/dL (4.46-22.7) H 01/02/19 06:00 Urine Color Yellow (YELLOW) 01/01/19 14:00 Urine Appearance Clear (CLEAR) 01/01/19 14:00 Urine pH 5.5 (4.7-8.0) 01/01/19 14:00 Ur Specific [place] >= 1.030 (1.005-1.035) 01/01/19 14:00 Urine Protein Negative mg/dL (<30 mg/dL) 01/01/19 14:00 Urine Glucose (UA) 100 mg/dL (NEGATIVE) H 01/01/19 14:00 Urine Ketones Negative mg/dL (NEGATIVE) 01/01/19 14:00 Urine Blood Negative (NEGATIVE) 01/01/19 14:00 Urine Nitrate Negative (NEGATIVE) 01/01/19 14:00 Urine Bilirubin Negative (NEGATIVE) 01/01/19 14:00 Urine Urobilinogen 0.2 E.U./dL (<1 E.U./dL) 01/01/19 14:00 Ur Leukocyte Esterase Negative [place]/uL (NEGATIVE) 01/01/19 14:00 Urine Osmolality 639 mosm/kg (300-1000) 01/01/19 14:00 Ur Random Creatinine 129 mg/dL 01/02/19 18:16 U Random Total Protein 206 mg/g creat (21-161) H 01/01/19 14:00 Ur Random Sodium < 5 meq/L 01/01/19 14:00 Ur Random Potassium 87.5 meq/L 01/01/19 14:00 Urine Total Volume 0.5 mg/dL 01/01/19 14:00 Microalb/Creat Ratio 4 (<30) 01/01/19 14:00 - Hospital Course Hospital Course: Olivia Lo, PGY-1, Internal Medicine Discharge Summary for Dr. Bean 73 year old female with past medical history of ovarian carcinoma, malignant ascites, multiple DVTs, hypertension, hyperlipidemia, and diabetes mellitus type II presented decreased oral intake, lethargy, and body aches. Patient was found to have severe hyperkalemia and treated with calcium gluconate, insulin and dextrose, and kayexelate with subsequent reduction of potassium to within normal limits. Patient was started on NS with subsequent improvement of hyponatremia. Patient's hyponatremia is likely 2/2 to ascites with daily drainage. Cortisol was found to be high on this admission at 25.6 so adrenal insufficiency was unlikely the reason for patient's hyponatremia and hyperkalemia. We were still awaiting the results of renin and aldosterone. Echocardiogram upon this admission showed grade III reversible restrictive diastolic dysfunction with preserved EF. For patient's left lower extremity edema, V/Q scan was performed which showed low probability of pulmonary embolism. INR was subtherapeutic and coumadin was continued with subsequent improvement of INR to 2.9 by the end of the admission. Patient was found to have UTI with 3 days of ciprofloaxicin and was subsequently stopped because UA was negative on this admission. For patient's ascites secondary to ovarian carcinoma, 1 L of fluid was drained from aspira catheter daily and has been drained at home by family. Due to patient's borderline hypotension and tachycardia, patient was started on atenolol and stopped on metoprolol with improvement of heart rate. EMMA improved throughout the admission with gentle hydration. Along with EMMA, hyperphosphatemia resolved. Patient's appetite improved as admission progressed. In addition, patient was able to minimally work with physical therapy who recommended ANDREW. However, patient has great family support and family would like to take patient home. Patient has services set up already for helping with reconditioning Patient was found to be stable and ready for discharge. Patient was told to follow up with PCP and [facility]. Family was asked to help drain fluid from aspira catheter daily as instructed. Patient was asked to hold warfarin today because of INR of 2.9 and start warfarin tomorrow with close follow up with PCP. Patient was told to take all other home medications as prescribed and was start ed on atenolol 12.5 mg daily with close follow up with PCP. Patient was told to return to the emergency department if patient had any new or concerning symptoms. This is a brief summary of the events that occurred during this hospital admission. For more details, please refer to hospital documentation. - Date & Time of H&P Date of H&P: 12/31/18 Time of H&P: 20:29 Discharge Exam - Head Exam Head Exam: ATRAUMATIC, NORMAL INSPECTION, NORMOCEPHALIC - Eye Exam Eye Exam: EOMI, PERRL - Respiratory Exam Respiratory Exam: Clear to PA & Lateral, NORMAL BREATHING PATTERN - Cardiovascular Exam Cardiovascular Exam: REGULAR RHYTHM, RRR - GI/Abdominal Exam GI & Abdominal Exam: Distended, Soft. absent: Tenderness - Extremities Exam Extremities exam: pedal edema (+2 of left leg) - Neurological Exam Neurological exam: Alert, CN II-XII Intact, Oriented x3 - Skin Skin Exam: Dry, Intact Discharge Plan - Discharge Medications Prescriptions: Atenolol [Tenormin] 12.5 mg PO DAILY 14 Days #14 tab - Follow Up Plan Condition: GUARDED Disposition: HOME/ ROUTINE Instructions: Hyperkalemia, Hyponatremia Additional Instructions: Please follow up with your PCP within 7-14 days. Please follow up with Surface Supervisor, Dr. Birmingham, outpatient as soon as possible. Please drain aspira catheter as instructed daily. Please do not take warfarin today and start warfarin tomorrow. Please take norvasc, aspirin, lasix , simvastatin, lovenox, and coumadin as prescribed. Started on atenolol and need close follow up with PCP. Please return to the emergency department if you have any new or concerning symptoms. Diet: Heart healthy diet Patient and family state patient wishes to refuse the flu and the pneumococcal vaccines. Referrals: Lionel Birmingham MD [Staff Provider] - Swetha Taylor MD [Primary Care Provider] - <Arline Bean - Last Filed: 01/03/19 14:10> Provider - Provider Date of Admission: 12/31/18 20:40 Attending physician: Arline Bean MD Primary care physician: Swetha Taylor MD Consults: 01/01/19 02:01 Nursing Referral for Wound Care Routine Comment: Physician Instructions: Reason For Exam: evaluation 01/01/19 07:41 Consult [Physician Consult] Routine Comment: Consulting Provider: Gifty Awad Consulting Physician: Gifty Awad Reason for Consult: ovarian ca 01/01/19 09:51 Nephrology Consult Routine Comment: Consulting Provider: Lionel Birmingham Consulting Physician: Lionel Birmingham Reason for Consult: electrolyte abnormalities, ascites 2/2 ovarian carcinoma, malnourish Hospital Course - Lab Results Lab Results: Most Recent Lab Values WBC 10.7 10^3/uL (4.5-11.0) 01/03/19 08:13 RBC 4.06 10^6/uL (3.5-6.1) 01/03/19 08:13 Hgb 10.4 g/dL (12.0-16.0) L 01/03/19 08:13 Hct 33.7 % (36.0-48.0) L 01/03/19 08:13 MCV 83.0 fl (80.0-105.0) 01/03/19 08:13 MCH 25.6 pg (25.0-35.0) 01/03/19 08:13 MCHC 30.9 g/dl (31.0-37.0) L 01/03/19 08:13 RDW 19.5 % (11.5-14.5) H 01/03/19 08:13 Plt Count 537 10^3/uL (120.0-450.0) H 01/03/19 08:13 MPV 8.5 fl (7.0-11.0) 01/03/19 08:13 Neut % (Auto) 85.2 % (50.0-68.0) H 01/01/19 06:00 Lymph % (Auto) 8.2 % (22.0-35.0) L 01/01/19 06:00 [place] % (Auto) 6.3 % (1.0-6.0) H 01/01/19 06:00 Eos % (Auto) 0.2 % (1.5-5.0) L 01/01/19 06:00 Baso % (Auto) 0.1 % (0.0-3.0) 01/01/19 06:00 Lymph # (Auto) 1.0 (1.2-3.4) L 01/01/19 06:00 [place] # (Auto) 0.8 (0.1-0.6) H 01/01/19 06:00 Eos # (Auto) 0.0 (0.0-0.7) 01/01/19 06:00 Baso # (Auto) 0.01 K/mm3 (0.0-2.0) 01/01/19 06:00 Absolute Neuts (auto) 10.75 (1.4-6.5) H 01/01/19 06:00 PT 32.8 SECONDS (9.4-12.5) H 01/03/19 08:13 INR 2.90 01/03/19 08:13 APTT 31.4 Seconds (26.9-38.3) 01/02/19 06:00 Sodium 127 mmol/L (132-148) L 01/03/19 08:13 Potassium 4.1 mmol/L (3.6-5.0) 01/03/19 08:13 Chloride 100 mmol/L (98-107) 01/03/19 08:13 Carbon Dioxide 22 mmol/L (21-33) 01/03/19 08:13 Anion Gap 9 (10-20) L 01/03/19 08:13 BUN 44 mg/dL (7-21) H 01/03/19 08:13 Creatinine 1.2 mg/dl (0.7-1.2) 01/03/19 08:13 Est GFR ( Amer) 53 01/03/19 08:13 Est GFR (Non-Af Amer) 44 01/03/19 08:13 POC Glucose (mg/dL) 129 mg/dL (65-110) H 01/03/19 11:13 Random Glucose 106 mg/dL (70-110) 01/03/19 08:13 Serum Osmolality 277 mosm/kg (272-300) 01/02/19 06:00 Calcium 7.5 mg/dL (8.4-10.5) L 01/03/19 08:13 Phosphorus 4.2 mg/dL (2.5-4.5) 01/03/19 08:13 Magnesium 2.2 mg/dL (1.7-2.2) 01/03/19 08:13 Total Bilirubin 0.4 mg/dL (0.2-1.3) 01/03/19 08:13 AST 40 U/L (14-36) H D 01/03/19 08:13 ALT 17 U/L (7-56) 01/03/19 08:13 Alkaline Phosphatase 169 U/L (38-126) H D 01/03/19 08:13 Troponin I 0.02 ng/mL D 01/01/19 06:00 Total Protein 5.2 g/dL (5.8-8.3) L 01/03/19 08:13 Albumin 2.4 g/dL (3.0-4.8) L 01/03/19 08:13 Globulin 2.9 gm/dL 01/03/19 08:13 Albumin/Globulin Ratio 0.8 (1.1-1.8) L 01/03/19 08:13 TSH 3rd Generation 1.73 mIU/mL (0.46-4.68) 01/02/19 06:00 Cortisol AM Sample 25.6 ug/dL (4.46-22.7) H 01/02/19 06:00 Urine Color Yellow (YELLOW) 01/01/19 14:00 Urine Appearance Clear (CLEAR) 01/01/19 14:00 Urine pH 5.5 (4.7-8.0) 01/01/19 14:00 Ur Specific [place] >= 1.030 (1.005-1.035) 01/01/19 14:00 Urine Protein Negative mg/dL (<30 mg/dL) 01/01/19 14:00 Urine Glucose (UA) 100 mg/dL (NEGATIVE) H 01/01/19 14:00 Urine Ketones Negative mg/dL (NEGATIVE) 01/01/19 14:00 Urine Blood Negative (NEGATIVE) 01/01/19 14:00 Urine Nitrate Negative (NEGATIVE) 01/01/19 14:00 Urine Bilirubin Negative (NEGATIVE) 01/01/19 14:00 Urine Urobilinogen 0.2 E.U./dL (<1 E.U./dL) 01/01/19 14:00 Ur Leukocyte Esterase Negative [place]/uL (NEGATIVE) 01/01/19 14:00 Urine Osmolality 639 mosm/kg (300-1000) 01/01/19 14:00 Ur Random Creatinine 129 mg/dL 01/02/19 18:16 U Random Total Protein 206 mg/g creat (21-161) H 01/01/19 14:00 Ur Random Sodium < 5 meq/L 01/01/19 14:00 Ur Random Potassium 87.5 meq/L 01/01/19 14:00 Urine Total Volume 0.5 mg/dL 01/01/19 14:00 Microalb/Creat Ratio 4 (<30) 01/01/19 14:00 Attending/Attestation - Attestation I have personally seen and examined this patient.: Yes I have fully participated in the care of the patient.: Yes I have reviewed all pertinent clinical information, including history, physical exam and plan: Yes Notes (Text): 01/03/19 13:59 73 year old female with past medical history of ovarian carcinoma with recurrent ascites s/p Aspira catheter, LLE DVT on coumadin, hypertension and diabetes who presented with complaint of generalized weakness. CT head was negative for acute findings. Found to have hyponatremia which improved with iv fluids and hyperkalemia which has resolved. She is on coumadin which she takes every other day at home. INR is 2.9 today. Instructed to hold coumadin tonight and resume tomorrow. Started atenolol for tachycardia with improvement of heart rate. She was on cipro for recent UTI however repeat UA was negative. Patient is discharged home to follow up with pmd. Follow up with hybrid powertrain development engineer/oncologist. Family is at bedside and questions were answered. Instructed on prn lasix/atenolol and fluid removal via aspira catheter at home. Counselled on potassium/sodium diet as per [facility]. Arline Bean MD Hospitalist.
== END 2019-01-03 14:13 | disposition home or self-care (01) | DRG 566 ==
LOC: ED 17:09 → ERH 20:40 → 2RSO 01-01 01:03
PROVIDERS: ADMIT Hospitalist; ATTEND Internal Medicine
DX: E87.1 Hypo-osmolality and hyponatremia (principal); N17.9 Acute kidney failure, unspecified; R18.0 Malignant ascites; E11.22 Type 2 diabetes mellitus with diabetic chronic kidney disease; N18.3 Chronic kidney disease, stage 3 (moderate); E87.5 Hyperkalemia; I12.9 Hypertensive chronic kidney disease with stage 1 through stage 4 chronic kidney disease, or unspecified chronic kidney disease; K59.00 Constipation, unspecified; E78.5 Hyperlipidemia, unspecified; D64.9 Anemia, unspecified; E83.39 Other disorders of phosphorus metabolism; Z86.718 Personal history of other venous thrombosis and embolism; Z85.43 Personal history of malignant neoplasm of ovary; Z92.21 Personal history of antineoplastic chemotherapy; Z90.710 Acquired absence of both cervix and uterus; Z79.01 Long term (current) use of anticoagulants; Z87.440 Personal history of urinary (tract) infections; Z79.82 Long term (current) use of aspirin

== ENCOUNTER 2019-01-18 21:11 | Inpatient (IN) | payer OTHER ==
[2019-01-18] MEDS ORDERED: Sodium Chloride 0.9% 500 ML IV STA (21:37)
[2019-01-18] MEDS ORDERED: Aztreonam 2 Gm in NS 100mL 100 ML IVPB STA (22:07)
[2019-01-18] MEDS ORDERED: Azithromycin 500MG/NS 250ml 500 MG/250 ML BAG IVPB STA (22:07)
[2019-01-18] MEDS ORDERED: Vancomycin 1gm in NS 250ml 1 GM/250 ML BAG IVPB STA (22:07)
[2019-01-18 22:08] LABS: VENOUS BLOOD GAS PO2 39 mm/Hg (30-55)
[2019-01-18] MEDS: Sodium Chloride 0.9% 250 ML IV SCH (22:08)
--- NOTE | 2019-01-18 22:10 | ED PDOC ---
Arrival/HPI - General Chief Complaint: Abdominal Pain Time Seen by Provider: 01/18/19 21:14 Historian: Patient - History of Present Illness Narrative History of Present Illness (Text): 01/18/19 23:35 73yr old female with a history of metastatic ovarian cancer presenting today brought in by family for generalized weakness and a 2-day history of cough. Family also states that the patient now has hemorrhoids. Family states that the patient takes oxycodone for pain at home. Family states that the patient is a full code. Family is concerned that the patient has pneumonia. Patient is complaining of pain to the abdomen pain to the buttocks and pain to all the extremities. She is complaining of cough. Family states that the patient was recently hospitalized for hyperkalemia. Family states patient has a history of ascites and has an Aspira catheter for which fluid was drained today. Past Medical History - Provider Review Nursing Documentation Reviewed: Yes - Travel History Have you recently traveled outside [place] w/in the past 3 mons?: No - Infectious Disease Hx of Infectious Diseases: None - Tetanus Immunization Tetanus Immunization: Unknown - Cardiac Hx Hypertension: Yes - Pulmonary Hx Respiratory Disorders: Yes (sob due to ascites) - Neurological Hx Neurological Disorder: Yes Hx Dizziness: Yes Hx Syncope: Yes - HEENT Hx HEENT Disorder: No - Renal Hx Renal Disorder: No - Endocrine/Metabolic Hx Diabetes Mellitus Type 2: Yes - Hematological/Oncological Hx Blood Disorders: Yes Hx Cancer: Yes (ovarian- dx 03/2018 chemo pills) Hx Chemotherapy: Yes Other/Comment: pt has been treated with various chemotherapies last chemo treatment was friday12/14/18, cancer is aggresive. pt has chemo 2 weeks on 1 week off - Integumentary Hx Dermatological Disorder: Yes Other/Comment: 02-18-18 BILATERAL LEG EDEMA +4. ASCITES - Musculoskeletal/Rheumatological Hx Musculoskeletal Disorders: Yes Hx Falls: No Hx Unsteady Gait: Yes - Gastrointestinal Hx Gastrointestinal Disorders: Yes Other/Comment: Ascites - Genitourinary/Gynecological Hx Genitourinary Disorders: Yes (HYSTERECTOMY) Other/Comment: ovarian ca, malignant ascites - Psychiatric Hx Psychophysiologic Disorder: No Hx Substance Use: No - Surgical History Hx Hysterectomy: Yes Other/Comment: R sided chest port, paracentesis us guided 12/11/18 dr randolph shane, and 11/25/18, scheduled for paracentesis with drain insertion 12/18/18. 12/31/18, patient has drain to R lower abdomen. - Anesthesia Hx Anesthesia: Yes Hx Anesthesia Reactions: No Hx Malignant Hyperthermia: No Family/Social History - Physician Review Nursing Documentation Reviewed: Yes Family/Social History: Unknown Family HX Smoking Status: Never Smoked Hx Alcohol Use: No Hx Substance Use: No Allergies/Home Meds Allergies/Adverse Reactions: Allergies Penicillins Adverse Reaction (Verified 01/18/19 21:18) SHORTNESS OF BREATH Home Medications: Home Meds Medication Instructions Recorded Confirmed Aspirin [Ecotrin] 81 mg PO DAILY 02/18/18 01/18/19 Simvastatin 20 mg PO DAILY 02/18/18 01/18/19 amLODIPine [Norvasc] 10 mg PO DAILY 02/18/18 01/18/19 Furosemide [Lasix] 40 mg PO DAILY 11/25/18 01/18/19 Review of Systems - Review of Systems Constitutional: absent: Fatigue Physical Exam Vital Signs Temp Pulse Resp BP Pulse Ox 01/18/19 21:54 97.7 F 121 H 18 98/48 L 96 01/18/19 21:31 97.7 F 117 H 18 79/59 L 93 L Medical Decision Making ED Course and Treatment: 01/18/19 22:20 pt with cough x 2 days. tachycardia. family refusing rectal temperature. cbc; wbc; 2.8 hgb; 9.9 CMP; K; 2.5 NA; 129 creatinine 2.3 trop; .11 BNP;6110 ekg; sinus tachycardia at 116 bpm cxr; + right sided infiltrate Code sepsis called as lactate is 3.0 pt not given 30cc/kg of fluid due to elevated BNP, pt with advanced age, hx of ascites, patient given 60 cc/per hour normal saline Blood and urine cultures are pending pt started on aztreonam, Zithromax, vancomycin IV Patient given K rider, 40 p.o. of potassium ordered. Patient agreed to rectal temperature. Rectal temperature 99.4 Tylenol 975 p.o. refused by the patient. Case was discussed in depth with Dr. Croft accepts ICU admission INR: 18.57; results discussed with dr. croft. he will order Vitamin K. Impression: Pneumonia, renal insufficiency, elevated BNP, elevated troponin, hypokalemia, hyponatremia, supratherapeutic INR Admit to ICU - Lab Interpretations Lab Results: pO2 39 mm/Hg (30-55) 01/18/19 22:00 VBG pH 7.40 (7.32-7.43) 01/18/19 22:00 VBG pCO2 40.0 (40-60) 01/18/19 22:00 VBG HCO3 24.8 mmol/l (21-28) 01/18/19 22:00 VBG Total CO2 26.0 mmol.L (22-28) 01/18/19 22:00 VBG O2 Sat (Calc) 77.4 % (40-65) H 01/18/19 22:00 VBG Base Excess 0.0 mmol/L (0.0-2.0) 01/18/19 22:00 VBG Potassium 2.4 mmol/L (3.6-5.2) L* 01/18/19 22:00 Sodium 128.0 mmol/L (132-148) L 01/18/19 22:00 Chloride 92.0 mmol/L (98-107) L 01/18/19 22:00 Glucose 137 mg/dl (65-105) H 01/18/19 22:00 Lactate 3.0 mmol/L (0.7-2.1) H 01/18/19 22:00 FiO2 28.0 % 01/18/19 22:00 Crit Value Called To machine sole leveler 01/18/19 22:00 Crit Value Called By Arsenio 01/18/19 22:00 Blood Gas Notified Time 220701/18/19 22:00 - RAD Interpretation Radiology Orders: 01/18/19 21:36 CHEST PORTABLE [RAD] Stat - Medication Orders Current Medication Orders: Sodium Chloride (Sodium Chloride 0.9%) 250 mls @ 60 mls/hr IV .Q4H10M MARTIN Last Admin: 01/18/19 22:08 Dose: 60 mls/hr eMAR Start Stop Document 01/18/19 22:08 ODESSA (Rec: 01/18/19 22:09 ODESSA [id number]) Intravenous Solution Start Date 01/18/19 Start Time 22:08 Aztreonam (Azactam 2 Gm) 100 mls @ 100 mls/hr IVPB STAT STA; Protocol Stop: 01/18/19 23:06 Vancomycin HCl (Vancomycin 1gm) 1 gm in 250 mls @ 167 mls/hr IVPB STAT STA; Protocol Stop: 01/18/19 23:36 Azithromycin (Zithromax 500mg In Ns) 500 mg in 250 mls @ 167 mls/hr IVPB STAT STA; Protocol Stop: 01/18/19 23:36 Disposition/Present on Arrival - Present on Arrival Any Indicators Present on Arrival: Yes History of DVT/PE: Yes History of Uncontrolled Diabetes: No Urinary Catheter: No History of Decub. Ulcer: No History Surgical Site Infection Following: None - Disposition Have Diagnosis and Disposition been Completed?: Yes Diagnosis: Pneumonia, Tachycardia, Hypokalemia, Hyponatremia, Supratherapeutic INR Disposition: HOSPITALIZED Disposition Time: 22:10 Patient Plan: Admission, ICU Patient Problems: Current Active Problems Problem Status Onset Hypokalemia Acute Hyponatremia Acute Pneumonia Acute Tachycardia Acute Condition: CRITICAL
[2019-01-18 22:17] LABS: EOS % 0.4 % (1.5-5.0); HEMOGLOBIN 9.9 g/dL (12.0-16.0); LYMPH # 0.4 (1.2-3.4); LYMPH % 15.2 % (22.0-35.0); MEAN CELL VOLUME 82.3 fl (80.0-105.0); MEAN CORPUSCULAR HEMOGLOBIN 26.2 pg (25.0-35.0); MEAN CORPUSCULAR HGB CONC 31.8 g/dl (31.0-37.0); MONO % 1.4 % (1.0-6.0); RBC 3.78 10^6/uL (3.5-6.1); RED CELL DISTRIBUTION WIDTH 19.5 % (11.5-14.5); WHITE BLOOD COUNT 2.8 10^3/uL (4.5-11.0)
[2019-01-18 22:36] LABS: TROPONIN I 0.11 ng/mL
[2019-01-18 22:57] LABS: ALB/GLOB RATIO 0.7 (1.1-1.8); ALBUMIN 2.5 g/dL (3.0-4.8); CALCIUM 8.1 mg/dL (8.4-10.5)
[2019-01-18] MEDS ORDERED: Potassium Chloride 20 mEq 100 ML IVPB ONE (23:06)
[2019-01-18 23:44] LABS: PARTIAL THROMBOPLASTIN TIME 65.2 Seconds (26.9-38.3)
[2019-01-18] MEDS: Potassium Chloride 20 mEq ER Tab PO STA (23:47)
[2019-01-18 23:52] LABS: PROTHROMBIN TIME 206.1 SECONDS (9.4-12.5)
[2019-01-18 23:55] LABS: INR 18.57
[2019-01-19] MEDS: Potassium Chloride 20 mEq ER Tab PO STA (00:06)
[2019-01-19] MEDS ORDERED: Albumin Human 25% (25 gm/100 ml) IV SCH (00:45)
[2019-01-19 00:54] LABS: URINE BILIRUBIN NEGATIVE (NEGATIVE); URINE BLOOD NEGATIVE (NEGATIVE); URINE GLUCOSE (UA) NEGATIVE (NEGATIVE); URINE LEUKOCYTE ESTERASE NEGATIVE Leu/uL (NEGATIVE); URINE PROTEIN NEGATIVE mg/dL (<30 mg/dL); URINE UROBILINOGEN 0.2 E.U./dL (<1 E.U./dL)
[2019-01-19 00:59] LABS: URINE APPEARANCE CLEAR (CLEAR); URINE COLOR DARK YELLOW (YELLOW)
--- NOTE | 2019-01-19 01:01 | CP.PCM.HP ---
<Mi Dominguez L - Last Filed: 01/19/19 02:50> History of Present Illness - History of Present Illness History of Present Illness: Resident History & Physical for Hospitalist Service Patient is a 73 year old female with past medical history of ovarian carcinoma, malignant ascites, LLE DVTs, HTN, HLD, T2DM presenting with chief complaint of cough and fatigue which began two weeks prior. Cough is productive with white sputum and associated with subjective fever and chills. Of note, patient was diagnosed with ovarian cancer in 02/2018 and has been on multiple chemoth erapeutic agents (carboplatin, taxotere, gemzar). Most recent treatment was a month ago. Patient also has recurring malignant ascites for which she has had multiple paracentesis and recent insertion of Aspira catheter. Approximately one liter of fluid from the abdomen has been draining through the catheter every three days. Patient also has pain in her buttock region due to hemorrhoids. Admits to chronic loss of appetite. Denies headache, dizziness, chest pain, shortness of breath, diarrhea. PMH: ovarian carcinoma, malignant ascites, LLE DVTs, HTN, HLD, T2DM PSH: hysterectomy SHx: denies alcohol, tobacco, illicit drug use FHx: sisters (colon cancer) Allergies: penicillin (rash, swelling) PMD: Dr. Taylor Present on Admission - Present on Admission Any Indicators Present on Admission: No Review of Systems - Review of Systems All systems: reviewed and no additional remarkable complaints except (as stated in HPI) Past Patient History - Infectious Disease Hx of Infectious Diseases: None - Tetanus Immunizations Tetanus Immunization: Unknown - Past Social History Smoking Status: Never Smoked - CARDIAC Hx Hypertension: Yes - PULMONARY Hx Respiratory Disorders: Yes - NEUROLOGICAL Hx Neurological Disorder: Yes Hx Dizziness: Yes Hx Syncope: Yes - HEENT Hx HEENT Problems: No - RENAL Hx Chronic Kidney Disease: No - ENDOCRINE/METABOLIC Hx Diabetes Mellitus Type 2: Yes - HEMATOLOGICAL/ONCOLOGICAL Hx Blood Disorders: Yes Hx Cancer: Yes (ovarian) Hx Chemotherapy: Yes - INTEGUMENTARY Hx Dermatological Problems: Yes - MUSCULOSKELETAL/RHEUMATOLOGICAL Hx Musculoskeletal Disorders: Yes Hx Falls: No Hx Unsteady Gait: Yes - GASTROINTESTINAL Hx Gastrointestinal Disorders: Yes Other/Comment: Ascites - GENITOURINARY/GYNECOLOGICAL Hx Genitourinary Disorders: Yes (HYSTERECTOMY) Other/Comment: ovarian ca, malignant ascites - PSYCHIATRIC Hx Psychophysiologic Disorder: No Hx Substance Use: No - SURGICAL HISTORY Hx Hysterectomy: Yes Other/Comment: R sided chest port, paracentesis us guided 12/11/18 dr randolph shane, and 11/25/18, scheduled for paracentesis with drain insertion 12/18/18. 12/31/18, patient has drain to R lower abdomen. - ANESTHESIA Hx Anesthesia: Yes Hx Anesthesia Reactions: No Hx Malignant Hyperthermia: No Meds Allergies/Adverse Reactions: Allergies Allergy/AdvReac Type Severity Reaction Status Date / Time Penicillins AdvReac SHORTNESS Verified 01/18/19 21:18 OF BREATH Physical Exam - Constitutional Appears: Non-toxic, No Acute Distress - Head Exam Head Exam: ATRAUMATIC, NORMOCEPHALIC - Eye Exam Eye Exam: EOMI, Normal appearance, PERRL - ENT Exam ENT Exam: Mucous Membranes Moist - Neck Exam Neck exam: Positive for: Normal Inspection - Respiratory Exam Respiratory Exam: Rhonchi. absent: Accessory Muscle Use, Decreased Breath Sounds, Rales, Wheezes, Respiratory Distress, Stridor - Cardiovascular Exam Cardiovascular Exam: Tachycardia, +S1, +S2. absent: Systolic Murmur - GI/Abdominal Exam GI & Abdominal Exam: Distended, Normal Bowel Sounds. absent: Firm, Guarding, Hernia, Rebound, Soft, Tenderness - Extremities Exam Extremities exam: Positive for: pedal pulses present. Negative for: tenderness Additional comments: +2 pitting edema in lower extremities bilaterally - Neurological Exam Neurological exam: Alert, CN II-XII Intact, Oriented x3 - Skin Skin Exam: Dry, Intact, Normal Color Results - Vital Signs Recent Vital Signs: Last Vital Signs Temp 99.4 F 01/18/19 23:13 Pulse 124 H 01/19/19 00:06 Resp 23 01/19/19 00:06 BP 124/67 01/19/19 00:06 Pulse Ox 100 01/19/19 00:06 - Labs Result Diagrams: 01/18/19 22:02 01/18/19 22:02 Labs: Laboratory Results - last 24 hr 01/18/19 01/18/19 01/18/19 22:00 22:02 22:02 WBC 2.8 L D RBC 3.78 Hgb 9.9 L Hct 31.1 L MCV 82.3 MCH 26.2 MCHC 31.8 RDW 19.5 H Plt Count 271 MPV 9.0 Neut % (Auto) 83.0 H Lymph % (Auto) 15.2 L George % (Auto) 1.4 Eos % (Auto) 0.4 L Baso % (Auto) 0.0 Lymph # (Auto) 0.4 L George # (Auto) 0.0 L Eos # (Auto) 0.0 Baso # (Auto) 0.00 Absolute Neuts (auto) 2.29 PT Cancelled INR Cancelled APTT Cancelled pO2 39 VBG pH 7.40 VBG pCO2 40.0 VBG HCO3 24.8 VBG Total CO2 26.0 VBG O2 Sat (Calc) 77.4 H VBG Base Excess 0.0 VBG Potassium 2.4 L* Sodium 128.0 L Chloride 92.0 L Glucose 137 H Lactate 3.0 H FiO2 28.0 Crit Value 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 Crit Value Called By Jj Blood Gas Notified Time 2208 Potassium Carbon Dioxide Anion Gap BUN Creatinine Est GFR ( Amer) Est GFR (Non-Af Amer) Random Glucose Calcium Phosphorus Magnesium Total Bilirubin AST ALT Alkaline Phosphatase Troponin I NT-Pro-B Natriuret Pep Total Protein Albumin Globulin Albumin/Globulin Ratio Venous Blood Potassium 2.4 L* 01/18/19 01/18/19 22:02 23:15 WBC RBC Hgb Hct MCV MCH MCHC RDW Plt Count MPV Neut % (Auto) Lymph % (Auto) George % (Auto) Eos % (Auto) Baso % (Auto) Lymph # (Auto) George # (Auto) Eos # (Auto) Baso # (Auto) Absolute Neuts (auto) PT 206.1 H INR 18.57 H* APTT 65.2 H pO2 VBG pH VBG pCO2 VBG HCO3 VBG Total CO2 VBG O2 Sat (Calc) VBG Base Excess VBG Potassium Sodium 129 L Chloride 90 L Glucose Lactate FiO2 Crit Value Called To Crit Value Called By Blood Gas Notified Time Potassium 2.5 L* D Carbon Dioxide 26 Anion Gap 16 BUN 99 H Creatinine 2.3 H Est GFR ( Amer) 25 Est GFR (Non-Af Amer) 21 Random Glucose 136 H Calcium 8.1 L Phosphorus 6.2 H Magnesium 2.8 H Total Bilirubin 0.5 AST 37 H ALT 16 Alkaline Phosphatase 227 H D Troponin I 0.11 D NT-Pro-B Natriuret Pep 6110 H Total Protein 6.1 Albumin 2.5 L Globulin 3.6 Albumin/Globulin Ratio 0.7 L Venous Blood Potassium Assessment & Plan - Assessment and Plan (Free Text) Assessment: Patient is a 73 year old female with past medical history of ovarian carcinoma, malignant ascites, LLE DVTs, HTN, HLD, T2DM admitted to ICU for workup and management of sepsis due to healthcare associated pneumonia. Plan: Neuro - AAOx3 - maintain normothermia Cardio - ECHO from 01/2019 shows LVEF 54%, mild triscupid regurgitation, no pericardial effusion - elevated BNP - maintain MAP>65 mm Hg - hold home antihypertensives - NS @ 60 ccs/hr - Albumin 25% 25 gm IV Q8H - troponins Q6H Pulm - CXR shows right sided infiltrates - maintain SaO2>92% - O2 NC PRN GI - malignant ascites - 700 ccs drained yesterday - Protonix Renal - EMMA (pre-renal 2/2 dehydration) - hyponatremia- IVF, albumin - hypokalemia- replete - hypocalcemia- normal with correction for albumin - urine studies - Strict Is and Os Heme - stage IV ovarian cancer - supratherapeutic INR - Vitamin K given - followup INR Endo - maintain euglycemia as per NICE-SUGAR trial - ISS, Accuchecks - Hypoglycemia protocol ID - neutropenia - sepsis 2/2 healthcare associated pneumonia - s/p 1 gm vancomycin, 500 mg azithromycin, 2 gm aztreonam in ED - continue aztreonam 1 gm IV Q8H, azithromycin 500 mg IV daily - ID consulted - urine blood, sputum cultures - procalcitonin - rapid flu, legionella, strep pneumo - repeat lactate Case reviewed with Dr. Kristopher Dominguez PGY-1 <Radha Summers - Last Filed: 01/19/19 19:35> Results - Vital Signs Recent Vital Signs: Last Vital Signs Temp 98.0 F 01/19/19 16:00 Pulse 118 H 01/19/19 18:10 Resp 26 H 01/19/19 18:10 BP 112/64 01/19/19 18:01 Pulse Ox 95 01/19/19 18:10 - Labs Result Diagrams: 01/19/19 04:30 01/19/19 15:00 Labs: Laboratory Results - last 24 hr 01/18/19 01/18/19 01/18/19 22:00 22:02 22:02 WBC 2.8 L D RBC 3.78 Hgb 9.9 L Hct 31.1 L MCV 82.3 MCH 26.2 MCHC 31.8 RDW 19.5 H Plt Count 271 MPV 9.0 Neut % (Auto) 83.0 H Lymph % (Auto) 15.2 L George % (Auto) 1.4 Eos % (Auto) 0.4 L Baso % (Auto) 0.0 Lymph # (Auto) 0.4 L George # (Auto) 0.0 L Eos # (Auto) 0.0 Baso # (Auto) 0.00 Absolute Neuts (auto) 2.29 PT Cancelled INR Cancelled APTT Cancelled pO2 39 VBG pH 7.40 VBG pCO2 40.0 VBG HCO3 24.8 VBG Total CO2 26.0 VBG O2 Sat (Calc) 77.4 H VBG Base Excess 0.0 VBG Potassium 2.4 L* Sodium 128.0 L Chloride 92.0 L Glucose 137 H Lactate 3.0 H FiO2 28.0 Crit Value 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 Crit Value Called By Jj Blood Gas Notified Time 2207 Potassium Carbon Dioxide Anion Gap BUN Creatinine Est GFR ( Amer) Est GFR (Non-Af Amer) Random Glucose Serum Osmolality Lactic Acid Calcium Phosphorus Magnesium Total Bilirubin AST ALT Alkaline Phosphatase Lactate Dehydrogenase Total Creatine Kinase Troponin I NT-Pro-B Natriuret Pep Total Protein Albumin Globulin Albumin/Globulin Ratio Procalcitonin Venous Blood Potassium 2.4 L* Urine Color Urine Appearance Urine pH Ur Specific [place] Urine Protein Urine Glucose (UA) Urine Ketones Urine Blood Urine Nitrate Urine Bilirubin Urine Urobilinogen Ur Leukocyte Esterase Urine Osmolality Ur Random Creatinine U Random Total Protein Ur Random Sodium Ur Random Potassium Ur Random Urea Nitrogn Fluid Source Fluid Appearance Fluid WBC Fluid RBC Fluid Tot Cell Count Fluid Mononuclear Cell Fl Polymorphonucl Cell Fluid Comment Ur L.pneumophila Ag Blood Type Antibody Screen BBK History Checked 01/18/19 01/18/19 01/19/19 22:02 23:15 00:30 WBC RBC Hgb Hct MCV MCH MCHC RDW Plt Count MPV Neut % (Auto) Lymph % (Auto) George % (Auto) Eos % (Auto) Baso % (Auto) Lymph # (Auto) George # (Auto) Eos # (Auto) Baso # (Auto) Absolute Neuts (auto) PT 206.1 H INR 18.57 H* APTT 65.2 H pO2 VBG pH VBG pCO2 VBG HCO3 VBG Total CO2 VBG O2 Sat (Calc) VBG Base Excess VBG Potassium Sodium 129 L Chloride 90 L Glucose Lactate FiO2 Crit Value Called To Crit Value Called By Blood Gas Notified Time Potassium 2.5 L* D Carbon Dioxide 26 Anion Gap 16 BUN 99 H Creatinine 2.3 H Est GFR ( Amer) 25 Est GFR (Non-Af Amer) 21 Random Glucose 136 H Serum Osmolality Lactic Acid Calcium 8.1 L Phosphorus 6.2 H Magnesium 2.8 H Total Bilirubin 0.5 AST 37 H ALT 16 Alkaline Phosphatase 227 H D Lactate Dehydrogenase Total Creatine Kinase Troponin I 0.11 D NT-Pro-B Natriuret Pep 6110 H Total Protein 6.1 Albumin 2.5 L Globulin 3.6 Albumin/Globulin Ratio 0.7 L Procalcitonin Venous Blood Potassium Urine Color Dark yellow Urine Appearance Clear Urine pH 6.0 Ur Specific [place] 1.025 Urine Protein Negative Urine Glucose (UA) Negative Urine Ketones Negative Urine Blood Negative Urine Nitrate Negative Urine Bilirubin Negative Urine Urobilinogen 0.2 Ur Leukocyte Esterase Negative Urine Osmolality Ur Random Creatinine U Random Total Protein Ur Random Sodium Ur Random Potassium Ur Random Urea Nitrogn Fluid Source Fluid Appearance Fluid WBC Fluid RBC Fluid Tot Cell Count Fluid Mononuclear Cell Fl Polymorphonucl Cell Fluid Comment Ur L.pneumophila Ag Blood Type Antibody Screen BBK History Checked 01/19/19 01/19/19 01/19/19 01:20 01:20 01:20 WBC RBC Hgb Hct MCV MCH MCHC RDW Plt Count MPV Neut % (Auto) Lymph % (Auto) George % (Auto) Eos % (Auto) Baso % (Auto) Lymph # (Auto) George # (Auto) Eos # (Auto) Baso # (Auto) Absolute Neuts (auto) PT INR APTT pO2 75 H VBG pH 7.43 VBG pCO2 37.0 L VBG HCO3 24.6 VBG Total CO2 25.7 VBG O2 Sat (Calc) 96.9 H VBG Base Excess 0.5 VBG Potassium 2.7 L Sodium 129.0 L Chloride 92.0 L Glucose 131 H Lactate 2.1 FiO2 21.0 Crit Value Called To Crit Value Called By Blood Gas Notified Time Potassium Carbon Dioxide Anion Gap BUN Creatinine Est GFR ( Amer) Est GFR (Non-Af Amer) Random Glucose Serum Osmolality 307 H Lactic Acid Calcium Phosphorus Magnesium Total Bilirubin AST ALT Alkaline Phosphatase Lactate Dehydrogenase Total Creatine Kinase Troponin I NT-Pro-B Natriuret Pep Total Protein Albumin Globulin Albumin/Globulin Ratio Procalcitonin 2.02 H Venous Blood Potassium 2.7 L Urine Color Urine Appearance Urine pH Ur Specific [place] Urine Protein Urine Glucose (UA) Urine Ketones Urine Blood Urine Nitrate Urine Bilirubin Urine Urobilinogen Ur Leukocyte Esterase Urine Osmolality Ur Random Creatinine U Random Total Protein Ur Random Sodium Ur Random Potassium Ur Random Urea Nitrogn Fluid Source Fluid Appearance Fluid WBC Fluid RBC Fluid Tot Cell Count Fluid Mononuclear Cell Fl Polymorphonucl Cell Fluid Comment Ur L.pneumophila Ag Blood Type Antibody Screen BBK History Checked 01/19/19 01/19/19 01/19/19 04:30 04:30 04:30 WBC 2.2 L D RBC 3.65 Hgb 9.4 L Hct 29.9 L MCV 81.9 MCH 25.8 MCHC 31.4 RDW 19.5 H Plt Count 236 MPV 8.9 Neut % (Auto) 80.6 H Lymph % (Auto) 16.2 L George % (Auto) 3.2 Eos % (Auto) 0.0 L Baso % (Auto) 0.0 Lymph # (Auto) 0.4 L George # (Auto) 0.1 Eos # (Auto) 0.0 Baso # (Auto) 0.00 Absolute Neuts (auto) 1.79 PT 258.4 H INR 22.87 H* APTT 144.2 H* pO2 VBG pH VBG pCO2 VBG HCO3 VBG Total CO2 VBG O2 Sat (Calc) VBG Base Excess VBG Potassium Sodium 131 L Chloride 93 L Glucose Lactate FiO2 Crit Value Called To Crit Value Called By Blood Gas Notified Time Potassium 3.1 L Carbon Dioxide 26 Anion Gap 15 BUN 100 H Creatinine 2.3 H Est GFR ( Amer) 25 Est GFR (Non-Af Amer) 21 Random Glucose 115 H Serum Osmolality Lactic Acid Calcium 8.0 L Phosphorus 5.7 H Magnesium 2.6 H Total Bilirubin 0.5 AST 44 H ALT 9 Alkaline Phosphatase 253 H Lactate Dehydrogenase 879 H Total Creatine Kinase < 20 L Troponin I 0.10 NT-Pro-B Natriuret Pep Total Protein 6.0 Albumin 2.6 L Globulin 3.4 Albumin/Globulin Ratio 0.8 L Procalcitonin Venous Blood Potassium Urine Color Urine Appearance Urine pH Ur Specific [place] Urine Protein Urine Glucose (UA) Urine Ketones Urine Blood Urine Nitrate Urine Bilirubin Urine Urobilinogen Ur Leukocyte Esterase Urine Osmolality Ur Random Creatinine U Random Total Protein Ur Random Sodium Ur Random Potassium Ur Random Urea Nitrogn Fluid Source Fluid Appearance Fluid WBC Fluid RBC Fluid Tot Cell Count Fluid Mononuclear Cell Fl Polymorphonucl Cell Fluid Comment Ur L.pneumophila Ag Blood Type Antibody Screen BBK History Checked 01/19/19 01/19/19 01/19/19 04:30 08:30 08:30 WBC RBC Hgb Hct MCV MCH MCHC RDW Plt Count MPV Neut % (Auto) Lymph % (Auto) George % (Auto) Eos % (Auto) Baso % (Auto) Lymph # (Auto) George # (Auto) Eos # (Auto) Baso # (Auto) Absolute Neuts (auto) PT INR APTT pO2 VBG pH VBG pCO2 VBG HCO3 VBG Total CO2 VBG O2 Sat (Calc) VBG Base Excess VBG Potassium Sodium Chloride Glucose Lactate FiO2 Crit Value Called To Crit Value Called By Blood Gas Notified Time Potassium Carbon Dioxide Anion Gap BUN Creatinine Est GFR ( Amer) Est GFR (Non-Af Amer) Random Glucose Serum Osmolality Lactic Acid 1.7 Calcium Phosphorus Magnesium Total Bilirubin AST ALT Alkaline Phosphatase Lactate Dehydrogenase 901 H Total Creatine Kinase 42 Troponin I 0.09 NT-Pro-B Natriuret Pep Total Protein Albumin Globulin Albumin/Globulin Ratio Procalcitonin Venous Blood Potassium Urine Color Urine Appearance Urine pH Ur Specific [place] Urine Protein Urine Glucose (UA) Urine Ketones Urine Blood Urine Nitrate Urine Bilirubin Urine Urobilinogen Ur Leukocyte Esterase Urine Osmolality Ur Random Creatinine U Random Total Protein Ur Random Sodium Ur Random Potassium Ur Random Urea Nitrogn Fluid Source Fluid Appearance Fluid WBC Fluid RBC Fluid Tot Cell Count Fluid Mononuclear Cell Fl Polymorphonucl Cell Fluid Comment Ur L.pneumophila Ag Blood Type A POSITIVE Antibody Screen Negative BBK History Checked Patient has bt 01/19/19 01/19/19 01/19/19 09:51 10:30 10:30 WBC RBC Hgb Hct MCV MCH MCHC RDW Plt Count MPV Neut % (Auto) Lymph % (Auto) George % (Auto) Eos % (Auto) Baso % (Auto) Lymph # (Auto) George # (Auto) Eos # (Auto) Baso # (Auto) Absolute Neuts (auto) PT INR APTT pO2 VBG pH VBG pCO2 VBG HCO3 VBG Total CO2 VBG O2 Sat (Calc) VBG Base Excess VBG Potassium Sodium Chloride Glucose Lactate FiO2 Crit Value Called To Crit Value Called By Blood Gas Notified Time Potassium Carbon Dioxide Anion Gap BUN Creatinine Est GFR ( Amer) Est GFR (Non-Af Amer) Random Glucose Serum Osmolality Lactic Acid Calcium Phosphorus Magnesium Total Bilirubin AST ALT Alkaline Phosphatase Lactate Dehydrogenase Total Creatine Kinase Troponin I NT-Pro-B Natriuret Pep Total Protein Albumin Globulin Albumin/Globulin Ratio Procalcitonin Venous Blood Potassium Urine Color Urine Appearance Urine pH Ur Specific [place] Urine Protein Urine Glucose (UA) Urine Ketones Urine Blood Urine Nitrate Urine Bilirubin Urine Urobilinogen Ur Leukocyte Esterase Urine Osmolality 451 Ur Random Creatinine 91 U Random Total Protein 36 Ur Random Sodium < 5 Ur Random Potassium 26.8 Ur Random Urea Nitrogn 757 Fluid Source Peritoneal Fluid Appearance Turbid Fluid WBC 438.0 H Fluid RBC 880.0 H Fluid Tot Cell Count 100 H Fluid Mononuclear Cell 53.2 H Fl Polymorphonucl Cell 46.8 H Fluid Comment White Ur L.pneumophila Ag Negative Blood Type Antibody Screen BBK History Checked 01/19/19 01/19/19 01/19/19 13:10 15:00 15:00 WBC RBC Hgb Hct MCV MCH MCHC RDW Plt Count MPV Neut % (Auto) Lymph % (Auto) George % (Auto) Eos % (Auto) Baso % (Auto) Lymph # (Auto) George # (Auto) Eos # (Auto) Baso # (Auto) Absolute Neuts (auto) PT 15.8 H INR 1.42 APTT pO2 VBG pH VBG pCO2 VBG HCO3 VBG Total CO2 VBG O2 Sat (Calc) VBG Base Excess VBG Potassium Sodium 134 Chloride 95 L Glucose Lactate FiO2 Crit Value Called To Crit Value Called By Blood Gas Notified Time Potassium 2.9 L* Carbon Dioxide 25 Anion Gap 17 BUN 97 H Creatinine 1.6 H Est GFR ( Amer) 38 Est GFR (Non-Af Amer) 31 Random Glucose 93 Serum Osmolality 302 H Lactic Acid Calcium 8.2 L Phosphorus Magnesium Total Bilirubin 1.0 AST 23 ALT 20 Alkaline Phosphatase 185 H D Lactate Dehydrogenase Total Creatine Kinase Troponin I NT-Pro-B Natriuret Pep Total Protein 5.6 L Albumin 2.7 L Globulin 2.9 Albumin/Globulin Ratio 0.9 L Procalcitonin Venous Blood Potassium Urine Color Urine Appearance Urine pH Ur Specific [place] Urine Protein Urine Glucose (UA) Urine Ketones Urine Blood Urine Nitrate Urine Bilirubin Urine Urobilinogen Ur Leukocyte Esterase Urine Osmolality Ur Random Creatinine U Random Total Protein Ur Random Sodium Ur Random Potassium Ur Random Urea Nitrogn Fluid Source Fluid Appearance Fluid WBC Fluid RBC Fluid Tot Cell Count Fluid Mononuclear Cell Fl Polymorphonucl Cell Fluid Comment Ur L.pneumophila Ag Blood Type Antibody Screen BBK History Checked Attending/Attestation - Attestation I have personally seen and examined this patient.: Yes I have fully participated in the care of the patient.: Yes I have reviewed all pertinent clinical information: Yes Notes (Text): 01/19/19 19:34 seen and examined. Discussed with resident. Exam is significant for cachetic female, ascites and B/L LE edema. Prognoisis is guarded. Discussed code status with family and wants full code. rest of A&P as above.
[2019-01-19 01:39] LABS: VENOUS BLOOD GAS BASE EXCESS 0.5 mmol/L (0.0-2.0); VENOUS BLOOD GAS PO2 75 mm/Hg (30-55); VENOUS BLOOD PH 7.43 (7.32-7.43)
[2019-01-19] MEDS ORDERED: Phytonadione 10 MG in Sodium Chloride 0.9% 50 ML IV ONE (02:19)
--- NOTE | 2019-01-19 02:59 | PCM.SEPTIC ---
<Mi Dominguez L - Last Filed: 01/19/19 02:59> Sepsis Progress Note - Reassessment Type Date of Evaluation: 01/19/19 Reassessment Type: Non-invasive reassessment - Non Invasive Reassessment Were the most recent vital sign reviewed: Yes Vital Sign (Latest): Temp Pulse Resp BP Pulse Ox 99.5 F 124 H 22 95/72 L 99 01/19/19 01:59 01/19/19 01:59 01/19/19 01:59 01/19/19 01:59 01/19/19 01:59 Cardiovascular: Yes: Regular Rate, Rhythm, Tachycardia Respiratory: Yes: Rhonchi Capillary Refill: Normal (Less than 2 sec) Skin: Normal Color, Dry <Radha Summers - Last Filed: 01/19/19 19:36> Sepsis Progress Note - Non Invasive Reassessment Vital Sign (Latest): Temp Pulse Resp BP Pulse Ox 98.0 F 118 H 26 H 112/64 95 01/19/19 16:00 01/19/19 18:10 01/19/19 18:10 01/19/19 18:01 01/19/19 18:10 Attending/Attestation - Attestation I have personally seen and examined this patient.: Yes I have fully participated in the care of the patient.: Yes I have reviewed all pertinent clinical information, including history, physical exam and plan: Yes
[2019-01-19] MEDS: Sodium Chloride 0.9% 250 ML IV SCH (04:03)
[2019-01-19 04:58] LABS: HEMOGLOBIN 9.4 g/dL (12.0-16.0); LYMPH # 0.4 (1.2-3.4); LYMPH % 16.2 % (22.0-35.0); MEAN CELL VOLUME 81.9 fl (80.0-105.0); MEAN CORPUSCULAR HEMOGLOBIN 25.8 pg (25.0-35.0); MEAN CORPUSCULAR HGB CONC 31.4 g/dl (31.0-37.0); MEAN PLATELET VOLUME 8.9 fl (7.0-11.0); MONO # 0.1 (0.1-0.6); MONO % 3.2 % (1.0-6.0); RBC 3.65 10^6/uL (3.5-6.1); RED CELL DISTRIBUTION WIDTH 19.5 % (11.5-14.5); WHITE BLOOD COUNT 2.2 10^3/uL (4.5-11.0)
[2019-01-19 05:30] LABS: PROTHROMBIN TIME 258.4 SECONDS (9.4-12.5)
[2019-01-19 05:31] LABS: INR 22.87; PARTIAL THROMBOPLASTIN TIME 144.2 Seconds (26.9-38.3)
[2019-01-19] MEDS ORDERED: Aztreonam 1 Gm in NS 100mL 100 ML IVPB SCH (06:00)
[2019-01-19] MEDS ORDERED: Vancomycin 1gm in NS 250ml 1 GM/250 ML BAG IVPB STA (06:40)
[2019-01-19 06:46] LABS: ALB/GLOB RATIO 0.8 (1.1-1.8); ALBUMIN 2.6 g/dL (3.0-4.8); ALT/SGPT 9 U/L (7-56); AST/SGOT 44 U/L (14-36); BLOOD UREA NITROGEN 100 mg/dL (7-21); GFR NON-AFRICAN AMERICAN 21
[2019-01-19 07:00] VITALS: BMI 32.1
[2019-01-19] MEDS ORDERED: Potassium Chloride 40 mEq/30 ml LIQ UD PO STA (08:56)
[2019-01-19 09:02] LABS: TROPONIN I 0.09 ng/mL
--- NOTE | 2019-01-19 09:20 | RAD ---
Date of service: 01/19/2019 HISTORY: Pna COMPARISON: 01/18/2019 FINDINGS: LUNGS: Band-like opacity upper right wagner thorax. This may represent fluid within a fissure or may represent atelectasis. Pneumonia is felt to be less likely. No other infiltrate. Opacity at left base on prior examination is no longer evident. PLEURA: No pleural effusion or pneumothorax appreciated. Mild elevation of the right hemidiaphragm common nonspecific. CARDIOVASCULAR: No aortic atherosclerotic calcification present. Normal cardiac size. Right subclavian central venous port unchanged in position. OSSEOUS STRUCTURES: No significant abnormalities. VISUALIZED UPPER ABDOMEN: Normal. OTHER FINDINGS: None. IMPRESSION: Possible fluid within the fissure versus atelectasis adjacent to right hilum. No acute infiltrate.
--- NOTE | 2019-01-19 09:27 | RAD ---
Date of service: 01/18/2019 HISTORY: Sepsis Patient COMPARISON: 12/31/2018 FINDINGS: LUNGS: Opacity adjacent to the right hilum, somewhat band-like in configuration. Possible atelectasis or fluid trapped within fissure. There is ill-defined opacity at the left base which may be artifact due to overlying breast tissue. Follow-up advised. PLEURA: No significant pleural effusion identified, no pneumothorax apparent. CARDIOVASCULAR: No aortic atherosclerotic calcification present. Normal cardiac size. No congestive change. Right subclavian central venous infusion port. OSSEOUS STRUCTURES: No significant abnormalities. VISUALIZED UPPER ABDOMEN: Normal. OTHER FINDINGS: None. IMPRESSION: Right parahilar band-like opacity. Possible atelectasis versus fluid within fissure. Left basilar ill-defined opacity. Possible artifact. Follow-up advised.
[2019-01-19] MEDS ORDERED: Azithromycin 500MG/NS 250ml 500 MG/250 ML BAG IVPB SCH (10:00)
[2019-01-19 10:10] LABS: BODY FLUID TYPE PERITONEAL
--- NOTE | 2019-01-19 10:33 | CP.PCM.CON ---
History of Present Illness - History of Present Illness History of Present Illness: Palliative Care Consult as per Dr. Sam Reason: Goals of care This is a 73 year old female with past medical history of metastatic ovarian cancer s/p hysterectomy with abdominal ascites currently on chemotherapy who was brought to the ED for cough and fatigue for 2 weeks. Family reports they felt she was developing a pneumonia and decided to bring her to the ED. She has a productive with white sputum. She also complained of subjective fevers and chills as well as abdominal pain. She also has rectal pain due to hemorrhoids. Patient denies chest pain, shortness of breath, nausea/vomiting/diarrhea, numb ness/tingling, dysuria or hematuria. Her last chemo treatment was 3 weeks ago with Doxil and Avastan. In the ED she was found to be afebrile, hypotensive, tachypneic and tachycardic. Code sepsis was called and patient was transferred to ICU for further monitoring. Labs showed leukopenia WBC 2.2, anemia Hgb 9.9, supratherapeutic INR, hyponatremia NA 129 and hypokalemia K 2.5, BNP 6110. CXR: Possible fluid within the fissure versus atelectasis adjacent to R hilum. No acute infiltrate. Past medical history: metastatic ovarian cancer s/p hysterectomy with abdominal ascites (last chemo 3 weeks ago of Doxil and Avastan), HTN, HLD, DM-II, DVT of LLE Past surgical history: hysterectomy, paracentesis s/p aspira catheter, port a cath Medications: reviewed as per MAR Allergies: Penicillin Social history: Denies smoking, alcohol or drug abuse. Lives with family at home and is taken care of by sons who are physicians. Family history: Sister-colon cancer Advance care planning: Patient does not have an advanced directive. Review of Systems:As per HPI, 12 point ROS is otherwise negative. Review of Systems - Review of Systems All systems: reviewed and no additional remarkable complaints except Review of Systems: 12 point ROS reviewed as per HPI and is otherwise negative Past Patient History - Infectious Disease Hx of Infectious Diseases: None - Tetanus Immunizations Tetanus Immunization: Unknown - Past Social History Smoking Status: Never Smoked Alcohol: None Drugs: Denies Home Situation {Lives}: With Family - CARDIAC Hx Cardiac Disorders: Yes Hx Angina: No Hx Cardia Arrhythmia: Yes Hx Circulatory Problems: Yes Hx Congestive Heart Failure: Yes Hx Heart Murmur: No Hx Hypertension: Yes Hx Internal Defibrillator: No Hx Mitral Valve Prolapse: No Hx Pacemaker: No Hx Peripheral Edema: Yes Hx Peripheral Vascular Disease: No - PULMONARY Hx Respiratory Disorders: Yes Hx Asthma: No Hx Bronchitis: No Hx Chronic Obstructive Pulmonary Disease (COPD): No Hx Emphysema: No Hx Pneumonia: Yes Hx Respiratory Aspiration: No Hx Respiratory Tract Infection: No Hx Sleep Apnea: No Hx Tuberculosis: No - NEUROLOGICAL Hx Neurological Disorder: No Hx Dizziness: Yes - HEENT Hx HEENT Problems: No - RENAL Hx Chronic Kidney Disease: No Hx Dialysis: No Hx Kidney Stones: No Hx Renal Failure: Yes - ENDOCRINE/METABOLIC Hx Endocrine Disorders: Yes Hx Diabetes Mellitus Type 2: Yes Hx Hypothyroidism: Yes Hx Systemic Lupus Erythematosus: No - HEMATOLOGICAL/ONCOLOGICAL Hx Chemotherapy: Yes Hx Human Immunodeficiency Virus (HIV): No Hx Metastesis: Yes Hx Shingles: No - INTEGUMENTARY Hx Dermatological Problems: No - MUSCULOSKELETAL/RHEUMATOLOGICAL Hx Musculoskeletal Disorders: Yes Hx Falls: No Hx Rhabdomyolysis: No Hx Unsteady Gait: Yes - GASTROINTESTINAL Hx Gastrointestinal Disorders: Yes HX Swallowing Problems: Yes - GENITOURINARY/GYNECOLOGICAL Hx Genitourinary Disorders: Yes Hx Sexually Transmitted Disorders: No - PSYCHIATRIC Hx Psychophysiologic Disorder: Yes Hx Depression: No Hx Emotional Abuse: No Hx Panic Symptoms: No Hx Paranoia: No Hx Post Traumatic Stress Disorder: No Hx Psychosis: No Hx Physical Abuse: No Hx Schizophrenia: No Hx Sexual Abuse: No - SURGICAL HISTORY Hx Surgeries: Yes Hx Amputation: No Hx Appendectomy: No Hx Cardiac Catheterization: No Hx Cholecystectomy: No Hx Coronary Stent: No Hx Gastric Bypass Surgery: No Hx Hysterectomy: Yes Hx Joint Replacement: No Hx Kidney Transplant: No Hx Liver Transplant: No Hx Musculoskeletal Surgery: No Hx Open Heart Surgery: No Hx Orthopedic Surgery: No Hx Splenectomy: No Hx Valve Replacement: No - ANESTHESIA Hx Anesthesia: Yes Hx Anesthesia Reactions: No Hx Malignant Hyperthermia: No Meds Allergies/Adverse Reactions: Allergies Allergy/AdvReac Type Severity Reaction Status Date / Time Penicillins AdvReac SHORTNESS Verified 01/18/19 21:18 OF BREATH - Medications Medications: Current Medications Albumin Human (Albumin Human 25% (25 Gm/100 Ml)) 25 gm IV Q8H MARTIN Hydrocortisone (Anusol-Hc) 0 gm SC BID MARTIN Sodium Chloride (Sodium Chloride 0.9%) 250 mls @ 60 mls/hr IV .Q4H10M MARTIN Last Admin: 01/19/19 04:03 Dose: 60 mls/hr Doxycycline Hyclate 100 mg/ (Sodium Chloride) 100 mls @ 100 mls/hr IVPB Q12 MARTIN; Protocol Meropenem/Sodium Chloride (Merrem Iv 500 Mg/Ns 50 Ml) 500 mg in 50 mls @ 100 mls/hr IVPB Q12 MARTIN; Protocol Stop: 01/27/19 10:01 Pantoprazole Sodium (Protonix Inj) 40 mg IVP DAILY [facility] Physical Exam - Constitutional Appears: Chronically Ill - Head Exam Head Exam: ATRAUMATIC, NORMAL INSPECTION, NORMOCEPHALIC - Eye Exam Eye Exam: Normal appearance Pupil Exam: NORMAL ACCOMODATION, PERRL - ENT Exam ENT Exam: Mucous Membranes Dry - Respiratory Exam Respiratory Exam: Rhonchi, NORMAL BREATHING PATTERN. absent: Accessory Muscle Use, Rales, Respiratory Distress, Stridor - Cardiovascular Exam Cardiovascular Exam: Tachycardia, REGULAR RHYTHM, +S1, +S2. absent: Gallop, Rubs, Systolic Murmur - GI/Abdominal Exam GI & Abdominal Exam: Distended, Normal Bowel Sounds, Soft, Tenderness. absent: Guarding, Rebound, Rigid Additional comments: + aspira catheter drain - patent - Extremities Exam Extremities exam: Positive for: normal capillary refill, pedal edema, pedal pulses present. Negative for: calf tenderness - Neurological Exam Neurological exam: Alert, CN II-XII Intact - Psychiatric Exam Psychiatric exam: Normal Affect, Normal Mood - Skin Skin Exam: Dry, Intact, Warm - Additional Findings Additional findings: Palliative performance scale rating 30% Results - Vital Signs Recent Vital Signs: Last Vital Signs Temp 98.2 F 01/19/19 04:16 Pulse 115 H 01/19/19 10:10 Resp 23 01/19/19 10:10 BP 125/70 01/19/19 10:00 Pulse Ox 99 01/19/19 10:10 - Labs Result Diagrams: 01/19/19 04:30 01/19/19 04:30 Labs: Laboratory Results - last 24 hr 01/18/19 01/18/19 01/18/19 22:00 22:02 22:02 WBC 2.8 L D RBC 3.78 Hgb 9.9 L Hct 31.1 L MCV 82.3 MCH 26.2 MCHC 31.8 RDW 19.5 H Plt Count 271 MPV 9.0 Neut % (Auto) 83.0 H Lymph % (Auto) 15.2 L [place] % (Auto) 1.4 Eos % (Auto) 0.4 L Baso % (Auto) 0.0 Lymph # (Auto) 0.4 L [place] # (Auto) 0.0 L Eos # (Auto) 0.0 Baso # (Auto) 0.00 Absolute Neuts (auto) 2.29 PT Cancelled INR Cancelled APTT Cancelled pO2 39 VBG pH 7.40 VBG pCO2 40.0 VBG HCO3 24.8 VBG Total CO2 26.0 VBG O2 Sat (Calc) 77.4 H VBG Base Excess 0.0 VBG Potassium 2.4 L* Sodium 128.0 L Chloride 92.0 L Glucose 137 H Lactate 3.0 H FiO2 28.0 Crit Value Called To circulation manager Crit Value Called By Jj Blood Gas Notified Time 2207 Potassium Carbon Dioxide Anion Gap BUN Creatinine Est GFR ( Amer) Est GFR (Non-Af Amer) Random Glucose Serum Osmolality Lactic Acid Calcium Phosphorus Magnesium Total Bilirubin AST ALT Alkaline Phosphatase Lactate Dehydrogenase Total Creatine Kinase Troponin I NT-Pro-B Natriuret Pep Total Protein Albumin Globulin Albumin/Globulin Ratio Venous Blood Potassium 2.4 L* Urine Color Urine Appearance Urine pH Ur Specific [place] Urine Protein Urine Glucose (UA) Urine Ketones Urine Blood Urine Nitrate Urine Bilirubin Urine Urobilinogen Ur Leukocyte Esterase Fluid Source Blood Type Antibody Screen BBK History Checked 01/18/19 01/18/19 01/19/19 22:02 23:15 00:30 WBC RBC Hgb Hct MCV MCH MCHC RDW Plt Count MPV Neut % (Auto) Lymph % (Auto) [place] % (Auto) Eos % (Auto) Baso % (Auto) Lymph # (Auto) [place] # (Auto) Eos # (Auto) Baso # (Auto) Absolute Neuts (auto) PT 206.1 H INR 18.57 H* APTT 65.2 H pO2 VBG pH VBG pCO2 VBG HCO3 VBG Total CO2 VBG O2 Sat (Calc) VBG Base Excess VBG Potassium Sodium 129 L Chloride 90 L Glucose Lactate FiO2 Crit Value Called To Crit Value Called By Blood Gas Notified Time Potassium 2.5 L* D Carbon Dioxide 26 Anion Gap 16 BUN 99 H Creatinine 2.3 H Est GFR ( Amer) 25 Est GFR (Non-Af Amer) 21 Random Glucose 136 H Serum Osmolality Lactic Acid Calcium 8.1 L Phosphorus 6.2 H Magnesium 2.8 H Total Bilirubin 0.5 AST 37 H ALT 16 Alkaline Phosphatase 227 H D Lactate Dehydrogenase Total Creatine Kinase Troponin I 0.11 D NT-Pro-B Natriuret Pep 6110 H Total Protein 6.1 Albumin 2.5 L Globulin 3.6 Albumin/Globulin Ratio 0.7 L Venous Blood Potassium Urine Color Dark yellow Urine Appearance Clear Urine pH 6.0 Ur Specific [place] 1.025 Urine Protein Negative Urine Glucose (UA) Negative Urine Ketones Negative Urine Blood Negative Urine Nitrate Negative Urine Bilirubin Negative Urine Urobilinogen 0.2 Ur Leukocyte Esterase Negative Fluid Source Blood Type Antibody Screen BBK History Checked 01/19/19 01/19/19 01/19/19 01:20 01:20 04:30 WBC 2.2 L D RBC 3.65 Hgb 9.4 L Hct 29.9 L MCV 81.9 MCH 25.8 MCHC 31.4 RDW 19.5 H Plt Count 236 MPV 8.9 Neut % (Auto) 80.6 H Lymph % (Auto) 16.2 L [place] % (Auto) 3.2 Eos % (Auto) 0.0 L Baso % (Auto) 0.0 Lymph # (Auto) 0.4 L [place] # (Auto) 0.1 Eos # (Auto) 0.0 Baso # (Auto) 0.00 Absolute Neuts (auto) 1.79 PT INR APTT pO2 75 H VBG pH 7.43 VBG pCO2 37.0 L VBG HCO3 24.6 VBG Total CO2 25.7 VBG O2 Sat (Calc) 96.9 H VBG Base Excess 0.5 VBG Potassium 2.7 L Sodium 129.0 L Chloride 92.0 L Glucose 131 H Lactate 2.1 FiO2 21.0 Crit Value Called To Crit Value Called By Blood Gas Notified Time Potassium Carbon Dioxide Anion Gap BUN Creatinine Est GFR ( Amer) Est GFR (Non-Af Amer) Random Glucose Serum Osmolality 307 H Lactic Acid Calcium Phosphorus Magnesium Total Bilirubin AST ALT Alkaline Phosphatase Lactate Dehydrogenase Total Creatine Kinase Troponin I NT-Pro-B Natriuret Pep Total Protein Albumin Globulin Albumin/Globulin Ratio Venous Blood Potassium 2.7 L Urine Color Urine Appearance Urine pH Ur Specific [place] Urine Protein Urine Glucose (UA) Urine Ketones Urine Blood Urine Nitrate Urine Bilirubin Urine Urobilinogen Ur Leukocyte Esterase Fluid Source Blood Type Antibody Screen BBK History Checked 01/19/19 01/19/19 01/19/19 04:30 04:30 04:30 WBC RBC Hgb Hct MCV MCH MCHC RDW Plt Count MPV Neut % (Auto) Lymph % (Auto) [place] % (Auto) Eos % (Auto) Baso % (Auto) Lymph # (Auto) [place] # (Auto) Eos # (Auto) Baso # (Auto) Absolute Neuts (auto) PT 258.4 H INR 22.87 H* APTT 144.2 H* pO2 VBG pH VBG pCO2 VBG HCO3 VBG Total CO2 VBG O2 Sat (Calc) VBG Base Excess VBG Potassium Sodium 131 L Chloride 93 L Glucose Lactate FiO2 Crit Value Called To Crit Value Called By Blood Gas Notified Time Potassium 3.1 L Carbon Dioxide 26 Anion Gap 15 BUN 100 H Creatinine 2.3 H Est GFR ( Amer) 25 Est GFR (Non-Af Amer) 21 Random Glucose 115 H Serum Osmolality Lactic Acid 1.7 Calcium 8.0 L Phosphorus 5.7 H Magnesium 2.6 H Total Bilirubin 0.5 AST 44 H ALT 9 Alkaline Phosphatase 253 H Lactate Dehydrogenase 879 H Total Creatine Kinase < 20 L Troponin I 0.10 NT-Pro-B Natriuret Pep Total Protein 6.0 Albumin 2.6 L Globulin 3.4 Albumin/Globulin Ratio 0.8 L Venous Blood Potassium Urine Color Urine Appearance Urine pH Ur Specific [place] Urine Protein Urine Glucose (UA) Urine Ketones Urine Blood Urine Nitrate Urine Bilirubin Urine Urobilinogen Ur Leukocyte Esterase Fluid Source Blood Type Antibody Screen BBK History Checked 01/19/19 01/19/19 01/19/19 08:30 08:30 09:51 WBC RBC Hgb Hct MCV MCH MCHC RDW Plt Count MPV Neut % (Auto) Lymph % (Auto) [place] % (Auto) Eos % (Auto) Baso % (Auto) Lymph # (Auto) [place] # (Auto) Eos # (Auto) Baso # (Auto) Absolute Neuts (auto) PT INR APTT pO2 VBG pH VBG pCO2 VBG HCO3 VBG Total CO2 VBG O2 Sat (Calc) VBG Base Excess VBG Potassium Sodium Chloride Glucose Lactate FiO2 Crit Value Called To Crit Value Called By Blood Gas Notified Time Potassium Carbon Dioxide Anion Gap BUN Creatinine Est GFR ( Amer) Est GFR (Non-Af Amer) Random Glucose Serum Osmolality Lactic Acid Calcium Phosphorus Magnesium Total Bilirubin AST ALT Alkaline Phosphatase Lactate Dehydrogenase 901 H Total Creatine Kinase 42 Troponin I 0.09 NT-Pro-B Natriuret Pep Total Protein Albumin Globulin Albumin/Globulin Ratio Venous Blood Potassium Urine Color Urine Appearance Urine pH Ur Specific [place] Urine Protein Urine Glucose (UA) Urine Ketones Urine Blood Urine Nitrate Urine Bilirubin Urine Urobilinogen Ur Leukocyte Esterase Fluid Source Peritoneal Blood Type A POSITIVE Antibody Screen Negative BBK History Checked Patient has bt Assessment & Plan - Assessment and Plan (Free Text) Assessment: This is a 73 year old female with past medical history of metastatic ovarian cancer s/p hysterectomy with abdominal ascites, DM, HTN, HLD, DVT currently on chemotherapy who was brought to the admitted for sepsis, likely due to pneumonia. She was also noted to have ascites, electrolyte abnormalities, supratherapeutic INR, anemia and leukopenia. Known to me from previous admission. In the past, I have had discussion with the family about goals of care and advance care planning. At that time,family wanted to continue aggressive treatment including chemotherapy. Patient expressed that her quality of life was tolerable. She reported no psychosocial distress because of strong family support. I spoke with both sons at length today. Family at bedside. Son is a physician and family understands and acknowledges the reality of her situation and prognosis.Son verbalized that she is declining and that will likely not be able to continue chemotherapy. Family expressed interest in discussing hospice care. Hospice services were explained in detail. Questions were answered. Resuscitation status was also discussed. Family not ready to make a decision today but will consider this option. Family will discu ss goals of care with other members. Emotional support was given. Family given palliative contact information. Time spent with family in goals of care and advance care planing discussion, 30 minutes Plan: Goals of care and advance care planning Continue diagnostic work up. Continue Merrem, Doxycycline. Morphine for pain , hemorrhoid cream. IVF, DVT prophylaxis, PPI's Drain Aspira catheter as needed. Albumin as ordered
[2019-01-19] MEDS: MEROPENEM 500 MG in NS 500 MG/50 ML BAG IVPB SCH ×2 (10:51→21:46)
[2019-01-19 11:10] LABS: CREATININE,RANDOM URINE 91 mg/dL; TOTAL PROTEIN,RANDOM URINE 36 mg/L
[2019-01-19 11:15] LABS: BF GROSS APPEARANCE TURBID (CLEAR)
[2019-01-19 11:16] LABS: BODY FLUID TOTAL COUNT 100 (0-0)
[2019-01-19 11:17] LABS: OSMOLALITY,URINE 451 mosm/kg (300-1000)
[2019-01-19] MEDS: Morphine 2 mg/ml ISec IVP PRN ×3 (11:19→21:35)
--- NOTE | 2019-01-19 11:30 | CP.PCM.CON ---
<Marquise Marcos - Last Filed: 01/19/19 11:27> History of Present Illness - History of Present Illness History of Present Illness: Marquise Marcos D.O. PGY-3, Internal Medicine Resident, Infectious Disease Consultation Note 73 year old female with a PMH of ovarian CA, malignant ascites s/p aspira cathter 1 month ago, LLE DVTs, HTN, HLD, T2DM presenting with chief complaint of cough and fatigue. Infectious disease consultation was requested for sepsis. Patient was seen and examined at bedside with present. relates how she has been feeling weaker and also had a cough productive of dark green mucous. Unsure whether she had a fever at home and patient denies any chills. Also denies any nausea, vomiting, diarrhea, constipation, but does have some SOB given that her abdomen is so distended. They are currently draining out about 1 liter every 3 days. admits that the fluid has always looked as it does now, which is an opaque white/beige color with thin consistency. No acute complaints at this time other than the aforementioned. Review of Systems - Review of Systems All systems: reviewed and no additional remarkable complaints except (as per HPI) Past Patient History - Infectious Disease Hx of Infectious Diseases: None - Tetanus Immunizations Tetanus Immunization: Unknown - Past Social History Smoking Status: Never Smoked Alcohol: None Drugs: Denies Home Situation {Lives}: With Family - CARDIAC Hx Cardiac Disorders: Yes Hx Angina: No Hx Cardia Arrhythmia: Yes Hx Circulatory Problems: Yes Hx Congestive Heart Failure: Yes Hx Heart Murmur: No Hx Hypertension: Yes Hx Internal Defibrillator: No Hx Mitral Valve Prolapse: No Hx Pacemaker: No Hx Peripheral Edema: Yes Hx Peripheral Vascular Disease: No - PULMONARY Hx Respiratory Disorders: Yes Hx Asthma: No Hx Bronchitis: No Hx Chronic Obstructive Pulmonary Disease (COPD): No Hx Emphysema: No Hx Pneumonia: Yes Hx Respiratory Aspiration: No Hx Respiratory Tract Infection: No Hx Sleep Apnea: No Hx Tuberculosis: No - NEUROLOGICAL Hx Neurological Disorder: No Hx Dizziness: Yes - HEENT Hx HEENT Problems: No - RENAL Hx Chronic Kidney Disease: No Hx Dialysis: No Hx Kidney Stones: No Hx Renal Failure: Yes - ENDOCRINE/METABOLIC Hx Endocrine Disorders: Yes Hx Diabetes Mellitus Type 2: Yes Hx Hypothyroidism: Yes Hx Systemic Lupus Erythematosus: No - HEMATOLOGICAL/ONCOLOGICAL Hx Chemotherapy: Yes Hx Human Immunodeficiency Virus (HIV): No Hx Metastesis: Yes Hx Shingles: No - INTEGUMENTARY Hx Dermatological Problems: No - MUSCULOSKELETAL/RHEUMATOLOGICAL Hx Musculoskeletal Disorders: Yes Hx Falls: No Hx Rhabdomyolysis: No Hx Unsteady Gait: Yes - GASTROINTESTINAL Hx Gastrointestinal Disorders: Yes HX Swallowing Problems: Yes - GENITOURINARY/GYNECOLOGICAL Hx Genitourinary Disorders: Yes Hx Sexually Transmitted Disorders: No - PSYCHIATRIC Hx Psychophysiologic Disorder: Yes Hx Depression: No Hx Emotional Abuse: No Hx Panic Symptoms: No Hx Paranoia: No Hx Post Traumatic Stress Disorder: No Hx Psychosis: No Hx Physical Abuse: No Hx Schizophrenia: No Hx Sexual Abuse: No - SURGICAL HISTORY Hx Surgeries: Yes Hx Amputation: No Hx Appendectomy: No Hx Cardiac Catheterization: No Hx Cholecystectomy: No Hx Coronary Stent: No Hx Gastric Bypass Surgery: No Hx Hysterectomy: Yes Hx Joint Replacement: No Hx Kidney Transplant: No Hx Liver Transplant: No Hx Musculoskeletal Surgery: No Hx Open Heart Surgery: No Hx Orthopedic Surgery: No Hx Splenectomy: No Hx Valve Replacement: No - ANESTHESIA Hx Anesthesia: Yes Hx Anesthesia Reactions: No Hx Malignant Hyperthermia: No Meds Allergies/Adverse Reactions: Allergies Allergy/AdvReac Type Severity Reaction Status Date / Time Penicillins AdvReac SHORTNESS Verified 01/18/19 21:18 OF BREATH - Medications Medications: Current Medications Albumin Human (Albumin Human 25% (25 Gm/100 Ml)) 25 gm IV Q5H MARTIN Stop: 01/20/19 07:16 Hydrocortisone (Anusol-Hc) 0 gm SC BID MARTIN Sodium Chloride (Sodium Chloride 0.9%) 250 mls @ 60 mls/hr IV .Q4H10M MARTIN Last Admin: 01/19/19 04:03 Dose: 60 mls/hr Doxycycline Hyclate 100 mg/ (Sodium Chloride) 100 mls @ 100 mls/hr IVPB Q12 MARTIN; Protocol Last Admin: 01/19/19 10:52 Dose: 100 mls/hr Meropenem/Sodium Chloride (Merrem Iv 500 Mg/Ns 50 Ml) 500 mg in 50 mls @ 100 mls/hr IVPB Q12 MARTIN; Protocol Stop: 01/27/19 10:01 Last Admin: 01/19/19 10:51 Dose: 100 mls/hr Morphine Sulfate (Morphine) 1 mg IVP Q4H PRN PRN Reason: Pain, moderate (4-7) Last Admin: 01/19/19 11:19 Dose: 1 mg Pantoprazole Sodium (Protonix Inj) 40 mg IVP DAILY MARTIN Last Admin: 01/19/19 10:46 Dose: 40 mg Physical Exam - Constitutional Appears: No Acute Distress, Chronically Ill - Head Exam Head Exam: ATRAUMATIC, NORMOCEPHALIC - Eye Exam Eye Exam: EOMI. absent: Scleral icterus - ENT Exam ENT Exam: Mucous Membranes Moist, Normal Oropharynx - Neck Exam Neck exam: Positive for: Normal Inspection - Respiratory Exam Respiratory Exam: Rhonchi - Cardiovascular Exam Cardiovascular Exam: +S1, +S2. absent: Rubs - GI/Abdominal Exam Additional comments: hard, distedned, aspira catheter in RLQ with thin white-beige fluid in line, no erythema around insertion - Extremities Exam Extremities exam: Negative for: calf tenderness, pedal edema - Neurological Exam Neurological exam: Alert, Oriented x3 - Psychiatric Exam Psychiatric exam: Normal Mood - Skin Skin Exam: Dry, Warm Results - Vital Signs Recent Vital Signs: Last Vital Signs Temp 98.2 F 01/19/19 04:16 Pulse 115 H 01/19/19 10:10 Resp 23 01/19/19 10:10 BP 125/70 01/19/19 10:00 Pulse Ox 99 01/19/19 10:10 - Labs Result Diagrams: 01/19/19 04:30 01/19/19 04:30 Labs: Laboratory Results - last 24 hr 01/18/19 01/18/19 01/18/19 22:00 22:02 22:02 WBC 2.8 L D RBC 3.78 Hgb 9.9 L Hct 31.1 L MCV 82.3 MCH 26.2 MCHC 31.8 RDW 19.5 H Plt Count 271 MPV 9.0 Neut % (Auto) 83.0 H Lymph % (Auto) 15.2 L [place] % (Auto) 1.4 Eos % (Auto) 0.4 L Baso % (Auto) 0.0 Lymph # (Auto) 0.4 L [place] # (Auto) 0.0 L Eos # (Auto) 0.0 Baso # (Auto) 0.00 Absolute Neuts (auto) 2.29 PT Cancelled INR Cancelled APTT Cancelled pO2 39 VBG pH 7.40 VBG pCO2 40.0 VBG HCO3 24.8 VBG Total CO2 26.0 VBG O2 Sat (Calc) 77.4 H VBG Base Excess 0.0 VBG Potassium 2.4 L* Sodium 128.0 L Chloride 92.0 L Glucose 137 H Lactate 3.0 H FiO2 28.0 Crit Value Called To waybill clerk Crit Value Called By Arsenio Blood Gas Notified Time 2208 Potassium Carbon Dioxide Anion Gap BUN Creatinine Est GFR ( Amer) Est GFR (Non-Af Amer) Random Glucose Serum Osmolality Lactic Acid Calcium Phosphorus Magnesium Total Bilirubin AST ALT Alkaline Phosphatase Lactate Dehydrogenase Total Creatine Kinase Troponin I NT-Pro-B Natriuret Pep Total Protein Albumin Globulin Albumin/Globulin Ratio Venous Blood Potassium 2.4 L* Urine Color Urine Appearance Urine pH Ur Specific [place] Urine Protein Urine Glucose (UA) Urine Ketones Urine Blood Urine Nitrate Urine Bilirubin Urine Urobilinogen Ur Leukocyte Esterase Urine Osmolality Ur Random Creatinine U Random Total Protein Ur Random Sodium Ur Random Potassium Ur Random Urea Nitrogn Fluid Source Fluid Appearance Fluid WBC Fluid RBC Fluid Tot Cell Count Fluid Mononuclear Cell Fl Polymorphonucl Cell Fluid Comment Blood Type Antibody Screen BBK History Checked 01/18/19 01/18/19 01/19/19 22:02 23:15 00:30 WBC RBC Hgb Hct MCV MCH MCHC RDW Plt Count MPV Neut % (Auto) Lymph % (Auto) [place] % (Auto) Eos % (Auto) Baso % (Auto) Lymph # (Auto) [place] # (Auto) Eos # (Auto) Baso # (Auto) Absolute Neuts (auto) PT 206.1 H INR 18.57 H* APTT 65.2 H pO2 VBG pH VBG pCO2 VBG HCO3 VBG Total CO2 VBG O2 Sat (Calc) VBG Base Excess VBG Potassium Sodium 129 L Chloride 90 L Glucose Lactate FiO2 Crit Value Called To Crit Value Called By Blood Gas Notified Time Potassium 2.5 L* D Carbon Dioxide 26 Anion Gap 16 BUN 99 H Creatinine 2.3 H Est GFR ( Amer) 25 Est GFR (Non-Af Amer) 21 Random Glucose 136 H Serum Osmolality Lactic Acid Calcium 8.1 L Phosphorus 6.2 H Magnesium 2.8 H Total Bilirubin 0.5 AST 37 H ALT 16 Alkaline Phosphatase 227 H D Lactate Dehydrogenase Total Creatine Kinase Troponin I 0.11 D NT-Pro-B Natriuret Pep 6110 H Total Protein 6.1 Albumin 2.5 L Globulin 3.6 Albumin/Globulin Ratio 0.7 L Venous Blood Potassium Urine Color Dark yellow Urine Appearance Clear Urine pH 6.0 Ur Specific [place] 1.025 Urine Protein Negative Urine Glucose (UA) Negative Urine Ketones Negative Urine Blood Negative Urine Nitrate Negative Urine Bilirubin Negative Urine Urobilinogen 0.2 Ur Leukocyte Esterase Negative Urine Osmolality Ur Random Creatinine U Random Total Protein Ur Random Sodium Ur Random Potassium Ur Random Urea Nitrogn Fluid Source Fluid Appearance Fluid WBC Fluid RBC Fluid Tot Cell Count Fluid Mononuclear Cell Fl Polymorphonucl Cell Fluid Comment Blood Type Antibody Screen BBK History Checked 01/19/19 01/19/19 01/19/19 01:20 01:20 04:30 WBC 2.2 L D RBC 3.65 Hgb 9.4 L Hct 29.9 L MCV 81.9 MCH 25.8 MCHC 31.4 RDW 19.5 H Plt Count 236 MPV 8.9 Neut % (Auto) 80.6 H Lymph % (Auto) 16.2 L [place] % (Auto) 3.2 Eos % (Auto) 0.0 L Baso % (Auto) 0.0 Lymph # (Auto) 0.4 L [place] # (Auto) 0.1 Eos # (Auto) 0.0 Baso # (Auto) 0.00 Absolute Neuts (auto) 1.79 PT INR APTT pO2 75 H VBG pH 7.43 VBG pCO2 37.0 L VBG HCO3 24.6 VBG Total CO2 25.7 VBG O2 Sat (Calc) 96.9 H VBG Base Excess 0.5 VBG Potassium 2.7 L Sodium 129.0 L Chloride 92.0 L Glucose 131 H Lactate 2.1 FiO2 21.0 Crit Value Called To Crit Value Called By Blood Gas Notified Time Potassium Carbon Dioxide Anion Gap BUN Creatinine Est GFR ( Amer) Est GFR (Non-Af Amer) Random Glucose Serum Osmolality 307 H Lactic Acid Calcium Phosphorus Magnesium Total Bilirubin AST ALT Alkaline Phosphatase Lactate Dehydrogenase Total Creatine Kinase Troponin I NT-Pro-B Natriuret Pep Total Protein Albumin Globulin Albumin/Globulin Ratio Venous Blood Potassium 2.7 L Urine Color Urine Appearance Urine pH Ur Specific [place] Urine Protein Urine Glucose (UA) Urine Ketones Urine Blood Urine Nitrate Urine Bilirubin Urine Urobilinogen Ur Leukocyte Esterase Urine Osmolality Ur Random Creatinine U Random Total Protein Ur Random Sodium Ur Random Potassium Ur Random Urea Nitrogn Fluid Source Fluid Appearance Fluid WBC Fluid RBC Fluid Tot Cell Count Fluid Mononuclear Cell Fl Polymorphonucl Cell Fluid Comment Blood Type Antibody Screen BBK History Checked 01/19/19 01/19/19 01/19/19 04:30 04:30 04:30 WBC RBC Hgb Hct MCV MCH MCHC RDW Plt Count MPV Neut % (Auto) Lymph % (Auto) [place] % (Auto) Eos % (Auto) Baso % (Auto) Lymph # (Auto) [place] # (Auto) Eos # (Auto) Baso # (Auto) Absolute Neuts (auto) PT 258.4 H INR 22.87 H* APTT 144.2 H* pO2 VBG pH VBG pCO2 VBG HCO3 VBG Total CO2 VBG O2 Sat (Calc) VBG Base Excess VBG Potassium Sodium 131 L Chloride 93 L Glucose Lactate FiO2 Crit Value Called To Crit Value Called By Blood Gas Notified Time Potassium 3.1 L Carbon Dioxide 26 Anion Gap 15 BUN 100 H Creatinine 2.3 H Est GFR ( Amer) 25 Est GFR (Non-Af Amer) 21 Random Glucose 115 H Serum Osmolality Lactic Acid 1.7 Calcium 8.0 L Phosphorus 5.7 H Magnesium 2.6 H Total Bilirubin 0.5 AST 44 H ALT 9 Alkaline Phosphatase 253 H Lactate Dehydrogenase 879 H Total Creatine Kinase < 20 L Troponin I 0.10 NT-Pro-B Natriuret Pep Total Protein 6.0 Albumin 2.6 L Globulin 3.4 Albumin/Globulin Ratio 0.8 L Venous Blood Potassium Urine Color Urine Appearance Urine pH Ur Specific [place] Urine Protein Urine Glucose (UA) Urine Ketones Urine Blood Urine Nitrate Urine Bilirubin Urine Urobilinogen Ur Leukocyte Esterase Urine Osmolality Ur Random Creatinine U Random Total Protein Ur Random Sodium Ur Random Potassium Ur Random Urea Nitrogn Fluid Source Fluid Appearance Fluid WBC Fluid RBC Fluid Tot Cell Count Fluid Mononuclear Cell Fl Polymorphonucl Cell Fluid Comment Blood Type Antibody Screen BBK History Checked 01/19/19 01/19/19 01/19/19 08:30 08:30 09:51 WBC RBC Hgb Hct MCV MCH MCHC RDW Plt Count MPV Neut % (Auto) Lymph % (Auto) [place] % (Auto) Eos % (Auto) Baso % (Auto) Lymph # (Auto) [place] # (Auto) Eos # (Auto) Baso # (Auto) Absolute Neuts (auto) PT INR APTT pO2 VBG pH VBG pCO2 VBG HCO3 VBG Total CO2 VBG O2 Sat (Calc) VBG Base Excess VBG Potassium Sodium Chloride Glucose Lactate FiO2 Crit Value Called To Crit Value Called By Blood Gas Notified Time Potassium Carbon Dioxide Anion Gap BUN Creatinine Est GFR ( Amer) Est GFR (Non-Af Amer) Random Glucose Serum Osmolality Lactic Acid Calcium Phosphorus Magnesium Total Bilirubin AST ALT Alkaline Phosphatase Lactate Dehydrogenase 901 H Total Creatine Kinase 42 Troponin I 0.09 NT-Pro-B Natriuret Pep Total Protein Albumin Globulin Albumin/Globulin Ratio Venous Blood Potassium Urine Color Urine Appearance Urine pH Ur Specific [place] Urine Protein Urine Glucose (UA) Urine Ketones Urine Blood Urine Nitrate Urine Bilirubin Urine Urobilinogen Ur Leukocyte Esterase Urine Osmolality Ur Random Creatinine U Random Total Protein Ur Random Sodium Ur Random Potassium Ur Random Urea Nitrogn Fluid Source Peritoneal Fluid Appearance Turbid Fluid WBC 438.0 H Fluid RBC 880.0 H Fluid Tot Cell Count 100 H Fluid Mononuclear Cell 53.2 H Fl Polymorphonucl Cell 46.8 H Fluid Comment White Blood Type A POSITIVE Antibody Screen Negative BBK History Checked Patient has bt 01/19/19 10:30 WBC RBC Hgb Hct MCV MCH MCHC RDW Plt Count MPV Neut % (Auto) Lymph % (Auto) [place] % (Auto) Eos % (Auto) Baso % (Auto) Lymph # (Auto) [place] # (Auto) Eos # (Auto) Baso # (Auto) Absolute Neuts (auto) PT INR APTT pO2 VBG pH VBG pCO2 VBG HCO3 VBG Total CO2 VBG O2 Sat (Calc) VBG Base Excess VBG Potassium Sodium Chloride Glucose Lactate FiO2 Crit Value Called To Crit Value Called By Blood Gas Notified Time Potassium Carbon Dioxide Anion Gap BUN Creatinine Est GFR ( Amer) Est GFR (Non-Af Amer) Random Glucose Serum Osmolality Lactic Acid Calcium Phosphorus Magnesium Total Bilirubin AST ALT Alkaline Phosphatase Lactate Dehydrogenase Total Creatine Kinase Troponin I NT-Pro-B Natriuret Pep Total Protein Albumin Globulin Albumin/Globulin Ratio Venous Blood Potassium Urine Color Urine Appearance Urine pH Ur Specific [place] Urine Protein Urine Glucose (UA) Urine Ketones Urine Blood Urine Nitrate Urine Bilirubin Urine Urobilinogen Ur Leukocyte Esterase Urine Osmolality 451 Ur Random Creatinine 91 U Random Total Protein 36 Ur Random Sodium < 5 Ur Random Potassium 26.8 Ur Random Urea Nitrogn 757 Fluid Source Fluid Appearance Fluid WBC Fluid RBC Fluid Tot Cell Count Fluid Mononuclear Cell Fl Polymorphonucl Cell Fluid Comment Blood Type Antibody Screen BBK History Checked Assessment & Plan - Assessment and Plan (Free Text) Assessment: 73 year old female with a PMH of ovarian CA, malignant ascites s/p aspira cathter 1 month ago, LLE DVTs, HTN, HLD, T2DM presenting with chief complaint of cough and fatigue. Infectious disease consultation was requested for sepsis. Plan: Sepsis with tachycardia, tachypnea and leukopenia (3/4) and likely secondary to HAP and/or peritoneal infection Ovarian CA Recurrent malignant ascites HTN HLD T2DM Pancultured, awaiting results Personally obtained aspira catheter drainage system and collected just under 1L of fluid and sent everything for analysis, cytology, and culture Will follow up results Possible RML consolidation noted on last CXR, will repeat and compare to better elucidate Pending legioneally and strep Ag and procal, will follow Started on doxy, merrem and will given 1 dose of vancomycin given her EMMA Pending eval by nephrology Discussed with ICU team All questions from family welcomed and answered We will follow with you Patient was seen and examined and case to be discussed with attending physician Thank you for the pleasure of participating in the care of this interesting patient - Date & Time Date: 01/19/19 Time: 10:50 <Adonis He - Last Filed: 01/19/19 12:47> Meds - Medications Medications: Current Medications Albumin Human (Albumin Human 25% (25 Gm/100 Ml)) 25 gm IV Q5H MARTIN Stop: 01/20/19 07:16 Hydrocortisone (Anusol-Hc) 0 gm SC BID MARTIN Sodium Chloride (Sodium Chloride 0.9%) 250 mls @ 60 mls/hr IV .Q4H10M MARTIN Last Admin: 01/19/19 04:03 Dose: 60 mls/hr Doxycycline Hyclate 100 mg/ (Sodium Chloride) 100 mls @ 100 mls/hr IVPB Q12 MARTIN; Protocol Last Admin: 01/19/19 10:52 Dose: 100 mls/hr Meropenem/Sodium Chloride (Merrem Iv 500 Mg/Ns 50 Ml) 500 mg in 50 mls @ 100 mls/hr IVPB Q12 MARTIN; Protocol Stop: 01/27/19 10:01 Last Admin: 01/19/19 10:51 Dose: 100 mls/hr Morphine Sulfate (Morphine) 1 mg IVP Q4H PRN PRN Reason: Pain, moderate (4-7) Last Admin: 01/19/19 11:19 Dose: 1 mg Pantoprazole Sodium (Protonix Inj) 40 mg IVP DAILY MARTIN Last Admin: 01/19/19 10:46 Dose: 40 mg Results - Vital Signs Recent Vital Signs: Last Vital Signs Temp 98.2 F 01/19/19 04:16 Pulse 115 H 01/19/19 10:10 Resp 23 01/19/19 10:10 BP 125/70 01/19/19 10:00 Pulse Ox 99 01/19/19 10:10 - Labs Result Diagrams: 01/19/19 04:30 01/19/19 04:30 Labs: Laboratory Results - last 24 hr 01/18/19 01/18/19 01/18/19 22:00 22:02 22:02 WBC 2.8 L D RBC 3.78 Hgb 9.9 L Hct 31.1 L MCV 82.3 MCH 26.2 MCHC 31.8 RDW 19.5 H Plt Count 271 MPV 9.0 Neut % (Auto) 83.0 H Lymph % (Auto) 15.2 L [place] % (Auto) 1.4 Eos % (Auto) 0.4 L Baso % (Auto) 0.0 Lymph # (Auto) 0.4 L [place] # (Auto) 0.0 L Eos # (Auto) 0.0 Baso # (Auto) 0.00 Absolute Neuts (auto) 2.29 PT Cancelled INR Cancelled APTT Cancelled pO2 39 VBG pH 7.40 VBG pCO2 40.0 VBG HCO3 24.8 VBG Total CO2 26.0 VBG O2 Sat (Calc) 77.4 H VBG Base Excess 0.0 VBG Potassium 2.4 L* Sodium 128.0 L Chloride 92.0 L Glucose 137 H Lactate 3.0 H FiO2 28.0 Crit Value Called To waybill clerk Crit Value Called By Jj Blood Gas Notified Time 2207 Potassium Carbon Dioxide Anion Gap BUN Creatinine Est GFR ( Amer) Est GFR (Non-Af Amer) Random Glucose Serum Osmolality Lactic Acid Calcium Phosphorus Magnesium Total Bilirubin AST ALT Alkaline Phosphatase Lactate Dehydrogenase Total Creatine Kinase Troponin I NT-Pro-B Natriuret Pep Total Protein Albumin Globulin Albumin/Globulin Ratio Venous Blood Potassium 2.4 L* Urine Color Urine Appearance Urine pH Ur Specific [place] Urine Protein Urine Glucose (UA) Urine Ketones Urine Blood Urine Nitrate Urine Bilirubin Urine Urobilinogen Ur Leukocyte Esterase Urine Osmolality Ur Random Creatinine U Random Total Protein Ur Random Sodium Ur Random Potassium Ur Random Urea Nitrogn Fluid Source Fluid Appearance Fluid WBC Fluid RBC Fluid Tot Cell Count Fluid Mononuclear Cell Fl Polymorphonucl Cell Fluid Comment Blood Type Antibody Screen BBK History Checked 01/18/19 01/18/19 01/19/19 22:02 23:15 00:30 WBC RBC Hgb Hct MCV MCH MCHC RDW Plt Count MPV Neut % (Auto) Lymph % (Auto) [place] % (Auto) Eos % (Auto) Baso % (Auto) Lymph # (Auto) [place] # (Auto) Eos # (Auto) Baso # (Auto) Absolute Neuts (auto) PT 206.1 H INR 18.57 H* APTT 65.2 H pO2 VBG pH VBG pCO2 VBG HCO3 VBG Total CO2 VBG O2 Sat (Calc) VBG Base Excess VBG Potassium Sodium 129 L Chloride 90 L Glucose Lactate FiO2 Crit Value Called To Crit Value Called By Blood Gas Notified Time Potassium 2.5 L* D Carbon Dioxide 26 Anion Gap 16 BUN 99 H Creatinine 2.3 H Est GFR ( Amer) 25 Est GFR (Non-Af Amer) 21 Random Glucose 136 H Serum Osmolality Lactic Acid Calcium 8.1 L Phosphorus 6.2 H Magnesium 2.8 H Total Bilirubin 0.5 AST 37 H ALT 16 Alkaline Phosphatase 227 H D Lactate Dehydrogenase Total Creatine Kinase Troponin I 0.11 D NT-Pro-B Natriuret Pep 6110 H Total Protein 6.1 Albumin 2.5 L Globulin 3.6 Albumin/Globulin Ratio 0.7 L Venous Blood Potassium Urine Color Dark yellow Urine Appearance Clear Urine pH 6.0 Ur Specific [place] 1.025 Urine Protein Negative Urine Glucose (UA) Negative Urine Ketones Negative Urine Blood Negative Urine Nitrate Negative Urine Bilirubin Negative Urine Urobilinogen 0.2 Ur Leukocyte Esterase Negative Urine Osmolality Ur Random Creatinine U Random Total Protein Ur Random Sodium Ur Random Potassium Ur Random Urea Nitrogn Fluid Source Fluid Appearance Fluid WBC Fluid RBC Fluid Tot Cell Count Fluid Mononuclear Cell Fl Polymorphonucl Cell Fluid Comment Blood Type Antibody Screen BBK History Checked 01/19/19 01/19/19 01/19/19 01:20 01:20 04:30 WBC 2.2 L D RBC 3.65 Hgb 9.4 L Hct 29.9 L MCV 81.9 MCH 25.8 MCHC 31.4 RDW 19.5 H Plt Count 236 MPV 8.9 Neut % (Auto) 80.6 H Lymph % (Auto) 16.2 L [place] % (Auto) 3.2 Eos % (Auto) 0.0 L Baso % (Auto) 0.0 Lymph # (Auto) 0.4 L [place] # (Auto) 0.1 Eos # (Auto) 0.0 Baso # (Auto) 0.00 Absolute Neuts (auto) 1.79 PT INR APTT pO2 75 H VBG pH 7.43 VBG pCO2 37.0 L VBG HCO3 24.6 VBG Total CO2 25.7 VBG O2 Sat (Calc) 96.9 H VBG Base Excess 0.5 VBG Potassium 2.7 L Sodium 129.0 L Chloride 92.0 L Glucose 131 H Lactate 2.1 FiO2 21.0 Crit Value Called To Crit Value Called By Blood Gas Notified Time Potassium Carbon Dioxide Anion Gap BUN Creatinine Est GFR ( Amer) Est GFR (Non-Af Amer) Random Glucose Serum Osmolality 307 H Lactic Acid Calcium Phosphorus Magnesium Total Bilirubin AST ALT Alkaline Phosphatase Lactate Dehydrogenase Total Creatine Kinase Troponin I NT-Pro-B Natriuret Pep Total Protein Albumin Globulin Albumin/Globulin Ratio Venous Blood Potassium 2.7 L Urine Color Urine Appearance Urine pH Ur Specific [place] Urine Protein Urine Glucose (UA) Urine Ketones Urine Blood Urine Nitrate Urine Bilirubin Urine Urobilinogen Ur Leukocyte Esterase Urine Osmolality Ur Random Creatinine U Random Total Protein Ur Random Sodium Ur Random Potassium Ur Random Urea Nitrogn Fluid Source Fluid Appearance Fluid WBC Fluid RBC Fluid Tot Cell Count Fluid Mononuclear Cell Fl Polymorphonucl Cell Fluid Comment Blood Type Antibody Screen BBK History Checked 01/19/19 01/19/19 01/19/19 04:30 04:30 04:30 WBC RBC Hgb Hct MCV MCH MCHC RDW Plt Count MPV Neut % (Auto) Lymph % (Auto) [place] % (Auto) Eos % (Auto) Baso % (Auto) Lymph # (Auto) [place] # (Auto) Eos # (Auto) Baso # (Auto) Absolute Neuts (auto) PT 258.4 H INR 22.87 H* APTT 144.2 H* pO2 VBG pH VBG pCO2 VBG HCO3 VBG Total CO2 VBG O2 Sat (Calc) VBG Base Excess VBG Potassium Sodium 131 L Chloride 93 L Glucose Lactate FiO2 Crit Value Called To Crit Value Called By Blood Gas Notified Time Potassium 3.1 L Carbon Dioxide 26 Anion Gap 15 BUN 100 H Creatinine 2.3 H Est GFR ( Amer) 25 Est GFR (Non-Af Amer) 21 Random Glucose 115 H Serum Osmolality Lactic Acid 1.7 Calcium 8.0 L Phosphorus 5.7 H Magnesium 2.6 H Total Bilirubin 0.5 AST 44 H ALT 9 Alkaline Phosphatase 253 H Lactate Dehydrogenase 879 H Total Creatine Kinase < 20 L Troponin I 0.10 NT-Pro-B Natriuret Pep Total Protein 6.0 Albumin 2.6 L Globulin 3.4 Albumin/Globulin Ratio 0.8 L Venous Blood Potassium Urine Color Urine Appearance Urine pH Ur Specific [place] Urine Protein Urine Glucose (UA) Urine Ketones Urine Blood Urine Nitrate Urine Bilirubin Urine Urobilinogen Ur Leukocyte Esterase Urine Osmolality Ur Random Creatinine U Random Total Protein Ur Random Sodium Ur Random Potassium Ur Random Urea Nitrogn Fluid Source Fluid Appearance Fluid WBC Fluid RBC Fluid Tot Cell Count Fluid Mononuclear Cell Fl Polymorphonucl Cell Fluid Comment Blood Type Antibody Screen BBK History Checked 01/19/19 01/19/19 01/19/19 08:30 08:30 09:51 WBC RBC Hgb Hct MCV MCH MCHC RDW Plt Count MPV Neut % (Auto) Lymph % (Auto) [place] % (Auto) Eos % (Auto) Baso % (Auto) Lymph # (Auto) [place] # (Auto) Eos # (Auto) Baso # (Auto) Absolute Neuts (auto) PT INR APTT pO2 VBG pH VBG pCO2 VBG HCO3 VBG Total CO2 VBG O2 Sat (Calc) VBG Base Excess VBG Potassium Sodium Chloride Glucose Lactate FiO2 Crit Value Called To Crit Value Called By Blood Gas Notified Time Potassium Carbon Dioxide Anion Gap BUN Creatinine Est GFR ( Amer) Est GFR (Non-Af Amer) Random Glucose Serum Osmolality Lactic Acid Calcium Phosphorus Magnesium Total Bilirubin AST ALT Alkaline Phosphatase Lactate Dehydrogenase 901 H Total Creatine Kinase 42 Troponin I 0.09 NT-Pro-B Natriuret Pep Total Protein Albumin Globulin Albumin/Globulin Ratio Venous Blood Potassium Urine Color Urine Appearance Urine pH Ur Specific [place] Urine Protein Urine Glucose (UA) Urine Ketones Urine Blood Urine Nitrate Urine Bilirubin Urine Urobilinogen Ur Leukocyte Esterase Urine Osmolality Ur Random Creatinine U Random Total Protein Ur Random Sodium Ur Random Potassium Ur Random Urea Nitrogn Fluid Source Peritoneal Fluid Appearance Turbid Fluid WBC 438.0 H Fluid RBC 880.0 H Fluid Tot Cell Count 100 H Fluid Mononuclear Cell 53.2 H Fl Polymorphonucl Cell 46.8 H Fluid Comment White Blood Type A POSITIVE Antibody Screen Negative BBK History Checked Patient has bt 01/19/19 10:30 WBC RBC Hgb Hct MCV MCH MCHC RDW Plt Count MPV Neut % (Auto) Lymph % (Auto) [place] % (Auto) Eos % (Auto) Baso % (Auto) Lymph # (Auto) [place] # (Auto) Eos # (Auto) Baso # (Auto) Absolute Neuts (auto) PT INR APTT pO2 VBG pH VBG pCO2 VBG HCO3 VBG Total CO2 VBG O2 Sat (Calc) VBG Base Excess VBG Potassium Sodium Chloride Glucose Lactate FiO2 Crit Value Called To Crit Value Called By Blood Gas Notified Time Potassium Carbon Dioxide Anion Gap BUN Creatinine Est GFR ( Amer) Est GFR (Non-Af Amer) Random Glucose Serum Osmolality Lactic Acid Calcium Phosphorus Magnesium Total Bilirubin AST ALT Alkaline Phosphatase Lactate Dehydrogenase Total Creatine Kinase Troponin I NT-Pro-B Natriuret Pep Total Protein Albumin Globulin Albumin/Globulin Ratio Venous Blood Potassium Urine Color Urine Appearance Urine pH Ur Specific [place] Urine Protein Urine Glucose (UA) Urine Ketones Urine Blood Urine Nitrate Urine Bilirubin Urine Urobilinogen Ur Leukocyte Esterase Urine Osmolality 451 Ur Random Creatinine 91 U Random Total Protein 36 Ur Random Sodium < 5 Ur Random Potassium 26.8 Ur Random Urea Nitrogn 757 Fluid Source Fluid Appearance Fluid WBC Fluid RBC Fluid Tot Cell Count Fluid Mononuclear Cell Fl Polymorphonucl Cell Fluid Comment Blood Type Antibody Screen BBK History Checked Attending/Attestation - Attestation I have personally seen and examined this patient.: Yes I have fully participated in the care of the patient.: Yes I have reviewed all pertinent clinical information: Yes Notes (Text): 01/19/19 12:45 SEVERE SEPSIS HCAP EMMA ON TOP OF 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
--- NOTE | 2019-01-19 11:55 | CP.CCUPN ---
<CarmenDennis - Last Filed: 01/19/19 14:06> CCU Subjective - Physician Review Subjective (Free Text): Dennis Morales DO. Critical Care Progress note Patient seen and examined at bedside. She is awake, oriented in NAD but looks lethargic, dehydrated. Admits to productive cough, chills, dysurea. Denies CP, SOB, palpitations, leg pain CCU Objective - Vital Signs / Intake & Output Vital Signs (Last 4 hours): Vital Signs Pulse Resp BP Pulse Ox 01/19/19 10:10 115 H 23 99 01/19/19 10:00 125 H 25 H 125/70 97 01/19/19 09:50 120 H 25 H 99 01/19/19 09:45 115 H 26 H 119/67 97 01/19/19 09:40 113 H 25 H 97 01/19/19 09:30 116 H 26 H 110/63 97 01/19/19 09:20 122 H 27 H 99 01/19/19 09:15 116 H 27 H 118/63 95 01/19/19 09:10 130 H 26 H 96 01/19/19 09:00 130 H 23 114/67 91 L 01/19/19 08:50 122 H 27 H 99 01/19/19 08:45 120 H 26 H 112/72 97 01/19/19 08:40 121 H 25 H 100 01/19/19 08:30 124 H 24 126/67 90 L 01/19/19 08:20 120 H 20 98 01/19/19 08:15 118 H 28 H 114/66 92 L 01/19/19 08:10 123 H 28 H 99 01/19/19 08:00 119 H 28 H 111/62 98 Intake and Output (Last 8hrs): Intake & Output 01/18/19 01/19/19 01/19/19 22:59 06:59 14:59 Intake Total 390 Output Total 140 Balance 250 Weight 160 lb 169 lb 12.8 oz Intake: IV 390 Gregorio cath 390 Output: Urine 140 Urethral (Carbajal) 140 - Physical Exam Head: Positive for: Atraumatic, Normocephalic Pupils: Positive for: PERRL Extroacular Muscles: Positive for: EOMI Conjunctiva: Positive for: Normal Ears: Positive for: Normal Mouth: Positive for: Dry Pharnyx: Positive for: Normal Respiratory/Chest: Positive for: Decreased Breath Sounds. Negative for: Res piratory Distress, Wheezes, Rhonchi Cardiovascular: Positive for: Regular Rate and Rhythm, Normal S1, S2. Negative for: Rub, Gallop Abdomen: Positive for: Tenderness (on deep palpation), Distention. Negative for: Guarding, Hernias, Mass/Organomegaly Back: Positive for: Normal Inspection. Negative for: CVA Tenderness Upper Extremity: Positive for: Normal Inspection, Normal ROM, NORMAL PULSES. Negative for: Cyanosis, Edema Lower Extremity: Positive for: Edema, NORMAL PULSES, Swelling. Negative for: CALF TENDERNESS Neurological: Positive for: GCS=15, CN II-XII Intact, Speech Normal, Motor Func Grossly Intact Skin: Positive for: Warm, Dry, Normal Color. Negative for: Rashes Psychiatric: Positive for: Alert, Oriented x 3 - Medications Active Medications: Active Medications Generic Name Dose Route Start Last Admin Trade Name Freq PRN Reason Stop Dose Admin Albumin Human 25 gm 01/19/19 11:15 Albumin Human 25% (25 Gm/100 Ml) IV 01/20/19 07:16 Q5H MARTIN Hydrocortisone 0 gm 01/19/19 10:00 Anusol-Hc GA BID MARTIN Sodium Chloride 250 mls @ 60 mls/hr 01/18/19 22:00 01/19/19 04:03 Sodium Chloride 0.9% IV 60 mls/hr .[id number] MARTIN Administration Doxycycline Hyclate 100 mg/ 100 mls @ 100 mls/hr 01/19/19 10:00 01/19/19 10:52 Sodium Chloride IVPB 100 mls/hr Q12 MARTIN Administration Protocol Meropenem/Sodium Chloride 500 mg in 50 mls @ 100 mls/hr 01/19/19 10:00 01/19/19 10:51 Merrem Iv 500 Mg/Ns 50 Ml IVPB 01/27/19 10:01 100 mls/hr Q12 MARTIN Administration Protocol Morphine Sulfate 1 mg 01/19/19 10:17 01/19/19 11:19 Morphine IVP 1 mg Q4H PRN Administration Pain, moderate (4-7) Pantoprazole Sodium 40 mg 01/19/19 10:00 01/19/19 10:46 Protonix Inj IVP 40 mg DAILY MARTIN Administration - Patient Studies Lab Studies: Lab Studies 01/19/19 01/19/19 01/19/19 Range/Units 10:30 09:51 08:30 WBC (4.5-11.0) 10^3/uL RBC (3.5-6.1) 10^6/uL Hgb (12.0-16.0) g/dL Hct (36.0-48.0) % MCV (80.0-105.0) fl MCH (25.0-35.0) pg MCHC (31.0-37.0) g/dl RDW (11.5-14.5) % Plt Count (120.0-450.0) 10^3/uL MPV (7.0-11.0) fl Neut % (Auto) (50.0-68.0) % Lymph % (Auto) (22.0-35.0) % [place] % (Auto) (1.0-6.0) % Eos % (Auto) (1.5-5.0) % Baso % (Auto) (0.0-3.0) % Lymph # (Auto) (1.2-3.4) [place] # (Auto) (0.1-0.6) Eos # (Auto) (0.0-0.7) Baso # (Auto) (0.0-2.0) K/mm3 Absolute Neuts (auto) (1.4-6.5) PT INR APTT pO2 (30-55) mm/Hg VBG pH (7.32-7.43) VBG pCO2 (40-60) VBG HCO3 (21-28) mmol/l VBG Total CO2 (22-28) mmol.L VBG O2 Sat (Calc) (40-65) % VBG Base Excess (0.0-2.0) mmol/L VBG Potassium (3.6-5.2) mmol/L Sodium (132-148) mmol/L Chloride (98-107) mmol/L Glucose (65-105) mg/dl Lactate (0.7-2.1) mmol/L FiO2 % Crit Value Called To Crit Value Called By Blood Gas Notified Time Potassium (3.6-5.0) mmol/L Carbon Dioxide (21-33) mmol/L Anion Gap (10-20) BUN (7-21) mg/dL Creatinine (0.7-1.2) mg/dl Est GFR ( Amer) Est GFR (Non-Af Amer) Random Glucose (70-110) mg/dL Serum Osmolality (272-300) mosm/kg Lactic Acid (0.7-2.1) mmol/L Calcium (8.4-10.5) mg/dL Phosphorus (2.5-4.5) mg/dL Magnesium (1.7-2.2) mg/dL Total Bilirubin (0.2-1.3) mg/dL AST (14-36) U/L ALT (7-56) U/L Alkaline Phosphatase (38-126) U/L Lactate Dehydrogenase (333-699) U/L Total Creatine Kinase (35-230) U/L Troponin I ng/mL NT-Pro-B Natriuret Pep (0-450) pg/mL Total Protein (5.8-8.3) g/dL Albumin (3.0-4.8) g/dL Globulin gm/dL Albumin/Globulin Ratio (1.1-1.8) Venous Blood Potassium (3.6-5.2) mmol/L Urine Color (YELLOW) Urine Appearance (CLEAR) Urine pH (4.7-8.0) Ur Specific [place] (1.005-1.035) Urine Protein (<30 mg/dL) mg/dL Urine Glucose (UA) (NEGATIVE) mg/dL Urine Ketones (NEGATIVE) mg/dL Urine Blood (NEGATIVE) Urine Nitrate (NEGATIVE) Urine Bilirubin (NEGATIVE) Urine Urobilinogen (<1 E.U./dL) E.U./dL Ur Leukocyte Esterase (NEGATIVE) [place]/uL Urine Osmolality 451 (300-1000) mosm/kg Ur Random Creatinine 91 mg/dL U Random Total Protein 36 mg/L Ur Random Sodium < 5 meq/L Ur Random Potassium 26.8 meq/L Ur Random Urea Nitrogn 757 mg/dL Fluid Source Peritoneal Fluid Appearance Turbid (CLEAR) Fluid WBC 438.0 H (0.0-300.0) /uL Fluid RBC 880.0 H (0.0-0.0) /uL Fluid Tot Cell Count 100 H (0-0) Fluid Mononuclear Cell 53.2 H (0-0) % Fl Polymorphonucl Cell 46.8 H (0-0) % Fluid Comment White Blood Type A POSITIVE Antibody Screen Negative BBK History Checked Patient has bt 01/19/19 01/19/19 01/19/19 Range/Units 08:30 04:30 04:30 WBC (4.5-11.0) 10^3/uL RBC (3.5-6.1) 10^6/uL Hgb (12.0-16.0) g/dL Hct (36.0-48.0) % MCV (80.0-105.0) fl MCH (25.0-35.0) pg MCHC (31.0-37.0) g/dl RDW (11.5-14.5) % Plt Count (120.0-450.0) 10^3/uL MPV (7.0-11.0) fl Neut % (Auto) (50.0-68.0) % Lymph % (Auto) (22.0-35.0) % [place] % (Auto) (1.0-6.0) % Eos % (Auto) (1.5-5.0) % Baso % (Auto) (0.0-3.0) % Lymph # (Auto) (1.2-3.4) [place] # (Auto) (0.1-0.6) Eos # (Auto) (0.0-0.7) Baso # (Auto) (0.0-2.0) K/mm3 Absolute Neuts (auto) (1.4-6.5) PT INR APTT pO2 (30-55) mm/Hg VBG pH (7.32-7.43) VBG pCO2 (40-60) VBG HCO3 (21-28) mmol/l VBG Total CO2 (22-28) mmol.L VBG O2 Sat (Calc) (40-65) % VBG Base Excess (0.0-2.0) mmol/L VBG Potassium (3.6-5.2) mmol/L Sodium 131 L (132-148) mmol/L Chloride 93 L (98-107) mmol/L Glucose (65-105) mg/dl Lactate (0.7-2.1) mmol/L FiO2 % Crit Value Called To Crit Value Called By Blood Gas Notified Time Potassium 3.1 L (3.6-5.0) mmol/L Carbon Dioxide 26 (21-33) mmol/L Anion Gap 15 (10-20) BUN 100 H (7-21) mg/dL Creatinine 2.3 H (0.7-1.2) mg/dl Est GFR ( Amer) 25 Est GFR (Non-Af Amer) 21 Random Glucose 115 H (70-110) mg/dL Serum Osmolality (272-300) mosm/kg Lactic Acid 1.7 (0.7-2.1) mmol/L Calcium 8.0 L (8.4-10.5) mg/dL Phosphorus 5.7 H (2.5-4.5) mg/dL Magnesium 2.6 H (1.7-2.2) mg/dL Total Bilirubin 0.5 (0.2-1.3) mg/dL AST 44 H (14-36) U/L ALT 9 (7-56) U/L Alkaline Phosphatase 253 H (38-126) U/L Lactate Dehydrogenase 901 H 879 H (333-699) U/L Total Creatine Kinase 42 < 20 L (35-230) U/L Troponin I 0.09 0.10 ng/mL NT-Pro-B Natriuret Pep (0-450) pg/mL Total Protein 6.0 (5.8-8.3) g/dL Albumin 2.6 L (3.0-4.8) g/dL Globulin 3.4 gm/dL Albumin/Globulin Ratio 0.8 L (1.1-1.8) Venous Blood Potassium (3.6-5.2) mmol/L Urine Color (YELLOW) Urine Appearance (CLEAR) Urine pH (4.7-8.0) Ur Specific [place] (1.005-1.035) Urine Protein (<30 mg/dL) mg/dL Urine Glucose (UA) (NEGATIVE) mg/dL Urine Ketones (NEGATIVE) mg/dL Urine Blood (NEGATIVE) Urine Nitrate (NEGATIVE) Urine Bilirubin (NEGATIVE) Urine Urobilinogen (<1 E.U./dL) E.U./dL Ur Leukocyte Esterase (NEGATIVE) [place]/uL Urine Osmolality (300-1000) mosm/kg Ur Random Creatinine mg/dL U Random Total Protein mg/L Ur Random Sodium meq/L Ur Random Potassium meq/L Ur Random Urea Nitrogn mg/dL Fluid Source Fluid Appearance (CLEAR) Fluid WBC (0.0-300.0) /uL Fluid RBC (0.0-0.0) /uL Fluid Tot Cell Count (0-0) Fluid Mononuclear Cell (0-0) % Fl Polymorphonucl Cell (0-0) % Fluid Comment Blood Type Antibody Screen BBK History Checked 01/19/19 01/19/19 01/19/19 Range/Units 04:30 04:30 01:20 WBC 2.2 L D (4.5-11.0) 10^3/uL RBC 3.65 (3.5-6.1) 10^6/uL Hgb 9.4 L (12.0-16.0) g/dL Hct 29.9 L (36.0-48.0) % MCV 81.9 (80.0-105.0) fl MCH 25.8 (25.0-35.0) pg MCHC 31.4 (31.0-37.0) g/dl RDW 19.5 H (11.5-14.5) % Plt Count 236 (120.0-450.0) 10^3/uL MPV 8.9 (7.0-11.0) fl Neut % (Auto) 80.6 H (50.0-68.0) % Lymph % (Auto) 16.2 L (22.0-35.0) % [place] % (Auto) 3.2 (1.0-6.0) % Eos % (Auto) 0.0 L (1.5-5.0) % Baso % (Auto) 0.0 (0.0-3.0) % Lymph # (Auto) 0.4 L (1.2-3.4) [place] # (Auto) 0.1 (0.1-0.6) Eos # (Auto) 0.0 (0.0-0.7) Baso # (Auto) 0.00 (0.0-2.0) K/mm3 Absolute Neuts (auto) 1.79 (1.4-6.5) PT 258.4 H INR 22.87 H* APTT 144.2 H* pO2 75 H (30-55) mm/Hg VBG pH 7.43 (7.32-7.43) VBG pCO2 37.0 L (40-60) VBG HCO3 24.6 (21-28) mmol/l VBG Total CO2 25.7 (22-28) mmol.L VBG O2 Sat (Calc) 96.9 H (40-65) % VBG Base Excess 0.5 (0.0-2.0) mmol/L VBG Potassium 2.7 L (3.6-5.2) mmol/L Sodium 129.0 L (132-148) mmol/L Chloride 92.0 L (98-107) mmol/L Glucose 131 H (65-105) mg/dl Lactate 2.1 (0.7-2.1) mmol/L FiO2 21.0 % Crit Value Called To Crit Value Called By Blood Gas Notified Time Potassium (3.6-5.0) mmol/L Carbon Dioxide (21-33) mmol/L Anion Gap (10-20) BUN (7-21) mg/dL Creatinine (0.7-1.2) mg/dl Est GFR ( Amer) Est GFR (Non-Af Amer) Random Glucose (70-110) mg/dL Serum Osmolality (272-300) mosm/kg Lactic Acid (0.7-2.1) mmol/L Calcium (8.4-10.5) mg/dL Phosphorus (2.5-4.5) mg/dL Magnesium (1.7-2.2) mg/dL Total Bilirubin (0.2-1.3) mg/dL AST (14-36) U/L ALT (7-56) U/L Alkaline Phosphatase (38-126) U/L Lactate Dehydrogenase (333-699) U/L Total Creatine Kinase (35-230) U/L Troponin I ng/mL NT-Pro-B Natriuret Pep (0-450) pg/mL Total Protein (5.8-8.3) g/dL Albumin (3.0-4.8) g/dL Globulin gm/dL Albumin/Globulin Ratio (1.1-1.8) Venous Blood Potassium 2.7 L (3.6-5.2) mmol/L Urine Color (YELLOW) Urine Appearance (CLEAR) Urine pH (4.7-8.0) Ur Specific [place] (1.005-1.035) Urine Protein (<30 mg/dL) mg/dL Urine Glucose (UA) (NEGATIVE) mg/dL Urine Ketones (NEGATIVE) mg/dL Urine Blood (NEGATIVE) Urine Nitrate (NEGATIVE) Urine Bilirubin (NEGATIVE) Urine Urobilinogen (<1 E.U./dL) E.U./dL Ur Leukocyte Esterase (NEGATIVE) [place]/uL Urine Osmolality (300-1000) mosm/kg Ur Random Creatinine mg/dL U Random Total Protein mg/L Ur Random Sodium meq/L Ur Random Potassium meq/L Ur Random Urea Nitrogn mg/dL Fluid Source Fluid Appearance (CLEAR) Fluid WBC (0.0-300.0) /uL Fluid RBC (0.0-0.0) /uL Fluid Tot Cell Count (0-0) Fluid Mononuclear Cell (0-0) % Fl Polymorphonucl Cell (0-0) % Fluid Comment Blood Type Antibody Screen BBK History Checked 01/19/19 01/19/19 01/18/19 Range/Units 01:20 00:30 23:15 WBC (4.5-11.0) 10^3/uL RBC (3.5-6.1) 10^6/uL Hgb (12.0-16.0) g/dL Hct (36.0-48.0) % MCV (80.0-105.0) fl MCH (25.0-35.0) pg MCHC (31.0-37.0) g/dl RDW (11.5-14.5) % Plt Count (120.0-450.0) 10^3/uL MPV (7.0-11.0) fl Neut % (Auto) (50.0-68.0) % Lymph % (Auto) (22.0-35.0) % [place] % (Auto) (1.0-6.0) % Eos % (Auto) (1.5-5.0) % Baso % (Auto) (0.0-3.0) % Lymph # (Auto) (1.2-3.4) [place] # (Auto) (0.1-0.6) Eos # (Auto) (0.0-0.7) Baso # (Auto) (0.0-2.0) K/mm3 Absolute Neuts (auto) (1.4-6.5) PT 206.1 H INR 18.57 H* APTT 65.2 H pO2 (30-55) mm/Hg VBG pH (7.32-7.43) VBG pCO2 (40-60) VBG HCO3 (21-28) mmol/l VBG Total CO2 (22-28) mmol.L VBG O2 Sat (Calc) (40-65) % VBG Base Excess (0.0-2.0) mmol/L VBG Potassium (3.6-5.2) mmol/L Sodium (132-148) mmol/L Chloride (98-107) mmol/L Glucose (65-105) mg/dl Lactate (0.7-2.1) mmol/L FiO2 % Crit Value Called To Crit Value Called By Blood Gas Notified Time Potassium (3.6-5.0) mmol/L Carbon Dioxide (21-33) mmol/L Anion Gap (10-20) BUN (7-21) mg/dL Creatinine (0.7-1.2) mg/dl Est GFR ( Amer) Est GFR (Non-Af Amer) Random Glucose (70-110) mg/dL Serum Osmolality 307 H (272-300) mosm/kg Lactic Acid (0.7-2.1) mmol/L Calcium (8.4-10.5) mg/dL Phosphorus (2.5-4.5) mg/dL Magnesium (1.7-2.2) mg/dL Total Bilirubin (0.2-1.3) mg/dL AST (14-36) U/L ALT (7-56) U/L Alkaline Phosphatase (38-126) U/L Lactate Dehydrogenase (333-699) U/L Total Creatine Kinase (35-230) U/L Troponin I ng/mL NT-Pro-B Natriuret Pep (0-450) pg/mL Total Protein (5.8-8.3) g/dL Albumin (3.0-4.8) g/dL Globulin gm/dL Albumin/Globulin Ratio (1.1-1.8) Venous Blood Potassium (3.6-5.2) mmol/L Urine Color Dark yellow (YELLOW) Urine Appearance Clear (CLEAR) Urine pH 6.0 (4.7-8.0) Ur Specific [place] 1.025 (1.005-1.035) Urine Protein Negative (<30 mg/dL) mg/dL Urine Glucose (UA) Negative (NEGATIVE) mg/dL Urine Ketones Negative (NEGATIVE) mg/dL Urine Blood Negative (NEGATIVE) Urine Nitrate Negative (NEGATIVE) Urine Bilirubin Negative (NEGATIVE) Urine Urobilinogen 0.2 (<1 E.U./dL) E.U./dL Ur Leukocyte Esterase Negative (NEGATIVE) [place]/uL Urine Osmolality (300-1000) mosm/kg Ur Random Creatinine mg/dL U Random Total Protein mg/L Ur Random Sodium meq/L Ur Random Potassium meq/L Ur Random Urea Nitrogn mg/dL Fluid Source Fluid Appearance (CLEAR) Fluid WBC (0.0-300.0) /uL Fluid RBC (0.0-0.0) /uL Fluid Tot Cell Count (0-0) Fluid Mononuclear Cell (0-0) % Fl Polymorphonucl Cell (0-0) % Fluid Comment Blood Type Antibody Screen BBK History Checked 01/18/19 01/18/19 01/18/19 Range/Units 22:02 22:02 22:02 WBC 2.8 L D (4.5-11.0) 10^3/uL RBC 3.78 (3.5-6.1) 10^6/uL Hgb 9.9 L (12.0-16.0) g/dL Hct 31.1 L (36.0-48.0) % MCV 82.3 (80.0-105.0) fl MCH 26.2 (25.0-35.0) pg MCHC 31.8 (31.0-37.0) g/dl RDW 19.5 H (11.5-14.5) % Plt Count 271 (120.0-450.0) 10^3/uL MPV 9.0 (7.0-11.0) fl Neut % (Auto) 83.0 H (50.0-68.0) % Lymph % (Auto) 15.2 L (22.0-35.0) % [place] % (Auto) 1.4 (1.0-6.0) % Eos % (Auto) 0.4 L (1.5-5.0) % Baso % (Auto) 0.0 (0.0-3.0) % Lymph # (Auto) 0.4 L (1.2-3.4) [place] # (Auto) 0.0 L (0.1-0.6) Eos # (Auto) 0.0 (0.0-0.7) Baso # (Auto) 0.00 (0.0-2.0) K/mm3 Absolute Neuts (auto) 2.29 (1.4-6.5) PT Cancelled INR Cancelled APTT Cancelled pO2 (30-55) mm/Hg VBG pH (7.32-7.43) VBG pCO2 (40-60) VBG HCO3 (21-28) mmol/l VBG Total CO2 (22-28) mmol.L VBG O2 Sat (Calc) (40-65) % VBG Base Excess (0.0-2.0) mmol/L VBG Potassium (3.6-5.2) mmol/L Sodium 129 L (132-148) mmol/L Chloride 90 L (98-107) mmol/L Glucose (65-105) mg/dl Lactate (0.7-2.1) mmol/L FiO2 % Crit Value Called To Crit Value Called By Blood Gas Notified Time Potassium 2.5 L* D (3.6-5.0) mmol/L Carbon Dioxide 26 (21-33) mmol/L Anion Gap 16 (10-20) BUN 99 H (7-21) mg/dL Creatinine 2.3 H (0.7-1.2) mg/dl Est GFR ( Amer) 25 Est GFR (Non-Af Amer) 21 Random Glucose 136 H (70-110) mg/dL Serum Osmolality (272-300) mosm/kg Lactic Acid (0.7-2.1) mmol/L Calcium 8.1 L (8.4-10.5) mg/dL Phosphorus 6.2 H (2.5-4.5) mg/dL Magnesium 2.8 H (1.7-2.2) mg/dL Total Bilirubin 0.5 (0.2-1.3) mg/dL AST 37 H (14-36) U/L ALT 16 (7-56) U/L Alkaline Phosphatase 227 H D (38-126) U/L Lactate Dehydrogenase (333-699) U/L Total Creatine Kinase (35-230) U/L Troponin I 0.11 D ng/mL NT-Pro-B Natriuret Pep 6110 H (0-450) pg/mL Total Protein 6.1 (5.8-8.3) g/dL Albumin 2.5 L (3.0-4.8) g/dL Globulin 3.6 gm/dL Albumin/Globulin Ratio 0.7 L (1.1-1.8) Venous Blood Potassium (3.6-5.2) mmol/L Urine Color (YELLOW) Urine Appearance (CLEAR) Urine pH (4.7-8.0) Ur Specific [place] (1.005-1.035) Urine Protein (<30 mg/dL) mg/dL Urine Glucose (UA) (NEGATIVE) mg/dL Urine Ketones (NEGATIVE) mg/dL Urine Blood (NEGATIVE) Urine Nitrate (NEGATIVE) Urine Bilirubin (NEGATIVE) Urine Urobilinogen (<1 E.U./dL) E.U./dL Ur Leukocyte Esterase (NEGATIVE) [place]/uL Urine Osmolality (300-1000) mosm/kg Ur Random Creatinine mg/dL U Random Total Protein mg/L Ur Random Sodium meq/L Ur Random Potassium meq/L Ur Random Urea Nitrogn mg/dL Fluid Source Fluid Appearance (CLEAR) Fluid WBC (0.0-300.0) /uL Fluid RBC (0.0-0.0) /uL Fluid Tot Cell Count (0-0) Fluid Mononuclear Cell (0-0) % Fl Polymorphonucl Cell (0-0) % Fluid Comment Blood Type Antibody Screen BBK History Checked 01/18/19 Range/Units 22:00 WBC (4.5-11.0) 10^3/uL RBC (3.5-6.1) 10^6/uL Hgb (12.0-16.0) g/dL Hct (36.0-48.0) % MCV (80.0-105.0) fl MCH (25.0-35.0) pg MCHC (31.0-37.0) g/dl RDW (11.5-14.5) % Plt Count (120.0-450.0) 10^3/uL MPV (7.0-11.0) fl Neut % (Auto) (50.0-68.0) % Lymph % (Auto) (22.0-35.0) % [place] % (Auto) (1.0-6.0) % Eos % (Auto) (1.5-5.0) % Baso % (Auto) (0.0-3.0) % Lymph # (Auto) (1.2-3.4) [place] # (Auto) (0.1-0.6) Eos # (Auto) (0.0-0.7) Baso # (Auto) (0.0-2.0) K/mm3 Absolute Neuts (auto) (1.4-6.5) PT INR APTT pO2 39 (30-55) mm/Hg VBG pH 7.40 (7.32-7.43) VBG pCO2 40.0 (40-60) VBG HCO3 24.8 (21-28) mmol/l VBG Total CO2 26.0 (22-28) mmol.L VBG O2 Sat (Calc) 77.4 H (40-65) % VBG Base Excess 0.0 (0.0-2.0) mmol/L VBG Potassium 2.4 L* (3.6-5.2) mmol/L Sodium 128.0 L (132-148) mmol/L Chloride 92.0 L (98-107) mmol/L Glucose 137 H (65-105) mg/dl Lactate 3.0 H (0.7-2.1) mmol/L FiO2 28.0 % Crit Value Called To contract writer Crit Value Called By Jj Blood Gas Notified Time 2207 Potassium (3.6-5.0) mmol/L Carbon Dioxide (21-33) mmol/L Anion Gap (10-20) BUN (7-21) mg/dL Creatinine (0.7-1.2) mg/dl Est GFR ( Amer) Est GFR (Non-Af Amer) Random Glucose (70-110) mg/dL Serum Osmolality (272-300) mosm/kg Lactic Acid (0.7-2.1) mmol/L Calcium (8.4-10.5) mg/dL Phosphorus (2.5-4.5) mg/dL Magnesium (1.7-2.2) mg/dL Total Bilirubin (0.2-1.3) mg/dL AST (14-36) U/L ALT (7-56) U/L Alkaline Phosphatase (38-126) U/L Lactate Dehydrogenase (333-699) U/L Total Creatine Kinase (35-230) U/L Troponin I ng/mL NT-Pro-B Natriuret Pep (0-450) pg/mL Total Protein (5.8-8.3) g/dL Albumin (3.0-4.8) g/dL Globulin gm/dL Albumin/Globulin Ratio (1.1-1.8) Venous Blood Potassium 2.4 L* (3.6-5.2) mmol/L Urine Color (YELLOW) Urine Appearance (CLEAR) Urine pH (4.7-8.0) Ur Specific [place] (1.005-1.035) Urine Protein (<30 mg/dL) mg/dL Urine Glucose (UA) (NEGATIVE) mg/dL Urine Ketones (NEGATIVE) mg/dL Urine Blood (NEGATIVE) Urine Nitrate (NEGATIVE) Urine Bilirubin (NEGATIVE) Urine Urobilinogen (<1 E.U./dL) E.U./dL Ur Leukocyte Esterase (NEGATIVE) [place]/uL Urine Osmolality (300-1000) mosm/kg Ur Random Creatinine mg/dL U Random Total Protein mg/L Ur Random Sodium meq/L Ur Random Potassium meq/L Ur Random Urea Nitrogn mg/dL Fluid Source Fluid Appearance (CLEAR) Fluid WBC (0.0-300.0) /uL Fluid RBC (0.0-0.0) /uL Fluid Tot Cell Count (0-0) Fluid Mononuclear Cell (0-0) % Fl Polymorphonucl Cell (0-0) % Fluid Comment Blood Type Antibody Screen BBK History Checked Laboratory Results - last 24 hr 01/18/19 01/18/19 01/18/19 22:00 22:02 22:02 WBC 2.8 L D RBC 3.78 Hgb 9.9 L Hct 31.1 L MCV 82.3 MCH 26.2 MCHC 31.8 RDW 19.5 H Plt Count 271 MPV 9.0 Neut % (Auto) 83.0 H Lymph % (Auto) 15.2 L [place] % (Auto) 1.4 Eos % (Auto) 0.4 L Baso % (Auto) 0.0 Lymph # (Auto) 0.4 L [place] # (Auto) 0.0 L Eos # (Auto) 0.0 Baso # (Auto) 0.00 Absolute Neuts (auto) 2.29 PT Cancelled INR Cancelled APTT Cancelled pO2 39 VBG pH 7.40 VBG pCO2 40.0 VBG HCO3 24.8 VBG Total CO2 26.0 VBG O2 Sat (Calc) 77.4 H VBG Base Excess 0.0 VBG Potassium 2.4 L* Sodium 128.0 L Chloride 92.0 L Glucose 137 H Lactate 3.0 H FiO2 28.0 Crit Value Called To contract writer Crit Value Called By Arsenio Blood Gas Notified Time 2208 Potassium Carbon Dioxide Anion Gap BUN Creatinine Est GFR ( Amer) Est GFR (Non-Af Amer) Random Glucose Serum Osmolality Lactic Acid Calcium Phosphorus Magnesium Total Bilirubin AST ALT Alkaline Phosphatase Lactate Dehydrogenase Total Creatine Kinase Troponin I NT-Pro-B Natriuret Pep Total Protein Albumin Globulin Albumin/Globulin Ratio Venous Blood Potassium 2.4 L* Urine Color Urine Appearance Urine pH Ur Specific [place] Urine Protein Urine Glucose (UA) Urine Ketones Urine Blood Urine Nitrate Urine Bilirubin Urine Urobilinogen Ur Leukocyte Esterase Urine Osmolality Ur Random Creatinine U Random Total Protein Ur Random Sodium Ur Random Potassium Ur Random Urea Nitrogn Fluid Source Fluid Appearance Fluid WBC Fluid RBC Fluid Tot Cell Count Fluid Mononuclear Cell Fl Polymorphonucl Cell Fluid Comment Blood Type Antibody Screen BBK History Checked 01/18/19 01/18/19 01/19/19 22:02 23:15 00:30 WBC RBC Hgb Hct MCV MCH MCHC RDW Plt Count MPV Neut % (Auto) Lymph % (Auto) [place] % (Auto) Eos % (Auto) Baso % (Auto) Lymph # (Auto) [place] # (Auto) Eos # (Auto) Baso # (Auto) Absolute Neuts (auto) PT 206.1 H INR 18.57 H* APTT 65.2 H pO2 VBG pH VBG pCO2 VBG HCO3 VBG Total CO2 VBG O2 Sat (Calc) VBG Base Excess VBG Potassium Sodium 129 L Chloride 90 L Glucose Lactate FiO2 Crit Value Called To Crit Value Called By Blood Gas Notified Time Potassium 2.5 L* D Carbon Dioxide 26 Anion Gap 16 BUN 99 H Creatinine 2.3 H Est GFR ( Amer) 25 Est GFR (Non-Af Amer) 21 Random Glucose 136 H Serum Osmolality Lactic Acid Calcium 8.1 L Phosphorus 6.2 H Magnesium 2.8 H Total Bilirubin 0.5 AST 37 H ALT 16 Alkaline Phosphatase 227 H D Lactate Dehydrogenase Total Creatine Kinase Troponin I 0.11 D NT-Pro-B Natriuret Pep 6110 H Total Protein 6.1 Albumin 2.5 L Globulin 3.6 Albumin/Globulin Ratio 0.7 L Venous Blood Potassium Urine Color Dark yellow Urine Appearance Clear Urine pH 6.0 Ur Specific [place] 1.025 Urine Protein Negative Urine Glucose (UA) Negative Urine Ketones Negative Urine Blood Negative Urine Nitrate Negative Urine Bilirubin Negative Urine Urobilinogen 0.2 Ur Leukocyte Esterase Negative Urine Osmolality Ur Random Creatinine U Random Total Protein Ur Random Sodium Ur Random Potassium Ur Random Urea Nitrogn Fluid Source Fluid Appearance Fluid WBC Fluid RBC Fluid Tot Cell Count Fluid Mononuclear Cell Fl Polymorphonucl Cell Fluid Comment Blood Type Antibody Screen BBK History Checked 01/19/19 01/19/19 01/19/19 01:20 01:20 04:30 WBC 2.2 L D RBC 3.65 Hgb 9.4 L Hct 29.9 L MCV 81.9 MCH 25.8 MCHC 31.4 RDW 19.5 H Plt Count 236 MPV 8.9 Neut % (Auto) 80.6 H Lymph % (Auto) 16.2 L [place] % (Auto) 3.2 Eos % (Auto) 0.0 L Baso % (Auto) 0.0 Lymph # (Auto) 0.4 L [place] # (Auto) 0.1 Eos # (Auto) 0.0 Baso # (Auto) 0.00 Absolute Neuts (auto) 1.79 PT INR APTT pO2 75 H VBG pH 7.43 VBG pCO2 37.0 L VBG HCO3 24.6 VBG Total CO2 25.7 VBG O2 Sat (Calc) 96.9 H VBG Base Excess 0.5 VBG Potassium 2.7 L Sodium 129.0 L Chloride 92.0 L Glucose 131 H Lactate 2.1 FiO2 21.0 Crit Value Called To Crit Value Called By Blood Gas Notified Time Potassium Carbon Dioxide Anion Gap BUN Creatinine Est GFR ( Amer) Est GFR (Non-Af Amer) Random Glucose Serum Osmolality 307 H Lactic Acid Calcium Phosphorus Magnesium Total Bilirubin AST ALT Alkaline Phosphatase Lactate Dehydrogenase Total Creatine Kinase Troponin I NT-Pro-B Natriuret Pep Total Protein Albumin Globulin Albumin/Globulin Ratio Venous Blood Potassium 2.7 L Urine Color Urine Appearance Urine pH Ur Specific [place] Urine Protein Urine Glucose (UA) Urine Ketones Urine Blood Urine Nitrate Urine Bilirubin Urine Urobilinogen Ur Leukocyte Esterase Urine Osmolality Ur Random Creatinine U Random Total Protein Ur Random Sodium Ur Random Potassium Ur Random Urea Nitrogn Fluid Source Fluid Appearance Fluid WBC Fluid RBC Fluid Tot Cell Count Fluid Mononuclear Cell Fl Polymorphonucl Cell Fluid Comment Blood Type Antibody Screen BBK History Checked 01/19/19 01/19/19 01/19/19 04:30 04:30 04:30 WBC RBC Hgb Hct MCV MCH MCHC RDW Plt Count MPV Neut % (Auto) Lymph % (Auto) [place] % (Auto) Eos % (Auto) Baso % (Auto) Lymph # (Auto) [place] # (Auto) Eos # (Auto) Baso # (Auto) Absolute Neuts (auto) PT 258.4 H INR 22.87 H* APTT 144.2 H* pO2 VBG pH VBG pCO2 VBG HCO3 VBG Total CO2 VBG O2 Sat (Calc) VBG Base Excess VBG Potassium Sodium 131 L Chloride 93 L Glucose Lactate FiO2 Crit Value Called To Crit Value Called By Blood Gas Notified Time Potassium 3.1 L Carbon Dioxide 26 Anion Gap 15 BUN 100 H Creatinine 2.3 H Est GFR ( Amer) 25 Est GFR (Non-Af Amer) 21 Random Glucose 115 H Serum Osmolality Lactic Acid 1.7 Calcium 8.0 L Phosphorus 5.7 H Magnesium 2.6 H Total Bilirubin 0.5 AST 44 H ALT 9 Alkaline Phosphatase 253 H Lactate Dehydrogenase 879 H Total Creatine Kinase < 20 L Troponin I 0.10 NT-Pro-B Natriuret Pep Total Protein 6.0 Albumin 2.6 L Globulin 3.4 Albumin/Globulin Ratio 0.8 L Venous Blood Potassium Urine Color Urine Appearance Urine pH Ur Specific [place] Urine Protein Urine Glucose (UA) Urine Ketones Urine Blood Urine Nitrate Urine Bilirubin Urine Urobilinogen Ur Leukocyte Esterase Urine Osmolality Ur Random Creatinine U Random Total Protein Ur Random Sodium Ur Random Potassium Ur Random Urea Nitrogn Fluid Source Fluid Appearance Fluid WBC Fluid RBC Fluid Tot Cell Count Fluid Mononuclear Cell Fl Polymorphonucl Cell Fluid Comment Blood Type Antibody Screen BBK History Checked 01/19/19 01/19/19 01/19/19 08:30 08:30 09:51 WBC RBC Hgb Hct MCV MCH MCHC RDW Plt Count MPV Neut % (Auto) Lymph % (Auto) [place] % (Auto) Eos % (Auto) Baso % (Auto) Lymph # (Auto) [place] # (Auto) Eos # (Auto) Baso # (Auto) Absolute Neuts (auto) PT INR APTT pO2 VBG pH VBG pCO2 VBG HCO3 VBG Total CO2 VBG O2 Sat (Calc) VBG Base Excess VBG Potassium Sodium Chloride Glucose Lactate FiO2 Crit Value Called To Crit Value Called By Blood Gas Notified Time Potassium Carbon Dioxide Anion Gap BUN Creatinine Est GFR ( Amer) Est GFR (Non-Af Amer) Random Glucose Serum Osmolality Lactic Acid Calcium Phosphorus Magnesium Total Bilirubin AST ALT Alkaline Phosphatase Lactate Dehydrogenase 901 H Total Creatine Kinase 42 Troponin I 0.09 NT-Pro-B Natriuret Pep Total Protein Albumin Globulin Albumin/Globulin Ratio Venous Blood Potassium Urine Color Urine Appearance Urine pH Ur Specific [place] Urine Protein Urine Glucose (UA) Urine Ketones Urine Blood Urine Nitrate Urine Bilirubin Urine Urobilinogen Ur Leukocyte Esterase Urine Osmolality Ur Random Creatinine U Random Total Protein Ur Random Sodium Ur Random Potassium Ur Random Urea Nitrogn Fluid Source Peritoneal Fluid Appearance Turbid Fluid WBC 438.0 H Fluid RBC 880.0 H Fluid Tot Cell Count 100 H Fluid Mononuclear Cell 53.2 H Fl Polymorphonucl Cell 46.8 H Fluid Comment White Blood Type A POSITIVE Antibody Screen Negative BBK History Checked Patient has bt 01/19/19 10:30 WBC RBC Hgb Hct MCV MCH MCHC RDW Plt Count MPV Neut % (Auto) Lymph % (Auto) [place] % (Auto) Eos % (Auto) Baso % (Auto) Lymph # (Auto) [place] # (Auto) Eos # (Auto) Baso # (Auto) Absolute Neuts (auto) PT INR APTT pO2 VBG pH VBG pCO2 VBG HCO3 VBG Total CO2 VBG O2 Sat (Calc) VBG Base Excess VBG Potassium Sodium Chloride Glucose Lactate FiO2 Crit Value Called To Crit Value Called By Blood Gas Notified Time Potassium Carbon Dioxide Anion Gap BUN Creatinine Est GFR ( Amer) Est GFR (Non-Af Amer) Random Glucose Serum Osmolality Lactic Acid Calcium Phosphorus Magnesium Total Bilirubin AST ALT Alkaline Phosphatase Lactate Dehydrogenase Total Creatine Kinase Troponin I NT-Pro-B Natriuret Pep Total Protein Albumin Globulin Albumin/Globulin Ratio Venous Blood Potassium Urine Color Urine Appearance Urine pH Ur Specific [place] Urine Protein Urine Glucose (UA) Urine Ketones Urine Blood Urine Nitrate Urine Bilirubin Urine Urobilinogen Ur Leukocyte Esterase Urine Osmolality 451 Ur Random Creatinine 91 U Random Total Protein 36 Ur Random Sodium < 5 Ur Random Potassium 26.8 Ur Random Urea Nitrogn 757 Fluid Source Fluid Appearance Fluid WBC Fluid RBC Fluid Tot Cell Count Fluid Mononuclear Cell Fl Polymorphonucl Cell Fluid Comment Blood Type Antibody Screen BBK History Checked Radiology Impressions: Radiology Impressions Chest X-Ray 01/18/19 21:36 IMPRESSION: Right parahilar band-like opacity. Possible atelectasis versus fluid within fissure. Left basilar ill-defined opacity. Possible artifact. Follow-up advised. Chest X-Ray 01/19/19 06:38 IMPRESSION: Possible fluid within the fissure versus atelectasis adjacent to right hilum. No acute infiltrate. EKG/Cardiology Studies: Cardiology / EKG Studies 01/18/19 21:36 ELECTROCARDIOGRAM Stat Comment: Reason For Exam: Sepsis Patient Review of Systems - Constitutional Constitutional: Chills, Weakness, Malaise. absent: Fever, Sweats - Cardiovascular Cardiovascular: As Per HPI - Respiratory Respiratory: Cough, Excessive Mucous Production. absent: Hemoptysis, Wheezing - Gastrointestinal Gastrointestinal: Change in Bowel Habits, Change in Stool Character, Constipation - Genitourinary Genitourinary: Dysuria. absent: Flank Pain, Urinary Frequency - Musculoskeletal Musculoskeletal: Atrophy, Muscle Weakness, Myalgias - Integumentary Integumentary: absent: Lesions, Rash - Neurological Neurological: absent: Dizziness, Numbness, Focal Weakness, Headaches, Loss of Vision - Psychiatric Psychiatric: Depression - Endocrine Endocrine: Fatigue Critical Care Progress Note - Nutrition Nutrition: Nutrition Category Date Time Status Dysphagia/Modified Consistency Diet [DIET] Diets 01/19/19 Breakfast Ordered Assessment/Plan - Assessment and Plan (Free Text) Assessment: 73 y/o female with PMH of ovarian carcinoma, malignant ascites, LLE DVTs, HTN, HLD, T2DM admitted to ICU for hypotension, PNA and supratherpeuti INR Plan: Neuro - AAOx3 - maintain normothermia Cardio -ECHO from 01/2019 shows LVEF 54%, mild triscupid regurgitation, no pericardial effusion -elevated BNP -hold home BB due to hypotension -Albumin 25% 25 gm IV Q8H per nephro -troponins lead likely due to EMMA -maintain MAP>65 mm Hg Pulm - CXR shows right sided infiltrates - maintain SaO2>92% - O2 NC PRN GI: -recurrent malignant ascites -albumin 25% 5 gm x5 doses -f/u ascitic fluid studies -f/u CT C/A/P -hydrocortisone 2.5% rectal for hemorrhoid -morphine prn Renal -EMMA likely due to dehydration and poor oral intake -urine studies -I/O. daily weight -NS @60 cc/hr -f/u renal US -UA negative -nephro following Heme: -stage IV ovarian cancer -pancytopenia likely due to ovarian ca -supratherapeutic INR. Vitamin K given in ED -FFP X3 units ordered -INR tending down. started heparin Endo: -ISS- -accucheck -maintain euglycemia ID -continue merpenem, doxy -f/u urine blood, sputum cultures -f/u procalcitonin, rapid flu, legionella, strep Ag -repeat lactate -ID following Prophylaxis: Protonix SCD Failed swallow test. NPO Family is open to discuss hospice care options. Will give some time to discuss goal of care among family members. Comfort care discussed with son who is a physician and will discuss that with other siblings. Palliative care consulted Continue ICU management Case reviewed and discussed with attending Dr Pichardo <Chin Pichardo - Last Filed: 01/19/19 15:07> CCU Objective - Vital Signs / Intake & Output Vital Signs (Last 4 hours): Vital Signs Pulse Resp BP Pulse Ox 01/19/19 13:40 118 H 22 98 01/19/19 13:30 118 H 22 97 01/19/19 13:20 114 H 26 H 99 01/19/19 13:10 118 H 23 98 01/19/19 13:00 114 H 24 114/60 98 01/19/19 12:50 119 H 24 99 01/19/19 12:45 111 H 23 112/55 L 92 L 01/19/19 12:40 118 H 24 95 01/19/19 12:30 114 H 24 121/70 95 01/19/19 12:20 111 H 23 97 01/19/19 12:15 116 H 21 117/69 96 01/19/19 12:10 125 H 22 98 01/19/19 12:00 114 H 25 H 116/51 L 92 L 01/19/19 11:50 122 H 25 H 98 01/19/19 11:45 120 H 22 117/71 96 01/19/19 11:40 122 H 24 97 01/19/19 11:30 120 H 25 H 117/65 92 L 01/19/19 11:20 118 H 25 H 98 01/19/19 11:15 112 H 116/63 90 L 01/19/19 11:10 122 H 22 97 01/19/19 11:00 111 H 27 H 123/75 93 L Intake and Output (Last 8hrs): Intake & Output 01/18/19 01/19/19 01/19/19 22:59 06:59 14:59 Intake Total 390 Output Total 140 Balance 250 Weight 160 lb 169 lb 12.8 oz Intake: IV 390 Gregorio cath 390 Output: Urine 140 Urethral (Carbajal) 140 - Medications Active Medications: Active Medications Generic Name Dose Route Start Last Admin Trade Name Freq PRN Reason Stop Dose Admin Albumin Human 25 gm 01/19/19 11:15 01/19/19 13:22 Albumin Human 25% (25 Gm/100 Ml) IV 01/20/19 07:16 25 gm Q5H MARTIN Administration Hydrocortisone 0 gm 01/19/19 10:00 Anusol-Hc GA BID MARTIN Sodium Chloride 250 mls @ 60 mls/hr 01/18/19 22:00 01/19/19 04:03 Sodium Chloride 0.9% IV 60 mls/hr .Q4H10M MARTIN Administration Doxycycline Hyclate 100 mg/ 100 mls @ 100 mls/hr 01/19/19 10:00 01/19/19 10:52 Sodium Chloride IVPB 100 mls/hr Q12 MARTIN Administration Protocol Meropenem/Sodium Chloride 500 mg in 50 mls @ 100 mls/hr 01/19/19 10:00 01/19/19 10:51 Merrem Iv 500 Mg/Ns 50 Ml IVPB 01/27/19 10:01 100 mls/hr Q12 MARTIN Administration Protocol Heparin Sodium/Sodium Chloride 25,000 units in 250 mls @ 13.864 mls/hr 01/19/19 14:33 Heparin 38870 Units/250ml 1/2 Normal Saline IV .Q18H2M PRN ADJUST RATE PER PROTOCOL Protocol 18 UNITS/KG/HR Morphine Sulfate 1 mg 01/19/19 10:17 01/19/19 11:19 Morphine IVP 1 mg Q4H PRN Administration Pain, moderate (4-7) Pantoprazole Sodium 40 mg 01/19/19 10:00 01/19/19 10:46 Protonix Inj IVP 40 mg DAILY MARTIN Administration - Patient Studies Lab Studies: Lab Studies 01/19/19 01/19/19 01/19/19 Range/Units 13:10 10:30 09:51 WBC (4.5-11.0) 10^3/uL RBC (3.5-6.1) 10^6/uL Hgb (12.0-16.0) g/dL Hct (36.0-48.0) % MCV (80.0-105.0) fl MCH (25.0-35.0) pg MCHC (31.0-37.0) g/dl RDW (11.5-14.5) % Plt Count (120.0-450.0) 10^3/uL MPV (7.0-11.0) fl Neut % (Auto) (50.0-68.0) % Lymph % (Auto) (22.0-35.0) % [place] % (Auto) (1.0-6.0) % Eos % (Auto) (1.5-5.0) % Baso % (Auto) (0.0-3.0) % Lymph # (Auto) (1.2-3.4) [place] # (Auto) (0.1-0.6) Eos # (Auto) (0.0-0.7) Baso # (Auto) (0.0-2.0) K/mm3 Absolute Neuts (auto) (1.4-6.5) PT 15.8 H INR 1.42 APTT pO2 (30-55) mm/Hg VBG pH (7.32-7.43) VBG pCO2 (40-60) VBG HCO3 (21-28) mmol/l VBG Total CO2 (22-28) mmol.L VBG O2 Sat (Calc) (40-65) % VBG Base Excess (0.0-2.0) mmol/L VBG Potassium (3.6-5.2) mmol/L Sodium (132-148) mmol/L Chloride (98-107) mmol/L Glucose (65-105) mg/dl Lactate (0.7-2.1) mmol/L FiO2 % Crit Value Called To Crit Value Called By Blood Gas Notified Time Potassium (3.6-5.0) mmol/L Carbon Dioxide (21-33) mmol/L Anion Gap (10-20) BUN (7-21) mg/dL Creatinine (0.7-1.2) mg/dl Est GFR ( Amer) Est GFR (Non-Af Amer) Random Glucose (70-110) mg/dL Serum Osmolality (272-300) mosm/kg Lactic Acid (0.7-2.1) mmol/L Calcium (8.4-10.5) mg/dL Phosphorus (2.5-4.5) mg/dL Magnesium (1.7-2.2) mg/dL Total Bilirubin (0.2-1.3) mg/dL AST (14-36) U/L ALT (7-56) U/L Alkaline Phosphatase (38-126) U/L Lactate Dehydrogenase (333-699) U/L Total Creatine Kinase (35-230) U/L Troponin I ng/mL NT-Pro-B Natriuret Pep (0-450) pg/mL Total Protein (5.8-8.3) g/dL Albumin (3.0-4.8) g/dL Globulin gm/dL Albumin/Globulin Ratio (1.1-1.8) Procalcitonin (0.19-0.49) NG/ML Venous Blood Potassium (3.6-5.2) mmol/L Urine Color (YELLOW) Urine Appearance (CLEAR) Urine pH (4.7-8.0) Ur Specific [place] (1.005-1.035) Urine Protein (<30 mg/dL) mg/dL Urine Glucose (UA) (NEGATIVE) mg/dL Urine Ketones (NEGATIVE) mg/dL Urine Blood (NEGATIVE) Urine Nitrate (NEGATIVE) Urine Bilirubin (NEGATIVE) Urine Urobilinogen (<1 E.U./dL) E.U./dL Ur Leukocyte Esterase (NEGATIVE) [place]/uL Urine Osmolality 451 (300-1000) mosm/kg Ur Random Creatinine 91 mg/dL U Random Total Protein 36 mg/L Ur Random Sodium < 5 meq/L Ur Random Potassium 26.8 meq/L Ur Random Urea Nitrogn 757 mg/dL Fluid Source Peritoneal Fluid Appearance Turbid (CLEAR) Fluid WBC 438.0 H (0.0-300.0) /uL Fluid RBC 880.0 H (0.0-0.0) /uL Fluid Tot Cell Count 100 H (0-0) Fluid Mononuclear Cell 53.2 H (0-0) % Fl Polymorphonucl Cell 46.8 H (0-0) % Fluid Comment White Blood Type Antibody Screen BBK History Checked 01/19/19 01/19/19 01/19/19 Range/Units 08:30 08:30 04:30 WBC (4.5-11.0) 10^3/uL RBC (3.5-6.1) 10^6/uL Hgb (12.0-16.0) g/dL Hct (36.0-48.0) % MCV (80.0-105.0) fl MCH (25.0-35.0) pg MCHC (31.0-37.0) g/dl RDW (11.5-14.5) % Plt Count (120.0-450.0) 10^3/uL MPV (7.0-11.0) fl Neut % (Auto) (50.0-68.0) % Lymph % (Auto) (22.0-35.0) % [place] % (Auto) (1.0-6.0) % Eos % (Auto) (1.5-5.0) % Baso % (Auto) (0.0-3.0) % Lymph # (Auto) (1.2-3.4) [place] # (Auto) (0.1-0.6) Eos # (Auto) (0.0-0.7) Baso # (Auto) (0.0-2.0) K/mm3 Absolute Neuts (auto) (1.4-6.5) PT INR APTT pO2 (30-55) mm/Hg VBG pH (7.32-7.43) VBG pCO2 (40-60) VBG HCO3 (21-28) mmol/l VBG Total CO2 (22-28) mmol.L VBG O2 Sat (Calc) (40-65) % VBG Base Excess (0.0-2.0) mmol/L VBG Potassium (3.6-5.2) mmol/L Sodium (132-148) mmol/L Chloride (98-107) mmol/L Glucose (65-105) mg/dl Lactate (0.7-2.1) mmol/L FiO2 % Crit Value Called To Crit Value Called By Blood Gas Notified Time Potassium (3.6-5.0) mmol/L Carbon Dioxide (21-33) mmol/L Anion Gap (10-20) BUN (7-21) mg/dL Creatinine (0.7-1.2) mg/dl Est GFR ( Amer) Est GFR (Non-Af Amer) Random Glucose (70-110) mg/dL Serum Osmolality (272-300) mosm/kg Lactic Acid 1.7 (0.7-2.1) mmol/L Calcium (8.4-10.5) mg/dL Phosphorus (2.5-4.5) mg/dL Magnesium (1.7-2.2) mg/dL Total Bilirubin (0.2-1.3) mg/dL AST (14-36) U/L ALT (7-56) U/L Alkaline Phosphatase (38-126) U/L Lactate Dehydrogenase 901 H (333-699) U/L Total Creatine Kinase 42 (35-230) U/L Troponin I 0.09 ng/mL NT-Pro-B Natriuret Pep (0-450) pg/mL Total Protein (5.8-8.3) g/dL Albumin (3.0-4.8) g/dL Globulin gm/dL Albumin/Globulin Ratio (1.1-1.8) Procalcitonin (0.19-0.49) NG/ML Venous Blood Potassium (3.6-5.2) mmol/L Urine Color (YELLOW) Urine Appearance (CLEAR) Urine pH (4.7-8.0) Ur Specific [place] (1.005-1.035) Urine Protein (<30 mg/dL) mg/dL Urine Glucose (UA) (NEGATIVE) mg/dL Urine Ketones (NEGATIVE) mg/dL Urine Blood (NEGATIVE) Urine Nitrate (NEGATIVE) Urine Bilirubin (NEGATIVE) Urine Urobilinogen (<1 E.U./dL) E.U./dL Ur Leukocyte Esterase (NEGATIVE) [place]/uL Urine Osmolality (300-1000) mosm/kg Ur Random Creatinine mg/dL U Random Total Protein mg/L Ur Random Sodium meq/L Ur Random Potassium meq/L Ur Random Urea Nitrogn mg/dL Fluid Source Fluid Appearance (CLEAR) Fluid WBC (0.0-300.0) /uL Fluid RBC (0.0-0.0) /uL Fluid Tot Cell Count (0-0) Fluid Mononuclear Cell (0-0) % Fl Polymorphonucl Cell (0-0) % Fluid Comment Blood Type A POSITIVE Antibody Screen Negative BBK History Checked Patient has bt 01/19/19 01/19/19 01/19/19 Range/Units 04:30 04:30 04:30 WBC 2.2 L D (4.5-11.0) 10^3/uL RBC 3.65 (3.5-6.1) 10^6/uL Hgb 9.4 L (12.0-16.0) g/dL Hct 29.9 L (36.0-48.0) % MCV 81.9 (80.0-105.0) fl MCH 25.8 (25.0-35.0) pg MCHC 31.4 (31.0-37.0) g/dl RDW 19.5 H (11.5-14.5) % Plt Count 236 (120.0-450.0) 10^3/uL MPV 8.9 (7.0-11.0) fl Neut % (Auto) 80.6 H (50.0-68.0) % Lymph % (Auto) 16.2 L (22.0-35.0) % [place] % (Auto) 3.2 (1.0-6.0) % Eos % (Auto) 0.0 L (1.5-5.0) % Baso % (Auto) 0.0 (0.0-3.0) % Lymph # (Auto) 0.4 L (1.2-3.4) [place] # (Auto) 0.1 (0.1-0.6) Eos # (Auto) 0.0 (0.0-0.7) Baso # (Auto) 0.00 (0.0-2.0) K/mm3 Absolute Neuts (auto) 1.79 (1.4-6.5) PT 258.4 H INR 22.87 H* APTT 144.2 H* pO2 (30-55) mm/Hg VBG pH (7.32-7.43) VBG pCO2 (40-60) VBG HCO3 (21-28) mmol/l VBG Total CO2 (22-28) mmol.L VBG O2 Sat (Calc) (40-65) % VBG Base Excess (0.0-2.0) mmol/L VBG Potassium (3.6-5.2) mmol/L Sodium 131 L (132-148) mmol/L Chloride 93 L (98-107) mmol/L Glucose (65-105) mg/dl Lactate (0.7-2.1) mmol/L FiO2 % Crit Value Called To Crit Value Called By Blood Gas Notified Time Potassium 3.1 L (3.6-5.0) mmol/L Carbon Dioxide 26 (21-33) mmol/L Anion Gap 15 (10-20) BUN 100 H (7-21) mg/dL Creatinine 2.3 H (0.7-1.2) mg/dl Est GFR ( Amer) 25 Est GFR (Non-Af Amer) 21 Random Glucose 115 H (70-110) mg/dL Serum Osmolality (272-300) mosm/kg Lactic Acid (0.7-2.1) mmol/L Calcium 8.0 L (8.4-10.5) mg/dL Phosphorus 5.7 H (2.5-4.5) mg/dL Magnesium 2.6 H (1.7-2.2) mg/dL Total Bilirubin 0.5 (0.2-1.3) mg/dL AST 44 H (14-36) U/L ALT 9 (7-56) U/L Alkaline Phosphatase 253 H (38-126) U/L Lactate Dehydrogenase 879 H (333-699) U/L Total Creatine Kinase < 20 L (35-230) U/L Troponin I 0.10 ng/mL NT-Pro-B Natriuret Pep (0-450) pg/mL Total Protein 6.0 (5.8-8.3) g/dL Albumin 2.6 L (3.0-4.8) g/dL Globulin 3.4 gm/dL Albumin/Globulin Ratio 0.8 L (1.1-1.8) Procalcitonin (0.19-0.49) NG/ML Venous Blood Potassium (3.6-5.2) mmol/L Urine Color (YELLOW) Urine Appearance (CLEAR) Urine pH (4.7-8.0) Ur Specific [place] (1.005-1.035) Urine Protein (<30 mg/dL) mg/dL Urine Glucose (UA) (NEGATIVE) mg/dL Urine Ketones (NEGATIVE) mg/dL Urine Blood (NEGATIVE) Urine Nitrate (NEGATIVE) Urine Bilirubin (NEGATIVE) Urine Urobilinogen (<1 E.U./dL) E.U./dL Ur Leukocyte Esterase (NEGATIVE) [place]/uL Urine Osmolality (300-1000) mosm/kg Ur Random Creatinine mg/dL U Random Total Protein mg/L Ur Random Sodium meq/L Ur Random Potassium meq/L Ur Random Urea Nitrogn mg/dL Fluid Source Fluid Appearance (CLEAR) Fluid WBC (0.0-300.0) /uL Fluid RBC (0.0-0.0) /uL Fluid Tot Cell Count (0-0) Fluid Mononuclear Cell (0-0) % Fl Polymorphonucl Cell (0-0) % Fluid Comment Blood Type Antibody Screen BBK History Checked 01/19/19 01/19/19 01/19/19 Range/Units 01:20 01:20 01:20 WBC (4.5-11.0) 10^3/uL RBC (3.5-6.1) 10^6/uL Hgb (12.0-16.0) g/dL Hct (36.0-48.0) % MCV (80.0-105.0) fl MCH (25.0-35.0) pg MCHC (31.0-37.0) g/dl RDW (11.5-14.5) % Plt Count (120.0-450.0) 10^3/uL MPV (7.0-11.0) fl Neut % (Auto) (50.0-68.0) % Lymph % (Auto) (22.0-35.0) % [place] % (Auto) (1.0-6.0) % Eos % (Auto) (1.5-5.0) % Baso % (Auto) (0.0-3.0) % Lymph # (Auto) (1.2-3.4) [place] # (Auto) (0.1-0.6) Eos # (Auto) (0.0-0.7) Baso # (Auto) (0.0-2.0) K/mm3 Absolute Neuts (auto) (1.4-6.5) PT INR APTT pO2 75 H (30-55) mm/Hg VBG pH 7.43 (7.32-7.43) VBG pCO2 37.0 L (40-60) VBG HCO3 24.6 (21-28) mmol/l VBG Total CO2 25.7 (22-28) mmol.L VBG O2 Sat (Calc) 96.9 H (40-65) % VBG Base Excess 0.5 (0.0-2.0) mmol/L VBG Potassium 2.7 L (3.6-5.2) mmol/L Sodium 129.0 L (132-148) mmol/L Chloride 92.0 L (98-107) mmol/L Glucose 131 H (65-105) mg/dl Lactate 2.1 (0.7-2.1) mmol/L FiO2 21.0 % Crit Value Called To Crit Value Called By Blood Gas Notified Time Potassium (3.6-5.0) mmol/L Carbon Dioxide (21-33) mmol/L Anion Gap (10-20) BUN (7-21) mg/dL Creatinine (0.7-1.2) mg/dl Est GFR ( Amer) Est GFR (Non-Af Amer) Random Glucose (70-110) mg/dL Serum Osmolality 307 H (272-300) mosm/kg Lactic Acid (0.7-2.1) mmol/L Calcium (8.4-10.5) mg/dL Phosphorus (2.5-4.5) mg/dL Magnesium (1.7-2.2) mg/dL Total Bilirubin (0.2-1.3) mg/dL AST (14-36) U/L ALT (7-56) U/L Alkaline Phosphatase (38-126) U/L Lactate Dehydrogenase (333-699) U/L Total Creatine Kinase (35-230) U/L Troponin I ng/mL NT-Pro-B Natriuret Pep (0-450) pg/mL Total Protein (5.8-8.3) g/dL Albumin (3.0-4.8) g/dL Globulin gm/dL Albumin/Globulin Ratio (1.1-1.8) Procalcitonin 2.02 H (0.19-0.49) NG/ML Venous Blood Potassium 2.7 L (3.6-5.2) mmol/L Urine Color (YELLOW) Urine Appearance (CLEAR) Urine pH (4.7-8.0) Ur Specific [place] (1.005-1.035) Urine Protein (<30 mg/dL) mg/dL Urine Glucose (UA) (NEGATIVE) mg/dL Urine Ketones (NEGATIVE) mg/dL Urine Blood (NEGATIVE) Urine Nitrate (NEGATIVE) Urine Bilirubin (NEGATIVE) Urine Urobilinogen (<1 E.U./dL) E.U./dL Ur Leukocyte Esterase (NEGATIVE) [place]/uL Urine Osmolality (300-1000) mosm/kg Ur Random Creatinine mg/dL U Random Total Protein mg/L Ur Random Sodium meq/L Ur Random Potassium meq/L Ur Random Urea Nitrogn mg/dL Fluid Source Fluid Appearance (CLEAR) Fluid WBC (0.0-300.0) /uL Fluid RBC (0.0-0.0) /uL Fluid Tot Cell Count (0-0) Fluid Mononuclear Cell (0-0) % Fl Polymorphonucl Cell (0-0) % Fluid Comment Blood Type Antibody Screen BBK History Checked 01/19/19 01/18/19 01/18/19 Range/Units 00:30 23:15 22:02 WBC (4.5-11.0) 10^3/uL RBC (3.5-6.1) 10^6/uL Hgb (12.0-16.0) g/dL Hct (36.0-48.0) % MCV (80.0-105.0) fl MCH (25.0-35.0) pg MCHC (31.0-37.0) g/dl RDW (11.5-14.5) % Plt Count (120.0-450.0) 10^3/uL MPV (7.0-11.0) fl Neut % (Auto) (50.0-68.0) % Lymph % (Auto) (22.0-35.0) % [place] % (Auto) (1.0-6.0) % Eos % (Auto) (1.5-5.0) % Baso % (Auto) (0.0-3.0) % Lymph # (Auto) (1.2-3.4) [place] # (Auto) (0.1-0.6) Eos # (Auto) (0.0-0.7) Baso # (Auto) (0.0-2.0) K/mm3 Absolute Neuts (auto) (1.4-6.5) PT 206.1 H INR 18.57 H* APTT 65.2 H pO2 (30-55) mm/Hg VBG pH (7.32-7.43) VBG pCO2 (40-60) VBG HCO3 (21-28) mmol/l VBG Total CO2 (22-28) mmol.L VBG O2 Sat (Calc) (40-65) % VBG Base Excess (0.0-2.0) mmol/L VBG Potassium (3.6-5.2) mmol/L Sodium 129 L (132-148) mmol/L Chloride 90 L (98-107) mmol/L Glucose (65-105) mg/dl Lactate (0.7-2.1) mmol/L FiO2 % Crit Value Called To Crit Value Called By Blood Gas Notified Time Potassium 2.5 L* D (3.6-5.0) mmol/L Carbon Dioxide 26 (21-33) mmol/L Anion Gap 16 (10-20) BUN 99 H (7-21) mg/dL Creatinine 2.3 H (0.7-1.2) mg/dl Est GFR ( Amer) 25 Est GFR (Non-Af Amer) 21 Random Glucose 136 H (70-110) mg/dL Serum Osmolality (272-300) mosm/kg Lactic Acid (0.7-2.1) mmol/L Calcium 8.1 L (8.4-10.5) mg/dL Phosphorus 6.2 H (2.5-4.5) mg/dL Magnesium 2.8 H (1.7-2.2) mg/dL Total Bilirubin 0.5 (0.2-1.3) mg/dL AST 37 H (14-36) U/L ALT 16 (7-56) U/L Alkaline Phosphatase 227 H D (38-126) U/L Lactate Dehydrogenase (333-699) U/L Total Creatine Kinase (35-230) U/L Troponin I 0.11 D ng/mL NT-Pro-B Natriuret Pep 6110 H (0-450) pg/mL Total Protein 6.1 (5.8-8.3) g/dL Albumin 2.5 L (3.0-4.8) g/dL Globulin 3.6 gm/dL Albumin/Globulin Ratio 0.7 L (1.1-1.8) Procalcitonin (0.19-0.49) NG/ML Venous Blood Potassium (3.6-5.2) mmol/L Urine Color Dark yellow (YELLOW) Urine Appearance Clear (CLEAR) Urine pH 6.0 (4.7-8.0) Ur Specific [place] 1.025 (1.005-1.035) Urine Protein Negative (<30 mg/dL) mg/dL Urine Glucose (UA) Negative (NEGATIVE) mg/dL Urine Ketones Negative (NEGATIVE) mg/dL Urine Blood Negative (NEGATIVE) Urine Nitrate Negative (NEGATIVE) Urine Bilirubin Negative (NEGATIVE) Urine Urobilinogen 0.2 (<1 E.U./dL) E.U./dL Ur Leukocyte Esterase Negative (NEGATIVE) [place]/uL Urine Osmolality (300-1000) mosm/kg Ur Random Creatinine mg/dL U Random Total Protein mg/L Ur Random Sodium meq/L Ur Random Potassium meq/L Ur Random Urea Nitrogn mg/dL Fluid Source Fluid Appearance (CLEAR) Fluid WBC (0.0-300.0) /uL Fluid RBC (0.0-0.0) /uL Fluid Tot Cell Count (0-0) Fluid Mononuclear Cell (0-0) % Fl Polymorphonucl Cell (0-0) % Fluid Comment Blood Type Antibody Screen BBK History Checked 01/18/19 01/18/19 01/18/19 Range/Units 22:02 22:02 22:00 WBC 2.8 L D (4.5-11.0) 10^3/uL RBC 3.78 (3.5-6.1) 10^6/uL Hgb 9.9 L (12.0-16.0) g/dL Hct 31.1 L (36.0-48.0) % MCV 82.3 (80.0-105.0) fl MCH 26.2 (25.0-35.0) pg MCHC 31.8 (31.0-37.0) g/dl RDW 19.5 H (11.5-14.5) % Plt Count 271 (120.0-450.0) 10^3/uL MPV 9.0 (7.0-11.0) fl Neut % (Auto) 83.0 H (50.0-68.0) % Lymph % (Auto) 15.2 L (22.0-35.0) % [place] % (Auto) 1.4 (1.0-6.0) % Eos % (Auto) 0.4 L (1.5-5.0) % Baso % (Auto) 0.0 (0.0-3.0) % Lymph # (Auto) 0.4 L (1.2-3.4) [place] # (Auto) 0.0 L (0.1-0.6) Eos # (Auto) 0.0 (0.0-0.7) Baso # (Auto) 0.00 (0.0-2.0) K/mm3 Absolute Neuts (auto) 2.29 (1.4-6.5) PT Cancelled INR Cancelled APTT Cancelled pO2 39 (30-55) mm/Hg VBG pH 7.40 (7.32-7.43) VBG pCO2 40.0 (40-60) VBG HCO3 24.8 (21-28) mmol/l VBG Total CO2 26.0 (22-28) mmol.L VBG O2 Sat (Calc) 77.4 H (40-65) % VBG Base Excess 0.0 (0.0-2.0) mmol/L VBG Potassium 2.4 L* (3.6-5.2) mmol/L Sodium 128.0 L (132-148) mmol/L Chloride 92.0 L (98-107) mmol/L Glucose 137 H (65-105) mg/dl Lactate 3.0 H (0.7-2.1) mmol/L FiO2 28.0 % Crit Value Called To contract writer Crit Value Called By Jj Blood Gas Notified Time 2207 Potassium (3.6-5.0) mmol/L Carbon Dioxide (21-33) mmol/L Anion Gap (10-20) BUN (7-21) mg/dL Creatinine (0.7-1.2) mg/dl Est GFR ( Amer) Est GFR (Non-Af Amer) Random Glucose (70-110) mg/dL Serum Osmolality (272-300) mosm/kg Lactic Acid (0.7-2.1) mmol/L Calcium (8.4-10.5) mg/dL Phosphorus (2.5-4.5) mg/dL Magnesium (1.7-2.2) mg/dL Total Bilirubin (0.2-1.3) mg/dL AST (14-36) U/L ALT (7-56) U/L Alkaline Phosphatase (38-126) U/L Lactate Dehydrogenase (333-699) U/L Total Creatine Kinase (35-230) U/L Troponin I ng/mL NT-Pro-B Natriuret Pep (0-450) pg/mL Total Protein (5.8-8.3) g/dL Albumin (3.0-4.8) g/dL Globulin gm/dL Albumin/Globulin Ratio (1.1-1.8) Procalcitonin (0.19-0.49) NG/ML Venous Blood Potassium 2.4 L* (3.6-5.2) mmol/L Urine Color (YELLOW) Urine Appearance (CLEAR) Urine pH (4.7-8.0) Ur Specific [place] (1.005-1.035) Urine Protein (<30 mg/dL) mg/dL Urine Glucose (UA) (NEGATIVE) mg/dL Urine Ketones (NEGATIVE) mg/dL Urine Blood (NEGATIVE) Urine Nitrate (NEGATIVE) Urine Bilirubin (NEGATIVE) Urine Urobilinogen (<1 E.U./dL) E.U./dL Ur Leukocyte Esterase (NEGATIVE) [place]/uL Urine Osmolality (300-1000) mosm/kg Ur Random Creatinine mg/dL U Random Total Protein mg/L Ur Random Sodium meq/L Ur Random Potassium meq/L Ur Random Urea Nitrogn mg/dL Fluid Source Fluid Appearance (CLEAR) Fluid WBC (0.0-300.0) /uL Fluid RBC (0.0-0.0) /uL Fluid Tot Cell Count (0-0) Fluid Mononuclear Cell (0-0) % Fl Polymorphonucl Cell (0-0) % Fluid Comment Blood Type Antibody Screen BBK History Checked Laboratory Results - last 24 hr 01/18/19 01/18/19 01/18/19 22:00 22:02 22:02 WBC 2.8 L D RBC 3.78 Hgb 9.9 L Hct 31.1 L MCV 82.3 MCH 26.2 MCHC 31.8 RDW 19.5 H Plt Count 271 MPV 9.0 Neut % (Auto) 83.0 H Lymph % (Auto) 15.2 L [place] % (Auto) 1.4 Eos % (Auto) 0.4 L Baso % (Auto) 0.0 Lymph # (Auto) 0.4 L [place] # (Auto) 0.0 L Eos # (Auto) 0.0 Baso # (Auto) 0.00 Absolute Neuts (auto) 2.29 PT Cancelled INR Cancelled APTT Cancelled pO2 39 VBG pH 7.40 VBG pCO2 40.0 VBG HCO3 24.8 VBG Total CO2 26.0 VBG O2 Sat (Calc) 77.4 H VBG Base Excess 0.0 VBG Potassium 2.4 L* Sodium 128.0 L Chloride 92.0 L Glucose 137 H Lactate 3.0 H FiO2 28.0 Crit Value Called To contract writer Crit Value Called By Jj Blood Gas Notified Time 2208 Potassium Carbon Dioxide Anion Gap BUN Creatinine Est GFR ( Amer) Est GFR (Non-Af Amer) Random Glucose Serum Osmolality Lactic Acid Calcium Phosphorus Magnesium Total Bilirubin AST ALT Alkaline Phosphatase Lactate Dehydrogenase Total Creatine Kinase Troponin I NT-Pro-B Natriuret Pep Total Protein Albumin Globulin Albumin/Globulin Ratio Procalcitonin Venous Blood Potassium 2.4 L* Urine Color Urine Appearance Urine pH Ur Specific [place] Urine Protein Urine Glucose (UA) Urine Ketones Urine Blood Urine Nitrate Urine Bilirubin Urine Urobilinogen Ur Leukocyte Esterase Urine Osmolality Ur Random Creatinine U Random Total Protein Ur Random Sodium Ur Random Potassium Ur Random Urea Nitrogn Fluid Source Fluid Appearance Fluid WBC Fluid RBC Fluid Tot Cell Count Fluid Mononuclear Cell Fl Polymorphonucl Cell Fluid Comment Blood Type Antibody Screen BBK History Checked 01/18/19 01/18/19 01/19/19 22:02 23:15 00:30 WBC RBC Hgb Hct MCV MCH MCHC RDW Plt Count MPV Neut % (Auto) Lymph % (Auto) [place] % (Auto) Eos % (Auto) Baso % (Auto) Lymph # (Auto) [place] # (Auto) Eos # (Auto) Baso # (Auto) Absolute Neuts (auto) PT 206.1 H INR 18.57 H* APTT 65.2 H pO2 VBG pH VBG pCO2 VBG HCO3 VBG Total CO2 VBG O2 Sat (Calc) VBG Base Excess VBG Potassium Sodium 129 L Chloride 90 L Glucose Lactate FiO2 Crit Value Called To Crit Value Called By Blood Gas Notified Time Potassium 2.5 L* D Carbon Dioxide 26 Anion Gap 16 BUN 99 H Creatinine 2.3 H Est GFR ( Amer) 25 Est GFR (Non-Af Amer) 21 Random Glucose 136 H Serum Osmolality Lactic Acid Calcium 8.1 L Phosphorus 6.2 H Magnesium 2.8 H Total Bilirubin 0.5 AST 37 H ALT 16 Alkaline Phosphatase 227 H D Lactate Dehydrogenase Total Creatine Kinase Troponin I 0.11 D NT-Pro-B Natriuret Pep 6110 H Total Protein 6.1 Albumin 2.5 L Globulin 3.6 Albumin/Globulin Ratio 0.7 L Procalcitonin Venous Blood Potassium Urine Color Dark yellow Urine Appearance Clear Urine pH 6.0 Ur Specific [place] 1.025 Urine Protein Negative Urine Glucose (UA) Negative Urine Ketones Negative Urine Blood Negative Urine Nitrate Negative Urine Bilirubin Negative Urine Urobilinogen 0.2 Ur Leukocyte Esterase Negative Urine Osmolality Ur Random Creatinine U Random Total Protein Ur Random Sodium Ur Random Potassium Ur Random Urea Nitrogn Fluid Source Fluid Appearance Fluid WBC Fluid RBC Fluid Tot Cell Count Fluid Mononuclear Cell Fl Polymorphonucl Cell Fluid Comment Blood Type Antibody Screen BBK History Checked 01/19/19 01/19/19 01/19/19 01:20 01:20 01:20 WBC RBC Hgb Hct MCV MCH MCHC RDW Plt Count MPV Neut % (Auto) Lymph % (Auto) [place] % (Auto) Eos % (Auto) Baso % (Auto) Lymph # (Auto) [place] # (Auto) Eos # (Auto) Baso # (Auto) Absolute Neuts (auto) PT INR APTT pO2 75 H VBG pH 7.43 VBG pCO2 37.0 L VBG HCO3 24.6 VBG Total CO2 25.7 VBG O2 Sat (Calc) 96.9 H VBG Base Excess 0.5 VBG Potassium 2.7 L Sodium 129.0 L Chloride 92.0 L Glucose 131 H Lactate 2.1 FiO2 21.0 Crit Value Called To Crit Value Called By Blood Gas Notified Time Potassium Carbon Dioxide Anion Gap BUN Creatinine Est GFR ( Amer) Est GFR (Non-Af Amer) Random Glucose Serum Osmolality 307 H Lactic Acid Calcium Phosphorus Magnesium Total Bilirubin AST ALT Alkaline Phosphatase Lactate Dehydrogenase Total Creatine Kinase Troponin I NT-Pro-B Natriuret Pep Total Protein Albumin Globulin Albumin/Globulin Ratio Procalcitonin 2.02 H Venous Blood Potassium 2.7 L Urine Color Urine Appearance Urine pH Ur Specific [place] Urine Protein Urine Glucose (UA) Urine Ketones Urine Blood Urine Nitrate Urine Bilirubin Urine Urobilinogen Ur Leukocyte Esterase Urine Osmolality Ur Random Creatinine U Random Total Protein Ur Random Sodium Ur Random Potassium Ur Random Urea Nitrogn Fluid Source Fluid Appearance Fluid WBC Fluid RBC Fluid Tot Cell Count Fluid Mononuclear Cell Fl Polymorphonucl Cell Fluid Comment Blood Type Antibody Screen BBK History Checked 01/19/19 01/19/19 01/19/19 04:30 04:30 04:30 WBC 2.2 L D RBC 3.65 Hgb 9.4 L Hct 29.9 L MCV 81.9 MCH 25.8 MCHC 31.4 RDW 19.5 H Plt Count 236 MPV 8.9 Neut % (Auto) 80.6 H Lymph % (Auto) 16.2 L [place] % (Auto) 3.2 Eos % (Auto) 0.0 L Baso % (Auto) 0.0 Lymph # (Auto) 0.4 L [place] # (Auto) 0.1 Eos # (Auto) 0.0 Baso # (Auto) 0.00 Absolute Neuts (auto) 1.79 PT 258.4 H INR 22.87 H* APTT 144.2 H* pO2 VBG pH VBG pCO2 VBG HCO3 VBG Total CO2 VBG O2 Sat (Calc) VBG Base Excess VBG Potassium Sodium 131 L Chloride 93 L Glucose Lactate FiO2 Crit Value Called To Crit Value Called By Blood Gas Notified Time Potassium 3.1 L Carbon Dioxide 26 Anion Gap 15 BUN 100 H Creatinine 2.3 H Est GFR ( Amer) 25 Est GFR (Non-Af Amer) 21 Random Glucose 115 H Serum Osmolality Lactic Acid Calcium 8.0 L Phosphorus 5.7 H Magnesium 2.6 H Total Bilirubin 0.5 AST 44 H ALT 9 Alkaline Phosphatase 253 H Lactate Dehydrogenase 879 H Total Creatine Kinase < 20 L Troponin I 0.10 NT-Pro-B Natriuret Pep Total Protein 6.0 Albumin 2.6 L Globulin 3.4 Albumin/Globulin Ratio 0.8 L Procalcitonin Venous Blood Potassium Urine Color Urine Appearance Urine pH Ur Specific [place] Urine Protein Urine Glucose (UA) Urine Ketones Urine Blood Urine Nitrate Urine Bilirubin Urine Urobilinogen Ur Leukocyte Esterase Urine Osmolality Ur Random Creatinine U Random Total Protein Ur Random Sodium Ur Random Potassium Ur Random Urea Nitrogn Fluid Source Fluid Appearance Fluid WBC Fluid RBC Fluid Tot Cell Count Fluid Mononuclear Cell Fl Polymorphonucl Cell Fluid Comment Blood Type Antibody Screen BBK History Checked 01/19/19 01/19/19 01/19/19 04:30 08:30 08:30 WBC RBC Hgb Hct MCV MCH MCHC RDW Plt Count MPV Neut % (Auto) Lymph % (Auto) [place] % (Auto) Eos % (Auto) Baso % (Auto) Lymph # (Auto) [place] # (Auto) Eos # (Auto) Baso # (Auto) Absolute Neuts (auto) PT INR APTT pO2 VBG pH VBG pCO2 VBG HCO3 VBG Total CO2 VBG O2 Sat (Calc) VBG Base Excess VBG Potassium Sodium Chloride Glucose Lactate FiO2 Crit Value Called To Crit Value Called By Blood Gas Notified Time Potassium Carbon Dioxide Anion Gap BUN Creatinine Est GFR ( Amer) Est GFR (Non-Af Amer) Random Glucose Serum Osmolality Lactic Acid 1.7 Calcium Phosphorus Magnesium Total Bilirubin AST ALT Alkaline Phosphatase Lactate Dehydrogenase 901 H Total Creatine Kinase 42 Troponin I 0.09 NT-Pro-B Natriuret Pep Total Protein Albumin Globulin Albumin/Globulin Ratio Procalcitonin Venous Blood Potassium Urine Color Urine Appearance Urine pH Ur Specific [place] Urine Protein Urine Glucose (UA) Urine Ketones Urine Blood Urine Nitrate Urine Bilirubin Urine Urobilinogen Ur Leukocyte Esterase Urine Osmolality Ur Random Creatinine U Random Total Protein Ur Random Sodium Ur Random Potassium Ur Random Urea Nitrogn Fluid Source Fluid Appearance Fluid WBC Fluid RBC Fluid Tot Cell Count Fluid Mononuclear Cell Fl Polymorphonucl Cell Fluid Comment Blood Type A POSITIVE Antibody Screen Negative BBK History Checked Patient has bt 01/19/19 01/19/19 01/19/19 09:51 10:30 13:10 WBC RBC Hgb Hct MCV MCH MCHC RDW Plt Count MPV Neut % (Auto) Lymph % (Auto) [place] % (Auto) Eos % (Auto) Baso % (Auto) Lymph # (Auto) [place] # (Auto) Eos # (Auto) Baso # (Auto) Absolute Neuts (auto) PT 15.8 H INR 1.42 APTT pO2 VBG pH VBG pCO2 VBG HCO3 VBG Total CO2 VBG O2 Sat (Calc) VBG Base Excess VBG Potassium Sodium Chloride Glucose Lactate FiO2 Crit Value Called To Crit Value Called By Blood Gas Notified Time Potassium Carbon Dioxide Anion Gap BUN Creatinine Est GFR ( Amer) Est GFR (Non-Af Amer) Random Glucose Serum Osmolality Lactic Acid Calcium Phosphorus Magnesium Total Bilirubin AST ALT Alkaline Phosphatase Lactate Dehydrogenase Total Creatine Kinase Troponin I NT-Pro-B Natriuret Pep Total Protein Albumin Globulin Albumin/Globulin Ratio Procalcitonin Venous Blood Potassium Urine Color Urine Appearance Urine pH Ur Specific [place] Urine Protein Urine Glucose (UA) Urine Ketones Urine Blood Urine Nitrate Urine Bilirubin Urine Urobilinogen Ur Leukocyte Esterase Urine Osmolality 451 Ur Random Creatinine 91 U Random Total Protein 36 Ur Random Sodium < 5 Ur Random Potassium 26.8 Ur Random Urea Nitrogn 757 Fluid Source Peritoneal Fluid Appearance Turbid Fluid WBC 438.0 H Fluid RBC 880.0 H Fluid Tot Cell Count 100 H Fluid Mononuclear Cell 53.2 H Fl Polymorphonucl Cell 46.8 H Fluid Comment White Blood Type Antibody Screen BBK History Checked Radiology Impressions: Radiology Impressions Chest X-Ray 01/18/19 21:36 IMPRESSION: Right parahilar band-like opacity. Possible atelectasis versus fluid within fissure. Left basilar ill-defined opacity. Possible artifact. Follow-up advised. Chest X-Ray 01/19/19 06:38 IMPRESSION: Possible fluid within the fissure versus atelectasis adjacent to right hilum. No acute infiltrate. EKG/Cardiology Studies: Cardiology / EKG Studies 01/18/19 21:36 ELECTROCARDIOGRAM Stat Comment: Reason For Exam: Sepsis Patient Critical Care Progress Note - Nutrition Nutrition: Nutrition Category Date Time Status Dysphagia/Modified Consistency Diet [DIET] Diets 01/19/19 Breakfast Ordered Assessment/Plan - Assessment and Plan (Free Text) Plan: Patient seen and examined on rounds with resident, agree with note with following additions/exceptions: Patient is 73yo female with PMHx ovarian carcinoma with mets, malignant ascites, DVT on Coumadin, HTN, HLD, DM admitted to ICU for hypotension, and supratherapeutic INR Currently the patient is Afebrile, BP stable, comfortable in NAD Pt received VitK 10mg IV x 1, and FFP 3u, with INR reversing to 1.3.NO overt signs of bleeding, denies melena CXR with ?RUL infiltrate ID following Labs, imaging, chart reviewed Coagulopathy Ovarian Ca with mets Malignant Acites DVT on Coumadin HTN HLD DM Hypotension, resolved Severe Sepsis Recommend: - supp o2 as needed, duonebs PRN - Broad spectrum abx as per ID - IVF - Albumin 25% 12.5g TID - Restart A/C, now that INR is normalized, Heparin drip - FS control - palliative care consult - GI ppx - DVT ppx - Monitor in MICU Critical care time 35 minutes
[2019-01-19] MEDS: Albumin Human 25% (25 gm/100 ml) IV SCH ×2 (13:22→17:22)
[2019-01-19 14:19] LABS: INR 1.42; PROTHROMBIN TIME 15.8 SECONDS (9.4-12.5)
[2019-01-19] MEDS: Heparin25000 units/250ml 1/2NS 25,000 UNITS/250 ML BAG IV PRN (15:28)
[2019-01-19 15:43] LABS: ALB/GLOB RATIO 0.9 (1.1-1.8); ALBUMIN 2.7 g/dL (3.0-4.8); CALCIUM 8.2 mg/dL (8.4-10.5)
--- NOTE | 2019-01-19 16:29 | US ---
Date of service: 01/19/2019 PROCEDURE: Ultrasound of the Kidneys HISTORY: dm COMPARISON: None available. TECHNIQUE: Sonogram of the kidneys. FINDINGS: RIGHT KIDNEY: Measures: 10.0 cm. Normal in size, contour and echogenicity. No stone, solid mass lesion or hydronephrosis visualized. LEFT KIDNEY: Measures: 9.8 cm. Normal in size, contour and echogenicity. No stone, solid mass lesion or hydronephrosis visualized. OTHER FINDINGS: None. IMPRESSION: Unremarkable renal sonogram.
[2019-01-19] MEDS: Hydrocortisone 2.5% Rectal Cream(30 gm) PR SCH (18:52)
--- NOTE | 2019-01-19 21:09 | CARD ---
APPROVED REPORT Date of service: 01/18/2019 EKG Measurement Heart [id number] <Conclusion> Sinus tachycardia with premature atrial complexes Low voltage QRS ST depressions, consider inferolateral ischemia Abnormal ECG
--- NOTE | 2019-01-19 21:10 | CON ---
DATE OF CONSULTATION: 01/19/2019 NEPHROLOGY CONSULTATION HISTORY OF PRESENT ILLNESS: The patient is a 73-year-old female with past medical history of ovarian cancer with malignant ascites, hypertension, diabetes, hyperlipidemia, status post left lower extremity DVT, presented to ED yesterday with cough and fatigue; Nephrology is being consulted for acute renal failure. History obtained from the patient's family and medical record mostly, as the patient is somewhat lethargic; symptoms apparently started about 2 weeks ago. The patient reportedly having cough productive of white sputum, also with some associated subjective fevers and chills. The patient is diagnosis with ovarian cancer in 02/2018 and has been on multiple chemotherapeutic agents (carboplatin, Taxotere, and Gemzar); most recent chemotherapy session was approximately 10 days ago. The patient also with recurrent ascites collection and recently had insertion of Aspira catheter. Per son, the patient has been draining less ascites fluid lately. The patient apparently is also with decreased p.o. intake lately; otherwise, denies any vomiting or diarrhea. PAST MEDICAL HISTORY: As above. SOCIAL HISTORY: No tobacco use. FAMILY HISTORY: Sisters with colon cancer. REVIEW OF SYSTEMS: CONSTITUTIONAL: As per HPI. RESPIRATORY: As per HPI. CARDIOVASCULAR: No chest pain. GI: As per HPI. : No dysuria reported. NEURO: Reporting pain in buttock area due to hemorrhoids. PHYSICAL EXAMINATION: VITAL SIGNS: At the time of encounter, blood pressure 116/79, heart rate 117, respirations 22, temperature 98, O2 sat 99% on O2 via nasal cannula. GENERAL: Somewhat lethargic, but able to answer some questions. HEENT: Somewhat dry mucous membranes. NECK: No cervical lymphadenopathy. RESPIRATORY: Lungs clear on left, decreased sounds on right. No rales. No rhonchi. No wheezes. CARDIOVASCULAR: Heart sounds S1 and S2 normal, tachycardia noted. GI: Abdomen distended with some tenderness. : No bladder distention. EXTREMITIES: Bilateral 1 to 2+ lower leg edema, left greater than right. SKIN: Warm. No cyanosis. NEURO: No overt resting tremor. Does have positive asterixis. PSYCHIATRIC: Not agitated, normal mood. SKIN: Warm. No cyanosis. LABORATORY DATA: Labs this morning CBC, WBC 2.2, hemoglobin 9.4, hematocrit 29.9, platelets 236. Chemistry panel from this morning, sodium 131, potassium 3.1, chloride 93, bicarb 26, BUN 100, creatinine 2.3, calcium 8, glucose 115, phosphorous 5.7, magnesium 2.6, AST 44, ALT 9, alk phos 253, LDH 879, albumin 2.6. Procalcitonin 2.012. Coags, INR this morning, 22.87. ABG from early this morning, PH 743, pCO2 of 37, pO2 of 75, on 21% FIO2. Lactate 2.1, decreased from 3 last night. Urine studies, urine sodium less than 5, urine osmolality 451. ASSESSMENT AND PLAN: 1. Acute kidney injury. Urine indices consistent with prerenal etiology with appropriate concentration of sodium. Hypotension, seen initially resolved; the patient remains, however, tachycardic. The patient does have BUN that is out of proportion to increase in rise in creatinine; prerenal etiology can explain this. However, we should also consider higher possibility of upper gastrointestinal bleed. Given profound hypoalbuminemia, we will give intravascular volume expansion with IV albumin 25%, 12.5 g every 5 hours for five doses with a goal of giving 1 gm/kg. Avoid nephrotoxic agents. Recommend CT of abdomen and pelvis to rule out possibility of partial obstruction in the setting of metastatic cancer. 2. Hypokalemia. Etiology is unclear with no gastrointestinal losses reported. The patient not on any diuretic at home; should continue to supplement aggressively. 3. Hyponatremia, relatively mild, but improving; high urine osmolality consistent with volume depletion, should resolve with above measures. Thank you for this referral. We will be following up closely. Angel Gonzalez MD
[2019-01-19 23:00] LABS: EOS % 0.6 % (1.5-5.0); LYMPH # 0.3 (1.2-3.4); LYMPH % 20.2 % (22.0-35.0); MEAN CELL VOLUME 83.8 fl (80.0-105.0); MEAN PLATELET VOLUME 8.4 fl (7.0-11.0); MONO # 0.1 (0.1-0.6); PLATELET COUNT 157 10^3/uL (120.0-450.0); RBC 2.77 10^6/uL (3.5-6.1); RED CELL DISTRIBUTION WIDTH 19.8 % (11.5-14.5)
[2019-01-19 23:08] LABS: HEMOGLOBIN 7.2 g/dL (12.0-16.0); WHITE BLOOD COUNT 1.7 10^3/uL (4.5-11.0)
[2019-01-19 23:17] LABS: LYMPHOCYTE 22 % (22.0-35.0); MONOCYTE 6 % (1.0-6.0); NEUTROPHIL 72 % (50.0-70.0); NUCLEATED RED BLOOD CELL 1 %; PLATELET ESTIMATE NORMAL (NORMAL)
--- NOTE | 2019-01-19 23:30 | CP.PCM.PN ---
<Jacek Hunter - Last Filed: 01/19/19 23:39> Subjective - Date & Time of Evaluation Date of Evaluation: 01/19/19 Time of Evaluation: 23:28 - Subjective Subjective: House staff paged by nursing staff requesting to speak to patient's family. EMR records were reviewed. Patient is a 73 year old female with PMH of ovarian carcinoma, recurrent malignant ascites, LLE DVTs, HTN, HLD, and DM2 admitted for sepsis 2/2 HCAP. Palliative care evaluated patient this AM and patient's code status was discussed. Family was to discuss patient's code status and get back to palliative. Patient's code status was further discussed with family, who now request patient be made DNR/DNI and would sign POLST in the morning. DNR/DNI order placed. Will sign out to morning team to discuss with palliative. Patient's family also requests that she have something for anxiety/sleep as she has not slept in 3 days. One time dose of ativan ordered. Patient seen and appears to be resting comfortably. Nursing staff informed to notify of any changes. Objective - Vital Signs/Intake and Output Vital Signs (last 24 hours): Temp Pulse Resp BP Pulse Ox 98.0 F 118 H 26 H 112/64 95 01/19/19 16:00 01/19/19 18:10 01/19/19 18:10 01/19/19 18:01 01/19/19 18:10 Intake and Output: 01/19/19 01/20/19 18:59 06:59 Intake Total 1595 Output Total 1575 Balance 20 - Medications Medications: Current Medications Albumin Human (Albumin Human 25% (25 Gm/100 Ml)) 25 gm IV Q5H [facility] Stop: 01/20/19 07:16 Last Admin: 01/19/19 17:22 Dose: 25 gm Hydrocortisone (Anusol-Hc) 0 gm CA BID MARTIN Last Admin: 01/19/19 18:52 Dose: Not Given Sodium Chloride (Sodium Chloride 0.9%) 250 mls @ 60 mls/hr IV .Q4H10M MARTIN Last Admin: 01/19/19 04:03 Dose: 60 mls/hr Doxycycline Hyclate 100 mg/ (Sodium Chloride) 100 mls @ 100 mls/hr IVPB Q12 MARTIN; Protocol Last Admin: 01/19/19 21:47 Dose: 100 mls/hr Meropenem/Sodium Chloride (Merrem Iv 500 Mg/Ns 50 Ml) 500 mg in 50 mls @ 100 mls/hr IVPB Q12 MARTIN; Protocol Stop: 01/27/19 10:01 Last Admin: 01/19/19 21:46 Dose: 100 mls/hr Heparin Sodium/Sodium Chloride (Heparin 58009 Units/250ml 1/2 Normal Saline) 25,000 units in 250 mls @ 13.864 mls/hr IV .Q18H2M PRN; Protocol PRN Reason: ADJUST RATE PER PROTOCOL Last Admin: 01/19/19 15:28 Dose: 18 units/kg/hr, 13.864 mls/hr Morphine Sulfate (Morphine) 1 mg IVP Q4H PRN PRN Reason: Pain, moderate (4-7) Last Admin: 01/19/19 21:35 Dose: 1 mg Pantoprazole Sodium (Protonix Inj) 40 mg IVP DAILY MARTIN Last Admin: 01/19/19 10:46 Dose: 40 mg - Labs Labs: 01/19/19 22:56 01/19/19 15:00 PT 15.8 SECONDS (9.4-12.5) H 01/19/19 13:10 INR 1.42 01/19/19 13:10 APTT 94.4 Seconds (26.9-38.3) H 01/19/19 22:56 <Radha Summers - Last Filed: 01/20/19 19:08> Objective - Vital Signs/Intake and Output Vital Signs (last 24 hours): Temp Pulse Resp BP Pulse Ox 98.9 F 97 H 24 96/62 L 89 L 01/20/19 16:30 01/20/19 16:30 01/20/19 16:30 01/20/19 16:30 01/20/19 04:20 Intake and Output: 01/20/19 01/21/19 18:59 06:59 Intake Total 179 Balance 179 - Medications Medications: Current Medications Acetaminophen (Tylenol 325mg Tab) 650 mg PO Q6H PRN PRN Reason: Pain, Mild (1-3) Hydrocortisone (Anusol-Hc) 0 gm CA BID MARTIN Last Admin: 01/20/19 18:23 Dose: Not Given Meropenem/Sodium Chloride (Merrem Iv 500 Mg/Ns 50 Ml) 500 mg in 50 mls @ 100 mls/hr IVPB Q12 MARTIN; Protocol Stop: 01/27/19 10:01 Last Admin: 01/20/19 10:11 Dose: 100 mls/hr Heparin Sodium/Sodium Chloride (Heparin 39218 Units/250ml 1/2 Normal Saline) 25,000 units in 250 mls @ 13.864 mls/hr IV .Q18H2M PRN; Protocol PRN Reason: ADJUST RATE PER PROTOCOL Last Titration: 01/20/19 18:26 Dose: 15 units/kg/hr, 11.553 mls/hr Levalbuterol HCl (Xopenex) 0.63 mg IH H4PPSME PRN PRN Reason: Shortness of Breath Last Admin: 01/20/19 07:47 Dose: 0.63 mg Morphine Sulfate (Morphine) 1 mg IVP Q4H PRN PRN Reason: Pain, moderate (4-7) Last Admin: 01/20/19 17:24 Dose: 1 mg Pantoprazole Sodium (Protonix Inj) 40 mg IVP DAILY MARTIN Last Admin: 01/20/19 10:12 Dose: 40 mg - Labs Labs: 01/20/19 14:15 01/20/19 06:00 PT 15.8 SECONDS (9.4-12.5) H 01/19/19 13:10 INR 1.42 01/19/19 13:10 APTT 129.2 Seconds (26.9-38.3) H* 01/20/19 16:00 Attending/Attestation - Attestation I have personally seen and examined this patient.: No I have fully participated in the care of the patient.: No I have reviewed all pertinent clinical information, including history, physical exam and plan: No
[2019-01-20] MEDS: Albumin Human 25% (25 gm/100 ml) IV SCH ×3 (00:13→07:42)
[2019-01-20] MEDS ORDERED: Levalbuterol 0.63 MG/3 ML Inhal Soln UD IH ONE (00:41)
[2019-01-20] MEDS: Morphine 2 mg/ml ISec IVP PRN ×3 (01:29→22:58)
[2019-01-20 06:09] LABS: BASO # 0.01 K/mm3 (0.0-2.0); BASO % 0.5 % (0.0-3.0); HEMOGLOBIN 7.3 g/dL (12.0-16.0); LYMPH # 0.5 (1.2-3.4); LYMPH % 25.6 % (22.0-35.0); MEAN CELL VOLUME 84.3 fl (80.0-105.0); MEAN CORPUSCULAR HEMOGLOBIN 26.1 pg (25.0-35.0); MEAN CORPUSCULAR HGB CONC 30.9 g/dl (31.0-37.0); MONO # 0.1 (0.1-0.6); MONO % 4.6 % (1.0-6.0); RBC 2.8 10^6/uL (3.5-6.1); RED CELL DISTRIBUTION WIDTH 19.8 % (11.5-14.5)
[2019-01-20 06:26] LABS: ALB/GLOB RATIO 1.2 (1.1-1.8); ALBUMIN 3.9 g/dL (3.0-4.8)
--- NOTE | 2019-01-20 06:39 | CP.CCUPN ---
<Dennis Morales - Last Filed: 01/20/19 11:38> CCU Subjective - Physician Review Subjective (Free Text): Dennis Morales DO. Critical Care Progress note Patient seen and examined at bedside. She is confused, delirious and mumbles in unknown words, complaining of SOB. Was given ativan for anxiety last night but still feels restless. 01/20/19 11:33 CCU Objective - Vital Signs / Intake & Output Vital Signs (Last 4 hours): Vital Signs Pulse Resp BP Pulse Ox 01/20/19 05:28 126/71 01/20/19 04:20 112 H 25 H 89 L 01/20/19 04:10 121 H 55 H 82 L 01/20/19 04:00 116 H 17 114/75 89 L 01/20/19 03:50 129 H 34 H 82 L 01/20/19 03:40 114 H 60 H 87 L 01/20/19 03:30 116 H 15 85 L 01/20/19 03:20 116 H 41 H 84 L 01/20/19 03:10 117 H 37 H 84 L 01/20/19 03:00 115 H 32 H 110/73 86 L 01/20/19 02:50 116 H 35 H 86 L 01/20/19 02:40 114 H 35 H 85 L Intake and Output (Last 8hrs): Intake & Output 01/19/19 01/19/19 01/20/19 14:59 22:59 06:59 Intake Total 1595 151 Output Total 1575 Balance 20 151 Intake: IV 745 151 Gregorio cath 745 Blood Product 850 Output: Urine 575 Urethral (Carbajal) 575 Other 1000 Other: # Bowel Movements 1 - Physical Exam Physical Exam Limitations: Positive for: Altered Mental Status Head: Positive for: Atraumatic, Normocephalic Pupils: Positive for: PERRL Extroacular Muscles: Positive for: EOMI Conjunctiva: Positive for: Normal Ears: Positive for: Normal Mouth: Positive for: Dry Pharnyx: Positive for: Normal Respiratory/Chest: Positive for: Wheezes, Decreased Breath Sounds, Rhonchi Cardiovascular: Positive for: Regular Rate and Rhythm, Normal S1, S2, Tachycardic. Negative for: Rub, Gallop Abdomen: Positive for: Tenderness (on deep palpation), Distention. Negative for: Guarding, Hernias, Mass/Organomegaly Back: Positive for: Normal Inspection. Negative for: CVA Tenderness Upper Extremity: Positive for: Normal Inspection, Normal ROM, NORMAL PULSES. Negative for: Cyanosis, Edema Lower Extremity: Positive for: Edema, NORMAL PULSES, Swelling. Negative for: CALF TENDERNESS Neurological: Positive for: GCS=15, CN II-XII Intact, Speech Normal, Motor Func Grossly Intact Skin: Positive for: Warm, Dry, Normal Color. Negative for: Rashes Psychiatric: Positive for: Alert, Oriented x 3 - Medications Active Medications: Active Medications Generic Name Dose Route Start Last Admin Trade Name Freq PRN Reason Stop Dose Admin Albumin Human 25 gm 01/19/19 11:15 01/20/19 00:13 Albumin Human 25% (25 Gm/100 Ml) IV 01/20/19 07:16 25 gm Q5H MARTIN Administration Hydrocortisone 0 gm 01/19/19 10:00 01/19/19 18:52 Anusol-Hc NM Not Given BID MARTIN Sodium Chloride 250 mls @ 60 mls/hr 01/18/19 22:00 01/19/19 04:03 Sodium Chloride 0.9% IV 60 mls/hr .Q4H10M MARTIN Administration Doxycycline Hyclate 100 mg/ 100 mls @ 100 mls/hr 01/19/19 10:00 01/19/19 21:47 Sodium Chloride IVPB 100 mls/hr Q12 MARTIN Administration Protocol Meropenem/Sodium Chloride 500 mg in 50 mls @ 100 mls/hr 01/19/19 10:00 01/19/19 21:46 Merrem Iv 500 Mg/Ns 50 Ml IVPB 01/27/19 10:01 100 mls/hr Q12 MARTIN Administration Protocol Heparin Sodium/Sodium Chloride 25,000 units in 250 mls @ 13.864 mls/hr 01/19/19 14:33 01/20/19 00:57 Heparin 96411 Units/250ml 1/2 Normal Saline IV 16 units/kg/hr .Q18H2M PRN 12.323 mls/hr ADJUST RATE PER PROTOCOL Titration Protocol 18 UNITS/KG/HR Morphine Sulfate 1 mg 01/19/19 10:17 01/20/19 05:29 Morphine IVP 1 mg Q4H PRN Administration Pain, moderate (4-7) Pantoprazole Sodium 40 mg 01/19/19 10:00 01/19/19 10:46 Protonix Inj IVP 40 mg DAILY MARTIN Administration - Patient Studies Lab Studies: Microbiology Studies 01/18/19 22:32 Blood Culture - Preliminary Blood NO GROWTH AFTER 24 HOURS 01/18/19 22:02 Blood Culture - Preliminary Blood NO GROWTH AFTER 24 HOURS Lab Studies 01/20/19 01/20/19 01/20/19 Range/Units 06:00 06:00 06:00 WBC 2.0 L (4.5-11.0) 10^3/uL RBC 2.80 L (3.5-6.1) 10^6/uL Hgb 7.3 L (12.0-16.0) g/dL Hct 23.6 L (36.0-48.0) % MCV 84.3 (80.0-105.0) fl MCH 26.1 (25.0-35.0) pg MCHC 30.9 L (31.0-37.0) g/dl RDW 19.8 H (11.5-14.5) % Plt Count 157 (120.0-450.0) 10^3/uL MPV 9.0 (7.0-11.0) fl Neut % (Auto) 69.3 H (50.0-68.0) % Lymph % (Auto) 25.6 (22.0-35.0) % [place] % (Auto) 4.6 (1.0-6.0) % Eos % (Auto) 0.0 L (1.5-5.0) % Baso % (Auto) 0.5 (0.0-3.0) % Lymph # (Auto) 0.5 L (1.2-3.4) [place] # (Auto) 0.1 (0.1-0.6) Eos # (Auto) 0.0 (0.0-0.7) Baso # (Auto) 0.01 (0.0-2.0) K/mm3 Absolute Neuts (auto) 1.35 L (1.4-6.5) Neutrophils % (Manual) (50.0-70.0) % Lymphocytes % (Manual) (22.0-35.0) % Monocytes % (Manual) (1.0-6.0) % Nucleated RBC % % Platelet Evaluation (NORMAL) PT (9.4-12.5) SECONDS INR APTT 44.0 H (26.9-38.3) Seconds Sodium 137 (132-148) mmol/L Potassium 3.8 (3.6-5.0) mmol/L Chloride 98 (98-107) mmol/L Carbon Dioxide 25 (21-33) mmol/L Anion Gap 17 (10-20) BUN 89 H (7-21) mg/dL Creatinine 1.6 H (0.7-1.2) mg/dl Est GFR ( Amer) 38 Est GFR (Non-Af Amer) 31 Random Glucose 87 (70-110) mg/dL Serum Osmolality (272-300) mosm/kg Calcium 9.0 (8.4-10.5) mg/dL Phosphorus 4.2 (2.5-4.5) mg/dL Magnesium 2.7 H (1.7-2.2) mg/dL Total Bilirubin 1.4 H (0.2-1.3) mg/dL AST 46 H D (14-36) U/L ALT 15 (7-56) U/L Alkaline Phosphatase 214 H (38-126) U/L Lactate Dehydrogenase (333-699) U/L Total Creatine Kinase (35-230) U/L Troponin I ng/mL Total Protein 7.1 (5.8-8.3) g/dL Albumin 3.9 (3.0-4.8) g/dL Globulin 3.2 gm/dL Albumin/Globulin Ratio 1.2 (1.1-1.8) Triglycerides 171 H (35-160) mg/dL Cholesterol 126 L (130-200) mg/dL LDL Cholesterol Direct 74 (0-129) mg/dL HDL Cholesterol 28 L (29-60) mg/dL Procalcitonin (0.19-0.49) NG/ML Urine Eosinophils Urine Osmolality (300-1000) mosm/kg Ur Random Creatinine mg/dL U Random Total Protein mg/L Ur Random Sodium meq/L Ur Random Potassium meq/L Ur Random Urea Nitrogn mg/dL Fluid Source Fluid Appearance (CLEAR) Fluid WBC (0.0-300.0) /uL Fluid RBC (0.0-0.0) /uL Fluid Tot Cell Count (0-0) Fluid Mononuclear Cell (0-0) % Fl Polymorphonucl Cell (0-0) % Fluid Comment Ur L.pneumophila Ag (NEGATIVE) Blood Type Antibody Screen BBK History Checked 01/19/19 01/19/19 01/19/19 Range/Units 22:56 22:56 15:00 WBC 1.7 L* D (4.5-11.0) 10^3/uL RBC 2.77 L (3.5-6.1) 10^6/uL Hgb 7.2 L D (12.0-16.0) g/dL Hct 23.2 L (36.0-48.0) % MCV 83.8 (80.0-105.0) fl MCH 26.0 (25.0-35.0) pg MCHC 31.0 (31.0-37.0) g/dl RDW 19.8 H (11.5-14.5) % Plt Count 157 (120.0-450.0) 10^3/uL MPV 8.4 (7.0-11.0) fl Neut % (Auto) 73.2 H (50.0-68.0) % Lymph % (Auto) 20.2 L (22.0-35.0) % [place] % (Auto) 6.0 (1.0-6.0) % Eos % (Auto) 0.6 L (1.5-5.0) % Baso % (Auto) 0.0 (0.0-3.0) % Lymph # (Auto) 0.3 L (1.2-3.4) [place] # (Auto) 0.1 (0.1-0.6) Eos # (Auto) 0.0 (0.0-0.7) Baso # (Auto) 0.00 (0.0-2.0) K/mm3 Absolute Neuts (auto) 1.23 L (1.4-6.5) Neutrophils % (Manual) 72 H (50.0-70.0) % Lymphocytes % (Manual) 22 (22.0-35.0) % Monocytes % (Manual) 6 (1.0-6.0) % Nucleated RBC % 1 % Platelet Evaluation Normal (NORMAL) PT (9.4-12.5) SECONDS INR APTT 94.4 H (26.9-38.3) Seconds Sodium (132-148) mmol/L Potassium (3.6-5.0) mmol/L Chloride (98-107) mmol/L Carbon Dioxide (21-33) mmol/L Anion Gap (10-20) BUN (7-21) mg/dL Creatinine (0.7-1.2) mg/dl Est GFR ( Amer) Est GFR (Non-Af Amer) Random Glucose (70-110) mg/dL Serum Osmolality 302 H (272-300) mosm/kg Calcium (8.4-10.5) mg/dL Phosphorus (2.5-4.5) mg/dL Magnesium (1.7-2.2) mg/dL Total Bilirubin (0.2-1.3) mg/dL AST (14-36) U/L ALT (7-56) U/L Alkaline Phosphatase (38-126) U/L Lactate Dehydrogenase (333-699) U/L Total Creatine Kinase (35-230) U/L Troponin I ng/mL Total Protein (5.8-8.3) g/dL Albumin (3.0-4.8) g/dL Globulin gm/dL Albumin/Globulin Ratio (1.1-1.8) Triglycerides (35-160) mg/dL Cholesterol (130-200) mg/dL LDL Cholesterol Direct (0-129) mg/dL HDL Cholesterol (29-60) mg/dL Procalcitonin (0.19-0.49) NG/ML Urine Eosinophils Urine Osmolality (300-1000) mosm/kg Ur Random Creatinine mg/dL U Random Total Protein mg/L Ur Random Sodium meq/L Ur Random Potassium meq/L Ur Random Urea Nitrogn mg/dL Fluid Source Fluid Appearance (CLEAR) Fluid WBC (0.0-300.0) /uL Fluid RBC (0.0-0.0) /uL Fluid Tot Cell Count (0-0) Fluid Mononuclear Cell (0-0) % Fl Polymorphonucl Cell (0-0) % Fluid Comment Ur L.pneumophila Ag (NEGATIVE) Blood Type Antibody Screen BBK History Checked 01/19/19 01/19/19 01/19/19 Range/Units 15:00 13:10 10:30 WBC (4.5-11.0) 10^3/uL RBC (3.5-6.1) 10^6/uL Hgb (12.0-16.0) g/dL Hct (36.0-48.0) % MCV (80.0-105.0) fl MCH (25.0-35.0) pg MCHC (31.0-37.0) g/dl RDW (11.5-14.5) % Plt Count (120.0-450.0) 10^3/uL MPV (7.0-11.0) fl Neut % (Auto) (50.0-68.0) % Lymph % (Auto) (22.0-35.0) % [place] % (Auto) (1.0-6.0) % Eos % (Auto) (1.5-5.0) % Baso % (Auto) (0.0-3.0) % Lymph # (Auto) (1.2-3.4) [place] # (Auto) (0.1-0.6) Eos # (Auto) (0.0-0.7) Baso # (Auto) (0.0-2.0) K/mm3 Absolute Neuts (auto) (1.4-6.5) Neutrophils % (Manual) (50.0-70.0) % Lymphocytes % (Manual) (22.0-35.0) % Monocytes % (Manual) (1.0-6.0) % Nucleated RBC % % Platelet Evaluation (NORMAL) PT 15.8 H (9.4-12.5) SECONDS INR 1.42 APTT (26.9-38.3) Seconds Sodium 134 (132-148) mmol/L Potassium 2.9 L* (3.6-5.0) mmol/L Chloride 95 L (98-107) mmol/L Carbon Dioxide 25 (21-33) mmol/L Anion Gap 17 (10-20) BUN 97 H (7-21) mg/dL Creatinine 1.6 H (0.7-1.2) mg/dl Est GFR ( Amer) 38 Est GFR (Non-Af Amer) 31 Random Glucose 93 (70-110) mg/dL Serum Osmolality (272-300) mosm/kg Calcium 8.2 L (8.4-10.5) mg/dL Phosphorus (2.5-4.5) mg/dL Magnesium (1.7-2.2) mg/dL Total Bilirubin 1.0 (0.2-1.3) mg/dL AST 23 (14-36) U/L ALT 20 (7-56) U/L Alkaline Phosphatase 185 H D (38-126) U/L Lactate Dehydrogenase (333-699) U/L Total Creatine Kinase (35-230) U/L Troponin I ng/mL Total Protein 5.6 L (5.8-8.3) g/dL Albumin 2.7 L (3.0-4.8) g/dL Globulin 2.9 gm/dL Albumin/Globulin Ratio 0.9 L (1.1-1.8) Triglycerides (35-160) mg/dL Cholesterol (130-200) mg/dL LDL Cholesterol Direct (0-129) mg/dL HDL Cholesterol (29-60) mg/dL Procalcitonin (0.19-0.49) NG/ML Urine Eosinophils Negative Urine Osmolality (300-1000) mosm/kg Ur Random Creatinine mg/dL U Random Total Protein mg/L Ur Random Sodium meq/L Ur Random Potassium meq/L Ur Random Urea Nitrogn mg/dL Fluid Source Fluid Appearance (CLEAR) Fluid WBC (0.0-300.0) /uL Fluid RBC (0.0-0.0) /uL Fluid Tot Cell Count (0-0) Fluid Mononuclear Cell (0-0) % Fl Polymorphonucl Cell (0-0) % Fluid Comment Ur L.pneumophila Ag (NEGATIVE) Blood Type Antibody Screen BBK History Checked 01/19/19 01/19/19 01/19/19 Range/Units 10:30 10:30 09:51 WBC (4.5-11.0) 10^3/uL RBC (3.5-6.1) 10^6/uL Hgb (12.0-16.0) g/dL Hct (36.0-48.0) % MCV (80.0-105.0) fl MCH (25.0-35.0) pg MCHC (31.0-37.0) g/dl RDW (11.5-14.5) % Plt Count (120.0-450.0) 10^3/uL MPV (7.0-11.0) fl Neut % (Auto) (50.0-68.0) % Lymph % (Auto) (22.0-35.0) % [place] % (Auto) (1.0-6.0) % Eos % (Auto) (1.5-5.0) % Baso % (Auto) (0.0-3.0) % Lymph # (Auto) (1.2-3.4) [place] # (Auto) (0.1-0.6) Eos # (Auto) (0.0-0.7) Baso # (Auto) (0.0-2.0) K/mm3 Absolute Neuts (auto) (1.4-6.5) Neutrophils % (Manual) (50.0-70.0) % Lymphocytes % (Manual) (22.0-35.0) % Monocytes % (Manual) (1.0-6.0) % Nucleated RBC % % Platelet Evaluation (NORMAL) PT (9.4-12.5) SECONDS INR APTT (26.9-38.3) Seconds Sodium (132-148) mmol/L Potassium (3.6-5.0) mmol/L Chloride (98-107) mmol/L Carbon Dioxide (21-33) mmol/L Anion Gap (10-20) BUN (7-21) mg/dL Creatinine (0.7-1.2) mg/dl Est GFR ( Amer) Est GFR (Non-Af Amer) Random Glucose (70-110) mg/dL Serum Osmolality (272-300) mosm/kg Calcium (8.4-10.5) mg/dL Phosphorus (2.5-4.5) mg/dL Magnesium (1.7-2.2) mg/dL Total Bilirubin (0.2-1.3) mg/dL AST (14-36) U/L ALT (7-56) U/L Alkaline Phosphatase (38-126) U/L Lactate Dehydrogenase (333-699) U/L Total Creatine Kinase (35-230) U/L Troponin I ng/mL Total Protein (5.8-8.3) g/dL Albumin (3.0-4.8) g/dL Globulin gm/dL Albumin/Globulin Ratio (1.1-1.8) Triglycerides (35-160) mg/dL Cholesterol (130-200) mg/dL LDL Cholesterol Direct (0-129) mg/dL HDL Cholesterol (29-60) mg/dL Procalcitonin (0.19-0.49) NG/ML Urine Eosinophils Urine Osmolality 451 (300-1000) mosm/kg Ur Random Creatinine 91 mg/dL U Random Total Protein 36 mg/L Ur Random Sodium < 5 meq/L Ur Random Potassium 26.8 meq/L Ur Random Urea Nitrogn 757 mg/dL Fluid Source Peritoneal Fluid Appearance Turbid (CLEAR) Fluid WBC 438.0 H (0.0-300.0) /uL Fluid RBC 880.0 H (0.0-0.0) /uL Fluid Tot Cell Count 100 H (0-0) Fluid Mononuclear Cell 53.2 H (0-0) % Fl Polymorphonucl Cell 46.8 H (0-0) % Fluid Comment White Ur L.pneumophila Ag Negative (NEGATIVE) Blood Type Antibody Screen BBK History Checked 01/19/19 01/19/19 01/19/19 Range/Units 08:30 08:30 04:30 WBC (4.5-11.0) 10^3/uL RBC (3.5-6.1) 10^6/uL Hgb (12.0-16.0) g/dL Hct (36.0-48.0) % MCV (80.0-105.0) fl MCH (25.0-35.0) pg MCHC (31.0-37.0) g/dl RDW (11.5-14.5) % Plt Count (120.0-450.0) 10^3/uL MPV (7.0-11.0) fl Neut % (Auto) (50.0-68.0) % Lymph % (Auto) (22.0-35.0) % [place] % (Auto) (1.0-6.0) % Eos % (Auto) (1.5-5.0) % Baso % (Auto) (0.0-3.0) % Lymph # (Auto) (1.2-3.4) [place] # (Auto) (0.1-0.6) Eos # (Auto) (0.0-0.7) Baso # (Auto) (0.0-2.0) K/mm3 Absolute Neuts (auto) (1.4-6.5) Neutrophils % (Manual) (50.0-70.0) % Lymphocytes % (Manual) (22.0-35.0) % Monocytes % (Manual) (1.0-6.0) % Nucleated RBC % % Platelet Evaluation (NORMAL) PT (9.4-12.5) SECONDS INR APTT (26.9-38.3) Seconds Sodium 131 L (132-148) mmol/L Potassium 3.1 L (3.6-5.0) mmol/L Chloride 93 L (98-107) mmol/L Carbon Dioxide 26 (21-33) mmol/L Anion Gap 15 (10-20) BUN 100 H (7-21) mg/dL Creatinine 2.3 H (0.7-1.2) mg/dl Est GFR ( Amer) 25 Est GFR (Non-Af Amer) 21 Random Glucose 115 H (70-110) mg/dL Serum Osmolality (272-300) mosm/kg Calcium 8.0 L (8.4-10.5) mg/dL Phosphorus 5.7 H (2.5-4.5) mg/dL Magnesium 2.6 H (1.7-2.2) mg/dL Total Bilirubin 0.5 (0.2-1.3) mg/dL AST 44 H (14-36) U/L ALT 9 (7-56) U/L Alkaline Phosphatase 253 H (38-126) U/L Lactate Dehydrogenase 901 H 879 H (333-699) U/L Total Creatine Kinase 42 < 20 L (35-230) U/L Troponin I 0.09 ng/mL Total Protein 6.0 (5.8-8.3) g/dL Albumin 2.6 L (3.0-4.8) g/dL Globulin 3.4 gm/dL Albumin/Globulin Ratio 0.8 L (1.1-1.8) Triglycerides (35-160) mg/dL Cholesterol (130-200) mg/dL LDL Cholesterol Direct (0-129) mg/dL HDL Cholesterol (29-60) mg/dL Procalcitonin (0.19-0.49) NG/ML Urine Eosinophils Urine Osmolality (300-1000) mosm/kg Ur Random Creatinine mg/dL U Random Total Protein mg/L Ur Random Sodium meq/L Ur Random Potassium meq/L Ur Random Urea Nitrogn mg/dL Fluid Source Fluid Appearance (CLEAR) Fluid WBC (0.0-300.0) /uL Fluid RBC (0.0-0.0) /uL Fluid Tot Cell Count (0-0) Fluid Mononuclear Cell (0-0) % Fl Polymorphonucl Cell (0-0) % Fluid Comment Ur L.pneumophila Ag (NEGATIVE) Blood Type A POSITIVE Antibody Screen Negative BBK History Checked Patient has bt 01/19/19 Range/Units 01:20 WBC (4.5-11.0) 10^3/uL RBC (3.5-6.1) 10^6/uL Hgb (12.0-16.0) g/dL Hct (36.0-48.0) % MCV (80.0-105.0) fl MCH (25.0-35.0) pg MCHC (31.0-37.0) g/dl RDW (11.5-14.5) % Plt Count (120.0-450.0) 10^3/uL MPV (7.0-11.0) fl Neut % (Auto) (50.0-68.0) % Lymph % (Auto) (22.0-35.0) % [place] % (Auto) (1.0-6.0) % Eos % (Auto) (1.5-5.0) % Baso % (Auto) (0.0-3.0) % Lymph # (Auto) (1.2-3.4) [place] # (Auto) (0.1-0.6) Eos # (Auto) (0.0-0.7) Baso # (Auto) (0.0-2.0) K/mm3 Absolute Neuts (auto) (1.4-6.5) Neutrophils % (Manual) (50.0-70.0) % Lymphocytes % (Manual) (22.0-35.0) % Monocytes % (Manual) (1.0-6.0) % Nucleated RBC % % Platelet Evaluation (NORMAL) PT (9.4-12.5) SECONDS INR APTT (26.9-38.3) Seconds Sodium (132-148) mmol/L Potassium (3.6-5.0) mmol/L Chloride (98-107) mmol/L Carbon Dioxide (21-33) mmol/L Anion Gap (10-20) BUN (7-21) mg/dL Creatinine (0.7-1.2) mg/dl Est GFR ( Amer) Est GFR (Non-Af Amer) Random Glucose (70-110) mg/dL Serum Osmolality (272-300) mosm/kg Calcium (8.4-10.5) mg/dL Phosphorus (2.5-4.5) mg/dL Magnesium (1.7-2.2) mg/dL Total Bilirubin (0.2-1.3) mg/dL AST (14-36) U/L ALT (7-56) U/L Alkaline Phosphatase (38-126) U/L Lactate Dehydrogenase (333-699) U/L Total Creatine Kinase (35-230) U/L Troponin I ng/mL Total Protein (5.8-8.3) g/dL Albumin (3.0-4.8) g/dL Globulin gm/dL Albumin/Globulin Ratio (1.1-1.8) Triglycerides (35-160) mg/dL Cholesterol (130-200) mg/dL LDL Cholesterol Direct (0-129) mg/dL HDL Cholesterol (29-60) mg/dL Procalcitonin 2.02 H (0.19-0.49) NG/ML Urine Eosinophils Urine Osmolality (300-1000) mosm/kg Ur Random Creatinine mg/dL U Random Total Protein mg/L Ur Random Sodium meq/L Ur Random Potassium meq/L Ur Random Urea Nitrogn mg/dL Fluid Source Fluid Appearance (CLEAR) Fluid WBC (0.0-300.0) /uL Fluid RBC (0.0-0.0) /uL Fluid Tot Cell Count (0-0) Fluid Mononuclear Cell (0-0) % Fl Polymorphonucl Cell (0-0) % Fluid Comment Ur L.pneumophila Ag (NEGATIVE) Blood Type Antibody Screen BBK History Checked Laboratory Results - last 24 hr 01/19/19 01/19/19 01/19/19 01:20 04:30 08:30 WBC RBC Hgb Hct MCV MCH MCHC RDW Plt Count MPV Neut % (Auto) Lymph % (Auto) [place] % (Auto) Eos % (Auto) Baso % (Auto) Lymph # (Auto) [place] # (Auto) Eos # (Auto) Baso # (Auto) Absolute Neuts (auto) Neutrophils % (Manual) Lymphocytes % (Manual) Monocytes % (Manual) Nucleated RBC % Platelet Evaluation PT INR APTT Sodium 131 L Potassium 3.1 L Chloride 93 L Carbon Dioxide 26 Anion Gap 15 BUN 100 H Creatinine 2.3 H Est GFR ( Amer) 25 Est GFR (Non-Af Amer) 21 Random Glucose 115 H Serum Osmolality Calcium 8.0 L Phosphorus 5.7 H Magnesium 2.6 H Total Bilirubin 0.5 AST 44 H ALT 9 Alkaline Phosphatase 253 H Lactate Dehydrogenase 879 H 901 H Total Creatine Kinase < 20 L 42 Troponin I 0.09 Total Protein 6.0 Albumin 2.6 L Globulin 3.4 Albumin/Globulin Ratio 0.8 L Triglycerides Cholesterol LDL Cholesterol Direct HDL Cholesterol Procalcitonin 2.02 H Urine Eosinophils Urine Osmolality Ur Random Creatinine U Random Total Protein Ur Random Sodium Ur Random Potassium Ur Random Urea Nitrogn Fluid Source Fluid Appearance Fluid WBC Fluid RBC Fluid Tot Cell Count Fluid Mononuclear Cell Fl Polymorphonucl Cell Fluid Comment Ur L.pneumophila Ag Blood Type Antibody Screen BBK History Checked 01/19/19 01/19/19 01/19/19 08:30 09:51 10:30 WBC RBC Hgb Hct MCV MCH MCHC RDW Plt Count MPV Neut % (Auto) Lymph % (Auto) [place] % (Auto) Eos % (Auto) Baso % (Auto) Lymph # (Auto) [place] # (Auto) Eos # (Auto) Baso # (Auto) Absolute Neuts (auto) Neutrophils % (Manual) Lymphocytes % (Manual) Monocytes % (Manual) Nucleated RBC % Platelet Evaluation PT INR APTT Sodium Potassium Chloride Carbon Dioxide Anion Gap BUN Creatinine Est GFR ( Amer) Est GFR (Non-Af Amer) Random Glucose Serum Osmolality Calcium Phosphorus Magnesium Total Bilirubin AST ALT Alkaline Phosphatase Lactate Dehydrogenase Total Creatine Kinase Troponin I Total Protein Albumin Globulin Albumin/Globulin Ratio Triglycerides Cholesterol LDL Cholesterol Direct HDL Cholesterol Procalcitonin Urine Eosinophils Urine Osmolality Ur Random Creatinine U Random Total Protein Ur Random Sodium Ur Random Potassium Ur Random Urea Nitrogn Fluid Source Peritoneal Fluid Appearance Turbid Fluid WBC 438.0 H Fluid RBC 880.0 H Fluid Tot Cell Count 100 H Fluid Mononuclear Cell 53.2 H Fl Polymorphonucl Cell 46.8 H Fluid Comment White Ur L.pneumophila Ag Negative Blood Type A POSITIVE Antibody Screen Negative BBK History Checked Patient has bt 01/19/19 01/19/19 01/19/19 10:30 10:30 13:10 WBC RBC Hgb Hct MCV MCH MCHC RDW Plt Count MPV Neut % (Auto) Lymph % (Auto) [place] % (Auto) Eos % (Auto) Baso % (Auto) Lymph # (Auto) [place] # (Auto) Eos # (Auto) Baso # (Auto) Absolute Neuts (auto) Neutrophils % (Manual) Lymphocytes % (Manual) Monocytes % (Manual) Nucleated RBC % Platelet Evaluation PT 15.8 H INR 1.42 APTT Sodium Potassium Chloride Carbon Dioxide Anion Gap BUN Creatinine Est GFR ( Amer) Est GFR (Non-Af Amer) Random Glucose Serum Osmolality Calcium Phosphorus Magnesium Total Bilirubin AST ALT Alkaline Phosphatase Lactate Dehydrogenase Total Creatine Kinase Troponin I Total Protein Albumin Globulin Albumin/Globulin Ratio Triglycerides Cholesterol LDL Cholesterol Direct HDL Cholesterol Procalcitonin Urine Eosinophils Negative Urine Osmolality 451 Ur Random Creatinine 91 U Random Total Protein 36 Ur Random Sodium < 5 Ur Random Potassium 26.8 Ur Random Urea Nitrogn 757 Fluid Source Fluid Appearance Fluid WBC Fluid RBC Fluid Tot Cell Count Fluid Mononuclear Cell Fl Polymorphonucl Cell Fluid Comment Ur L.pneumophila Ag Blood Type Antibody Screen BBK History Checked 01/19/19 01/19/19 01/19/19 15:00 15:00 22:56 WBC 1.7 L* D RBC 2.77 L Hgb 7.2 L D Hct 23.2 L MCV 83.8 MCH 26.0 MCHC 31.0 RDW 19.8 H Plt Count 157 MPV 8.4 Neut % (Auto) 73.2 H Lymph % (Auto) 20.2 L [place] % (Auto) 6.0 Eos % (Auto) 0.6 L Baso % (Auto) 0.0 Lymph # (Auto) 0.3 L [place] # (Auto) 0.1 Eos # (Auto) 0.0 Baso # (Auto) 0.00 Absolute Neuts (auto) 1.23 L Neutrophils % (Manual) 72 H Lymphocytes % (Manual) 22 Monocytes % (Manual) 6 Nucleated RBC % 1 Platelet Evaluation Normal PT INR APTT Sodium 134 Potassium 2.9 L* Chloride 95 L Carbon Dioxide 25 Anion Gap 17 BUN 97 H Creatinine 1.6 H Est GFR ( Amer) 38 Est GFR (Non-Af Amer) 31 Random Glucose 93 Serum Osmolality 302 H Calcium 8.2 L Phosphorus Magnesium Total Bilirubin 1.0 AST 23 ALT 20 Alkaline Phosphatase 185 H D Lactate Dehydrogenase Total Creatine Kinase Troponin I Total Protein 5.6 L Albumin 2.7 L Globulin 2.9 Albumin/Globulin Ratio 0.9 L Triglycerides Cholesterol LDL Cholesterol Direct HDL Cholesterol Procalcitonin Urine Eosinophils Urine Osmolality Ur Random Creatinine U Random Total Protein Ur Random Sodium Ur Random Potassium Ur Random Urea Nitrogn Fluid Source Fluid Appearance Fluid WBC Fluid RBC Fluid Tot Cell Count Fluid Mononuclear Cell Fl Polymorphonucl Cell Fluid Comment Ur L.pneumophila Ag Blood Type Antibody Screen BBK History Checked 01/19/19 01/20/19 01/20/19 22:56 06:00 06:00 WBC 2.0 L RBC 2.80 L Hgb 7.3 L Hct 23.6 L MCV 84.3 MCH 26.1 MCHC 30.9 L RDW 19.8 H Plt Count 157 MPV 9.0 Neut % (Auto) 69.3 H Lymph % (Auto) 25.6 [place] % (Auto) 4.6 Eos % (Auto) 0.0 L Baso % (Auto) 0.5 Lymph # (Auto) 0.5 L [place] # (Auto) 0.1 Eos # (Auto) 0.0 Baso # (Auto) 0.01 Absolute Neuts (auto) 1.35 L Neutrophils % (Manual) Lymphocytes % (Manual) Monocytes % (Manual) Nucleated RBC % Platelet Evaluation PT INR APTT 94.4 H Sodium 137 Potassium 3.8 Chloride 98 Carbon Dioxide 25 Anion Gap 17 BUN 89 H Creatinine 1.6 H Est GFR ( Amer) 38 Est GFR (Non-Af Amer) 31 Random Glucose 87 Serum Osmolality Calcium 9.0 Phosphorus 4.2 Magnesium 2.7 H Total Bilirubin 1.4 H AST 46 H D ALT 15 Alkaline Phosphatase 214 H Lactate Dehydrogenase Total Creatine Kinase Troponin I Total Protein 7.1 Albumin 3.9 Globulin 3.2 Albumin/Globulin Ratio 1.2 Triglycerides 171 H Cholesterol 126 L LDL Cholesterol Direct 74 HDL Cholesterol 28 L Procalcitonin Urine Eosinophils Urine Osmolality Ur Random Creatinine U Random Total Protein Ur Random Sodium Ur Random Potassium Ur Random Urea Nitrogn Fluid Source Fluid Appearance Fluid WBC Fluid RBC Fluid Tot Cell Count Fluid Mononuclear Cell Fl Polymorphonucl Cell Fluid Comment Ur L.pneumophila Ag Blood Type Antibody Screen BBK History Checked 01/20/19 06:00 WBC RBC Hgb Hct MCV MCH MCHC RDW Plt Count MPV Neut % (Auto) Lymph % (Auto) [place] % (Auto) Eos % (Auto) Baso % (Auto) Lymph # (Auto) [place] # (Auto) Eos # (Auto) Baso # (Auto) Absolute Neuts (auto) Neutrophils % (Manual) Lymphocytes % (Manual) Monocytes % (Manual) Nucleated RBC % Platelet Evaluation PT INR APTT 44.0 H Sodium Potassium Chloride Carbon Dioxide Anion Gap BUN Creatinine Est GFR ( Amer) Est GFR (Non-Af Amer) Random Glucose Serum Osmolality Calcium Phosphorus Magnesium Total Bilirubin AST ALT Alkaline Phosphatase Lactate Dehydrogenase Total Creatine Kinase Troponin I Total Protein Albumin Globulin Albumin/Globulin Ratio Triglycerides Cholesterol LDL Cholesterol Direct HDL Cholesterol Procalcitonin Urine Eosinophils Urine Osmolality Ur Random Creatinine U Random Total Protein Ur Random Sodium Ur Random Potassium Ur Random Urea Nitrogn Fluid Source Fluid Appearance Fluid WBC Fluid RBC Fluid Tot Cell Count Fluid Mononuclear Cell Fl Polymorphonucl Cell Fluid Comment Ur L.pneumophila Ag Blood Type Antibody Screen BBK History Checked Radiology Impressions: Radiology Impressions Chest X-Ray 01/18/19 21:36 IMPRESSION: Right parahilar band-like opacity. Possible atelectasis versus fluid within fissure. Left basilar ill-defined opacity. Possible artifact. Follow-up advised. Chest X-Ray 01/19/19 06:38 IMPRESSION: Possible fluid within the fissure versus atelectasis adjacent to right hilum. No acute infiltrate. Renal Ultrasound 01/19/19 10:05 IMPRESSION: Unremarkable renal sonogram. Review of Systems - Review of Systems Systems not reviewed;Unavailable: Altered Mental Status Critical Care Progress Note - Nutrition Nutrition: Nutrition Category Date Time Status Dysphagia/Modified Consistency Diet [DIET] Diets 01/19/19 Breakfast Ordered Assessment/Plan - Assessment and Plan (Free Text) Assessment: 73 y/o female with PMH of ovarian carcinoma, malignant ascites, LLE DVTs, HTN, HLD, T2DM admitted to ICU for hypotension, PNA and supratherpeuti INR that is improving Plan: Neuro: -altered, confused, delirious and mumbles in unknown words -avoid benzo -maintain normothermia Cardio: -hypotension improved after IVF -d/c IVF, CXR this am shows increased pleural effusion extending to right lung apex -ECHO from 01/2019 shows LVEF 54%, mild triscupid regurgitation, no pericardial effusion -hold home BB -troponins leak likely due to EMMA -maintain MAP>65 mm Hg Pulm: -CXR shows right sided infiltrates with severe elevation in right hemidiaphragm -lasix 20 given am -xopenex prn -maintain SaO2>92% -O2 NC PRN GI: -recurrent malignant ascites -albumin improving 3.9 -2L ascetic fluid drained today -f/u ascitic fluid: turbid, WBC, RBC, PMN. culture pending -f/u CT C/A/P -hydrocortisone 2.5% rectal for hemorrhoid -morphine prn Renal: -EMMA likely due to dehydration and poor oral intake -urine studies -I/O. daily weight -NS @60 cc/hr -renal US: unremarkable -UA negative -albumin 25% 5 gm per 1L of drained ascetic fluid as per Dr Gonzalez -nephro following Heme: -stage IV ovarian cancer -pancytopenia likely due to ovarian ca -supratherapeutic INR reversed. Vitamin K given in ED. INR now 1.4 -FFP X3 units given 01/19 -on heparin drip. APTT 44 Endo: -ISS-low -accucheck -maintain euglycemia ID: -continue merpenem, doxy -f/u urine, sputum cultures -blood cx negative to date -legionella Ag negative -f/u rapid flu, strep Ag -procalcitonin 2.02 -repeat lactate 2.1 -ID following Prophylaxis: Protonix SCD Failed swallow test. NPO DNR/DNI Palliative care following Dispo: Patient is hemodynamically stable, normotensive, afebrile, on O2 NC, needs comfort care. Transfer to med/surg today Case reviewed and discussed with attending Dr Pichardo DRAFTED NO FINALIZED <Chin Pichardo - Last Filed: 01/20/19 12:32> CCU Objective - Vital Signs / Intake & Output Vital Signs (Last 4 hours): Vital Signs Pulse Resp BP 01/20/19 12:09 115 H 29 H 01/20/19 12:04 116 H 19 01/20/19 12:03 112 H 25 H 01/20/19 12:02 113 H 23 01/20/19 12:01 116 H 35 H 01/20/19 12:00 129/69 01/20/19 11:59 118 H 25 H 01/20/19 11:58 112 H 34 H 01/20/19 11:57 117 H 38 H 01/20/19 11:56 112 H 26 H 01/20/19 11:55 113 H 26 H 01/20/19 11:54 118 H 18 01/20/19 11:53 112 H 34 H 01/20/19 11:52 118 H 25 H 01/20/19 11:51 112 H 27 H 01/20/19 11:50 111 H 01/20/19 11:49 115 H 38 H 01/20/19 11:48 116 H 39 H 01/20/19 11:47 108 H 28 H 01/20/19 11:46 116 H 37 H 01/20/19 11:45 117 H 01/20/19 11:44 118 H 45 H 01/20/19 11:43 119 H 37 H 01/20/19 11:42 113 H 26 H 01/20/19 11:41 117 H 35 H 01/20/19 11:40 115 H 28 H 01/20/19 11:39 113 H 01/20/19 11:38 113 H 25 H 01/20/19 11:37 114 H 23 01/20/19 11:36 117 H 41 H 01/20/19 11:35 116 H 24 01/20/19 11:34 111 H 24 01/20/19 11:33 117 H 33 H 01/20/19 11:32 112 H 19 01/20/19 11:31 114 H 28 H 01/20/19 11:30 117 H 34 H 01/20/19 11:29 113 H 34 H 01/20/19 11:28 116 H 24 01/20/19 11:27 116 H 25 H 01/20/19 11:26 113 H 25 H 01/20/19 11:25 119 H 32 H 01/20/19 11:24 117 H 37 H 01/20/19 11:23 117 H 143 H 01/20/19 11:22 114 H 53 H 01/20/19 11:21 109 H 150 H 01/20/19 11:20 115 H 01/20/19 11:19 114 H 01/20/19 11:18 112 H 01/20/19 11:17 116 H 32 H 01/20/19 11:16 119 H 33 H 01/20/19 11:15 114 H 01/20/19 11:14 117 H 01/20/19 11:13 112 H 01/20/19 11:12 122 H 01/20/19 11:11 113 H 01/20/19 11:10 111 H 20 01/20/19 11:09 117 H 23 01/20/19 11:08 113 H 29 H 01/20/19 11:07 116 H 33 H 01/20/19 11:06 113 H 24 01/20/19 11:05 115 H 6 L 01/20/19 11:04 115 H 01/20/19 11:03 117 H 47 H 01/20/19 11:02 114 H 01/20/19 11:01 115 H 01/20/19 11:00 95/42 L 01/20/19 10:59 102 H 01/20/19 10:53 120 H Intake and Output (Last 8hrs): Intake & Output 01/19/19 01/20/19 01/20/19 22:59 06:59 14:59 Intake Total 1595 151 99 Output Total 1575 Balance 20 151 99 Intake: IV 745 151 99 Gregorio cath 745 Blood Product 850 Output: Urine 575 Urethral (Carbajal) 575 Other 1000 Other: # Bowel Movements 1 - Medications Active Medications: Active Medications Generic Name Dose Route Start Last Admin Trade Name Freq PRN Reason Stop Dose Admin Acetaminophen 650 mg 01/20/19 11:23 Tylenol 325mg Tab PO Q6H PRN Pain, Mild (1-3) Hydrocortisone 0 gm 01/19/19 10:00 01/20/19 10:02 Anusol-Hc NM 1 oin BID MARTIN Administration Doxycycline Hyclate 100 mg/ 100 mls @ 100 mls/hr 01/19/19 10:00 01/20/19 10:12 Sodium Chloride IVPB 100 mls/hr Q12 MRATIN Administration Protocol Meropenem/Sodium Chloride 500 mg in 50 mls @ 100 mls/hr 01/19/19 10:00 01/20/19 10:11 Merrem Iv 500 Mg/Ns 50 Ml IVPB 01/27/19 10:01 100 mls/hr Q12 MARTIN Administration Protocol Heparin Sodium/Sodium Chloride 25,000 units in 250 mls @ 13.864 mls/hr 01/19/19 14:33 01/20/19 10:06 Heparin 04195 Units/250ml 1/2 Normal Saline IV 18 units/kg/hr .Q18H2M PRN 13.864 mls/hr ADJUST RATE PER PROTOCOL Administration Protocol 18 UNITS/KG/HR Levalbuterol HCl 0.63 mg 01/20/19 07:14 01/20/19 07:47 Xopenex IH 0.63 mg [id number] PRN Administration Shortness of Breath Morphine Sulfate 2 mg 01/20/19 11:22 01/20/19 12:13 Morphine IVP 2 mg Q4H PRN Administration Pain, moderate (4-7) Pantoprazole Sodium 40 mg 01/19/19 10:00 01/20/19 10:12 Protonix Inj IVP 40 mg DAILY MARTIN Administration - Patient Studies Lab Studies: Microbiology Studies 01/18/19 22:02 Blood Culture - Preliminary Blood NO GROWTH AFTER 24 HOURS Gram Stain - Preliminary 01/19/19 09:56 Body Fluid Culture - Preliminary Peritoneal Fluid NO GROWTH AFTER 24 HOURS 01/19/19 00:30 Urine Culture - Final Urine Random <10,000 CFU/ML. MULTIPLE SPECIES. PROBABLE CONTAMINATION. 01/18/19 22:32 Blood Culture - Preliminary Blood NO GROWTH AFTER 24 HOURS Lab Studies 01/20/19 01/20/19 01/20/19 Range/Units 06:00 06:00 06:00 WBC 2.0 L (4.5-11.0) 10^3/uL RBC 2.80 L (3.5-6.1) 10^6/uL Hgb 7.3 L (12.0-16.0) g/dL Hct 23.6 L (36.0-48.0) % MCV 84.3 (80.0-105.0) fl MCH 26.1 (25.0-35.0) pg MCHC 30.9 L (31.0-37.0) g/dl RDW 19.8 H (11.5-14.5) % Plt Count 157 (120.0-450.0) 10^3/uL MPV 9.0 (7.0-11.0) fl Neut % (Auto) 69.3 H (50.0-68.0) % Lymph % (Auto) 25.6 (22.0-35.0) % [place] % (Auto) 4.6 (1.0-6.0) % Eos % (Auto) 0.0 L (1.5-5.0) % Baso % (Auto) 0.5 (0.0-3.0) % Lymph # (Auto) 0.5 L (1.2-3.4) [place] # (Auto) 0.1 (0.1-0.6) Eos # (Auto) 0.0 (0.0-0.7) Baso # (Auto) 0.01 (0.0-2.0) K/mm3 Absolute Neuts (auto) 1.35 L (1.4-6.5) Neutrophils % (Manual) (50.0-70.0) % Lymphocytes % (Manual) (22.0-35.0) % Monocytes % (Manual) (1.0-6.0) % Nucleated RBC % % Platelet Evaluation (NORMAL) PT (9.4-12.5) SECONDS INR APTT 44.0 H (26.9-38.3) Seconds Sodium 137 (132-148) mmol/L Potassium 3.8 (3.6-5.0) mmol/L Chloride 98 (98-107) mmol/L Carbon Dioxide 25 (21-33) mmol/L Anion Gap 17 (10-20) BUN 89 H (7-21) mg/dL Creatinine 1.6 H (0.7-1.2) mg/dl Est GFR ( Amer) 38 Est GFR (Non-Af Amer) 31 Random Glucose 87 (70-110) mg/dL Serum Osmolality (272-300) mosm/kg Calcium 9.0 (8.4-10.5) mg/dL Phosphorus 4.2 (2.5-4.5) mg/dL Magnesium 2.7 H (1.7-2.2) mg/dL Total Bilirubin 1.4 H (0.2-1.3) mg/dL AST 46 H D (14-36) U/L ALT 15 (7-56) U/L Alkaline Phosphatase 214 H (38-126) U/L Total Protein 7.1 (5.8-8.3) g/dL Albumin 3.9 (3.0-4.8) g/dL Globulin 3.2 gm/dL Albumin/Globulin Ratio 1.2 (1.1-1.8) Triglycerides 171 H (35-160) mg/dL Cholesterol 126 L (130-200) mg/dL LDL Cholesterol Direct 74 (0-129) mg/dL HDL Cholesterol 28 L (29-60) mg/dL Procalcitonin (0.19-0.49) NG/ML Urine Eosinophils Ur L.pneumophila Ag (NEGATIVE) 01/19/19 01/19/19 01/19/19 Range/Units 22:56 22:56 15:00 WBC 1.7 L* D (4.5-11.0) 10^3/uL RBC 2.77 L (3.5-6.1) 10^6/uL Hgb 7.2 L D (12.0-16.0) g/dL Hct 23.2 L (36.0-48.0) % MCV 83.8 (80.0-105.0) fl MCH 26.0 (25.0-35.0) pg MCHC 31.0 (31.0-37.0) g/dl RDW 19.8 H (11.5-14.5) % Plt Count 157 (120.0-450.0) 10^3/uL MPV 8.4 (7.0-11.0) fl Neut % (Auto) 73.2 H (50.0-68.0) % Lymph % (Auto) 20.2 L (22.0-35.0) % [place] % (Auto) 6.0 (1.0-6.0) % Eos % (Auto) 0.6 L (1.5-5.0) % Baso % (Auto) 0.0 (0.0-3.0) % Lymph # (Auto) 0.3 L (1.2-3.4) [place] # (Auto) 0.1 (0.1-0.6) Eos # (Auto) 0.0 (0.0-0.7) Baso # (Auto) 0.00 (0.0-2.0) K/mm3 Absolute Neuts (auto) 1.23 L (1.4-6.5) Neutrophils % (Manual) 72 H (50.0-70.0) % Lymphocytes % (Manual) 22 (22.0-35.0) % Monocytes % (Manual) 6 (1.0-6.0) % Nucleated RBC % 1 % Platelet Evaluation Normal (NORMAL) PT (9.4-12.5) SECONDS INR APTT 94.4 H (26.9-38.3) Seconds Sodium (132-148) mmol/L Potassium (3.6-5.0) mmol/L Chloride (98-107) mmol/L Carbon Dioxide (21-33) mmol/L Anion Gap (10-20) BUN (7-21) mg/dL Creatinine (0.7-1.2) mg/dl Est GFR ( Amer) Est GFR (Non-Af Amer) Random Glucose (70-110) mg/dL Serum Osmolality 302 H (272-300) mosm/kg Calcium (8.4-10.5) mg/dL Phosphorus (2.5-4.5) mg/dL Magnesium (1.7-2.2) mg/dL Total Bilirubin (0.2-1.3) mg/dL AST (14-36) U/L ALT (7-56) U/L Alkaline Phosphatase (38-126) U/L Total Protein (5.8-8.3) g/dL Albumin (3.0-4.8) g/dL Globulin gm/dL Albumin/Globulin Ratio (1.1-1.8) Triglycerides (35-160) mg/dL Cholesterol (130-200) mg/dL LDL Cholesterol Direct (0-129) mg/dL HDL Cholesterol (29-60) mg/dL Procalcitonin (0.19-0.49) NG/ML Urine Eosinophils Ur L.pneumophila Ag (NEGATIVE) 01/19/19 01/19/19 01/19/19 Range/Units 15:00 13:10 10:30 WBC (4.5-11.0) 10^3/uL RBC (3.5-6.1) 10^6/uL Hgb (12.0-16.0) g/dL Hct (36.0-48.0) % MCV (80.0-105.0) fl MCH (25.0-35.0) pg MCHC (31.0-37.0) g/dl RDW (11.5-14.5) % Plt Count (120.0-450.0) 10^3/uL MPV (7.0-11.0) fl Neut % (Auto) (50.0-68.0) % Lymph % (Auto) (22.0-35.0) % [place] % (Auto) (1.0-6.0) % Eos % (Auto) (1.5-5.0) % Baso % (Auto) (0.0-3.0) % Lymph # (Auto) (1.2-3.4) [place] # (Auto) (0.1-0.6) Eos # (Auto) (0.0-0.7) Baso # (Auto) (0.0-2.0) K/mm3 Absolute Neuts (auto) (1.4-6.5) Neutrophils % (Manual) (50.0-70.0) % Lymphocytes % (Manual) (22.0-35.0) % Monocytes % (Manual) (1.0-6.0) % Nucleated RBC % % Platelet Evaluation (NORMAL) PT 15.8 H (9.4-12.5) SECONDS INR 1.42 APTT (26.9-38.3) Seconds Sodium 134 (132-148) mmol/L Potassium 2.9 L* (3.6-5.0) mmol/L Chloride 95 L (98-107) mmol/L Carbon Dioxide 25 (21-33) mmol/L Anion Gap 17 (10-20) BUN 97 H (7-21) mg/dL Creatinine 1.6 H (0.7-1.2) mg/dl Est GFR ( Amer) 38 Est GFR (Non-Af Amer) 31 Random Glucose 93 (70-110) mg/dL Serum Osmolality (272-300) mosm/kg Calcium 8.2 L (8.4-10.5) mg/dL Phosphorus (2.5-4.5) mg/dL Magnesium (1.7-2.2) mg/dL Total Bilirubin 1.0 (0.2-1.3) mg/dL AST 23 (14-36) U/L ALT 20 (7-56) U/L Alkaline Phosphatase 185 H D (38-126) U/L Total Protein 5.6 L (5.8-8.3) g/dL Albumin 2.7 L (3.0-4.8) g/dL Globulin 2.9 gm/dL Albumin/Globulin Ratio 0.9 L (1.1-1.8) Triglycerides (35-160) mg/dL Cholesterol (130-200) mg/dL LDL Cholesterol Direct (0-129) mg/dL HDL Cholesterol (29-60) mg/dL Procalcitonin (0.19-0.49) NG/ML Urine Eosinophils Negative Ur L.pneumophila Ag (NEGATIVE) 01/19/19 01/19/19 Range/Units 10:30 01:20 WBC (4.5-11.0) 10^3/uL RBC (3.5-6.1) 10^6/uL Hgb (12.0-16.0) g/dL Hct (36.0-48.0) % MCV (80.0-105.0) fl MCH (25.0-35.0) pg MCHC (31.0-37.0) g/dl RDW (11.5-14.5) % Plt Count (120.0-450.0) 10^3/uL MPV (7.0-11.0) fl Neut % (Auto) (50.0-68.0) % Lymph % (Auto) (22.0-35.0) % [place] % (Auto) (1.0-6.0) % Eos % (Auto) (1.5-5.0) % Baso % (Auto) (0.0-3.0) % Lymph # (Auto) (1.2-3.4) [place] # (Auto) (0.1-0.6) Eos # (Auto) (0.0-0.7) Baso # (Auto) (0.0-2.0) K/mm3 Absolute Neuts (auto) (1.4-6.5) Neutrophils % (Manual) (50.0-70.0) % Lymphocytes % (Manual) (22.0-35.0) % Monocytes % (Manual) (1.0-6.0) % Nucleated RBC % % Platelet Evaluation (NORMAL) PT (9.4-12.5) SECONDS INR APTT (26.9-38.3) Seconds Sodium (132-148) mmol/L Potassium (3.6-5.0) mmol/L Chloride (98-107) mmol/L Carbon Dioxide (21-33) mmol/L Anion Gap (10-20) BUN (7-21) mg/dL Creatinine (0.7-1.2) mg/dl Est GFR ( Amer) Est GFR (Non-Af Amer) Random Glucose (70-110) mg/dL Serum Osmolality (272-300) mosm/kg Calcium (8.4-10.5) mg/dL Phosphorus (2.5-4.5) mg/dL Magnesium (1.7-2.2) mg/dL Total Bilirubin (0.2-1.3) mg/dL AST (14-36) U/L ALT (7-56) U/L Alkaline Phosphatase (38-126) U/L Total Protein (5.8-8.3) g/dL Albumin (3.0-4.8) g/dL Globulin gm/dL Albumin/Globulin Ratio (1.1-1.8) Triglycerides (35-160) mg/dL Cholesterol (130-200) mg/dL LDL Cholesterol Direct (0-129) mg/dL HDL Cholesterol (29-60) mg/dL Procalcitonin 2.02 H (0.19-0.49) NG/ML Urine Eosinophils Ur L.pneumophila Ag Negative (NEGATIVE) Laboratory Results - last 24 hr 01/19/19 01/19/19 01/19/19 01:20 10:30 10:30 WBC RBC Hgb Hct MCV MCH MCHC RDW Plt Count MPV Neut % (Auto) Lymph % (Auto) [place] % (Auto) Eos % (Auto) Baso % (Auto) Lymph # (Auto) [place] # (Auto) Eos # (Auto) Baso # (Auto) Absolute Neuts (auto) Neutrophils % (Manual) Lymphocytes % (Manual) Monocytes % (Manual) Nucleated RBC % Platelet Evaluation PT INR APTT Sodium Potassium Chloride Carbon Dioxide Anion Gap BUN Creatinine Est GFR ( Amer) Est GFR (Non-Af Amer) Random Glucose Serum Osmolality Calcium Phosphorus Magnesium Total Bilirubin AST ALT Alkaline Phosphatase Total Protein Albumin Globulin Albumin/Globulin Ratio Triglycerides Cholesterol LDL Cholesterol Direct HDL Cholesterol Procalcitonin 2.02 H Urine Eosinophils Negative Ur L.pneumophila Ag Negative 01/19/19 01/19/19 01/19/19 13:10 15:00 15:00 WBC RBC Hgb Hct MCV MCH MCHC RDW Plt Count MPV Neut % (Auto) Lymph % (Auto) [place] % (Auto) Eos % (Auto) Baso % (Auto) Lymph # (Auto) [place] # (Auto) Eos # (Auto) Baso # (Auto) Absolute Neuts (auto) Neutrophils % (Manual) Lymphocytes % (Manual) Monocytes % (Manual) Nucleated RBC % Platelet Evaluation PT 15.8 H INR 1.42 APTT Sodium 134 Potassium 2.9 L* Chloride 95 L Carbon Dioxide 25 Anion Gap 17 BUN 97 H Creatinine 1.6 H Est GFR ( Amer) 38 Est GFR (Non-Af Amer) 31 Random Glucose 93 Serum Osmolality 302 H Calcium 8.2 L Phosphorus Magnesium Total Bilirubin 1.0 AST 23 ALT 20 Alkaline Phosphatase 185 H D Total Protein 5.6 L Albumin 2.7 L Globulin 2.9 Albumin/Globulin Ratio 0.9 L Triglycerides Cholesterol LDL Cholesterol Direct HDL Cholesterol Procalcitonin Urine Eosinophils Ur L.pneumophila Ag 01/19/19 01/19/19 01/20/19 22:56 22:56 06:00 WBC 1.7 L* D 2.0 L RBC 2.77 L 2.80 L Hgb 7.2 L D 7.3 L Hct 23.2 L 23.6 L MCV 83.8 84.3 MCH 26.0 26.1 MCHC 31.0 30.9 L RDW 19.8 H 19.8 H Plt Count 157 157 MPV 8.4 9.0 Neut % (Auto) 73.2 H 69.3 H Lymph % (Auto) 20.2 L 25.6 [place] % (Auto) 6.0 4.6 Eos % (Auto) 0.6 L 0.0 L Baso % (Auto) 0.0 0.5 Lymph # (Auto) 0.3 L 0.5 L [place] # (Auto) 0.1 0.1 Eos # (Auto) 0.0 0.0 Baso # (Auto) 0.00 0.01 Absolute Neuts (auto) 1.23 L 1.35 L Neutrophils % (Manual) 72 H Lymphocytes % (Manual) 22 Monocytes % (Manual) 6 Nucleated RBC % 1 Platelet Evaluation Normal PT INR APTT 94.4 H Sodium Potassium Chloride Carbon Dioxide Anion Gap BUN Creatinine Est GFR ( Amer) Est GFR (Non-Af Amer) Random Glucose Serum Osmolality Calcium Phosphorus Magnesium Total Bilirubin AST ALT Alkaline Phosphatase Total Protein Albumin Globulin Albumin/Globulin Ratio Triglycerides Cholesterol LDL Cholesterol Direct HDL Cholesterol Procalcitonin Urine Eosinophils Ur L.pneumophila Ag 01/20/19 01/20/19 06:00 06:00 WBC RBC Hgb Hct MCV MCH MCHC RDW Plt Count MPV Neut % (Auto) Lymph % (Auto) [place] % (Auto) Eos % (Auto) Baso % (Auto) Lymph # (Auto) [place] # (Auto) Eos # (Auto) Baso # (Auto) Absolute Neuts (auto) Neutrophils % (Manual) Lymphocytes % (Manual) Monocytes % (Manual) Nucleated RBC % Platelet Evaluation PT INR APTT 44.0 H Sodium 137 Potassium 3.8 Chloride 98 Carbon Dioxide 25 Anion Gap 17 BUN 89 H Creatinine 1.6 H Est GFR ( Amer) 38 Est GFR (Non-Af Amer) 31 Random Glucose 87 Serum Osmolality Calcium 9.0 Phosphorus 4.2 Magnesium 2.7 H Total Bilirubin 1.4 H AST 46 H D ALT 15 Alkaline Phosphatase 214 H Total Protein 7.1 Albumin 3.9 Globulin 3.2 Albumin/Globulin Ratio 1.2 Triglycerides 171 H Cholesterol 126 L LDL Cholesterol Direct 74 HDL Cholesterol 28 L Procalcitonin Urine Eosinophils Ur L.pneumophila Ag Radiology Impressions: Radiology Impressions Renal Ultrasound 01/19/19 10:05 IMPRESSION: Unremarkable renal sonogram. Chest X-Ray 01/20/19 06:54 IMPRESSION: There is severe elevation of the right hemidiaphragm. There is a pleural effusion that extends to the right lung apex. This has increased Critical Care Progress Note - Nutrition Nutrition: Nutrition Category Date Time Status Dysphagia/Modified Consistency Diet [DIET] Diets 01/19/19 Breakfast Ordered Assessment/Plan - Assessment and Plan (Free Text) Plan: Patient seen and examined on rounds with resident, agree with note with following additions/exceptions: Patient is 73yo female with PMHx ovarian carcinoma with mets, malignant ascites, DVT on Coumadin, HTN, HLD, DM admitted to ICU for hypotension, and supratherapeutic INR Currently the patient is Afebrile, BP stable, comfortable, somnolent Pt received VitK 10mg IV x 1, and FFP 3u, with INR reversing to 1.3 yesterday. NO overt signs of bleeding Heparin drip started CXR with elevated R hemidiaphragm, pleural effusion ID following Labs, imaging, chart reviewed Pt made DNR/DNI by family yesterday, leaning towards comfort care/hospice Coagulopathy Ovarian Ca with mets Malignant Acites DVT on Coumadin HTN HLD DM Hypotension, resolved Severe Sepsis Recommend: - supp o2 as needed, duonebs PRN - Broad spectrum abx as per ID - DC IVF - Lasix 40mg IV BID - Drain ascitic fluid via imbedded catheter - Heparin for hx of DVT - FS control - palliative care follow up - pain control - GI ppx - DVT ppx - transfer to [facility] surg
[2019-01-20] MEDS ORDERED: Levalbuterol 0.63 MG/3 ML Inhal Soln UD IH PRN (07:14)
--- NOTE | 2019-01-20 09:30 | RAD ---
Date of service: 01/20/2019 HISTORY: SOB COMPARISON: 01/19/2019 FINDINGS: LUNGS: The left lung is clear. PLEURA: There is severe elevation of the right hemidiaphragm. There is a pleural effusion that extends to the right lung apex. This has increased CARDIOVASCULAR: No aortic atherosclerotic calcification present. Normal cardiac size. No pulmonary vascular congestion. OSSEOUS STRUCTURES: No significant abnormalities. VISUALIZED UPPER ABDOMEN: Normal. OTHER FINDINGS: None. IMPRESSION: There is severe elevation of the right hemidiaphragm. There is a pleural effusion that extends to the right lung apex. This has increased
[2019-01-20] MEDS: Hydrocortisone 2.5% Rectal Cream(30 gm) PR SCH ×3 (10:02→18:30)
[2019-01-20] MEDS: Heparin25000 units/250ml 1/2NS 25,000 UNITS/250 ML BAG IV PRN (10:06)
[2019-01-20] MEDS: MEROPENEM 500 MG in NS 500 MG/50 ML BAG IVPB SCH ×2 (10:11→21:22)
[2019-01-20] MEDS ORDERED: Morphine 2 mg/ml ISec IVP STA (10:45)
[2019-01-20] MEDS ORDERED: Albumin Human 25% (12.5 gm/50 ml) IV ONE ×2 (11:07→15:51)
[2019-01-20] MEDS ORDERED: Morphine 2 mg/ml ISec IVP PRN ×2 (11:22→14:48)
--- NOTE | 2019-01-20 12:09 | CP.PCM.PN ---
<Daniel Lynn - Last Filed: 01/20/19 18:10> Subjective - Date & Time of Evaluation Date of Evaluation: 01/20/19 Time of Evaluation: 13:49 - Subjective Subjective: Daniel yLnn, PGY1 Medicine Progress Note: Pt was seen and examined this AM at bedside. Family is at bedside and pt is malay speaking only. Pt overnight had received some ativan and per family has been between agitation and sleep throughout the night. Pt also made DNR/DNI overnight Pt this AM is still not oriented, making ROS difficult to obtain. Per family she is becoming more oriented now than she was prior but pt still unable to properly answer ROS questions. Objective - Vital Signs/Intake and Output Vital Signs (last 24 hours): Temp Pulse Resp BP Pulse Ox 98.0 F 108 H 28 H 95/42 L 89 L 01/19/19 16:00 01/20/19 11:47 01/20/19 11:47 01/20/19 11:00 01/20/19 04:20 Intake and Output: 01/20/19 01/20/19 06:59 18:59 Intake Total 151 99 Balance 151 99 - Medications Medications: Current Medications Acetaminophen (Tylenol 325mg Tab) 650 mg PO Q6H PRN PRN Reason: Pain, Mild (1-3) Hydrocortisone (Anusol-Hc) 0 gm [place] BID MARTIN Last Admin: 01/20/19 10:02 Dose: 1 oin Doxycycline Hyclate 100 mg/ (Sodium Chloride) 100 mls @ 100 mls/hr IVPB Q12 MARTIN; Protocol Last Admin: 01/20/19 10:12 Dose: 100 mls/hr Meropenem/Sodium Chloride (Merrem Iv 500 Mg/Ns 50 Ml) 500 mg in 50 mls @ 100 ml s/hr IVPB Q12 MARTIN; Protocol Stop: 01/27/19 10:01 Last Admin: 01/20/19 10:11 Dose: 100 mls/hr Heparin Sodium/Sodium Chloride (Heparin 71335 Units/250ml 1/2 Normal Saline) 25,000 units in 250 mls @ 13.864 mls/hr IV .Q18H2M PRN; Protocol PRN Reason: ADJUST RATE PER PROTOCOL Last Admin: 01/20/19 10:06 Dose: 18 units/kg/hr, 13.864 mls/hr Levalbuterol HCl (Xopenex) 0.63 mg IH [id number] PRN PRN Reason: Shortness of Breath Last Admin: 01/20/19 07:47 Dose: 0.63 mg Morphine Sulfate (Morphine) 2 mg IVP Q4H PRN PRN Reason: Pain, moderate (4-7) Pantoprazole Sodium (Protonix Inj) 40 mg IVP DAILY MARTIN Last Admin: 01/20/19 10:12 Dose: 40 mg - Labs Labs: 01/20/19 06:00 01/20/19 06:00 PT 15.8 SECONDS (9.4-12.5) H 01/19/19 13:10 INR 1.42 01/19/19 13:10 APTT 44.0 Seconds (26.9-38.3) H 01/20/19 06:00 - Constitutional Appears: Chronically Ill - Head Exam Head Exam: ATRAUMATIC, NORMAL INSPECTION, NORMOCEPHALIC - Eye Exam Eye Exam: EOMI, PERRL, Scleral icterus - Respiratory Exam Respiratory Exam: Rhonchi (on R worse than L). absent: Accessory Muscle Use, Respiratory Distress, Stridor - Cardiovascular Exam Cardiovascular Exam: Tachycardia, +S1, +S2. absent: Gallop, Rubs - GI/Abdominal Exam GI & Abdominal Exam: Distended. absent: Tenderness Additional comments: Aspira cath noted to be in place. No overt signs of infection, no purulent discharge or erythema noted. - Extremities Exam Extremities Exam: Pedal Edema (2+ pitting edema). absent: Calf Tenderness - Neurological Exam Neurological Exam: Altered, Awake - Psychiatric Exam Additional comments: altered - Skin Skin Exam: Dry, Warm Assessment and Plan - Assessment and Plan (Free Text) Assessment: Patient is a 73 year old female with past medical history of ovarian carcinoma, malignant ascites, LLE DVTs, HTN, HLD, T2DM admitted to ICU for workup and management of sepsis due to healthcare associated pneumonia. Pt made DNR/DNI overnight. Plan: Sepsis 2/2 HCAP: - Pt still noted to be tachycardic and tachypnic - CXR shows: Severe elevation of R hemidiaphragm. There is a pleural effusion that extends to the R apex, increased from prior - Procal elevated @ 2.02 - Pt receiving fluids 60cc/hr - ID consulted abx per ID recs EMMA likely 2/2 sepsis vs poor po intake vs ascites - Improving - Fluids d/tru this PM - Renal US: (-) - Per nephro, likely pre-renal Anemia: - Pts hgb trended downward and is currently 6.9 - Pt will be transfused 1u pRBC w/ f/u H&H at 10pm - Will have second unit on hold to incase repeat cbc in PM is still low - Per nephro will give albumin and lasix after first unit to combat volume overload after transfusion Recurrent Malignant ascites s/p Aspira cath: - 1L drained today - Ran ascitic fluids - PMNs - less than 250s - WBCs less than 500 - Awaiting fluid TGs and glucose Supratherapuetic INR s/p 3u FFP: - Pt had INR at 22 at highest point - Pt is now s/p 3 units FFP - INR is now 1.4 Hx of Chronic Venous DVT: - Chronic occlusive DVT in the L femoral and popliteal veins - Noted on 12/08/18 - Pt on heparin drip Hypokalemia: Resolved - Resolved, will continue to monitor Hyponatremia: Resolved - Fluids d/tru this PM - Will cont to monitor Case seen and discussed with Dr. Cecy Lynn, PGY1 <Stanton Sam - Last Filed: 01/21/19 14:38> Objective - Vital Signs/Intake and Output Vital Signs (last 24 hours): Temp Pulse Resp BP Pulse Ox 97.2 F L 113 H 18 120/70 85 L 01/20/19 19:43 01/20/19 19:43 01/20/19 19:43 01/20/19 21:22 01/20/19 12:41 Intake and Output: 01/21/19 01/21/19 06:59 18:59 Intake Total 325 Output Total 200 Balance 125 - Labs Labs: 01/20/19 14:15 01/20/19 06:00 PT 15.8 SECONDS (9.4-12.5) H 01/19/19 13:10 INR 1.42 01/19/19 13:10 APTT 129.2 Seconds (26.9-38.3) H* 01/20/19 16:00 Attending/Attestation - Attestation I have personally seen and examined this patient.: Yes I have fully participated in the care of the patient.: Yes I have reviewed all pertinent clinical information, including history, physical exam and plan: Yes Notes (Text): 01/21/19 14:32 Patient was seen and examined with medical director. 73 year old female with past medical history of stage IV ovarian carcinoma, malignant ascites, LLE DVTs on oral anticoagulation with warfarin, HTN, DM was admitted with sepsis due to HCAP Pneumonia, coagulopathy and worsening anemia. Blood cultures are growing gram positive cocci on broad spectrum antibiotics as per ID. She is SP FFP, INR has come down , now on IV heparin for DVT. Worsening Anemia, discussed with patient son and family regarding goal of care and blood transfusion. Family is planning for comfort measure,has not made final decision at this time. Patient is DNR/DNI Prognosis is guarded. 01/21/19 14:34
--- NOTE | 2019-01-20 14:24 | CP.PCM.PN ---
<Marquise Marcos - Last Filed: 01/20/19 14:19> Subjective - Date & Time of Evaluation Date of Evaluation: 01/20/19 Time of Evaluation: 10:00 - Subjective Subjective: Marquise Marcos D.O. PGY-3, Internal Medicine Resident, Infectious Disease Progress Note 73 year old female with a PMH of ovarian CA, malignant ascites s/p aspira cathter 1 month ago, LLE DVTs, HTN, HLD, T2DM presenting with chief complaint of cough and fatigue. Infectious disease consultation was requested for sepsis. Patient was seen and examined at bedside. Patient has a lot of pain at this time. Has been DNR/DNI. Multiple family members at bedside. Hospice/palliative to see patient. Objective - Vital Signs/Intake and Output Vital Signs (last 24 hours): Temp Pulse Resp BP Pulse Ox 98.0 F 115 H 29 H 129/69 89 L 01/19/19 16:00 01/20/19 12:09 01/20/19 12:09 01/20/19 12:00 01/20/19 04:20 Intake and Output: 01/20/19 01/20/19 06:59 18:59 Intake Total 151 99 Balance 151 99 - Medications Medications: Current Medications Acetaminophen (Tylenol 325mg Tab) 650 mg PO Q6H PRN PRN Reason: Pain, Mild (1-3) Hydrocortisone (Anusol-Hc) 0 gm [place] BID MARTIN Last Admin: 01/20/19 10:02 Dose: 1 oin Doxycycline Hyclate 100 mg/ (Sodium Chloride) 100 mls @ 100 mls/hr IVPB Q12 MARTIN; Protocol Last Admin: 01/20/19 10:12 Dose: 100 mls/hr Meropenem/Sodium Chloride (Merrem Iv 500 Mg/Ns 50 Ml) 500 mg in 50 mls @ 100 mls/hr IVPB Q12 MARTIN; Protocol Stop: 01/27/19 10:01 Last Admin: 01/20/19 10:11 Dose: 100 mls/hr Heparin Sodium/Sodium Chloride (Heparin 39687 Units/250ml 1/2 Normal Saline) 25,000 units in 250 mls @ 13.864 mls/hr IV .Q18H2M PRN; Protocol PRN Reason: ADJUST RATE PER PROTOCOL Last Admin: 01/20/19 10:06 Dose: 18 units/kg/hr, 13.864 mls/hr Levalbuterol HCl (Xopenex) 0.63 mg IH [id number] PRN PRN Reason: Shortness of Breath Last Admin: 01/20/19 07:47 Dose: 0.63 mg Morphine Sulfate (Morphine) 2 mg IVP Q4H PRN PRN Reason: Pain, moderate (4-7) Last Admin: 01/20/19 12:13 Dose: 2 mg Pantoprazole Sodium (Protonix Inj) 40 mg IVP DAILY MARTIN Last Admin: 01/20/19 10:12 Dose: 40 mg - Labs Labs: 01/20/19 06:00 01/20/19 06:00 PT 15.8 SECONDS (9.4-12.5) H 01/19/19 13:10 INR 1.42 01/19/19 13:10 APTT 44.0 Seconds (26.9-38.3) H 01/20/19 06:00 - Constitutional Appears: No Acute Distress, Chronically Ill - Head Exam Head Exam: ATRAUMATIC, NORMOCEPHALIC - Eye Exam Eye Exam: EOMI. absent: Scleral icterus - ENT Exam ENT Exam: Mucous Membranes Moist, Normal Oropharynx - Neck Exam Neck exam: Positive for: Normal Inspection - Respiratory Exam Respiratory Exam: Rhonchi, no rales - Cardiovascular Exam Cardiovascular Exam: +S1, +S2. absent: Rubs - GI/Abdominal Exam Additional comments: hard, distedned, aspira catheter in RLQ with thin white- beige fluid in line, no erythema around insertion site - Extremities Exam Extremities exam: Negative for: calf tenderness, pedal edema - Neurological Exam Neurological exam: Alert, Oriented x4 - Skin Skin Exam: Dry, Warm Assessment and Plan - Assessment and Plan (Free Text) Assessment: 73 year old female with a PMH of ovarian CA, malignant ascites s/p aspira cathter 1 month ago, LLE DVTs, HTN, HLD, T2DM presenting with chief complaint of cough and fatigue. Infectious disease consultation was requested for sepsis. Plan: Severe sepsis likely secondary to HAP and/or peritoneal infection Ovarian CA Recurrent malignant ascites HTN HLD T2DM Procal elevated Legionella negative BCx 1/2 + for G+ cocci in chains BCx 1/2 negative day 1 Will repeat BCx Peritoneal cx negative day 1 UCx negative Rest of results from peritoneal fluid pending, PMNs at 203 and since cx negative do not suggest SBP Continue doxy/merrem day 2 Pulsatile vancomycin Nephrology consultation appreciated Discussed with ICU team All questions from family welcomed and answered We will follow with you Patient was seen and examined and case to be discussed with attending physician Thank you for the pleasure of participating in the care of this interesting patient <Adonis He - Last Filed: 01/20/19 14:48> Objective - Vital Signs/Intake and Output Vital Signs (last 24 hours): Temp Pulse Resp BP Pulse Ox 98.0 F 115 H 29 H 129/69 89 L 01/19/19 16:00 01/20/19 12:09 01/20/19 12:09 01/20/19 12:00 01/20/19 04:20 Intake and Output: 01/20/19 01/20/19 06:59 18:59 Intake Total 151 99 Balance 151 99 - Medications Medications: Current Medications Acetaminophen (Tylenol 325mg Tab) 650 mg PO Q6H PRN PRN Reason: Pain, Mild (1-3) Hydrocortisone (Anusol-Hc) 0 gm [place] BID MATRIN Last Admin: 01/20/19 10:02 Dose: 1 oin Meropenem/Sodium Chloride (Merrem Iv 500 Mg/Ns 50 Ml) 500 mg in 50 mls @ 100 mls/hr IVPB Q12 MARTIN; Protocol Stop: 01/27/19 10:01 Last Admin: 01/20/19 10:11 Dose: 100 mls/hr Heparin Sodium/Sodium Chloride (Heparin 81786 Units/250ml 1/2 Normal Saline) 25,000 units in 250 mls @ 13.864 mls/hr IV .Q18H2M PRN; Protocol PRN Reason: ADJUST RATE PER PROTOCOL Last Admin: 01/20/19 10:06 Dose: 18 units/kg/hr, 13.864 mls/hr Levalbuterol HCl (Xopenex) 0.63 mg IH [id number] PRN PRN Reason: Shortness of Breath Last Admin: 01/20/19 07:47 Dose: 0.63 mg Morphine Sulfate (Morphine) 2 mg IVP Q4H PRN PRN Reason: Pain, moderate (4-7) Last Admin: 01/20/19 12:13 Dose: 2 mg Pantoprazole Sodium (Protonix Inj) 40 mg IVP DAILY MARTIN Last Admin: 01/20/19 10:12 Dose: 40 mg - Labs Labs: 01/20/19 14:15 01/20/19 06:00 PT 15.8 SECONDS (9.4-12.5) H 01/19/19 13:10 INR 1.42 01/19/19 13:10 APTT 44.0 Seconds (26.9-38.3) H 01/20/19 06:00 Attending/Attestation - Attestation I have personally seen and examined this patient.: Yes I have fully participated in the care of the patient.: Yes I have reviewed all pertinent clinical information, including history, physical exam and plan: Yes Notes (Text): 01/20/19 14:47 SEVERE DEPSIS WITH GRAM POSITIVE BACTEREMIA CK ID OF GRAM POS IN BLOOD
[2019-01-20 14:26] LABS: HEMOGLOBIN 6.9 g/dL (12.0-16.0)
[2019-01-20] MEDS ORDERED: Vancomycin 1gm in NS 250ml 1 GM/250 ML BAG IVPB STA (14:49)
--- NOTE | 2019-01-20 15:12 | CP.PCM.PN ---
Subjective - Date & Time of Evaluation Date of Evaluation: 01/20/19 Time of Evaluation: 10:00 - Subjective Subjective: lethargic Objective - Vital Signs/Intake and Output Vital Signs (last 24 hours): Temp Pulse Resp BP Pulse Ox 98.0 F 115 H 29 H 129/69 89 L 01/19/19 16:00 01/20/19 12:09 01/20/19 12:09 01/20/19 12:00 01/20/19 04:20 Intake and Output: 01/20/19 01/20/19 06:59 18:59 Intake Total 151 99 Balance 151 99 - Medications Medications: Current Medications Acetaminophen (Tylenol 325mg Tab) 650 mg PO Q6H PRN PRN Reason: Pain, Mild (1-3) Hydrocortisone (Anusol-Hc) 0 gm [place] BID MARTIN Last Admin: 01/20/19 10:02 Dose: 1 oin Meropenem/Sodium Chloride (Merrem Iv 500 Mg/Ns 50 Ml) 500 mg in 50 mls @ 100 mls/hr IVPB Q12 MARTIN; Protocol Stop: 01/27/19 10:01 Last Admin: 01/20/19 10:11 Dose: 100 mls/hr Heparin Sodium/Sodium Chloride (Heparin 41392 Units/250ml 1/2 Normal Saline) 25,000 units in 250 mls @ 13.864 mls/hr IV .Q18H2M PRN; Protocol PRN Reason: ADJUST RATE PER PROTOCOL Last Admin: 01/20/19 10:06 Dose: 18 units/kg/hr, 13.864 mls/hr Vancomycin HCl (Vancomycin 1gm) 1 gm in 250 mls @ 167 mls/hr IVPB STAT STA; Protocol Stop: 01/20/19 16:18 Levalbuterol HCl (Xopenex) 0.63 mg IH [id number] PRN PRN Reason: Shortness of Breath Last Admin: 01/20/19 07:47 Dose: 0.63 mg Morphine Sulfate (Morphine) 1 mg IVP Q4H PRN PRN Reason: Pain, moderate (4-7) Pantoprazole Sodium (Protonix Inj) 40 mg IVP DAILY MARTIN Last Admin: 01/20/19 10:12 Dose: 40 mg - Labs Labs: 01/20/19 14:15 01/20/19 06:00 PT 15.8 SECONDS (9.4-12.5) H 01/19/19 13:10 INR 1.42 01/19/19 13:10 APTT 44.0 Seconds (26.9-38.3) H 01/20/19 06:00 - Constitutional Appears: Chronically Ill - Eye Exam Eye Exam: Normal appearance, PERRL - Respiratory Exam Respiratory Exam: Decreased Breath Sounds, Rhonchi - Cardiovascular Exam Cardiovascular Exam: REGULAR RHYTHM, +S1, +S2 - GI/Abdominal Exam GI & Abdominal Exam: Distended, Firm, Diminished Bowel Sounds - Extremities Exam Extremities Exam: Pedal Edema - Neurological Exam Neurological Exam: Altered - Skin Skin Exam: Pallor Assessment and Plan - Assessment and Plan (Free Text) Assessment: This is a 73 year old female with past medical history of metastatic ovarian cancer s/p hysterectomy with abdominal ascites, DM, HTN, HLD, DVT who is admitted with sepsis, pleural effusions,ascites, supratherapeutic INR, anemia, leukopenia and abdominal pain. Family requested patient be made DNR/DNI last evening. Family at bedside,goals of care discussed. Family requested that patient receive more pain medication. It was explained that these medications cause somnolence, hypotension and respiratory drive. Offered to transition to comfort care. Hospice services explained in detail. Family states they understand and will come to a decision today. I revisited family later in the day. Explained that although more comfortable with increased pain medication she is somnolent and hypotensive. Family has not come to decision regarding hospice care. Time spent in goals of care discussion, 50 minutes Plan: Goals of care and advance care planning Continue Merrem, Doxycycline. Morphine, Tylenol as needed, hemorrhoid cream. IVF, DVT prophylaxis, nebulzers,PPI's Drain Aspira catheter as needed.
[2019-01-20 19:53] VITALS: PULSE 113; RESP 18; TEMP 97.2
[2019-01-20 19:59] VITALS: O2SAT 85
[2019-01-20 21:41] VITALS: BP 120/70
--- NOTE | 2019-01-20 22:44 | CP.PCM.PN ---
<RachelAlfa - Last Filed: 01/20/19 22:44> Subjective - Date & Time of Evaluation Date of Evaluation: 01/20/19 Time of Evaluation: 22:37 - Subjective Subjective: Perez Ramos PGY2 - Progress Note Went to patient room to speak with family and confirm request for comfort measures as per their conversation with Palliative care team. When arrived at bedside conversation took place with family consisting of the guidelines and treatment goals for comfort measures. Options and medications were discussed in detail with family. All questions were answered to verbal satisfaction. Family indicated that they had family coming from [place], [place] and that they would be arriving in the next 4-6 hours. The family requested that comfort measures be revisited and likely initiated in the morning after arrival of family member. As discussion regarding goals of care progressed patient family requested that all blood draws, IV fluids, IV drip medications be stopped. Family requested no further blood transfusions be conducted at this time. Patient along with family were updated on clinical decisions made and wishes were honored to the best of medical teams abilities. Objective - Vital Signs/Intake and Output Vital Signs (last 24 hours): Temp Pulse Resp BP Pulse Ox 97.2 F L 113 H 18 120/70 85 L 01/20/19 19:43 01/20/19 19:43 01/20/19 19:43 01/20/19 21:22 01/20/19 12:41 Intake and Output: 01/20/19 01/21/19 18:59 06:59 Intake Total 179 325 Balance 179 325 - Medications Medications: Current Medications Acetaminophen (Tylenol 650 Mg Supp) 650 mg RC Q4H PRN PRN Reason: Fever >100.4 F Hydrocortisone (Anusol-Hc) 0 gm [place] BID MARTIN Last Admin: 01/20/19 18:30 Dose: 1 oin Meropenem/Sodium Chloride (Merrem Iv 500 Mg/Ns 50 Ml) 500 mg in 50 mls @ 100 mls/hr IVPB Q12 MARTIN; Protocol Stop: 01/27/19 10:01 Last Admin: 01/20/19 21:22 Dose: 100 mls/hr Heparin Sodium/Sodium Chloride (Heparin 85732 Units/250ml 1/2 Normal Saline) 25,000 units in 250 mls @ 13.864 mls/hr IV .Q18H2M PRN; Protocol PRN Reason: ADJUST RATE PER PROTOCOL Last Titration: 01/20/19 18:26 Dose: 15 units/kg/hr, 11.553 mls/hr Levalbuterol HCl (Xopenex) 0.63 mg IH [id number] PRN PRN Reason: Shortness of Breath Last Admin: 01/20/19 07:47 Dose: 0.63 mg Morphine Sulfate (Morphine) 1 mg IVP Q3H PRN PRN Reason: Pain, moderate (4-7) Pantoprazole Sodium (Protonix Inj) 40 mg IVP DAILY MARTIN Last Admin: 01/20/19 10:12 Dose: 40 mg - Labs Labs: 01/20/19 14:15 01/20/19 06:00 PT 15.8 SECONDS (9.4-12.5) H 01/19/19 13:10 INR 1.42 01/19/19 13:10 APTT 129.2 Seconds (26.9-38.3) H* 01/20/19 16:00 Assessment and Plan - Assessment and Plan (Free Text) Assessment: 73 year old female with past medical history of metastatic ovarian cancer s/p hysterectomy with abdominal ascites, DM, HTN, HLD, DVT who is admitted with sepsis, pleural effusions,ascites, supratherapeutic INR, anemia, leukopenia and abdominal pain. Plan: - Discontinue IV fluids, heparin gtt per family request - Discontinue blood draws and planned blood transfusions per family request - IV morphine increased to 1mg IVP Q3H - Further recs per Veronique Paramonte and Palliative care team <Stanton Sam - Last Filed: 01/22/19 13:27> Objective - Vital Signs/Intake and Output Vital Signs (last 24 hours): Temp Pulse Resp BP Pulse Ox 97.2 F L 113 H 18 120/70 85 L 01/20/19 19:43 01/20/19 19:43 01/20/19 19:43 01/20/19 21:22 01/20/19 12:41 - Labs Labs: 01/20/19 14:15 01/20/19 06:00 PT 15.8 SECONDS (9.4-12.5) H 01/19/19 13:10 INR 1.42 01/19/19 13:10 APTT 129.2 Seconds (26.9-38.3) H* 01/20/19 16:00 Attending/Attestation - Attestation I have personally seen and examined this patient.: Yes I have fully participated in the care of the patient.: Yes I have reviewed all pertinent clinical information, including history, physical exam and plan: Yes
--- NOTE | 2019-01-20 23:05 | CP.PCM.PN ---
Subjective - Date & Time of Evaluation Date of Evaluation: 01/20/19 Time of Evaluation: 10:30 - Subjective Subjective: 73 yo F w/ pmh of ovarian carcinoma w/ malignant ascites, LLE DVT, HTN, HLD, T2DM, admitted with failure to thrive, cough and acute renal failure; Patient with pain mostly in her legs; more lethargic; underwent 1L ascites drainage this morning; Objective - Vital Signs/Intake and Output Vital Signs (last 24 hours): Temp Pulse Resp BP Pulse Ox 97.2 F L 113 H 18 120/70 85 L 01/20/19 19:43 01/20/19 19:43 01/20/19 19:43 01/20/19 21:22 01/20/19 12:41 Intake and Output: 01/20/19 01/21/19 18:59 06:59 Intake Total 179 325 Balance 179 325 - Medications Medications: Current Medications Acetaminophen (Tylenol 650 Mg Supp) 650 mg RC Q4H PRN PRN Reason: Fever >100.4 F Hydrocortisone (Anusol-Hc) 0 gm [place] BID MARTIN Last Admin: 01/20/19 18:30 Dose: 1 oin Meropenem/Sodium Chloride (Merrem Iv 500 Mg/Ns 50 Ml) 500 mg in 50 mls @ 100 mls/hr IVPB Q12 MARTIN; Protocol Stop: 01/27/19 10:01 Last Admin: 01/20/19 21:22 Dose: 100 mls/hr Heparin Sodium/Sodium Chloride (Heparin 69612 Units/250ml 1/2 Normal Saline) 25,000 units in 250 mls @ 13.864 mls/hr IV .Q18H2M PRN; Protocol PRN Reason: ADJUST RATE PER PROTOCOL Last Titration: 01/20/19 18:26 Dose: 15 units/kg/hr, 11.553 mls/hr Levalbuterol HCl (Xopenex) 0.63 mg IH [id number] PRN PRN Reason: Shortness of Breath Last Admin: 01/20/19 07:47 Dose: 0.63 mg Morphine Sulfate (Morphine) 1 mg IVP Q3H PRN PRN Reason: Pain, moderate (4-7) Last Admin: 01/20/19 22:58 Dose: 1 mg Pantoprazole Sodium (Protonix Inj) 40 mg IVP DAILY MARTIN Last Admin: 01/20/19 10:12 Dose: 40 mg - Labs Labs: 01/20/19 14:15 01/20/19 06:00 PT 15.8 SECONDS (9.4-12.5) H 01/19/19 13:10 INR 1.42 01/19/19 13:10 APTT 129.2 Seconds (26.9-38.3) H* 01/20/19 16:00 - Constitutional Appears: Non-toxic, No Acute Distress - Respiratory Exam Respiratory Exam: Clear to Ausculation Bilateral. absent: Respiratory Distress - Cardiovascular Exam Cardiovascular Exam: Tachycardia, +S1, +S2 - GI/Abdominal Exam GI & Abdominal Exam: Distended, Firm - Extremities Exam Additional comments: moderately edematous legs; - Neurological Exam Neurological Exam: Alert, Awake - Psychiatric Exam Psychiatric exam: absent: Agitated - Skin Skin Exam: Warm. absent: Cyanosis Assessment and Plan (1) Acute kidney injury Assessment & Plan: Consistent with pre-renal etiology with some improvement after intravascular volume expansion; relatively stable electrolyte status; hemodynamically stable; not being more aggressive with volume expansion to avoid impending respiratory failure; -IV albumin as needed to maintain BP; prbc transfusion should help as well; -avoid nephrotoxic agents; Status: Acute (2) Ascites Assessment & Plan: Markedly distended abdomen; another 1L drained after our encounter today; aiming for large volume drainage to ease distention and help respiratory status but catheter not draining further; if able to able to drain large volume (~5L), should give IV albumin 6g/L drained to avoid hemodynamic compromise; Status: Acute
[2019-01-21] MEDS: Morphine 2 mg/ml ISec IVP PRN ×2 (02:19→06:12)
[2019-01-21] MEDS ORDERED: Morphine PCA 1 mg/ml (30ml) 30 ML IV PRN (09:03)
[2019-01-21] MEDS ORDERED: DiphenhydrAMINE 50 mg/ml Inj IVP PRN (09:05)
[2019-01-21] MEDS: Hydrocortisone 2.5% Rectal Cream(30 gm) PR SCH (09:31)
--- NOTE | 2019-01-21 11:55 | CP.PCM.PN ---
Subjective - Date & Time of Evaluation Date of Evaluation: 01/21/19 Time of Evaluation: 11:00 - Subjective Subjective: Resistless, tachypnia Objective - Vital Signs/Intake and Output Vital Signs (last 24 hours): Temp Pulse Resp BP Pulse Ox 97.2 F L 113 H 18 120/70 85 L 01/20/19 19:43 01/20/19 19:43 01/20/19 19:43 01/20/19 21:22 01/20/19 12:41 Intake and Output: 01/21/19 01/21/19 06:59 18:59 Intake Total 325 Output Total 200 Balance 125 - Labs Labs: 01/20/19 14:15 01/20/19 06:00 PT 15.8 SECONDS (9.4-12.5) H 01/19/19 13:10 INR 1.42 01/19/19 13:10 APTT 129.2 Seconds (26.9-38.3) H* 01/20/19 16:00 - Constitutional Appears: Chronically Ill - Head Exam Head Exam: NORMOCEPHALIC - Eye Exam Eye Exam: Normal appearance - ENT Exam ENT Exam: Mucous Membranes Dry - Respiratory Exam Respiratory Exam: Decreased Breath Sounds, Rhonchi - Cardiovascular Exam Cardiovascular Exam: Tachycardia, +S1, +S2 - GI/Abdominal Exam GI & Abdominal Exam: Distended, Hypoactive Bowel Sounds - Extremities Exam Additional comments: 2 + bilateral LE edema - Neurological Exam Neurological Exam: Altered - Skin Skin Exam: Dry, Pallor Assessment and Plan - Assessment and Plan (Free Text) Assessment: his is a 73 year old female with past medical history of metastatic ovarian cancer s/p hysterectomy with abdominal ascites, DM, HTN, HLD, DVT who is admitted with sepsis, pleural effusions,ascites, supratherapeutic INR, anemia, leukopenia and abdominal pain. After multiple discussions last evening, the family agreed to initiate comfort care measures. This morning the family is scheduled to meet with [place] business liaison officer for official transition to hospice care. Patient is evaluated and accepted to [facility] for pain and symptom management. Family signed consent for hospice [facility] services. Psychosocial support, end of life counseling, time spent with family 60 minutes Plan: Hospice evaluation Morphine continuous infusion initiated at 1 mg /hr. Will titrate as needed for pain control Scopolamine transdermal patch,Benadryl 25mg IVP as needed for upper airway secretions Ativan 0.5 mg IVP as needed for restlessness Tylenol 650mg RC every for hours for fever over 100F Psychosocial support, end of life counseling
--- NOTE | 2019-01-21 16:00 | PN ---
DATE: 01/21/2019 LOCATION: The patient seen in room 560, earlier this morning. SUBJECTIVE: The patient is terminal. He had a discussion about hospice. The patient doing poorly. PHYSICAL EXAMINATION VITAL SIGNS: Temperature 97, blood pressure 120/70, respiratory rate of 24, and heart rate of 103. HEENT: Unremarkable. NECK: Supple. LUNGS: Decreased breath sounds. HEART: Normal S1 and S2. ABDOMEN: Soft. LABORATORY DATA: Noted. ASSESSMENT AND PLAN: He is a 73-year-old female with ovarian cancer malignant ascites and status post month ago with deep venous thrombosis, hypertension and admitted with severe sepsis, probably healthcare associated pneumonia, ovarian cancer and recurrent malignant ascites, hypertension and type 2 diabetes. Case discussed with nursing staff and the patient is to be hospice. We will discontinue antibiotics, nothing further to add. Adonis He MD
--- NOTE | 2019-01-21 17:18 | CP.PCM.DIS ---
<Daniel Lynn - Last Filed: 01/21/19 17:19> Provider - Provider Date of Admission: 01/19/19 00:06 Attending physician: Stanton Sam MD Primary care physician: Swetha Taylor MD Consults: 01/19/19 00:40 Infectious Disease Consult Routine Comment: Consulting Provider: Adonis He Consulting Physician: Adonis He Reason for Consult: pneumonia 01/19/19 07:59 Palliative Care Consult Routine Comment: Consulting Provider: Gifty Awad Physician Instructions: Reason For Exam: ovarian carcinoma 01/19/19 08:02 Nursing Referral for Palliative Care Routine Comment: Physician Instructions: Reason For Exam: routine 01/19/19 09:53 Nephrology Consult Routine Comment: Consulting Provider: Angel Gonzalez Consulting Physician: Angel Gonzalez Reason for Consult: EMMA 01/21/19 09:07 Hospice [Case Management Referral] Routine Comment: Physician Instructions: Reason For Exam: Reason for Referral: Hospice Eval Time Spent in preparation of Discharge (in minutes): 45 Diagnosis - Discharge Diagnosis (1) Abdominal distention Status: Acute Priority: Medium (2) Acute kidney injury Status: Acute (3) Ascites Status: Acute (4) Supratherapeutic INR Status: Acute (5) Ovarian cancer Status: Chronic (6) Swelling of lower extremity Status: Chronic Hospital Course - Lab Results Lab Results: Micro Results 01/20/19 16:11 Blood Blood Culture - Preliminary NO GROWTH AFTER 24 HOURS 01/20/19 16:11 Blood Blood Culture - Preliminary NO GROWTH AFTER 24 HOURS 01/19/19 09:56 Peritoneal Fluid Body Fluid Culture - Preliminary NO GROWTH AFTER 2 DAYS 01/18/19 22:32 Blood Blood Culture - Preliminary NO GROWTH AFTER 48 HOURS 01/19/19 03:00 Naris MRSA Culture (Admit) - Final MRSA NOT DETECTED 01/18/19 22:02 Blood S.aureus & Coag-Neg Staph PNA FISH - Preliminary 01/18/19 22:02 Blood Blood Culture - Preliminary Gram Pos Cocci In Chains 01/18/19 22:02 Blood Gram Stain - Final 01/19/19 00:30 Urine Random Urine Culture - Final <10,000 CFU/ML. MULTIPLE SPECIES. PROBABLE CONTAMINATION. Most Recent Lab Values WBC 2.0 10^3/uL (4.5-11.0) L 01/20/19 06:00 RBC 2.80 10^6/uL (3.5-6.1) L 01/20/19 06:00 Hgb 6.9 g/dL (12.0-16.0) L* 01/20/19 14:15 Hct 22.5 % (36.0-48.0) L 01/20/19 14:15 MCV 84.3 fl (80.0-105.0) 01/20/19 06:00 MCH 26.1 pg (25.0-35.0) 01/20/19 06:00 MCHC 30.9 g/dl (31.0-37.0) L 01/20/19 06:00 RDW 19.8 % (11.5-14.5) H 01/20/19 06:00 Plt Count 157 10^3/uL (120.0-450.0) 01/20/19 06:00 MPV 9.0 fl (7.0-11.0) 01/20/19 06:00 Neut % (Auto) 69.3 % (50.0-68.0) H 01/20/19 06:00 Lymph % (Auto) 25.6 % (22.0-35.0) 01/20/19 06:00 [place] % (Auto) 4.6 % (1.0-6.0) 01/20/19 06:00 Eos % (Auto) 0.0 % (1.5-5.0) L 01/20/19 06:00 Baso % (Auto) 0.5 % (0.0-3.0) 01/20/19 06:00 Lymph # (Auto) 0.5 (1.2-3.4) L 01/20/19 06:00 [place] # (Auto) 0.1 (0.1-0.6) 01/20/19 06:00 Eos # (Auto) 0.0 (0.0-0.7) 01/20/19 06:00 Baso # (Auto) 0.01 K/mm3 (0.0-2.0) 01/20/19 06:00 Absolute Neuts (auto) 1.35 (1.4-6.5) L 01/20/19 06:00 Neutrophils % (Manual) 72 % (50.0-70.0) H 01/19/19 22:56 Lymphocytes % (Manual) 22 % (22.0-35.0) 01/19/19 22:56 Monocytes % (Manual) 6 % (1.0-6.0) 01/19/19 22:56 Nucleated RBC % 1 % 01/19/19 22:56 Platelet Evaluation Normal (NORMAL) 01/19/19 22:56 PT 15.8 SECONDS (9.4-12.5) H 01/19/19 13:10 INR 1.42 01/19/19 13:10 APTT 129.2 Seconds (26.9-38.3) H* 01/20/19 16:00 pO2 75 mm/Hg (30-55) H 01/19/19 01:20 VBG pH 7.43 (7.32-7.43) 01/19/19 01:20 VBG pCO2 37.0 (40-60) L 01/19/19 01:20 VBG HCO3 24.6 mmol/l (21-28) 01/19/19 01:20 VBG Total CO2 25.7 mmol.L (22-28) 01/19/19 01:20 VBG O2 Sat (Calc) 96.9 % (40-65) H 01/19/19 01:20 VBG Base Excess 0.5 mmol/L (0.0-2.0) 01/19/19 01:20 VBG Potassium 2.7 mmol/L (3.6-5.2) L 01/19/19 01:20 Sodium 129.0 mmol/L (132-148) L 01/19/19 01:20 Chloride 92.0 mmol/L (98-107) L 01/19/19 01:20 Glucose 131 mg/dl (65-105) H 01/19/19 01:20 Lactate 2.1 mmol/L (0.7-2.1) 01/19/19 01:20 FiO2 21.0 % 01/19/19 01:20 Crit Value Called To general worker 01/18/19 22:00 Crit Value Called By Arsenio 01/18/19 22:00 Blood Gas Notified Time 220701/18/19 22:00 Sodium 137 mmol/L (132-148) 01/20/19 06:00 Potassium 3.8 mmol/L (3.6-5.0) 01/20/19 06:00 Chloride 98 mmol/L (98-107) 01/20/19 06:00 Carbon Dioxide 25 mmol/L (21-33) 01/20/19 06:00 Anion Gap 17 (10-20) 01/20/19 06:00 BUN 89 mg/dL (7-21) H 01/20/19 06:00 Creatinine 1.6 mg/dl (0.7-1.2) H 01/20/19 06:00 Est GFR ( Amer) 38 01/20/19 06:00 Est GFR (Non-Af Amer) 31 01/20/19 06:00 POC Glucose (mg/dL) 72 mg/dL (65-110) 01/20/19 16:51 Random Glucose 87 mg/dL (70-110) 01/20/19 06:00 Serum Osmolality 302 mosm/kg (272-300) H 01/19/19 15:00 Lactic Acid 1.7 mmol/L (0.7-2.1) 01/19/19 04:30 Calcium 9.0 mg/dL (8.4-10.5) 01/20/19 06:00 Phosphorus 4.2 mg/dL (2.5-4.5) 01/20/19 06:00 Magnesium 2.7 mg/dL (1.7-2.2) H 01/20/19 06:00 Total Bilirubin 1.4 mg/dL (0.2-1.3) H 01/20/19 06:00 AST 46 U/L (14-36) H D 01/20/19 06:00 ALT 15 U/L (7-56) 01/20/19 06:00 Alkaline Phosphatase 214 U/L (38-126) H 01/20/19 06:00 Lactate Dehydrogenase 901 U/L (333-699) H 01/19/19 08:30 Total Creatine Kinase 42 U/L (35-230) 01/19/19 08:30 Troponin I 0.09 ng/mL 01/19/19 08:30 NT-Pro-B Natriuret Pep 6110 pg/mL (0-450) H 01/18/19 22:02 Total Protein 7.1 g/dL (5.8-8.3) 01/20/19 06:00 Albumin 3.9 g/dL (3.0-4.8) 01/20/19 06:00 Globulin 3.2 gm/dL 01/20/19 06:00 Albumin/Globulin Ratio 1.2 (1.1-1.8) 01/20/19 06:00 Triglycerides 171 mg/dL (35-160) H 01/20/19 06:00 Cholesterol 126 mg/dL (130-200) L 01/20/19 06:00 LDL Cholesterol Direct 74 mg/dL (0-129) 01/20/19 06:00 HDL Cholesterol 28 mg/dL (29-60) L 01/20/19 06:00 Procalcitonin 2.02 NG/ML (0.19-0.49) H 01/19/19 01:20 Venous Blood Potassium 2.7 mmol/L (3.6-5.2) L 01/19/19 01:20 Urine Color Dark yellow (YELLOW) 01/19/19 00:30 Urine Appearance Clear (CLEAR) 01/19/19 00:30 Urine pH 6.0 (4.7-8.0) 01/19/19 00:30 Ur Specific Swatara 1.025 (1.005-1.035) 01/19/19 00:30 Urine Protein Negative mg/dL (<30 mg/dL) 01/19/19 00:30 Urine Glucose (UA) Negative mg/dL (NEGATIVE) 01/19/19 00:30 Urine Ketones Negative mg/dL (NEGATIVE) 01/19/19 00:30 Urine Blood Negative (NEGATIVE) 01/19/19 00:30 Urine Nitrate Negative (NEGATIVE) 01/19/19 00:30 Urine Bilirubin Negative (NEGATIVE) 01/19/19 00:30 Urine Urobilinogen 0.2 E.U./dL (<1 E.U./dL) 01/19/19 00:30 Ur Leukocyte Esterase Negative Ashanti/uL (NEGATIVE) 01/19/19 00:30 Urine Eosinophils Negative 01/19/19 10:30 Urine Osmolality 451 mosm/kg (300-1000) 01/19/19 10:30 Ur Random Creatinine 91 mg/dL 01/19/19 10:30 U Random Total Protein 36 mg/L 01/19/19 10:30 Ur Random Sodium < 5 meq/L 01/19/19 10:30 Ur Random Potassium 26.8 meq/L 01/19/19 10:30 Ur Random Urea Nitrogn 757 mg/dL 01/19/19 10:30 Fluid Source Peritoneal 01/19/19 09:51 Fluid Appearance Turbid (CLEAR) 01/19/19 09:51 Fluid WBC 438.0 /uL (0.0-300.0) H 01/19/19 09:51 Fluid RBC 880.0 /uL (0.0-0.0) H 01/19/19 09:51 Fluid Tot Cell Count 100 (0-0) H 01/19/19 09:51 Fluid Mononuclear Cell 53.2 % (0-0) H 01/19/19 09:51 Fl Polymorphonucl Cell 46.8 % (0-0) H 01/19/19 09:51 Fluid Comment White 01/19/19 09:51 Ur L.pneumophila Ag Negative (NEGATIVE) 01/19/19 10:30 Blood Type A POSITIVE 01/19/19 08:30 Antibody Screen Negative 01/19/19 08:30 Crossmatch See Detail 01/19/19 08:30 BBK History Checked Patient has bt 01/19/19 08:30 - Hospital Course Hospital Course: Upon Admission: Patient is a 73 year old female with past medical history of ovarian carcinoma, malignant ascites, LLE DVTs, HTN, HLD, T2DM presenting with chief complaint of cough and fatigue which began two weeks prior. Cough is productive with white sputum and associated with subjective fever and chills. Of note, patient was diagnosed with ovarian cancer in 02/2018 and has been on multiple chemotherapeutic agents (carboplatin, taxotere, gemzar). Most recent treatment was a month ago. Patient also has recurring malignant ascites for which she has had multiple paracentesis and recent insertion of Aspira catheter. Approximately one liter of fluid from the abdomen has been draining through the catheter every three days. Patient also has pain in her buttock region due to hemorrhoids. Admits to chronic loss of appetite. Denies headache, dizziness, chest pain, shortness of breath, diarrhea. Hospital Course: Pt was being worked up for many lab abnormalities noted in ED, most pressing was supratherapeutic INR, PNA, EMMA as well as recurrent malignant ascites. For the supratherapeutic INR pt was noted to be come in with INR at 18, which subsequently sia to 22.87. Pt was transfused with 3u FFP and was then checked and was noted to be 1.42. The pt was then started on heparin drip due to hx of chronic venous DVTs on US noted on 12/08/18. Pt also noted to be septic 2/2 HCAP. CXR showed Severe elevation of R hemidiaphragm, there is a pleural effusion that extends to the R apex, increased from prior. Pt was noted to have an elevated procal of 2.02. Pt was initially given fluids due to being septic, but was then later d/tru as pt started to become fluid overloaded. Pt was also noted to have an EMMA which was thought to be 2/2 the septic process, poor PO intake or ascites. Renal US was performed and was unremarkable. Pt was noted to ahve recurrent malignant ascites and was tapped twice with aspira cath that was in place. Ascitic fluid was sent for analysis and was noted to be white but had WBC less than 500, PMN less than 250, awaiting fluid TGs and glucose. Pt was also noted to be hypokalemic and hyponatremic and was repleted and noted to be corrected. Pt then was noted to become anemic, and was transfused one unit overnight. During the stay the pts family and the medical team were in discussion regarding goals of care for the pt. The hospice team was called in to help with the discussions and the pts family had eventually decided to make the pt DNR/DNI and then made the decision to make the pt comfort care with inpt hospice. All of the families questions and concerns were address during the stay and during the decision making process. Pt was then accepted to inpt hospice, per families agreement. Discharge Exam - Head Exam Head Exam: ATRAUMATIC, NORMOCEPHALIC - Eye Exam Eye Exam: EOMI, PERRL - Respiratory Exam Respiratory Exam: Decreased Breath Sounds, Rales, Rhonchi. absent: Clear to PA & Lateral - Cardiovascular Exam Cardiovascular Exam: Tachycardia, +S1, +S2. absent: Gallop, Rubs - GI/Abdominal Exam GI & Abdominal Exam: Distended, Hypoactive Bowel Sounds. absent: Tenderness Additional comments: Aspira cath in place, surrounding area showed no signs of purulent discharge or erythema. Overlying dressing looked clean, dry, intact. - Extremities Exam Extremities exam: pedal edema (2+) - Neurological Exam Neurological exam: Altered - Psychiatric Exam Additional comments: altered - Skin Skin Exam: Dry, Warm Discharge Plan - Follow Up Plan Condition: CRITICAL Disposition: HOSPICE - MEDICAL FACILITY Additional Instructions: f/u oncologist Dr Diony Salcido Referrals: Swetha Taylor MD [Primary Care Provider] - <Stanton Sam - Last Filed: 01/22/19 08:09> Provider - Provider Date of Admission: 01/19/19 00:06 Attending physician: Stanton Sam MD Primary care physician: Swetha Taylor MD Consults: 01/19/19 00:40 Infectious Disease Consult Routine Comment: Consulting Provider: Adonis He Consulting Physician: Adonis He Reason for Consult: pneumonia 01/19/19 07:59 Palliative Care Consult Routine Comment: Consulting Provider: Gifty Awad Physician Instructions: Reason For Exam: ovarian carcinoma 01/19/19 08:02 Nursing Referral for Palliative Care Routine Comment: Physician Instructions: Reason For Exam: routine 01/19/19 09:53 Nephrology Consult Routine Comment: Consulting Provider: Angel Gonzalez Consulting Physician: Angel Gonzalez Reason for Consult: EMMA 01/21/19 09:07 Hospice [Case Management Referral] Routine Comment: Physician Instructions: Reason For Exam: Reason for Referral: Hospice [facility] [facility] Hospital Course - Lab Results Lab Results: Micro Results 01/18/19 22:32 Blood Blood Culture - Preliminary NO GROWTH AFTER 3 DAYS 01/20/19 16:11 Blood Blood Culture - Preliminary NO GROWTH AFTER 24 HOURS 01/20/19 16:11 Blood Blood Culture - Preliminary NO GROWTH AFTER 24 HOURS 01/19/19 09:56 Peritoneal Fluid Body Fluid Culture - Preliminary NO GROWTH AFTER 2 DAYS 01/19/19 03:00 Naris MRSA Culture (Admit) - Final MRSA NOT DETECTED 01/18/19 22:02 Blood S.aureus & Coag-Neg Staph PNA FISH - Preliminary 01/18/19 22:02 Blood Blood Culture - Preliminary Gram Pos Cocci In Chains 01/18/19 22:02 Blood Gram Stain - Final 01/19/19 00:30 Urine Random Urine Culture - Final <10,000 CFU/ML. MULTIPLE SPECIES. PROBABLE CONTAMINATION. Most Recent Lab Values WBC 2.0 10^3/uL (4.5-11.0) L 01/20/19 06:00 RBC 2.80 10^6/uL (3.5-6.1) L 01/20/19 06:00 Hgb 6.9 g/dL (12.0-16.0) L* 01/20/19 14:15 Hct 22.5 % (36.0-48.0) L 01/20/19 14:15 MCV 84.3 fl (80.0-105.0) 01/20/19 06:00 MCH 26.1 pg (25.0-35.0) 01/20/19 06:00 MCHC 30.9 g/dl (31.0-37.0) L 01/20/19 06:00 RDW 19.8 % (11.5-14.5) H 01/20/19 06:00 Plt Count 157 10^3/uL (120.0-450.0) 01/20/19 06:00 MPV 9.0 fl (7.0-11.0) 01/20/19 06:00 Neut % (Auto) 69.3 % (50.0-68.0) H 01/20/19 06:00 Lymph % (Auto) 25.6 % (22.0-35.0) 01/20/19 06:00 [place] % (Auto) 4.6 % (1.0-6.0) 01/20/19 06:00 Eos % (Auto) 0.0 % (1.5-5.0) L 01/20/19 06:00 Baso % (Auto) 0.5 % (0.0-3.0) 01/20/19 06:00 Lymph # (Auto) 0.5 (1.2-3.4) L 01/20/19 06:00 [place] # (Auto) 0.1 (0.1-0.6) 01/20/19 06:00 Eos # (Auto) 0.0 (0.0-0.7) 01/20/19 06:00 Baso # (Auto) 0.01 K/mm3 (0.0-2.0) 01/20/19 06:00 Absolute Neuts (auto) 1.35 (1.4-6.5) L 01/20/19 06:00 Neutrophils % (Manual) 72 % (50.0-70.0) H 01/19/19 22:56 Lymphocytes % (Manual) 22 % (22.0-35.0) 01/19/19 22:56 Monocytes % (Manual) 6 % (1.0-6.0) 01/19/19 22:56 Nucleated RBC % 1 % 01/19/19 22:56 Platelet Evaluation Normal (NORMAL) 01/19/19 22:56 PT 15.8 SECONDS (9.4-12.5) H 01/19/19 13:10 INR 1.42 01/19/19 13:10 APTT 129.2 Seconds (26.9-38.3) H* 01/20/19 16:00 pO2 75 mm/Hg (30-55) H 01/19/19 01:20 VBG pH 7.43 (7.32-7.43) 01/19/19 01:20 VBG pCO2 37.0 (40-60) L 01/19/19 01:20 VBG HCO3 24.6 mmol/l (21-28) 01/19/19 01:20 VBG Total CO2 25.7 mmol.L (22-28) 01/19/19 01:20 VBG O2 Sat (Calc) 96.9 % (40-65) H 01/19/19 01:20 VBG Base Excess 0.5 mmol/L (0.0-2.0) 01/19/19 01:20 VBG Potassium 2.7 mmol/L (3.6-5.2) L 01/19/19 01:20 Sodium 129.0 mmol/L (132-148) L 01/19/19 01:20 Chloride 92.0 mmol/L (98-107) L 01/19/19 01:20 Glucose 131 mg/dl (65-105) H 01/19/19 01:20 Lactate 2.1 mmol/L (0.7-2.1) 01/19/19 01:20 FiO2 21.0 % 01/19/19 01:20 Crit Value Called To Barbra lopez 01/18/19 22:00 Crit Value Called By Arsenio 01/18/19 22:00 Blood Gas Notified Time 220701/18/19 22:00 Sodium 137 mmol/L (132-148) 01/20/19 06:00 Potassium 3.8 mmol/L (3.6-5.0) 01/20/19 06:00 Chloride 98 mmol/L (98-107) 01/20/19 06:00 Carbon Dioxide 25 mmol/L (21-33) 01/20/19 06:00 Anion Gap 17 (10-20) 01/20/19 06:00 BUN 89 mg/dL (7-21) H 01/20/19 06:00 Creatinine 1.6 mg/dl (0.7-1.2) H 01/20/19 06:00 Est GFR ( Amer) 38 01/20/19 06:00 Est GFR (Non-Af Amer) 31 01/20/19 06:00 POC Glucose (mg/dL) 72 mg/dL (65-110) 01/20/19 16:51 Random Glucose 87 mg/dL (70-110) 01/20/19 06:00 Serum Osmolality 302 mosm/kg (272-300) H 01/19/19 15:00 Lactic Acid 1.7 mmol/L (0.7-2.1) 01/19/19 04:30 Calcium 9.0 mg/dL (8.4-10.5) 01/20/19 06:00 Phosphorus 4.2 mg/dL (2.5-4.5) 01/20/19 06:00 Magnesium 2.7 mg/dL (1.7-2.2) H 01/20/19 06:00 Total Bilirubin 1.4 mg/dL (0.2-1.3) H 01/20/19 06:00 AST 46 U/L (14-36) H D 01/20/19 06:00 ALT 15 U/L (7-56) 01/20/19 06:00 Alkaline Phosphatase 214 U/L (38-126) H 01/20/19 06:00 Lactate Dehydrogenase 901 U/L (333-699) H 01/19/19 08:30 Total Creatine Kinase 42 U/L (35-230) 01/19/19 08:30 Troponin I 0.09 ng/mL 01/19/19 08:30 NT-Pro-B Natriuret Pep 6110 pg/mL (0-450) H 01/18/19 22:02 Total Protein 7.1 g/dL (5.8-8.3) 01/20/19 06:00 Albumin 3.9 g/dL (3.0-4.8) 01/20/19 06:00 Globulin 3.2 gm/dL 01/20/19 06:00 Albumin/Globulin Ratio 1.2 (1.1-1.8) 01/20/19 06:00 Triglycerides 171 mg/dL (35-160) H 01/20/19 06:00 Cholesterol 126 mg/dL (130-200) L 01/20/19 06:00 LDL Cholesterol Direct 74 mg/dL (0-129) 01/20/19 06:00 HDL Cholesterol 28 mg/dL (29-60) L 01/20/19 06:00 Procalcitonin 2.02 NG/ML (0.19-0.49) H 01/19/19 01:20 Venous Blood Potassium 2.7 mmol/L (3.6-5.2) L 01/19/19 01:20 Urine Color Dark yellow (YELLOW) 01/19/19 00:30 Urine Appearance Clear (CLEAR) 01/19/19 00:30 Urine pH 6.0 (4.7-8.0) 01/19/19 00:30 Ur Specific [place] 1.025 (1.005-1.035) 01/19/19 00:30 Urine Protein Negative mg/dL (<30 mg/dL) 01/19/19 00:30 Urine Glucose (UA) Negative mg/dL (NEGATIVE) 01/19/19 00:30 Urine Ketones Negative mg/dL (NEGATIVE) 01/19/19 00:30 Urine Blood Negative (NEGATIVE) 01/19/19 00:30 Urine Nitrate Negative (NEGATIVE) 01/19/19 00:30 Urine Bilirubin Negative (NEGATIVE) 01/19/19 00:30 Urine Urobilinogen 0.2 E.U./dL (<1 E.U./dL) 01/19/19 00:30 Ur Leukocyte Esterase Negative Ashanti/uL (NEGATIVE) 01/19/19 00:30 Urine Eosinophils Negative 01/19/19 10:30 Urine Osmolality 451 mosm/kg (300-1000) 01/19/19 10:30 Ur Random Creatinine 91 mg/dL 01/19/19 10:30 U Random Total Protein 36 mg/L 01/19/19 10:30 Ur Random Sodium < 5 meq/L 01/19/19 10:30 Ur Random Potassium 26.8 meq/L 01/19/19 10:30 Ur Random Urea Nitrogn 757 mg/dL 01/19/19 10:30 Fluid Source Peritoneal 01/19/19 09:51 Fluid Appearance Turbid (CLEAR) 01/19/19 09:51 Fluid WBC 438.0 /uL (0.0-300.0) H 01/19/19 09:51 Fluid RBC 880.0 /uL (0.0-0.0) H 01/19/19 09:51 Fluid Tot Cell Count 100 (0-0) H 01/19/19 09:51 Fluid Mononuclear Cell 53.2 % (0-0) H 01/19/19 09:51 Fl Polymorphonucl Cell 46.8 % (0-0) H 01/19/19 09:51 Fluid Comment White 01/19/19 09:51 Ur L.pneumophila Ag Negative (NEGATIVE) 01/19/19 10:30 Ur Strep pneumoniae Ag Not detected (Not Detected) 01/19/19 10:30 Blood Type A POSITIVE 01/19/19 08:30 Antibody Screen Negative 01/19/19 08:30 Crossmatch See Detail 01/19/19 08:30 BBK History Checked Patient has bt 01/19/19 08:30 Attending/Attestation - Attestation I have personally seen and examined this patient.: Yes I have fully participated in the care of the patient.: Yes I have reviewed all pertinent clinical information, including history, physical exam and plan: Yes Notes (Text): 01/22/19 08:05 Patient was seen and examined with medical assistant dermatology. 73 year old female with past medical history of stage IV ovarian carcinoma, malignant ascites, LLE DVTs on oral anticoagulation with warfarin, HTN, DM was admitted with sepsis due to HCAP Pneumonia, coagulopathy and worsening anemia. BPatient was treated with broad spectrum antibiotics as per ID. She is SP FFP, INR has come down , was started on heparin drip due to H/O DVT. Patient condition did not improve.Hospice consult was obtained.Family has decided to go for comfort measures.This was discussed in detail with family. Patient has started on hospice and comfort measures Patient is DNR/DNI Prognosis is guarded.
[2019-01-23 07:34] LABS: TOTAL PROTEIN PERITONEAL FLUID 3.3 g/dL
== END 2019-01-21 11:20 | disposition hospice, inpatient (51) | DRG 584 ==
LOC: ED 21:11 → ERH 01-19 00:06 → ICU 01-19 02:48 → 5RNO 01-20 12:49
PROVIDERS: ADMIT Internal Medicine; ATTEND Internal Medicine
PROC: 3E0F7GC Introduction of Other Therapeutic Substance into Respiratory Tract, Via Natural or Artificial Opening (ICD-10-PCS; principal; 2019-01-20)
DX: A41.9 Sepsis, unspecified organism (principal); J18.9 Pneumonia, unspecified organism; N17.9 Acute kidney failure, unspecified; R18.0 Malignant ascites; E87.1 Hypo-osmolality and hyponatremia; E87.6 Hypokalemia; I11.0 Hypertensive heart disease with heart failure; I50.9 Heart failure, unspecified; R65.20 Severe sepsis without septic shock; C56.9 Malignant neoplasm of unspecified ovary; R62.7 Adult failure to thrive; Z66 Do not resuscitate; Z51.5 Encounter for palliative care; E86.0 Dehydration; E11.9 Type 2 diabetes mellitus without complications; E78.5 Hyperlipidemia, unspecified; F41.9 Anxiety disorder, unspecified; Y95 Nosocomial condition; R79.1 Abnormal coagulation profile; Z79.01 Long term (current) use of anticoagulants; Z86.718 Personal history of other venous thrombosis and embolism; Z90.710 Acquired absence of both cervix and uterus

== ENCOUNTER 2019-01-21 11:20 | Inpatient (IN) | payer OTHER ==
[2019-01-21] MEDS ORDERED: Morphine 2 mg/ml ISec IVP STA (11:34)
[2019-01-21] MEDS ORDERED: Morphine PCA 1 mg/ml (30ml) 30 ML IV PRN (11:35)
[2019-01-21 11:36] VITALS: BMI 31.9
[2019-01-21 16:47] VITALS: BP 120/70; PULSE 113; RESP 18; TEMP 97.2
[2019-01-21] MEDS ORDERED: Influenza Vaccine 60 mcg/0.5 mL SYR (4YR UP) IM ONE (16:47)
[2019-01-21] MEDS ORDERED: Pneumococcal 23-Valent Vaccine IM ONE (16:47)
--- NOTE | 2019-01-21 17:18 | CP.PCM.HP ---
<Daniel Lynn - Last Filed: 01/21/19 20:54> History of Present Illness - History of Present Illness History of Present Illness: Daniel Lynn, PGY1 Medicine H&P Note for Dr. Sam: Pt is a 73 yo F with pmhx of ovarian carcinoma, malignant ascites, LLE DVTs, HTN, HLD, T2DM who had presented to the [facility] for cough and fatigue which began two weeks prior. The cough was productive with white sputum and associated with subjective fever and chills. Of note, patient was diagnosed with ovarian cancer in 02/2018 and has been on multiple chemotherapeutic agents (carboplatin, taxotere, gemzar). Most recent treatment was a month ago. Patient also has recurring malignant ascites for which she has had multiple paracentesis and recent insertion of Aspira catheter. Pt was being managed in the hosptial for sepsis 2/2 HCAP, noted EMMA, supratherapuetic INR, anemia and recurrent malignant ascites. Pt was treated with FFP, fluids and abx. Pt was also tapped from the aspira cath to help the pts current symptoms. Discussions with the family was ongoing in terms of goals of care. The palliative care team was consulted and there were many discussions regarding the code status and goals of care between the family and the palliative and medical teams. The decision was made regarding making the pt comfort care and inpt hospice between the family members and the medical and palliative teams were notified. PMH: ovarian carcinoma, malignant ascites, LLE DVTs, HTN, HLD, T2DM PSH: hysterectomy SHx: denies alcohol, tobacco, illicit drug use FHx: sisters (colon cancer) Allergies: penicillin (rash, swelling) PMD: Dr. Taylor Present on Admission - Present on Admission Any Indicators Present on Admission: Yes History of DVT/PE: Yes Review of Systems - Review of Systems Systems not reviewed;Unavailable: Altered Mental Status Review of Systems: Pt is on comfort care Past Patient History - Infectious Disease Hx of Infectious Diseases: None - Tetanus Immunizations Tetanus Immunization: Unknown - Past Social History Smoking Status: Never Smoked - CARDIAC Hx Cardiac Disorders: Yes Hx Angina: No Hx Cardia Arrhythmia: Yes Hx Circulatory Problems: Yes Hx Congestive Heart Failure: Yes Hx Heart Murmur: No Hx Hypertension: Yes Hx Internal Defibrillator: No Hx Mitral Valve Prolapse: No Hx Pacemaker: No Hx Peripheral Edema: Yes Hx Peripheral Vascular Disease: No - PULMONARY Hx Respiratory Disorders: Yes Hx Asthma: No Hx Bronchitis: No Hx Chronic Obstructive Pulmonary Disease (COPD): No Hx Emphysema: No Hx Pneumonia: Yes Hx Respiratory Aspiration: No Hx Respiratory Tract Infection: No Hx Sleep Apnea: No Hx Tuberculosis: No - NEUROLOGICAL Hx Neurological Disorder: No Hx Dizziness: Yes - HEENT Hx HEENT Problems: No - RENAL Hx Chronic Kidney Disease: No Hx Dialysis: No Hx Kidney Stones: No Hx Renal Failure: Yes - ENDOCRINE/METABOLIC Hx Endocrine Disorders: Yes Hx Diabetes Mellitus Type 2: Yes Hx Hypothyroidism: Yes Hx Systemic Lupus Erythematosus: No - HEMATOLOGICAL/ONCOLOGICAL Hx Chemotherapy: Yes Hx Human Immunodeficiency Virus (HIV): No Hx Metastesis: Yes Hx Shingles: No - INTEGUMENTARY Hx Dermatological Problems: No - MUSCULOSKELETAL/RHEUMATOLOGICAL Hx Musculoskeletal Disorders: Yes Hx Falls: No Hx Rhabdomyolysis: No Hx Unsteady Gait: Yes - GASTROINTESTINAL Hx Gastrointestinal Disorders: Yes HX Swallowing Problems: Yes - GENITOURINARY/GYNECOLOGICAL Hx Genitourinary Disorders: Yes Hx Sexually Transmitted Disorders: No - PSYCHIATRIC Hx Substance Use: No - SURGICAL HISTORY Hx Surgeries: Yes Hx Amputation: No Hx Appendectomy: No Hx Cardiac Catheterization: No Hx Cholecystectomy: No Hx Coronary Stent: No Hx Gastric Bypass Surgery: No Hx Hysterectomy: Yes Hx Joint Replacement: No Hx Kidney Transplant: No Hx Liver Transplant: No Hx Musculoskeletal Surgery: No Hx Open Heart Surgery: No Hx Orthopedic Surgery: No Hx Splenectomy: No Hx Valve Replacement: No - ANESTHESIA Hx Anesthesia: Yes Hx Anesthesia Reactions: No Hx Malignant Hyperthermia: No Meds Allergies/Adverse Reactions: Allergies Allergy/AdvReac Type Severity Reaction Status Date / Time Penicillins AdvReac SHORTNESS Verified 01/21/19 12:36 OF BREATH Results - Vital Signs Recent Vital Signs: Last Vital Signs Temp 97.2 F L 01/21/19 16:20 Pulse 113 H 01/21/19 16:20 Resp 18 01/21/19 16:20 BP 120/70 01/21/19 16:20 Pulse Ox - Head Exam Head Exam: ATRAUMATIC, NORMOCEPHALIC - Eye Exam Eye Exam: EOMI, PERRL - Respiratory Exam Respiratory Exam: Decreased Breath Sounds, Rales, Rhonchi. absent: Clear to PA & Lateral - Cardiovascular Exam Cardiovascular Exam: Tachycardia, +S1, +S2. absent: Gallop, Rubs - GI/Abdominal Exam GI & Abdominal Exam: Distended, Hypoactive Bowel Sounds. absent: Tenderness Additional comments: Aspira cath in place, surrounding area showed no signs of purulent discharge or erythema. Overlying dressing looked clean, dry, intact. - Extremities Exam Extremities exam: pedal edema (2+) - Neurological Exam Neurological exam: Altered - Psychiatric Exam Additional comments: altered - Skin Skin Exam: Dry, Warm Assessment & Plan - Assessment and Plan (Free Text) Assessment: Pt is a 73 yo F with pmhx of ovarian carcinoma, malignant ascites, LLE DVTs, HTN, HLD, T2DM who had presented to the [facility] ED for cough and fatigue which began two weeks prior. The family had made the decision to make the pt comfort care. Palliative care on board. Plan: 1) Comfort Care: - Morphine drip started, will ensure drip is sufficient to control pain. - Scopolamine - Ativan q6 PRN - Will defer orders to palliative care team <Stanton Sam - Last Filed: 01/22/19 08:10> Results - Vital Signs Recent Vital Signs: Last Vital Signs Temp 97.2 F L 01/21/19 16:20 Pulse 113 H 01/21/19 16:20 Resp 18 01/21/19 16:20 BP 120/70 01/21/19 16:20 Pulse Ox Attending/Attestation - Attestation I have personally seen and examined this patient.: Yes I have fully participated in the care of the patient.: Yes I have reviewed all pertinent clinical information: Yes Notes (Text): 01/22/19 08:10 Medical record note made by the resident after discussion with my direction and input after the patient was personally seen and examined by me. I have reviewed the chart and agree that the record accurately reflects by personal performance of the history, physical exam, data review, and medical decision-making, in the course for the patient. I have also personally directed the plan of care.
--- NOTE | 2019-01-22 00:10 | CP.PCM.PRO ---
Pronouncement of Note - Clinical Findings Physical Exam: No Response Verbal/Painful Stimuli, Absent Peripheral Puls es{Carotid & Femoral}, Absent Heart & Breath Sounds, No Pupillary Light Reflex, Pupils Fixed & Dilated - Pronouncement Time Time of Pronouncement of : 23:30 - Notifications Pronouncement Notifications: Family Notified, Atending Notified Physical Instructor Notified: Yes - Autopsy Autopsy Requested: No - [place]: [id number] Additional Comments: Family at bedside. Patient on hospice service, overnight attending notified, hospitalist to be notifed in AM
--- NOTE | 2019-01-22 13:51 | CP.PCM.DIS ---
Provider - Provider Date of Admission: 01/21/19 11:20 Attending physician: Stanton Sam MD Primary care physician: Swetha Taylor MD Consults: 01/21/19 16:47 Case Management Referral Routine Comment: HOSPICE CARE Physician Instructions: Reason For Exam: EVALUATION Reason for Referral: Family And Marriage Counsellor Eval Inpatient [employer] Referral Routine Comment: Physician Instructions: Reason For Exam: EVALUATION Nursing Referral for Wound Care Routine Comment: AT RISK FOR SKIN BREAKDOWN.HOSPICE CARE.TURN/REP Physician Instructions: Reason For Exam: EVALUATION Transition In Care/Readmission Reduction Routine Comment: Physician Instructions: Reason For Exam: EVALUATION Discharge Plan - Follow Up Plan Condition: GOOD Disposition: WITH WITHOUT AUTOPSY Referrals: Swetha Taylor MD [Primary Care Provider] -
== END 2019-01-21 23:30 | DRG 871 ==
LOC: 5RNO 11:20
PROVIDERS: ADMIT Internal Medicine; ATTEND Internal Medicine
DX: A41.9 Sepsis, unspecified organism (principal); J18.9 Pneumonia, unspecified organism; N17.9 Acute kidney failure, unspecified; R18.0 Malignant ascites; C56.9 Malignant neoplasm of unspecified ovary; Z66 Do not resuscitate; Z51.5 Encounter for palliative care; I11.0 Hypertensive heart disease with heart failure; I50.9 Heart failure, unspecified; Y95 Nosocomial condition; D64.9 Anemia, unspecified; E11.9 Type 2 diabetes mellitus without complications; E78.5 Hyperlipidemia, unspecified